=== PATIENT | female | born 1960 | race Two or more races ===

== ENCOUNTER 2021-04-16 13:49 | Outpatient (REF) | payer OTHER, SELFPAY ==
[2021-04-16 15:03] LABS: MANUAL DIFF FLAG NO
[2021-04-16 15:49] LABS: Basophils Absolute Auto 0.1 X10*3/uL (0.0-0.2); Basophils Percent Auto 0.8 % (0-2); Eosinophils Absolute Auto 0.1 X10*3/uL (0.0-0.4); Eosinophils Percent Auto 1.4 % (0-4); Hematocrit 39.8 % (37.0-47.0); Imm Gran Abs Auto 0.02 X10*3/uL (0.00-0.03); Imm Gran Pct Auto 0.2 % (0.0-0.4); Lymphocytes Absolute Auto 3.1 X10*3/uL (1.2-4.9); Lymphocytes Percent Auto 37.2 % (20-40); Mean Corpuscular HGB Conc 32.7 g/dl (31.0-35.0); Mean Corpuscular Hemoglobin 28.3 pg (27.0-33.0); Mean Corpuscular Volume 86.7 fL (80.0-98.0); Mean Platelet Volume 9.9 fL (9.4-12.3); Monocytes Absolute Auto 0.6 X10*3/uL (0.1-1.2); Neutrophils Absolute Auto 4.4 x10*3/uL (2.0-8.3); Neutrophils Percent Auto 53.4 % (45-73); Platelet Count 289 X10*3/uL (160-400); Red Blood Count 4.59 X10*6/uL (4.20-5.50); Red Cell Distribution Width 14.1 % (11.0-16.0); White Blood Count 8.3 X10*3/uL (4.8-10.8)
== END 2021-04-16 13:50 | disposition home or self-care (01) ==
LOC: HO.LAB 13:49
PROVIDERS: PCP Physician Assistant; Visit Provider Internal Medicine Pulmonary Disease
DX: J44.9 Chronic obstructive pulmonary disease, unspecified (principal); R91.8 Other nonspecific abnormal finding of lung field; Z91.09 Other allergy status, other than to drugs and biological substances
CPT/HCPCS: 36415; 82785; 85025; 86003; 99202

== ENCOUNTER → 2021-08-01 12:50 | Outpatient (BNVA) | payer OTHER, SELFPAY | PROVIDERS: PCP Physician Assistant; Visit Provider Internal Medicine Pulmonary Disease | DX: J44.9 Chronic obstructive pulmonary disease, unspecified (principal) | CPT/HCPCS: 99211 ==

== ENCOUNTER → 2021-09-12 10:17 | Outpatient (BNVA) | payer OTHER, SELFPAY | PROVIDERS: PCP Physician Assistant; Visit Provider Internal Medicine Pulmonary Disease | DX: R91.8 Other nonspecific abnormal finding of lung field (principal); J44.9 Chronic obstructive pulmonary disease, unspecified; F17.210 Nicotine dependence, cigarettes, uncomplicated; Z88.8 Allergy status to other drugs, medicaments and biological substances; Z91.09 Other allergy status, other than to drugs and biological substances; Z79.52 Long term (current) use of systemic steroids; Z79.899 Other long term (current) drug therapy | CPT/HCPCS: 99212 ==

== ENCOUNTER 2021-10-29 15:31 | Outpatient (REF) | payer OTHER, SELFPAY ==
[2021-10-29 17:31] LABS: T4 Thyroxine 5.6 ug/dL (4.5-12.0)
== END 2021-10-29 15:32 | disposition home or self-care (01) ==
LOC: HO.LAB 15:31
PROVIDERS: PCP Physician Assistant; Visit Provider Psychiatry & Neurology Neurology
DX: G25.0 Essential tremor (principal)
CPT/HCPCS: 36415; 84436; 84443

== ENCOUNTER → 2022-02-04 13:29 | Outpatient (BNVA) | payer OTHER, SELFPAY | PROVIDERS: PCP Physician Assistant; Visit Provider Internal Medicine Pulmonary Disease | DX: J44.9 Chronic obstructive pulmonary disease, unspecified (principal); R91.8 Other nonspecific abnormal finding of lung field; Z91.09 Other allergy status, other than to drugs and biological substances | CPT/HCPCS: 99212 ==

== ENCOUNTER → 2022-08-13 13:12 | Outpatient (BNVA) | payer OTHER, SELFPAY | PROVIDERS: PCP Physician Assistant; Visit Provider Internal Medicine Pulmonary Disease | DX: J44.9 Chronic obstructive pulmonary disease, unspecified (principal); Z91.09 Other allergy status, other than to drugs and biological substances | CPT/HCPCS: 99212 ==

== ENCOUNTER → 2022-11-05 14:27 | Outpatient (BNVA) | payer MEDICAID, SELFPAY | PROVIDERS: PCP Physician Assistant; Visit Provider Nurse Practitioner Family | DX: J44.1 Chronic obstructive pulmonary disease with (acute) exacerbation (principal) | CPT/HCPCS: 94640; 99212 ==

== ENCOUNTER → 2022-12-03 12:20 | Outpatient (BNVA) | payer MEDICAID, SELFPAY | PROVIDERS: PCP Physician Assistant; Visit Provider Nurse Practitioner Family | DX: Z01.811 Encounter for preprocedural respiratory examination (principal); J44.9 Chronic obstructive pulmonary disease, unspecified | CPT/HCPCS: 99212 ==

== ENCOUNTER 2023-02-18 13:19 | Outpatient (AMB) | payer MEDICAID, SELFPAY ==
[2023-02-18 13:32] VITALS: BP 127/67; PULSE 67; O2SAT 97; BMI 32.9
--- NOTE | 2023-02-18 13:32 | MHC.OFFVIS ---
Intake Vital Signs 02/18/23 13:32 Height 5 ft 3 in Weight 186 lb BMI 32.9 BP 127/67 Blood Pressure Location Rt brachial Position Sitting Pulse 67 Pulse Source Doppler Pulse Oximetry (%) 97 Oxygen Delivery Method Room Air Intake Visit Reasons: dupixent discussion Allergies doxycycline Allergy (Mild, Verified 02/18/23 13:34) Unknown lamotrigine Allergy (Mild, Verified 02/18/23 13:34) Unknown metoclopramide Allergy (Mild, Verified 02/18/23 13:34) Unknown HPI dupixent discussion HPI Details 62-year-old lady, active 30+ pack-year smoker, with underlying history of lupus on Plaquenil, now followed for asthma/COPD overlap syndrome.? Patient continues to use Dupixent, Trelegy, Singulair, albuterol MDI, and p.r.n. prednisone 10 mg daily.? Here follow-up CT chest demonstrated no worrisome pulmonary nodules. She denies any recent exacerbations. [facility] Social History Patient Tobacco Use Status: Current everyday Tobacco user Cigarette Packs Per Day: 0.33 Cigarettes Per Day: 6 Review of Systems Const Denies daytime sleepiness, Denies excessive sweating, Denies fatigue, Denies fever(s), Denies lethargy, Denies malaise, Denies night sweats, Denies snoring and Denies weight loss Eyes Denies blurry vision and Denies itchy eyes ENT Denies nasal congestion, Denies post nasal drip, Denies sinus pain, Denies sinus pressure and Denies other ( Thrush) Card Denies chest pain, Denies pedal edema, Denies dyspnea, Denies orthopnea and Denies paroxysmal nocturnal dyspnea Resp Denies cough, Denies hemoptysis, Denies excessive phlegm production, Denies dyspnea, Denies snoring and Denies wheezing GI Denies abdominal pain and Denies heartburn Musc Denies myalgias, Denies arthralgias and Denies joint swelling Skin/Breast Denies rash Neuro Denies memory loss and Denies seizure-like activity Psych Denies abnormal sleep pattern, Denies anxiety and Denies memory loss Endo Denies excessive sweating, Denies fatigue and Denies heat intolerance Moncho/Lymph Denies easy bruising Aller/Immun Denies itchy eyes, Denies seasonal rhinorrhea and Denies wheezing Physical Exam Vital Signs: Last Vital Signs Pulse 67 02/18/23 13:32 BP 127/67 02/18/23 13:32 Pulse Ox 97 02/18/23 13:32 Oxygen Delivery Method Room Air 02/18/23 13:32 BMI result Body Mass Index 32.9 Const General: no acute distress and alert Nutritional Appearance: not obese Orientation/consciousness: Other orientation findings ( oriented) HEENT Head: Yes atraumatic Eyes General: appearance normal, both eyes and all related structures Sclerae: sclerae normal EOM: EOMs intact bilaterally Neck Neck: Yes supple Lymphatic: no lymphadenopathy noted Resp Effort & Inspection: normal respiratory effort and no use of accessory muscles Auscultation: clear to auscultation bilaterally Cardio Rate: regular rate Rhythm: regular rhythm Heart sounds: no gallops, no murmurs and no rubs Skin General skin exam: other ( warm) Extrem General: No clubbing, No cyanosis and No edema Assessment & Plan Assessment & Plan (1) Asthma-COPD overlap syndrome: Code(s): J44.9 - Chronic obstructive pulmonary disease, unspecified Plan: Well controlled on current regimen of Dupixent, trilogy, and albuterol MDI/nebs. Continue current regimen. (2) Pulmonary nodules: Code(s): R91.8 - Other nonspecific abnormal finding of lung field Plan: Follow-up CT chest review, no worrisome nodules. Continue with yearly screening, next in April of 2023. Coding Level of Care Code Est Pt Level 4 (77232) Diagnoses Asthma-COPD overlap syndrome J44.9 Pulmonary nodules R91.8
== END 2023-02-18 13:51 | disposition home or self-care (01) ==
PROVIDERS: PCP Physician Assistant; Visit Provider Internal Medicine Pulmonary Disease
DX: J44.9 Chronic obstructive pulmonary disease, unspecified (principal); R91.8 Other nonspecific abnormal finding of lung field
CPT/HCPCS: 99214

== ENCOUNTER → 2023-02-18 13:19 | Outpatient (BNVA) | payer MEDICAID, SELFPAY | PROVIDERS: PCP Physician Assistant; Visit Provider Internal Medicine Pulmonary Disease | DX: J44.9 Chronic obstructive pulmonary disease, unspecified (principal); R91.8 Other nonspecific abnormal finding of lung field | CPT/HCPCS: 99212 ==

== ENCOUNTER 2023-10-22 15:28 | Outpatient (REF) | payer MEDICAID, SELFPAY | END 2023-10-22 15:29 | disposition home or self-care (01) | LOC: HO.SH 15:28 | PROVIDERS: Visit Provider Physician Assistant | DX: H91.93 Unspecified hearing loss, bilateral (principal) | CPT/HCPCS: 92557; 92567 ==

== ENCOUNTER 2024-06-21 13:54 | Outpatient (AMB) | payer MEDICAID, SELFPAY ==
--- NOTE | 2024-06-21 13:57 | MHC.OFFVIS ---
Vital Signs 06/21/24 14:10 Height 5 ft 3 in Weight 186 lb BMI 32.9 BP 138/77 Blood Pressure Location Rt brachial Position Sitting Pulse 61 Pulse Source Doppler Pulse Oximetry (%) 96 Oxygen Delivery Method Room Air Intake Visit Reasons: Asthma-COPD overlap syndrome Steel Unloader Required: Yes Steel Unloader Name: Petra Cristino Galan Allergies doxycycline Allergy (Mild, Verified 06/21/24 14:16) Unknown lamotrigine Allergy (Mild, Verified 06/21/24 14:16) Unknown metoclopramide Allergy (Mild, Verified 06/21/24 14:16) Unknown HPI HPI Asthma-COPD overlap syndrome: Details: 63-year-old lady, active 30+ pack-year smoker, with underlying history of lupus on Plaquenil, now followed for asthma/COPD overlap syndrome.? Patient continues to use Dupixent, Trelegy, Singulair, albuterol MDI, and p.r.n. prednisone 10 mg daily.? She recently has been hospitalized at [facility] for an acute exacerbation secondary to influenza. She has recovered, albeit not completely and now complains of persistent dry cough. [facility]END[facility] Social History Patient Tobacco Use Status: Current everyday Tobacco user Cigarette Packs Per Day: 0.33 Cigarettes Per Day: 6 Review of Systems Const Denies daytime sleepiness, Denies excessive sweating, Denies fatigue, Denies fever(s), Denies lethargy, Denies malaise, Denies night sweats, Denies snoring and Denies weight loss Eyes Denies blurry vision and Denies itchy eyes ENT Denies nasal congestion, Denies post nasal drip, Denies sinus pain, Denies sinus pressure and Denies other ( Thrush) Card Denies chest pain, Denies pedal edema, Denies dyspnea, Denies orthopnea and Denies paroxysmal nocturnal dyspnea Resp Reports cough, Denies hemoptysis, Denies excessive phlegm production, Denies dyspnea, Denies snoring and Reports wheezing GI Denies abdominal pain and Denies heartburn Musc Denies myalgias, Denies arthralgias and Denies joint swelling Skin/Breast Denies rash Neuro Denies memory loss and Denies seizure-like activity Psych Denies abnormal sleep pattern, Denies anxiety and Denies memory loss Endo Denies excessive sweating, Denies fatigue and Denies heat intolerance Moncho/Lymph Denies easy bruising Aller/Immun Denies itchy eyes, Denies seasonal rhinorrhea and Reports wheezing Physical Exam Vital Signs: Last Vital Signs Pulse 61 06/21/24 14:10 BP 138/77 06/21/24 14:10 Pulse Ox 96 06/21/24 14:10 Oxygen Delivery Method Room Air 06/21/24 14:10 BMI result Body Mass Index 32.9 Const General: no acute distress and alert Nutritional Appearance: not obese Orientation/consciousness: Other orientation findings ( oriented) HEENT Head: Yes atraumatic Eyes General: appearance normal, both eyes and all related structures Sclerae: sclerae normal EOM: EOMs intact bilaterally Neck Neck: Yes supple Lymphatic: no lymphadenopathy noted Resp Effort & Inspection: normal respiratory effort and no use of accessory muscles Auscultation: clear to auscultation bilaterally Cardio Rate: regular rate Rhythm: regular rhythm Heart sounds: no gallops, no murmurs and no rubs Skin General skin exam: other ( warm) Extrem General: No clubbing, No cyanosis and No edema Assessment & Plan Assessment & Plan (1) Asthma-COPD overlap syndrome: Code(s): J44.9 - Chronic obstructive pulmonary disease, unspecified Category: Medical Plan: Baseline controlled on Dupixent, Trelegy and albuterol MDI/nebs. Continue current regimen. Still with ongoing exacerbation, will treat with a course of azithromycin/prednisone. (2) Environmental allergies: Code(s): Z91.09 - Other allergy status, other than to drugs and biological substances Category: Medical Plan: Well controlled on Dupixent. Continue current regimen. (3) Personal history of nicotine dependence: Code(s): Z87.891 - Personal history of nicotine dependence Category: Medical Plan: Will obtain lung cancer screening CT chest. Medications: New prednisone 40 mg (2 x 20 mg) PO DAILY 10 tabs 0RF azithromycin For 250 mg dose pack: take 500 mg today (day 1), then 250 mg for 4 days (days 2-5) PO 6 tabs 0RF Changed From albuterol sulfate 90 mcg/actuation (ProAir HFA) 2 puffs inhalation Q6H PRN 8.5 grams 6RF shortness of breath or wheezing To albuterol sulfate 90 mcg/actuation 2 puffs inhalation Q6H PRN 8.5 grams 6RF shortness of breath or wheezing Refilled albuterol sulfate 2.5 mg (3 mL) inhalation QID 90 mL 3RF pdoycdixhbs-bxutrhnxh-zwjgrgki 100-62.5-25 mcg (Trelegy Ellipta) 1 inh inhalation DAILY 60 ea 6RF dupilumab (Dupixent) 300 mg (2 mL) subcut Q2W 4 mL 12RF Discontinued prednisone Take 4 pills daily for 7 days, then go down by 1 pill every 7 days Discontinued Reason: Doctor's Order 10 mg PO DIRECTED 28 days 28 tabs 0RF Coding Level of Care Code Est Pt Level 4 (22638) Complex EM visit Add On G2211 Diagnoses Asthma-COPD overlap syndrome J44.9 Environmental allergies Z91.09 Personal history of nicotine dependence Z87.891
[2024-06-21 14:10] VITALS: BP 138/77; PULSE 61; O2SAT 96; BMI 32.9
== END 2024-06-21 14:25 | disposition home or self-care (01) ==
PROVIDERS: PCP Physician Assistant; Visit Provider Internal Medicine Pulmonary Disease
DX: J44.9 Chronic obstructive pulmonary disease, unspecified (principal); Z91.09 Other allergy status, other than to drugs and biological substances; Z87.891 Personal history of nicotine dependence
CPT/HCPCS: 99214

== ENCOUNTER → 2024-06-21 13:54 | Outpatient (BNVA) | payer MEDICAID, SELFPAY | PROVIDERS: PCP Physician Assistant; Visit Provider Internal Medicine Pulmonary Disease | DX: J44.89 Other specified chronic obstructive pulmonary disease (principal); F17.210 Nicotine dependence, cigarettes, uncomplicated; Z91.09 Other allergy status, other than to drugs and biological substances | CPT/HCPCS: 99212 ==

== ENCOUNTER 2024-07-27 13:59 | Outpatient (AMB) | payer MEDICAID, SELFPAY ==
[2024-07-27 14:01] VITALS: BP 132/62; PULSE 71; O2SAT 96; BMI 33.1
--- NOTE | 2024-07-27 14:01 | MHC.OFFVIS ---
Vital Signs 07/27/24 14:01 Height 5 ft 3 in Weight 187 lb BMI 33.1 BP 132/62 Blood Pressure Location Lt brachial Position Sitting Pulse 71 Pulse Source Doppler Pulse Oximetry (%) 96 Oxygen Delivery Method Room Air Intake Visit Reasons: Asthma-COPD overlap syndrome Grinding Machine Operator Required: Yes Grinding Machine Operator Name: Petra Cristino Galan Allergies doxycycline Allergy (Mild, Verified 06/21/24 14:16) Unknown lamotrigine Allergy (Mild, Verified 06/21/24 14:16) Unknown metoclopramide Allergy (Mild, Verified 06/21/24 14:16) Unknown HPI HPI Asthma-COPD overlap syndrome: Details: 63-year-old lady, active 30+ pack-year smoker, with underlying history of lupus on Plaquenil, now followed for asthma/COPD overlap syndrome.? Patient continues to use Dupixent, Trelegy, Singulair, albuterol MDI, and p.r.n. prednisone 10 mg daily.? She denies recent exacerbations. However, she does complain of worsening lower extremity edema, orthopnea, and paroxysmal nocturnal dyspnea. [facility] Social History Patient Tobacco Use Status: Current everyday Tobacco user Cigarette Packs Per Day: 0.33 Cigarettes Per Day: 6 Review of Systems Const Denies daytime sleepiness, Denies excessive sweating, Denies fatigue, Denies fever(s), Denies lethargy, Denies malaise, Denies night sweats, Denies snoring and Denies weight loss Eyes Denies blurry vision and Denies itchy eyes ENT Denies nasal congestion, Denies post nasal drip, Denies sinus pain, Denies sinus pressure and Denies other ( Thrush) Card Denies chest pain, Reports pedal edema, Denies dyspnea, Denies dyspnea on exertion, Reports orthopnea and Reports paroxysmal nocturnal dyspnea Resp Denies cough, Denies hemoptysis, Denies excessive phlegm production, Denies dyspnea, Denies dyspnea on exertion, Denies snoring and Denies wheezing GI Denies abdominal pain and Denies heartburn Musc Denies myalgias, Denies arthralgias and Denies joint swelling Skin/Breast Denies rash Neuro Denies memory loss and Denies seizure-like activity Psych Denies abnormal sleep pattern, Denies anxiety and Denies memory loss Endo Denies excessive sweating, Denies fatigue and Denies heat intolerance Moncho/Lymph Denies easy bruising Aller/Immun Denies itchy eyes, Denies seasonal rhinorrhea and Denies wheezing Physical Exam Vital Signs: Last Vital Signs Pulse 71 07/27/24 14:01 BP 132/62 07/27/24 14:01 Pulse Ox 96 07/27/24 14:01 Oxygen Delivery Method Room Air 07/27/24 14:01 BMI result Body Mass Index 33.1 Const General: no acute distress and alert Nutritional Appearance: not obese Orientation/consciousness: Other orientation findings ( oriented) HEENT Head: Yes atraumatic Eyes General: appearance normal, both eyes and all related structures Sclerae: sclerae normal EOM: EOMs intact bilaterally Neck Neck: Yes supple Lymphatic: no lymphadenopathy noted Resp Effort & Inspection: normal respiratory effort and no use of accessory muscles Auscultation: clear to auscultation bilaterally Cardio Rate: regular rate Rhythm: regular rhythm Heart sounds: no gallops, no murmurs and no rubs Skin General skin exam: other ( warm) Extrem General: No clubbing, No cyanosis and Yes edema (1+ bilateral) Assessment & Plan Assessment & Plan (1) Asthma-COPD overlap syndrome: Code(s): J44.9 - Chronic obstructive pulmonary disease, unspecified Category: Medical Plan: Well controlled current regimen of Dupixent, Trelegy, duo nebs, and albuterol MDI. (2) Environmental allergies: Code(s): Z91.09 - Other allergy status, other than to drugs and biological substances Category: Medical Plan: Well controlled on Dupixent. Continue current regimen. (3) Personal history of nicotine dependence: Code(s): Z87.891 - Personal history of nicotine dependence Category: Medical Plan: Lung cancer screening CT chest ordered. (4) Orthopnea: Code(s): R06.01 - Orthopnea Category: Medical Plan: Worsening orthopnea and paroxysmal nocturnal dyspnea symptoms. Will start on Lasix 40 mg daily and reassess symptoms in 1 week. Medications: New furosemide 40 mg PO QAM 7 tabs 0RF Coding Level of Care Code Est Pt Level 4 (77748) Complex EM visit Add On G2211 Diagnoses Asthma-COPD overlap syndrome J44.9 Environmental allergies Z91.09 Personal history of nicotine dependence Z87.891 Orthopnea R06.01
--- OUTSIDE RECORDS SUMMARY | 2024-07-27 14:16 | XMS_ITS | Encounter Summary ---
Author Organization [facility] Address [address] [place] [address] Care Team Providers Care Service Tech/Welder Name Role Phone Quiana Rg PA-C Primary Care Provider Encounter Details Date Type Department Care Team (Latest Contact Info) Description 06/28/2024 Travel Social History Tobacco Use Types Packs/Day Years Used Date Smoking Tobacco: Former Cigarettes 0.5 40.7 S tarted: 11/02/1983 Passive Smoke Exposure: Never Smokeless Tobacco: Never Alcohol Use Standard Drinks/Week Comments No 0 (1 standard drink = 0.6 oz pur e alcohol) Social Connections Answer Date Recorded Connectedness 1 06/28/2024 Financial Resource Strain Answer Date R ecorded Financial Resource Strain 1 2024 Stress Answer Date Recorded Stress 1 06/28/2024 Physical Activity Answer Date Recorded Physical Activity 0 01/24/2019 Food Insecurity Answer Date Recorded Food 1 06/28/2024 Transportation Needs Answer Date Record ed Transportation 1 06/28/2024 Housing Stability Answer Date Recorded Housing 1 06/28/2024 Safety and Environment Answer Date Antwon rded Safety 1 10/09/2023 Utilities Answer Date Recorded Utilities 1 06/28/2024 Employment Answer Date Recorded Stress 0 08/26/2021 Comments No Sex and Gender Information Value Date Recorded Sex Assigned at Female 04/21/2017 12:18 PM PST Legal Sex Female 11:36 AM PDT Gender Identity Female 04/21/2017 12:18 PM PST Sexual Orientation Don't know 04/21/2017 12 :18 PM PST COVID-19 Exposure Response Date Recorded In the last 10 days, have yo u been in contact with someone who was confirmed or suspected to have Coronavirus/COVID-19? No / Unsure 06/28/2024 2:03 PM EST documented as of this encounter Plan of Treatment Upcoming Encounters Date Type Department Care Team (Late st Contact Info) Description 09/09/2024 1:20 PM EDT Office Visit [address] [phone] Quiana Rg PA-C [address] [place] [phone] documented as of this encounter Visit Diagnoses Not on filedocumented in this encounter Additional Health Concerns Assessment Noted Time PHQ-9 Depression Total Score: 5 06/28/19 25 2:12 PM PST documented as of this encounter Care Teams Service Tech/Welder Relationship Specialty Start Date End Date Quiana Rg PA-C [address] [place] [phone] PCP - General Internal Medicine 11/14/13 documented as of this encounter
--- OUTSIDE RECORDS SUMMARY | 2024-07-27 14:16 | XMS_ITS | Clinical Summary ---
Author Organization [employer] Address [address] [place] [address] [address] [place] [address] Care Team Providers Care Compliance Engineer Name Role Phone Unavailable Primary Care Provider Unavailabl e Social History Tobacco Use Types Packs/Day Years Used Date Smoking Tobacco: Never Assessed Comments Unknown Sex and Gender Information Value Date Recorded Sex Assigned at Female 04/07/2022 10:25 AM EDT Legal Sex Female 10:25 AM EDT Gender Identity Not on file Sexual Orientation Not on file Last Filed Vital Signs Vital Sign Reading Time Taken Comments Blood Pressure 150/80 06/28/2019 12:01 AM EST Pulse 70 06/28/2019 12:01 AM EST Temperature - - Respiratory Rate - - Oxygen Saturation - - Inhaled Oxygen Concentration - - Weight - - Height - - Body Mass Index - - Plan of Treatment Health Maintenance Due Date Last Done Comments CT Colonography 1961 Colonoscopy 1961 Colorectal Cancer Screening 1961 Depression Screening 1961 FIT DNA/Cologuard 1961 FIT 1961 FOBT 1961 Sigmoidoscopy 1961 Alcohol/Substance Use Screening 1973 Tobacco Screening 1973 DTaP/Tdap/Td Vaccines (1 - Tdap) 1980 Pap Smear 1982 Cervical Cancer Screening 11/02/1991 HPV/Cotest 11/02/1991 Mammogram 2001 Pneumococcal Vaccine: 50+ Ye ars (1 of 1 - PCV) 11/02/2011 Zoster Vaccines (1 of 2) 11/02/2011 COVID-19 Vaccine ( - 2023-2 5 season) 2024 Influenza Vaccine (#1) 2024 RSV Patients and Pa tients Aged 60 years or older (1 - 1-dose 75+ series) 2036 HIB Vaccines Aged Out No longer eligi ble based on patient's age to complete this topic HPV Vaccines Aged Out No longer eligi ble based on patient's age to complete this topic Hepatitis A Vaccines Aged Out No long er eligible based on patient's age to complete this topic Hepatitis B Vaccines Aged Out No long er eligible based on patient's age to complete this topic IPV Vaccines Aged Out No longer eligi ble based on patient's age to complete this topic Meningococcal Vaccine Aged Out No peng maria guadalupe eligible based on patient's age to complete this topic Pneumococcal Vaccine: Pediat rics (0 to 5 Years) and At-Risk Patients (6 to 49) Years) Aged Out No longer eligible b ased on patient's age to complete this topic RSV under 20 months Aged Out No longe r eligible based on patient's age to complete this topic Rotavirus Vaccines Aged Out No longer eligible based on patient's age to complete this topic
--- OUTSIDE RECORDS SUMMARY | 2024-07-27 14:16 | XMS_ITS | Data Portability ---
Author Organization [place] [facility], Allergy Address [address] [facility] [address] [place] [address] Care Team Providers Care Sales Program Manager Name Role Phone KOSTA BIRMINGHAM Referring Provider [phone] Assessment No assessment recorded. Plan of Treatment Reminders Order Date Submit Date Provider Last Modified By Organization Details Last Modified Time Details Appointments Hearing Test 2024 09:30A M Hearing Test Not available Not available Not available Establish ed 30 2024 10:30A M ADRIANA Quach MD Not available Not available Not available Lab None recorded. Referral None recorded. Procedures None recorded. Surgeries None recorded. Imaging None recorded. Medication Orders clotrimaz ole 1 % topical solution 2023 024 [id number], [address] [facility], [place], [place], [id number], 02/03/2024 09:37:45 Patient TargetsNo targets recorded. Patient InstructionsNo instructions recorded. Reason for Referral None Reported. Results Created Date Observation Date Name Description Value Unit Range Abnormal Flag Note LastModifiedBy Organization Detail LastModifiedTime 01/27/20 24 05/22/2021 imagi ng/di agnos tic resul t No observ ation record ed. [email or web address] Not Available 21:58:02 Result Notes None recorded. Problems Name Problem SNOMED Code Status Onset Date Resolution Date Notes Provider Name and Address Organization Details Recorded Time Dizziness and giddiness 227552866 Active 2020 Dizziness and giddiness; Note: Date Diagnosed: 03/27/2021 2:37 PM (R42) Not Available [facility] 08/02/202 4 03:30:07 Disorder of smell 446855531 Active 2020 Unspecifie d disturbanc es of smell and taste; Note: Date Diagnosed: 03/27/2021 2:37 PM (R43.9) Not Available [facility] 4 03:30:07 Disorder of taste 504097767 Active 2020 Unspecifie d disturbanc es of smell and taste; Note: Date Diagnosed: 03/27/2021 2:37 PM (R43.9) Not Available [facility] hospital 4 03:30:07 Eczema of external auditory canal 42963438 Active 2023 ADRIANA BRIDGES MD [address] [place] [address],[place] [address], [place], [address] , [facility] - [facility] 4 08:57:45 Sensorine ural hearing loss of bilateral ears 861679599 Active 2023 ADRIANA BRIDGES MD [address] [place] [address], [place], [address] , [facility] - [facility] [place] 4 08:57:50 Chronic mycotic otitis externa 817257150 Active 2023 ADRIANA BRIDGES MD [address] [place] [address], [place], [address] , [facility] - [facility] [place] 4 09:00:19 Dermal mycosis 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 Active 2023 ADRIANA BRIDGES MD [address] [place] [address], [place], [address] , [facility] - [facility] [place] 4 09:00:19 Candidal otitis externa 98045948 Active 2023 ADRIANA BRIDGES MD [address] [place], [place] [address], [address] , [facility] - [facility] [place] 4 09:00:19 Mixed conductiv e AND sensorine ural hearing loss 30240677 Active 2023 ADRIANA BRIDGES MD [address] [place] [address], [place], [address] , [facility] 09:35:49 Problem Notes None recorded. Procedures Surgical History Date Name Laterality Status Provider Name and Address Organization Details Recorded Time 02/03/2024 NasalEndos copy_DP completed ADRIANA BRIDGES MD [address] [place] [address], [phone], [place] [facility] 02/03/2024 09:05:14 Imaging Results Imaging Date Name Status LastModified by Organiz ation Details LastModified Time 05/22/2021 imaging/diag nostic result completed [email or web address] Information not available 01/27/2024 21:58:02 Procedure Notes None recorded. Medical Equipment None Reported. Medications Name Sig Start Date Stop Date Status Note LastModified by Organization Details LastModified Time celecoxib 200 mg capsule active Medicati on ID: [id number] B rand Name: celecoxi b Send Method: E-Prescr ibed Sub s Allowed: subs OK Speci al Instruct ion: TAKE 1 CAPSULE BY MOUTH TWICE DAILY Me dication GenericN eduar: celecoxi b Not Available Not Available Not Available primidone 50 mg tablet TAKE 1 TABLET BY MOUTH EVERY DAY AT BEDTIME active Not Available Not Available No t Available nystatin 100,000 unit/mL oral suspensio n active Medicati on ID: [id number] B rand Name: nystatin Send Method: E-Prescr ibed Sub s Allowed: subs OK Speci al Instruct ion: SWISH AND SWALLOW 10ML THREE TIMES DAILY Me dication GenericN eduar: nystatin Not Available Not Available Not Available gabapenti n 600 mg tablet TAKE 1 TABLET BY MOUTH THREE TIMES DAILY active Not Available Not Available No t Available tizanidin e 2 mg tablet TAKE 1 TABLET BY MOUTH THREE TIMES DAILY NEEDED FOR SPASMS active Not Available Not Available No t Available albuterol sulfate 2.5 mg/3 mL (0.083 %) solution for nebulizat ion active Not Available Not Available Not Available loperamid e 2 mg capsule TAKE 1 CAPSULE BY MOUTH FOUR TIMES DAILY NEEDED FOR DIARRHEA active Not Available Not Available No t Available azithromy garry 250 mg tablet TAKE 1 TABLET BY MOUTH DAILY FOR 10 DAYS active Not Available Not Available No t Available ibuprofen 800 mg tablet TAKE 1 TABLET BY MOUTH THREE TIMES DAILY NEEDED FOR PAIN active Not Available Not Available No t Available meloxicam 15 mg tablet TAKE 1 TABLET BY MOUTH active Not Available Not Available No t Available oxcarbaze pine 300 mg tablet TAKE 1 TABLET BY MOUTH THREE TIMES DAILY active Not Available Not Available No t Available amlodipin e 5 mg tablet TAKE 1 TABLET BY MOUTH DAILY active Not Available Not Available No t Available sulfameth oxazole 800 mg-trimet hoprim 160 mg tablet TAKE 1 TABLET BY MOUTH TWICE DAILY FOR 5 DAYS active Not Available Not Available No t Available omeprazol e 40 mg capsule,d elayed release TAKE 1 CAPSULE BY MOUTH DAILY active Not Available Not Available No t Available tramadol 50 mg tablet TAKE 1 TABLET BY MOUTH TWICE DAILY active Not Available Not Available No t Available ketorolac 0.5 % eye drops active Not Available Not Available Not Available oxycodone -acetamin ophen 5 mg-325 mg tablet TAKE 1 TABLET BY MOUTH EVERY 6 HOURS NEEDED FOR PAIN DO NOT DRIVE WHILE TAKING THIS MEDICATI ON active Not Available Not Available No t Available amoxicill in 875 mg tablet TAKE 1 TABLET BY MOUTH TWICE DAILY FOR 10 DAYS 02/02 completed Not Available Not Available Not Available erythromy garry 5 mg/gram (0.5 %) eye ointment APPLY A SMALL AMOUNT INTO BOTH EYES FOUR TIMES DAILY TO INCISION SITE FOR 1 WEEK THEN STOP active Not Available Not Available No t Available Banophen 25 mg tablet TAKE 1 TABLET BY MOUTH TWICE DAILY NEEDED active Not Available Not Available No t Available neomycin- polymyxin -dexameth 3.5 mg/mL-10, 000 unit/mL-0 .1% eye drops SHAKE LIQUID AND INSTILL 1 DROP IN BOTH EYES FOUR TIMES DAILY active Not Available Not Available No t Available buspirone 10 mg tablet TAKE 1 TABLET BY MOUTH TWICE DAILY FOR ANXIETY active Not Available Not Available No t Available lidocaine 5 % topical patch APPLY 2 PATCHES TO THE TO THE AFFECTED AREA FOR 12 HOURS THEN REMOVE FOR 12 HOURS active Not Available Not Available No t Available promethaz ine 25 mg tablet TAKE 1 TABLET BY MOUTH EVERY 8 HOURS NEEDED FOR NAUSEA active Not Available Not Available No t Available clotrimaz ole 1 % topical solution APPLY 4 DROPS TO THE AFFECTED AREA ON EAR THREE TIMES DAILY FOR 2 WEEKS active Not Available Not Available No t Available docusate sodium 100 mg capsule TAKE 1 CAPSULE BY MOUTH TWICE DAILY NEEDED FOR CONSTIPA TION active Not Available Not Available No t Available pseudoeph edrine 30 mg tablet TAKE 1 TABLET BY MOUTH EVERY MORNING active Not Available Not Available No t Available monteluka st 10 mg tablet active Medicati on ID: [id number] B alexandru Name: paul layton Send Method: E-Prescr ibed Sub s Allowed: subs OK Speci al Instruct ion: TAKE 1 TABLET BY MOUTH AT BEDTIME Medicati onGeneri cName: monteluk ast Not Available Not Available Not Available hydroxych loroquine 200 mg tablet TAKE 1 TABLET BY MOUTH TWICE DAILY active Not Available Not Available No t Available zolpidem 10 mg tablet TAKE 1 TABLET BY MOUTH AT BEDTIME NEEDED active Not Available Not Available No t Available methylpre dnisolone 4 mg tablets in a dose pack FOLLOW PACKAGE DIRECTIO NS active Not Available Not Available No t Available piroxicam 20 mg capsule TAKE 1 CAPSULE BY MOUTH DAILY active Not Available Not Available No t Available loratadin e 10 mg tablet TAKE 1 TABLET BY MOUTH EVERY DAY AT BEDTIME active Not Available Not Available No t Available oxycodone 5 mg tablet TAKE 1 TABLET BY MOUTH EVERY 6 HOURS NEEDED FOR MODERATE PAIN active Not Available Not Available No t Available moxifloxa garry 0.5 % eye drops INSTILL 1 DROP IN BOTH EYES THREE TIMES DAILY active Not Available Not Available No t Available rosuvasta tin 20 mg tablet TAKE 1 TABLET BY MOUTH EVERY NIGHT AT BEDTIME active Not Available Not Available No t Available duloxetin e 60 mg capsule,d elayed release TAKE 1 CAPSULE BY MOUTH TWICE DAILY active Not Available Not Available No t Available oxycodone 10 mg tablet TAKE 1 TABLET BY MOUTH EVERY 4 TO 6 HOURS NEEDED FOR PAIN. DO NOT DRIVE WHILE TAKING THIS MEDICATI ON active Not Available Not Available No t Available melatonin 10 mg-lemon balm leaf extract 1 mg tablet TAKE 1 TABLET BY MOUTH AT BEDTIME FOR SLEEP active Not Available Not Available No t Available naloxone 4 mg/actuat ion nasal spray INSERT 1 SPRAY INTO THE NOSTRILS NEEDED FOR OPIOID REVERSAL active Not Available Not Available No t Available Trelegy Ellipta 100 mcg-62.5 mcg-25 mcg powder for inhalatio n INHALE 1 PUFF BY MOUTH DAILY active Not Available Not Available No t Available Dupixent 300 mg/2 mL subcutane ous pen injector active Not Available Not Available Not Available Flowflex COVID-19 Antigen Home Test kit TEST DIRECTED TODAY active Not Available Not Available No t Available Vitals Date Recorded Body height Body mass index (BMI) Body weight Provider Name and Address Organization Details Last Updated DateTime 02/03/2024 160.02 cm 32.8 kg/m2 75435.59 g Pardeep [place] [facility] 02/03/2024 08:43:41 Social History None recorded. Functional Status None recorded. Mental Status None recorded. Family History Nothing Reported. Medical History No medical history recorded. Gynecological HistoryNo gynecological history recorded. Obstetrics History GPAL:G 0 P 0 0 0 0 Past Encounters Encounter ID Performer Location Encounter Start Date Encounter Closed Date Diagnosis/Indication Diagnosis SNOMED-CT Code Diagnosis ICD10 Code Diagnosis Note [id number] ADRIANA BRIDGES MD [facility] [address] [address] 02/03/2024 08:22:53 02/03/2024 09:43:47 Eczema of external auditory canal 21734284 H60.549 She has eczema in her EAC. I will send clotrimazo le to use when her ears are itchy. Disorder of smell 230828 005 R43.9 Nasal endo negative for polyps. Will obtain labs of factors which can affect sense of smell. F/u thereafter . Mixed cond uctive AND sensorineural hearing loss 96560351 H90.8 Has mixed los AD. TM is retracted. Long history of ETD (used to see Dr. Jain and had MxT). Recommend observatio n. She has asymmetric SNHL as well. She can't have an MRI due to a nerve stimulator she says. I recommend serial audiograms to make sure the hearing asymemtry is stable. F/u in October for repeat audio. I gave medical clearance for hearing aids. F/u 10/2024 with audio. Health Concerns Section Related Observation LastModified by Organization Detai ls LastModified Time None Recorded Concern Status LastModified by Organization Details LastModified Time None Recorded Advance Directives Directive None Recorded Payers Encounter Date Sequence Insurance Name Policy Number Policy Ma Covered Member ID Ma Member ID Guarantor Name 02/03/2024 1 [place] [employer] Kourtney Semprit Nieves [id number] Kourtney Semprit Nieves Notes Date Note Type Note Provider Name and Address Organization Details Recorded Time 02/03/2024 text/html She has occasional tinnitus. Had an audio at [facility] that we requested. She reports both ears are itchy. She uses q-tips occasionally. She reports she lost her sense of smell prior to the pandemic. She did not have a URI. She can smell only very strong scents like gasoline. ADRIANA BRIDGES MD [address] [place] [address], [place], [address], [place] [facility] 02/03/2024 09:37:43 OBGyn Episode No OBEpisode recorded.
--- OUTSIDE RECORDS SUMMARY | 2024-07-27 14:16 | XMS_ITS | Encounter Summary ---
Author Organization [facility] Address [address] [place] [address] Care Team Providers Care Heavy Mobile Equipment Operator Name Role Phone Laxmi Luevano CRYS Primary Care Provider [phone] Encounter Details Date Type Department Care Team (Late st Contact Info) Description 07/06/2024 Telephone [facility] [place] [address] [place] [address] Gwen Queen PA [address] [place] [address] Social History Tobacco Use Types Packs/Day Years Used Date Smoking Tobacco: Every Day Cigarettes Smokeless Tobacco: Never Alcohol Use Standard Drinks/Week Comments No 0 (1 standard drink = 0.6 oz pur e alcohol) Housing Instability Answer Date Recorde d Are you worried that in the next 2 months you may not have stable housing? No 06/07/2024 Food Access & Nutrition Answer Date Rec orded Do you have access to a vari ety of food including fruits and vegetables? Yes 06/07/2024 Health Literacy Answer Date Recorded How often do you need to hav e someone help you when you read instructions, pamphlets, or other written material from your doctor or pharmacy? Rarely 06/07/2024 Caregiver: How often do you need to have someone help you when you read instructions, pamphlets, or other written material from your doctor or pharmacy? Not on file 06/07/2024 Financial Risk Answer Date Recorded How hard is it for you to pa y for the very basics like food, housing, medical care, and air conditioning / heating? Not very hard 06/07/2024 Transportation Answer Date Recorded Has the lack of transportati on kept you from meetings, work, or from getting things needed for daily living? No Has the lack of transportati on kept you from medical appointments or from getting medications? No 06/07/2024 Social Isolation Answer Date Recorded How often do you feel lonely or isolated from th ose around you? Never 06/07/2024 Food Risk Answer Date Recorded Within the past 12 months we worried whether our food would run out before we got money to buy more. Never true 06/07/2024 Within the past 12 months th e food we bought just didn't last and we didn't have money to get more. Never true 06/07/2024 Dependent Care Answer Date Recorded Do you need help finding or paying for care for your loved ones. For example, child care attendant school or elderly care for an older adult? Patient declined 06/07/2024 Education Answer Date Recorded Do you think completing more education or training, like finishing a GED, going to college, or learning a trade, would be helpful for you? No 06/07/2024 Employment and Income Answer Date Recor ded During the last four weeks, have you been actively looking for work? Patient declined 06/07/2024 Living Situation Answer Date Recorded What is your living situation? 1 Interpersonal Safety Answer Date Record ed Physical Abuse 06/07/2024 Verbal Abuse 06/07/2024 Comments No Sex and Gender Information Value Date Recorded Sex Assigned at Female 04/29/2024 10:52 AM EST Legal Sex Female 6:13 AM EST Gender Identity Female 04/29/2024 10:52 AM EST Sexual Orientation Straight 04/29/2024 10 :52 AM EST documented as of this encounter Progress Notes * Mamta Herrera MA - 07/13/2024 8:35 AM EST Prior Authorization request has been faxed over to Medicaid for approval. * Isa Walton MA - 07/07/2024 8:37 AM EST I tried to reach patient to let her know we are going to wait for her insurance to approve the botox. Was unable to reach patient her phone just kept ringing. * Isa Walton MA - 07/07/2024 8:33 AM EST [facility] wants this patient to get botox with the EGD. Can you please get an approval and let me know when its all set so I can schedule the patient. Thank you! * SHIKHA Hanson - 07/06/2024 4:37 PM EST Please schedule endoscopy with Botox injection for gastroparesis. She had that done last year with Dr. Fernandez and helped a lot thank you documented in this encounter Plan of Treatment Upcoming Encounters Date Type Department Care Team (Late st Contact Info) Description 10/04/2024 2:40 PM EDT Office Visit [facility]ology - [place] [address] [place] [address] Gwen Queen PA [address] [place] [address] documented as of this encounter Visit Diagnoses Not on filedocumented in this encounter Care Teams Heavy Mobile Equipment Operator Relationship Specialty Start Date End Date Laxmi Luevano FNP [address] [place] [address] PCP - General Internal Medicine 12/05/20 documented as of this encounter
--- OUTSIDE RECORDS SUMMARY | 2024-07-27 14:16 | XMS_ITS | Encounter Summary ---
Author Organization [facility] Address [address] [place] [address] Care Team Providers Care Family Services Manager Name Role Phone Laxmi Luevano CRYS Primary Care Provider [phone] Reason for Visit * Reason Comments Bloated Gastroparesis Encounter Details Date Type Department Care Team (Latest Contact Info) Description 07/06/2024 2:00 PM EST Office Visit [facility] - [place] [address] [place] [phone] Gwen Queen PA [address] [place] [address] Gastroparesis (Primary Dx); Gas bloat syndrome; Irritable bowel syndrome with both constipation and diarrhea Social History Tobacco Use Types Packs/Day Years [...] for your loved ones. For example, child development consultant or elderly care for an older adult? [...] AM EST documented as of this encounter Last Filed Vital Signs Vital Sign Reading Time Taken Comments Blood Pressure 124/66 07/06/2024 1:54 PM EST Pulse - - Temperature - - Respiratory Rate - - Oxygen Saturation - - Inhaled Oxygen Concentration - - Weight 83.5 kg (184 lb) 07/06/2024 1:54 PM EST Height 158.8 cm (5' 2.5 ) 07/06/2024 1:54 PM EST Body Mass Index 33.12 07/06/2024 1:54 PM EST documented in this encounter Ordered Prescriptions Prescription Sig Dispense Quantity Refills Last Filled Start Date End Date lactulose (CHRONULAC) solution Take 30 mL (20 g total) by mouth 2 (two) times a day. 1800 mL 3 07/06/2024 erythromycin ethylsuccinate (E.E.S. Granules) 200 mg/5 mL suspension Take 5 mL (200 mg total) by mouth 4 (four) times a day (with meals and nightly) for 10 days. 200 mL 07/06/2024 documented in this encounter Progress Notes * SHIKHA Hanson - 07/06/2024 2:00 PM EST CHIEF COMPLAINT: Chief Complaint Patient presents with Bloated Gastroparesis IDENTIFIER: Kourtney Reyes is a 63 y.o. old female HPI: Patient comes in for a follow-up. Last month she was very sick. She was diagnosed with hypoxia as well as bronchitis and influenza A. She was put on multiple medications. Since April, her abdomen bloating got worse. There is of gas. Abd discomfort. Constipation. But so far no nausea, no vomiting. No fever or chills. Patient believes that she needs another endoscopy with Botox injections to help with her gastroparesis. In addition, patient recently quit smoking. She is very happy about that. ROS: GENERAL: No malaise, significant weight loss or fever HEENT: No changes in hearing or vision, nose bleeds or other nasal problems NECK: No lumps, goiter, pain or significant neck swelling RESPIRATORY: No cough, wheezing or shortness of breath CARDIOVASCULAR: No chest pain, leg swelling or palpitations GI: See HPI. MUSCULOSKELETAL: No joint pain or swelling, back pain, or muscle pain. SKIN: No lesions, rash or itching NEURO: No persistent headache, syncope, seizures, weakness or numbness PAST MEDICAL HISTORY: Past Medical History: Diagnosis Date Asthma Chronic back pain Depression with anxiety Fibromyalgia GERD (gastroesophageal reflux disease) Hypercholesteremia Hypertension SLE (systemic lupus erythematosus) (CMS/HCC) Past Surgical History: Procedure Laterality Date APPENDECTOMY SECTION, LOW TRANSVERSE x3 CHOLECYSTECTOMY SPINAL CORD STIMULATOR IMPLANT TOTAL KNEE ARTHROPLASTY Left SOCIAL HISTORY: Social History Tobacco Use Smoking status: Every Day Types: Cigarettes Smokeless tobacco: Never Substance Use Topics Alcohol use: No FAMILY HISTORY: Family History Problem Relation Name Age of Onset Colon cancer Mother MEDICATIONS DISCONTINUED/REORDERED: There are no discontinued medications. ACTIVE MEDICATIONS: Current Outpatient Medications Medication Sig Dispense Refill albuterol 2.5 mg /3 mL (0.083 %) nebulizer solution Take 3 mL (2.5 mg total) by nebulization every 6 (six) hours if needed for wheezing or shortness of breath. albuterol HFA (ProAir HFA) 90 mcg/actuation inhaler INHALE 2 PUFFS INTO THE LUNGS EVERY 6 HOURS NEEDED FOR COUGH OR WHEEZING OR CHEST TIGHTNESS amLODIPine (Norvasc) 5 mg tablet Take 1 tablet (5 mg total) by mouth 1 (one) time each day. aspirin 81 mg EC tablet 81 mg. busPIRone (BUSPAR) 10 mg tablet Take 1 tablet (10 mg total) by mouth 2 (two) times a day. calcium carbonate/vitamin D3 (CALCIUM 600 + D,3, ORAL) Take by mouth. diphenhydramine HCl (BANOPHEN ORAL) Take 25 mg by mouth 2 (two) times a day if needed (pruritus). DULoxetine (CYMBALTA) [address] capsule Take 1 capsule (60 mg total) by mouth 2 (two) times a day. dupilumab (DUPIXENT) 300 mg/2 mL pen Inject 2 mL (300 mg total) under the skin every 14 (fourteen) days. cvoylptbeuc-rscgnlktosls-rcykqdsqxq (Trelegy Ellipta) 100-62.5-25 mcg inhaler Inhale 1 Puff into the lungs daily. folic acid (FOLVITE) 400 mcg tablet Take 1,000 tablets (400 mg total) by mouth 1 (one) time each day. gabapentin (NEURONTIN) 300 mg capsule Take 2 capsules (600 mg total) by mouth 3 (three) times a day. guaiFENesin (MUCINEX) 600 mg 12 hr tablet Take 1 tablet (600 mg total) by mouth every 12 (twelve) hours. Do not crush, chew, or split. 60 each 0 hydroxychloroquine (PLAQUENIL) 200 mg tablet Take 200 mg by mouth 2 times daily. ipratropium-albuteroL (DUONEB) 0.5-2.5 mg/3 mL nebulizer solution Take 3 mL by nebulization 4 (four) times a day. 360 mL 0 montelukast (SINGULAIR) 10 mg tablet Take 1 tablet (10 mg total) by mouth at bedtime. omeprazole (PriLOSEC) [address] capsule Take 1 Capsule by mouth daily. OXcarbazepine (TRILEPTAL) 300 mg tablet Take 1 tablet (300 mg total) by mouth at bedtime. piroxicam (FELDENE) 20 mg capsule Take 1 capsule (20 mg total) by mouth daily. primidone (MYSOLINE) 50 mg tablet Take 1 tablet (50 mg total) by mouth at bedtime. rosuvastatin (CRESTOR) 20 mg tablet Take 1 tablet (20 mg total) by mouth at bedtime. traMADoL (ULTRAM) 50 mg tablet Take 1 tablet (50 mg total) by mouth 2 (two) times a day. zolpidem (AMBIEN) 5 mg tablet Take 2 tablets (10 mg total) by mouth at bedtime as needed for sleep. erythromycin ethylsuccinate (E.E.S. Granules) 200 mg/5 mL suspension Take 5 mL (200 mg total) by mouth 4 (four) times a day (with meals and nightly) for 10 days. 200 mL 0 lactulose (CHRONULAC) solution Take 30 mL (20 g total) by mouth 2 (two) times a day. 1800 mL 3 nicotine (NICODERM CQ) 14 mg/[address] 1 patch on the skin 1 (one) time each day. 14 each 0 No current facility-administered medications for this visit. ALLERGIES: Allergies Allergen Reactions Doxycycline Rash Lamotrigine Lidocaine Rash/itching Metoclopramide PHYSICAL EXAM: Visit Vitals BP 124/66 (BP Location: Left arm, Patient Position: Sitting, BP Cuff Size: Adult) Ht 1.588 m (62.5 ) Wt 83.5 kg (184 lb) BMI 33.12 kg/m?? OB Status Postmenopausal Smoking Status Every Day BSA 1.86 m?? APPEARANCE: Alert and in no acute distress HEART: RRR with normal S1 and S2, no murmurs LUNG: clear to auscultation ABDOMEN: Bowel sounds normoactive, no bruits, soft, non-tender EXTREMITIES: Extremities warm and well perfused without clubbing, cyanosis, or edema NEURO: Awake, alert and oriented x 3 with symmetrical reflexes IMPRESSION: 1. Gastroparesis 2. Gas bloat syndrome 3. Irritable bowel syndrome with both constipation and diarrhea PLAN: Pleasant 63 years old Greek-speaking female whose past medical history includes nausea and gas and bloating related to gastroparesis, IBS with constipation diarrhea, COPD, who presents with exacerbation of gastroparesis and constipation. Last month hospitalized for hypoxia, bronchitis, influenza A. EGD and colo done on 2020 showed gastritis. Biopsy of the duodenum and stomach was unrevealing. Colonoscopy showed internal hemorrhoids. Because of family history of colon cancer, will repeat colonoscopy in 2025 years. Last year had endoscopy with Botox injections, which actually helped. Gastroparesis/bloating. I will put her on azithromycin. Patient should eat more often small portions throughout day. Will order again EGD with Botox injection as it helped before. IBS/constipation, will put her on lactulose. ROV- 3 mo. Total time of today's encounter is 40 minutes in preparing to see the patient, reviewing labs, diagnostic studies as well as other provider notes, documenting and charting, creating an HPI, performing a medically appropriate exam as well as counseling patient. There was documentation in EMR after visit. None of which time was spent performing separately billable procedures or ancillary services. Nicholas Hanson [facility] [address] [address] documented in this encounter Plan of Treatment Upcoming Encounters Date Type Department Care Team (Late st Contact Info) Description 10/04/2024 2:40 PM EDT Office Visit Gastroenterology - [place] [address] [phone] Gwen Queen PA [address] [place] [phone] documented as of this encounter Visit Diagnoses Diagnosis Gastroparesis- Primary Gas bloat syndrome Irritable bowel syndrome with both constipation and diarrhea documented in this encounter Care Teams Family Services Manager Relationship Specialty Start Date End Date Laxmi Luevano FNP [address] [place] [phone] PCP - General Internal Medicine 12/05/20 documented as of this encounter
--- OUTSIDE RECORDS SUMMARY | 2024-07-27 14:16 | XMS_ITS | Encounter Summary ---
Author Organization [facility] Address [address] [place] [address] Care Team Providers Care Licensed Guide Name Role Phone Quiana Rg PA-C Primary Care Provider [phone] Encounter Details Date Type Department Care Team (Late st Contact Info) Description 09/03/2015 Interim Notes [address] [phone] Fredrick Miller [address] [place] [id number] Pulmonary nodules Social History Tobacco Use Types Packs/Day Years Used Date Smoking Tobacco: Every Day Cigarettes 0.5 30 Smokeless Tobacco: Current Alcohol Use Standard Drinks/Week Comments No 0 (1 standard drink = 0.6 oz pur e alcohol) Comments No Sex and Gender Information Value Date Recorded Sex Assigned at Female 04/21/2017 12:18 PM PST Legal Sex Female 11:36 AM PDT Gender Identity Female 04/21/2017 12:18 PM PST Sexual Orientation Don't know 04/21/2017 12 :18 PM PST documented as of this encounter Plan of Treatment Upcoming Encounters Date Type Department Care Team (Late st Contact Info) Description 09/09/2024 1:20 PM EDT Office Visit [address] [phone] Quiana Rg PA-C [address] [place] [phone] documented as of this encounter Visit Diagnoses Diagnosis Pulmonary nodules Other nonspecific abnormal finding of lung field documented in this encounter Additional Health Concerns Infection Onset Date Last Indicated Resolved Time COVID-19 Comment:Added automatically based on visit diagnosis/problem list. 09/20/2020 09/20/2020 12/19/2020 7:09 PM PDT documented as of this encounter Care Teams Licensed Guide Relationship Specialty Start Date End Date Quiana Rg PA-C [address] [place] [phone] PCP - General Internal Medicine 11/14/13 documented as of this encounter
--- OUTSIDE RECORDS SUMMARY | 2024-07-27 14:16 | XMS_ITS | Encounter Summary ---
Author Organization [facility] Address [address] [place] [address] Care Team Providers Care Structural Engineering Project Manager Name Role Phone Quiana Rg PA-C Primary Care Provider [phone] Reason for Visit * Reason Comments Hospital Follow Up Encounter Details Date Type Department Care Team (Late st Contact Info) Description 06/28/2024 2:00 PM EST Office Visit [facility] Main [address] [place] [phone] Quiana Rg PA-C [address] [place] [phone] Community acquired pneumonia, unspecified laterality (Primary Dx); Tobacco use Social History Tobacco Use Types Packs/Day Years [...] PM EST documented as of this encounter Last Filed Vital Signs Vital Sign Reading Time Taken Comments Blood Pressure 122/64 06/28/2024 2:12 PM EST Pulse 71 06/28/2024 2:12 PM EST Temperature 36.8 ??C (98.2 ??F) 06/28/2024 2:12 PM ES T Respiratory Rate 16 06/28/2024 2:12 PM EST Oxygen Saturation 98% 06/28/2024 2:12 PM EST Inhaled Oxygen Concentration - - Weight 78.9 kg (174 lb) 06/28/2024 2:12 PM EST Height 160 cm (5' 3 ) 06/28/2024 2:12 PM EST Body Mass Index 30.82 06/28/2024 2:12 PM EST documented in this encounter Progress Notes * Quiana Rg PA-C - 06/29/2024 9:35 PM EST Subjective HPI Kourtney Nieves is a 63 year old female who presents for routine follow up, recent hospitalization due to flu and pneumonia Feeling better now Stopped smoking Needs nicotine patches Objective Vitals: 06/28/24 1412 BP: 122/64 BP Site: Left Arm BP Position: Sitting BP Cuff Size: Large Adult Pulse: 71 Resp: 16 Temp: 98.2 ??F (36.8 ??C) TempSrc: Oral SpO2: 98% Weight: 174 lb (78.9 kg) Height: 5' 3 (1.6 m) Estimated body mass index is 30.82 kg/m?? as calculated from the following: Height as of this encounter: 5' 3 (1.6 m). Weight as of this encounter: 174 lb (78.9 kg). Facility age limit for growth %roman is 20 years. Physical Exam Vitals reviewed. Constitutional: General: She is not in acute distress. Appearance: She is well-developed. She is not ill-appearing. HENT: Right Ear: Tympanic membrane, ear canal and external ear normal. No decreased hearing noted. Left Ear: Tympanic membrane, ear canal and external ear normal. No decreased hearing noted. Nose: Nose normal. Mouth/Throat: Pharynx: Uvula midline. Eyes: General: Lids are normal. Right eye: No discharge. Left eye: No discharge. Conjunctiva/sclera: Conjunctivae normal. Pupils: Pupils are equal, round, and reactive to light. Cardiovascular: Rate and Rhythm: Regular rhythm. Heart sounds: Normal heart sounds. No murmur heard. No friction rub. No gallop. Pulmonary: Effort: Pulmonary effort is normal. No respiratory distress. Breath sounds: Normal breath sounds. No decreased breath sounds, wheezing, rhonchi or rales. Musculoskeletal: Cervical back: Normal range of motion and neck supple. Lymphadenopathy: Cervical: No cervical adenopathy. Skin: General: Skin is warm and dry. Neurological: Mental Status: She is alert. Psychiatric: Behavior: Behavior is cooperative. Assessment and Plan J18.9 Community acquired pneumonia, unspecified laterality (primary encounter diagnosis) Plan : CODEINE 10 MG-GUAIFENESIN 100 MG/5 ML ORAL LIQUID - Take 5 mL by mouth 3 (three) times daily as needed for cough DO NOT TAKE with promethazine or ZOLPIDEM or GABAPENTIn Z72.0 Tobacco use Plan : NICOTINE 21 MG/24 HR DAILY TRANSDERMAL PATCH - Place 1 Patch onto the skin once daily (every 24 hours) NICOTINE (POLACRILEX) 4 MG GUM - Take 1 Each by mouth as needed for smoking cessation Counseling given: Not Answered documented in this encounter Plan of Treatment Upcoming Encounters Date Type Department Care Team (Late st Contact Info) Description 09/09/2024 1:20 PM EDT Office Visit [facility] [address] [place] [phone] Quiana Rg PA-C [address] [place] [phone] documented as of this encounter Visit Diagnoses Diagnosis Community acquired pneumonia, unspecified laterality- Primary Tobacco use Tobacco use disorder documented in this encounter Additional Health Concerns Assessment Noted Time PHQ-9 Depression Total Score: 5 06/28/19 25 2:12 PM PST documented as of this encounter Care Teams Structural Engineering Project Manager Relationship Specialty Start Date End Date Quiana Rg PA-C [address] [place] [phone] PCP - General Internal Medicine 11/14/13 documented as of this encounter
--- OUTSIDE RECORDS SUMMARY | 2024-07-27 14:16 | XMS_ITS | Clinical Summary ---
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 08/12/19 24 Active albuterol HFA (ProAir HFA) 90 mcg/actuation inhaler INHALE 2 PUFFS INTO THE LUNGS EVERY 6 HOURS NEEDED FOR COUGH OR WHEEZING OR CHEST TIGHTNESS 10/17/19 22 Active fluticasone-umecli dinium-vilanterol (Trelegy Ellipta) 100-62.5-25 mcg inhaler Inhale 1 Puff into the lungs daily. 06/14/19 22 Active diphenhydramine HCl (BANOPHEN ORAL) Take 25 mg by mouth 2 (two) times a day if needed (pruritus). Active calcium carbonate/vitamin D3 (CALCIUM 600 + D,3, ORAL) Take by mouth. Acti ve aspirin 81 mg EC tablet 81 mg. 07/19/19 16 Active gabapentin (NEURONTIN) 300 mg capsule Take 2 capsules (600 mg total) by mouth 3 (three) times a day. Active hydroxychloroquine (PLAQUENIL) 200 mg tablet Take 200 mg by mouth 2 times daily. Active zolpidem (AMBIEN) 5 mg tablet Take 2 tablets (10 mg total) by mouth at bedtime as needed for sleep. Active folic acid (FOLVITE) 400 mcg tablet Take 1,000 tablets (400 mg total) by mouth 1 (one) time each day. 01/23/20 23 Active montelukast (SINGULAIR) 10 mg tablet Take 1 tablet (10 mg total) by mouth at bedtime. 04/06/20 20 Active piroxicam (FELDENE) 20 mg capsule Take 1 capsule (20 mg total) by mouth daily. 02/23/20 24 Active primidone (MYSOLINE) 50 mg tablet Take 1 tablet (50 mg total) by mouth at bedtime. 01/22/20 22 Active rosuvastatin (CRESTOR) 20 mg tablet Take 1 tablet (20 mg total) by mouth at bedtime. 07/01/19 24 Active traMADoL (ULTRAM) 50 mg tablet Take 1 tablet (50 mg total) by mouth 2 (two) times a day. Active albuterol 2.5 mg /3 mL (0.083 %) nebulizer solution Take 3 mL (2.5 mg total) by nebulization every 6 (six) hours if needed for wheezing or shortness of breath. 06/17/19 19 Active busPIRone (BUSPAR) 10 mg tablet Take 1 tablet (10 mg total) by mouth 2 (two) times a day. 01/23/20 23 Active DULoxetine (CYMBALTA) [address] capsule Take 1 capsule (60 mg total) by mouth 2 (two) times a day. Active amLODIPine (Norvasc) 5 mg tablet Take 1 tablet (5 mg total) by mouth 1 (one) time each day. 01/23/20 23 Active OXcarbazepine (TRILEPTAL) 300 mg tablet Take 1 tablet (300 mg total) by mouth at bedtime. Active dupilumab (DUPIXENT) 300 mg/2 mL pen Inject 2 mL (300 mg total) under the skin every 14 (fourteen) days. Active guaiFENesin (MUCINEX) 600 mg 12 hr tablet Take 1 tablet (600 mg total) by mouth every 12 (twelve) hours. Do not crush, chew, or split. 60 each 06/10/19 25 026 Active ipratropium-albute roL (DUONEB) 0.5-2.5 mg/3 mL nebulizer solution Take 3 mL by nebulization 4 (four) times a day. 360 mL 06/10/19 25 026 Active nicotine (NICODERM CQ) 14 mg/[address] 1 patch on the skin 1 (one) time each day. 14 each 06/11/19 25 Active lactulose (CHRONULAC) solution Take 30 mL (20 g total) by mouth 2 (two) times a day. 1800 mL 3 07/06/19 25 Active erythromycin ethylsuccinate (E.E.S. Granules) 200 mg/5 mL suspension Take 5 mL (200 mg total) by mouth 4 (four) times a day (with meals and nightly) for 10 days. 200 mL 07/06/19 25 025 Active Problems Problem Noted Date Diagnosed Date Acute bronchitis 06/10/2024 Hypoxia 06/10/2024 Influenza A 06/07/2024 Influenza and pneumonia 06/06/2024 Oral candidiasis 02/16/2019 Nausea 01/13/2019 Gas bloat syndrome 01/13/2019 Irritable bowel syndrome wit h both constipation and diarrhea 01/13/2019 Gastroparesis 01/13/2019 Encounters Date Type Department Care Team Description 07/06/2024 2:00 PM EST Office Visit Gastroenterology [facility] [address] [phone] Gwen Queen PA Gastroparesis (Primary Dx); Gas bloat syndrome; Irritable bowel syndrome with both constipation and diarrhea 07/06/2024 Telephone Gastroenterology [facility] 175 [facility] [address] [phone] Gwen Queen PA 06/06/2024 1:53 PM EST - 06/10/2024 6:42 PM EST Hospital Encounter [facility] [address] [place] [phone] Felix Singh MD Nasser, Nada S, MD Hypoxia (Primary Dx); Acute bronchitis, unspecified organism; Influenza A Discharge Disposition: Home or Self Care 05/01/2024 9:14 AM EST - 05/01/2024 11:59 PM EST Hospital Encounter [facility] CT Scan [address] [place] [address] Encounter for screening for malignant neoplasm of respiratory organs; Nicotine dependence, cigarettes, uncomplicated Discharge Disposition: Home or Self Care 04/29/2024 Telephone Lung Screening Program - [facility] [address] [facility] [address] [place] [address] Krystal Magana [place] Appointment (1st notification) from Last 3 Months Immunizations Name Administration Dates Next Due Moderna SARS-CoV-2 COVID-19, mRNA, LNP-S, preservative free 12/04/2021,10/10/2020,09/12/2020 Surgical History Surgery Date Site/Laterality Comments SPINAL CORD STIMULATOR IMPLANT APPENDECTOMY CHOLECYSTECTOMY SECTION, LOW TRANSVERSE x3 TOTAL KNEE ARTHROPLASTY Left Medical History Medical History Date Comments Depression with anxiety Asthma Hypercholesteremia Hypertension GERD (gastroesophageal reflux disease) SLE (systemic lupus erythematosus) (CMS/HCC) Fibromyalgia Chronic back pain Family History Medical History Relation Name Comments Colon cancer Mother Relation Name Status Comments Mother Social History Tobacco Use Types Packs/Day Years Used Date Smoking Tobacco: Every Day Cigarettes Smokeless Tobacco: Never Tobacco Cessation:Ready to Q uit: No; Counseling Given: No Alcohol Use Standard Drinks/Week Comments No 0 [...] your loved ones. For example, child care giver or elderly care for an older adult? [...] Orientation Straight 04/29/2024 10 :52 AM EST Obstetrics History Para Term AB IAB SAB Ectopic Multiple Livin g Live Births 3 Last Filed Vital Signs Vital Sign Reading Time Taken Comments Blood Pressure 124/66 07/06/2024 1:54 PM EST Pulse 70 06/10/2024 2:55 PM EST Temperature 36.3 ??C (97.4 ??F) 06/10/2024 2:55 PM ES T Respiratory Rate 18 06/10/2024 2:55 PM EST Oxygen Saturation 98% 06/10/2024 2:55 PM EST Inhaled Oxygen Concentration - - Weight 83.5 kg (184 lb) 07/06/2024 1:54 PM EST Height 158.8 cm (5' 2.5 ) 07/06/2024 1:54 PM EST Body Mass Index 33.12 07/06/2024 1:54 PM EST Plan of Treatment Upcoming Encounters Date Type Department Care Team (Late st Contact Info) Description 10/04/2024 2:40 PM EDT Office Visit Gastroenterology - [facility] [address] [place] [phone] Gwen Queen PA [address] [place] [address] Health Maintenance Due Date Last Done Comments Hepatitis A Vaccines (1 of 2 - Risk 2-dose series) 1980 Cervical Cancer Screening: Pap Smear 1982 Zoster Vaccines (2 of 2) 01/25/2018 11/30/2017 RSV Immunization Patients 60+ Years Old (1 - Risk 60-74 years 1-dose series) 2021 Hepatitis C Screening 05/17/2022 COVID-19 Vaccine ( season) 2024 04/09/2022, 12/04/2021, 04/18/2021, Additional history exists Lung Cancer Screening (Low Dose CT) 05/01/2025 05/01/2024, 05/06/2023, 04/28/2022, Additional history exists Social Influencers of Health Screening 06/07/2025 06/07/2024 Hypertension/CHF/CAD Annual BMP Blood Test 06/08/2025 06/08/2024, 06/07/2024, 06/06/2024, Additional history exists Depression Screening 06/28/2025 06/28/2024 Breast Cancer Screening 10/06/2025 10/07/19, 10/07/2023, 05/07/2022, Additional history exists Cholesterol Screening (Lipid Panel) 10/28/2028 10/29/2023, 10/09/2023, 10/09/2023, Additional history exists DTaP,Tdap,and Td Vaccines (4 - Td or Tdap) 06/27/2030 06/27/2020, 11/30/2017, 11/17/2008 Colorectal Cancer Screening: Colonoscopy 07/02/2030 07/02/2020 HIV Screening Completed 08/03/2018 Pneumococcal Vaccine: 50+ Years Completed 04/09/2022, 02/12/2016, 08/25/2008 Pneumococcal Vaccine: Pediatrics (0 to 5 Years) and At-Risk Patients (6 to 64 Years) Completed 04/09/2022, 02/12/2016, 08/25/2008 Influenza Vaccine Completed 02/25/2024, , 03/09/2022, Additional history exists HIB Vaccines Aged Out No longer eligi [...] on patient's age to complete this topic MMR Vaccines Aged Out No longer eligi ble based on patient's age to complete this topic Meningococcal ACWY Vaccine Aged Out N o longer eligible based on patient's age to complete this topic Meningococcal B Vacine Aged Out No lo nger eligible based on patient's age to complete this topic RSV Immunization Patients Under 20 months Aged Out No longer eligible based on patient's age to complete this topic Varicella Vaccines Aged Out No longer eligible based on patient's age to complete this topic Procedures Procedure Name Priority Date/Time Associated Diagnosis Comments PEARSON URINE CULTURE TUBE Routine 06/08/2024 5:16 PM EST URINALYSIS WITH REFLEX MICROSCOPIC AND CULTURE Routine 06/08/2024 5:16 PM EST URINALYSIS WITH REFLEX MICROSCOPIC AND CULTURE Routine 06/08/2024 5:16 PM EST CULTURE URINE Routine 06/08/2024 5:16 PM EST CBC WITH AUTO DIFFERENTIAL Routine 06/08/2024 5:40 AM EST BASIC METABOLIC PANEL Routine 06/08/2024 5:40 AM EST CBC AND DIFFERENTIAL Routine 06/08/2024 5:40 AM EST CBC WITH AUTO DIFFERENTIAL Routine 06/07/2024 4:47 AM EST CBC AND DIFFERENTIAL Routine 06/07/2024 4:47 AM EST BASIC METABOLIC PANEL Routine 06/07/2024 4:47 AM EST ECG ANNOTATED 06/07/2024 CT ANGIO CHEST WO AND/OR W CONTRAST STAT 06/06/2024 7:36 PM EST Hypoxia TROPONIN I HIGH SENSITIVITY STAT 06/06/2024 4:26 PM EST US BEDSIDE ECHO STAT 06/06/2024 4:16 PM EST RESPIRATORY VIRUS PANEL MOLECULAR STUDY STAT 06/06/2024 2:55 PM EST XR CHEST 1 VIEW STAT 06/06/2024 2:43 PM EST ECG 12-LEAD STAT 06/06/2024 2:33 PM EST PROCALCITONIN Add-On 06/06/2024 2:25 PM EST CBC WITH AUTO DIFFERENTIAL STAT 06/06/2024 2:25 PM EST TROPONIN I HIGH SENSITIVITY STAT 06/06/2024 2:25 PM EST B-TYPE NATRIURETIC PEPTIDE STAT 06/06/2024 2:25 PM EST BASIC METABOLIC PANEL STAT 06/06/2024 2:25 PM EST CBC AND DIFFERENTIAL STAT 06/06/2024 2:[address] LUNG SCREENING Routine 05/01/2024 9:2 7 AM EST Encounter for screening for malignant neoplasm of respiratory organs Nicotine dependence, cigarettes, uncomplicated LIPID PANEL Routine 10/29/2023 DEMETRIUS SCREENING DIGITAL Routine 10/07/2023 1:06 PM EDT Encounter for screening mammogram for malignant neoplasm of breast COLONOSCOPY Routine 07/02/2020 from Last 3 Months or Most Recently Relevant to Health Maintenance Results * (ABNORMAL) Urinalysis with reflex microscopic and culture (06/08/2024 5:16 PM EST) Specific [place] Urine 1.010 1.003 - 1.030 LAB URINALYSIS - AUTOMATED METHOD 06/08/2024 7:26 PM [facility] pH, Urine 7.5 5.0 - 8.0 pH LAB URINALYSIS - AUTOMATED METHOD 06/08/2024 7:26 PM [facility] Leukocytes, Urine Large(A) Negative LAB URINALYSIS - AUTOMATED METHOD 06/08/2024 7:26 PM [facility] Nitrite, Urine Negative Negative LAB URINALYSIS - AUTOMATED METHOD 06/08/2024 7:26 PM [facility] Protein, Urine Negative <=Trace mg/dL LAB URINALYSIS - AUTOMATED METHOD 06/08/2024 7:26 PM [facility] Glucose, Urine Negative Negative mg/dL LAB URINALYSIS - AUTOMATED METHOD 06/08/2024 7:26 PM [facility] Ketones, Urine Negative Negative mg/dL LAB URINALYSIS - AUTOMATED METHOD 06/08/2024 7:26 PM [facility] Urobilinogen , Urine 0.2 0.2 - 1.0 mg/dL LAB URINALYSIS - AUTOMATED METHOD 06/08/2024 7:26 PM [facility] Bilirubin, Urine Negative Negative LAB URINALYSIS - AUTOMATED METHOD 06/08/2024 7:26 PM [facility] Blood, Urine Negative Negative LAB URINALYSIS - AUTOMATED METHOD 06/08/2024 7:26 PM [facility] RBC, Urine 2 0 - 4 /HPF 06/08/2024 7:26 PM [facility] WBC, Urine 20(H) 0 - 4 /HPF 06/08/2024 7:26 PM EST [facility] Squamous Epithelial, Urine 53 0 - 60 /LPF 06/08/2024 7:26 PM [facility] Non-Squamous Epithelial, Urine 2-5 Transitional epithelial cells. /LPF 06/08/2024 7:26 PM [facility] Bacteria, Urine Negative Negative /HPF 06/08/2024 7:26 PM [facility] Hyaline Casts, Urine 0.00 0 - 3 /LPF 06/08/2024 7:26 PM [facility] Urine Urine specimen obtained by clean catch procedure / Unknown Non-blood Collection / Unknown 06/08/2024 5:16 PM EST 06/08/2024 5:28 PM EST [facility] URINE ORDERABLES Final Resul t Performing Organization Address City/[facility]/ZIP Co de Phone Number [facility] [address] [place] [address], [place] [phone] * Pearson urine culture tube (06/08/2024 5:16 PM EST) Extra Tube Hold for add-ons. 06/08/2024 7:01 PM EST [facility] Comment:Auto resulted. Urine Urine specimen obtained by clean catch procedure / Unknown Non-blood Collection / Unknown 06/08/2024 5:16 PM EST 06/08/2024 5:28 PM EST us [facility] URINE ORDERABLES Final Resul t Performing Organization Address City/[facility]/ZIP Co de Phone Number [facility] [address] [place] [address], [place] [phone] * Culture urine (06/08/2024 5:16 PM EST) Culture, Urine No growth 06/09/2024 12:59 PM [facility] Urine Urine specimen obtained by clean catch procedure / Unknown Non-blood Collection / Unknown 06/08/2024 5:16 PM EST 06/08/2024 7:26 PM EST us [facility] MICROBIOLOGY - GENERAL ORDER TIA Final Result [facility] [address] [place] [address], [place] [phone] * (ABNORMAL) CBC auto differential (06/08/2024 5:40 AM EST) Only the most recent of3 resultswithin the time period is included. WBC 11.1(H) 4.8 - 10.8 K/mcL LAB HEMETOLOGY METHOD 06/08/2024 7:14 AM [facility] RBC 3.90 3.80 - 4.80 M/mcL LAB HEMETOLOGY METHOD 06/08/2024 7:14 AM [facility] Hemoglobin 11.0(L) 11.5 - 16.0 g/dL LAB HEMETOLOGY METHOD 06/08/2024 7:14 AM [facility] Hematocrit 33.8(L) 35.0 - 47.0 % LAB HEMETOLOGY METHOD 06/08/2024 7:14 AM [facility] MCV 87.8 79.0 - 98.0 FL LAB HEMETOLOGY METHOD 06/08/2024 7:14 AM [facility] MCH 28.6 27.0 - 32.0 pcg LAB HEMETOLOGY METHOD 06/08/2024 7:14 AM [facility] MCHC 32.5 32.0 - 37.0 g/dL LAB HEMETOLOGY METHOD 06/08/2024 7:14 AM [facility] RDW 14.6 11.0 - 15.0 % LAB HEMETOLOGY METHOD 06/08/2024 7:14 AM [facility] Platelets 208 130 - 400 K/mcL LAB HEMETOLOGY METHOD 06/08/2024 7:14 AM [facility] MPV 11.3(H) 7.0 - 11.0 FL LAB HEMETOLOGY METHOD 06/08/2024 7:14 AM [facility] NRBC 0.0 <1.0 % LAB HEMETOLOGY METHOD 06/08/2024 7:14 AM [facility] NRBC Absolute 0.00 <0.10 K/mcL LAB HEMETOLOGY METHOD 06/08/2024 7:14 AM [facility] Neutrophils Relative 74.3 % LAB HEMETOLOGY METHOD 06/08/2024 7:14 AM [facility] Lymphocytes Relative 16.8 % LAB HEMETOLOGY METHOD 06/08/2024 7:14 AM [facility] Monocytes Relative 7.6 % LAB HEMETOLOGY METHOD 06/08/2024 7:14 AM [facility] Eosinophils Relative 0.5 % LAB HEMETOLOGY METHOD 06/08/2024 7:14 AM [facility] Basophils Relative 0.3 % LAB HEMETOLOGY METHOD 06/08/2024 7:14 AM [facility] Immature Granulocytes Relative 0.5 % LAB HEMETOLOGY METHOD 06/08/2024 7:14 AM [facility] Neutrophils Absolute 8.25(H) 1.50 - 7.00 K/mcL LAB HEMETOLOGY METHOD 06/08/2024 7:14 AM [facility] Lymphocytes Absolute 1.86 1.00 - 5.00 K/mcL LAB HEMETOLOGY METHOD 06/08/2024 7:14 AM [facility] Monocytes Absolute 0.84 0.20 - 1.00 K/mcL LAB HEMETOLOGY METHOD 06/08/2024 7:14 AM EST [facility] Eosinophils Absolute 0.05 0.00 - 0.50 K/[facility] LAB HEMETOLOGY METHOD 06/08/2024 7:14 AM EST [facility] Basophils Absolute 0.03 0.00 - 0.20 K/mcL LAB HEMETOLOGY METHOD 06/08/2024 7:14 AM EST [facility] Immature Granulocytes Absolute 0.06(H) 0.00 - 0.03 K/[facility] LAB HEMETOLOGY METHOD 06/08/2024 7:14 AM EST [facility] Blood Venous blood specimen / Unknown Venipuncture / Unknown 06/08/2024 5:40 AM EST 06/08/2024 6:53 AM EST [facility] BLOOD ORDERABLES Final Resul t [facility] [address] [place] [address], [place] [phone] * (ABNORMAL) Basic metabolic panel (06/08/2024 5:40 AM EST) Only the most recent of3 resultswithin the time period is included. Sodium 137 133 - 145 mmol/L LAB CHEMISTRY METHOD 06/08/2024 7:39 AM [facility] Potassium 3.5 3.5 - 5.5 mmol/L LAB CHEMISTRY METHOD 06/08/2024 7:39 AM [facility] Chloride 105 96 - 110 mmol/L LAB CHEMISTRY METHOD 06/08/2024 7:39 AM [facility] CO2 28 21 - 32 mmol/L LAB CHEMISTRY METHOD 06/08/2024 7:39 AM [facility] Anion Gap 4 3 - 11 LAB CHEMISTRY METHOD 06/08/2024 7:39 AM [facility] Glucose 89 70 - 100 mg/dL LAB CHEMISTRY METHOD 06/08/2024 7:39 AM EST [facility] BUN 23 5 - 25 mg/dL LAB CHEMISTRY METHOD 06/08/2024 7:39 AM [facility] Creatinine 0.65 0.50 - 1.10 mg/dL LAB CHEMISTRY METHOD 06/08/2024 7:39 AM [facility] eGFR 100 >=60 mL/min/1. 73m2 LAB CHEMISTRY METHOD 06/08/2024 7:39 AM [facility] Comment:Calculation based on the??Chronic Kidney Disease Epidemiology Collaboration (CKD-EPI) equation refit??without adjustment for race. BUN/Creatinine Ratio 35.4 LAB CHEMISTRY METHOD 06/08/2024 7:39 AM [facility] Calcium 8.2(L) 8.5 - 10.5 mg/dL LAB CHEMISTRY METHOD 06/08/2024 7:39 AM [facility] Blood Venous blood specimen / Unknown Venipuncture / Unknown 06/08/2024 5:40 AM EST 06/08/2024 6:51 AM EST [facility] BLOOD ORDERABLES Final Resul t [facility] [address] [place] [address], [place] [phone] * ECG-Annotated (06/07/2024) Provider Onbase MD ECG ORDERABLES Final Result * CT Angio Chest wo and/or w Contrast (06/06/2024 7:36 PM EST) Anatomical Region Laterality Modality Body Computed Tomogra phy 06/06/2024 8:03 PM EST Impressions 06/06/2024 8:03 PM EST Impression: No pulmonary embolism. Mild bronchial wall thickening may indicate bronchitis. Mild mediastinal/hilar lymphadenopathy, likely infectious /inflammatory. This document has been electronically signed by: Sanjana Sosa MD on 06/06/2024 20:03:56 Narrative 06/06/2024 8:03 PM EST CTA chest with 3-D postprocessing Comparison: None Findings: Study quality is adequate for the diagnosis of pulmonary embolism. No pulmonary embolism. Heart size within normal limits. RV/LV ratio is normal. No calcified coronary artery disease. No aortic dissection or aneurysm. Trace calcified atherosclerotic disease. Mediastinal and hilar lymph nodes measure up to 1.0 cm in short axis. Mild paraseptal and centrilobular emphysema. Mild bronchial wall thickening with a trace amount of secretions in the airways. Subsegmental atelectasis versus linear scarring. Mild amount of dependent atelectasis of the left lung base. No pneumothorax or pleural effusion. No acute osseous or soft tissue abnormality. Thoracic nerve stimulator. Mild wall thickening of the distal esophagus versus underdistention; esophagitis could be considered. No acute pathology in the imaged portion of the upper abdomen. Status post cholecystectomy. Left perinephric stranding, nonspecific. Left nephrolithiasis measures 3 mm Procedure Note Sanjana Black MD - 06/06/2024 CTA chest with 3-D postprocessing Comparison: None Findings: Study quality is adequate for the diagnosis of pulmonary embolism. No pulmonary embolism. Heart size within normal limits. RV/LV ratio is normal. No calcified coronary artery disease. No aortic dissection or aneurysm. Trace calcified atheroscleroticdisease. Mediastinal and hilar lymph nodes measure up to 1.0 cm in short axis. Mild paraseptal and centrilobular emphysema. Mild bronchial wall thickening with a trace amount of secretions in the airways.Subsegmental atelectasis versus linear scarring. Mild amount of dependent atelectasis of the left lung base. No pneumothorax or pleural effusion. No acute osseous or soft tissue abnormality. Thoracic nerve stimulator. Mild wall thickening of the distal esophagus versus underdistention; esophagitis could be considered. No acute pathology in the imagedportion of the upper abdomen. Status post cholecystectomy. Left perinephric stranding, nonspecific. Left nephrolithiasis measures 3 mm IMPRESSION: Impression: No pulmonary embolism. Mild bronchial wall thickening may indicate bronchitis. Mild mediastinal/hilar lymphadenopathy, likely infectious /inflammatory. This document has been electronically signed by: Sanjana Sosa MD on 06/06/2024 20:03:56 us [facility] IMG CT PROCEDURES Final R esult * Troponin I high sensitivity (06/06/2024 4:26 PM EST) Only the most recent of2 resultswithin the time period is included. [facility] High Sensitivity Troponin I 9 <=54 ng/L LAB CHEMISTRY METHOD 06/06/2024 5:11 PM EST [facility] Blood Venous blood specimen / Unknown Venipuncture / Unknown 06/06/2024 4:26 PM EST 06/06/2024 4:37 PM EST [facility] - 06/06/2024 5:11 PM EST High levels of biotin in samples may falsely decrease hsTroponin values. ??Use caution when interpreting hsTroponin results in patients taking biotin who exhibit renal impairment (eGFR <60) or in patients taking more than 20 mg/day of biotin. Felix Singh MD LAB BLOOD ORDERABLES Final Result [facility] [address] [place] [address], * (ABNORMAL) Respiratory virus panel molecular study (06/06/2024 2:55 PM EST) [facility] Adenovirus Detection by PCR Not Detected Not Detected LAB MICROBIOLOGY METHOD 06/06/2024 4:21 PM EST [facility] Influenza B PCR Not Detected Not Detected LAB MICROBIOLOGY METHOD 06/06/2024 4:21 PM [facility] Coronavirus 229E Not Detected Not Detected LAB MICROBIOLOGY METHOD 06/06/2024 4:21 PM EST [facility] Coronavirus HKU1 Not Detected Not Detected LAB MICROBIOLOGY METHOD 06/06/2024 4:21 PM [facility] Coronavirus OC43 Not Detected Not Detected LAB MICROBIOLOGY METHOD 06/06/2024 4:21 PM EST [facility] Coronavirus NL63 Not Detected Not Detected LAB MICROBIOLOGY METHOD 06/06/2024 4:21 PM [facility] Parainfluenza Virus 1 Not Detected Not Detected LAB MICROBIOLOGY METHOD 06/06/2024 4:21 PM [facility] Parainfluenza Virus 2 Not Detected Not Detected LAB MICROBIOLOGY METHOD 06/06/2024 4:21 PM [facility] Parainfluenza Virus 3 Not Detected Not Detected LAB MICROBIOLOGY METHOD 06/06/2024 4:21 PM [facility] Parainfluenza Virus 4 Not Detected Not Detected LAB MICROBIOLOGY METHOD 06/06/2024 4:21 PM [facility] RSV PCR Not Detected Not Detected LAB MICROBIOLOGY METHOD 06/06/2024 4:21 PM [facility] Human Metapneumovirus A and B Not Detected Not Detected LAB MICROBIOLOGY METHOD 06/06/2024 4:21 PM [facility] Rhinovirus/Entero virus Not Detected Not Detected LAB MICROBIOLOGY METHOD 06/06/2024 4:21 PM [facility] Bordetella pertussis Not Detected Not Detected LAB MICROBIOLOGY METHOD 06/06/2024 4:21 PM [facility] Bordetella parapertussis Not Detected Not Detected LAB MICROBIOLOGY METHOD 06/06/2024 4:21 PM [facility] Influenza A H3 Detected(A ) Not Detected LAB MICROBIOLOGY METHOD 06/06/2024 4:21 PM [facility] Mycoplasma pneumo by PCR Not Detected Not Detected LAB MICROBIOLOGY METHOD 06/06/2024 4:21 PM [facility] Chlamydia pneumoniae Not Detected Not Detected LAB MICROBIOLOGY METHOD 06/06/2024 4:21 PM [facility] SARS COV-2 Not Detected Not Detected LAB MICROBIOLOGY METHOD 06/06/2024 4:21 PM [facility] Swab Both anterior nares / Unknown Non-blood Collection / Unknown 06/06/2024 2:55 PM EST 06/06/2024 3:15 PM EST Narrative [facility] [place] [facility] - 06/06/2024 4:21 PM EST Testing was performed using the [employer] Respiratory Pathogen PCR Assay. All results must be correlated with the clinical findings. Results should not be used as the sole basis for diagnosis. False Negative results may occur from the presence of sequence variants in the region targeted by the assay or the presence of inhibitors. Results may be affected by concurrent antiviral/antimicrobial therapy or levels of organisms that are below the limit of detection. us Felix Singh MD LAB MICROBIOLOGY - GENERAL ORDERABLES Final Result [facility] ([facility]) [facility] [address] [place] [address], [place] [phone] * XR Chest 1 View (06/06/2024 2:43 PM EST) Anatomical Region Laterality Modality Body Radiographic Stacey ging 06/06/2024 2:57 PM EST Impressions 06/06/2024 3:06 PM EST FINDINGS/IMPRESSION: Pulmonary vascular congestion with cardiac silhouette enlargement. ??No pleural effusion or pneumothorax. ??Thoracic spinal cord stimulator leads noted. ??Degenerative changes seen throughout the bones. -------- FINAL REPORT -------- Dictated By: ROYAL HOPKINS Dictated Date: 06/06/2024 14:57 ET Assigned Physician: ROYAL HOPKINS Reviewed and Electronically Signed By: ROYAL HOPKINS Signed Date: 06/06/2024 15:06 ET Workstation ID: [id number] Transcribed By: Self Edit Transcribed Date: 06/06/2024 14:57 ET Narrative 06/06/2024 3:06 PM EST XR CHEST 1 VIEW INDICATION: ??Dyspnea TECHNIQUE: XR CHEST 1 VIEW COMPARISON: 10/30/2022 Procedure Note Royal Hopkins MD - 06/06/2024 XR CHEST 1 VIEW INDICATION: Dyspnea TECHNIQUE: XR CHEST 1 VIEW COMPARISON: 10/30/2022 IMPRESSION: FINDINGS/IMPRESSION: Pulmonary vascular congestion with cardiac silhouetteenlargement. No pleural effusion or pneumothorax. Thoracic spinal cordstimulator leads noted. Degenerative changes seen throughout the bones. -------- FINAL REPORT -------- Dictated By: ROYAL HOPKINS Dictated Date: 06/06/2024 14:57 ET Assigned Physician: ROYAL HOPKINS Reviewed and Electronically Signed By: ROYAL HOPKINS Signed Date: 06/06/2024 15:06 ET Workstation ID: [id number] Transcribed By: Self Edit Transcribed Date: 06/06/2024 14:57 ET Felix Singh MD IMG XR PROCEDURES Final Res ult * ECG 12 lead (06/06/2024 2:33 PM EST) Ventricular Rate ECG 69 BPM GEMUSE Atrial Rate 69 BPM GEMUSE P-R Interval 180 ms GEMUSE QRS Duration 98 ms GEMUSE Q-T Interval 426 ms GEMUSE QTc 456 ms GEMUSE P Wave Calypso 30 degrees GEMUSE R Calypso 0 degrees GEMUSE T Calypso 38 degrees GEMUSE ECG Interpretation Normal sinus rhythm Nonspecific T wave abnormality Abnormal ECG When compared with ECG of 30-OCT-2022 16:32, Nonspecific T wave abnormality now evident in Anterior leads Confirmed by CORIE DUTTON ([id number]) on 06/06/2024 7:59:58 PM GEMUSE 06/06/2024 2:33 PM EST 06/06/2024 7:59 PM EST us Felix Singh MD ECG ORDERABLES Final Resul t GEMUSE * Procalcitonin (06/06/2024 2:25 PM EST) Procalcitonin 0.15 <=0.16 ng/mL LAB CHEMISTRY METHOD 06/07/2024 7:40 AM EST [facility] Blood Venous blood specimen / Unknown Venipuncture / Unknown 06/06/2024 2:25 PM EST 06/06/2024 3:14 PM EST Narrative [facility] - 06/07/2024 7:40 AM EST Procalcitonin > 2.00 ng/ml: Procalcitonin Levels above 2.00 ng/ml, on the first day of ICU admission represent a high risk for progression to severe sepsis and/or septic shock. Procalcitonin < 0.50 ng/ml: Procalcitonin levels below 0.50 ng/ml on the first day of ICU admission represent a low risk for progression to severe sepsis and/or septic shock. Concentrations <0.5 ng/mL do not exclude an infection, on account of local ized infections (without systemic signs) which can be associated with such low concentrations, or a systemic infection in its initial stages (<6 hours). Furthermore, increased procalcitonin can occur without infection. PCT concentrations between 0.5 and 2.0 ng/mL should be interpreted taking into account the patient's history. It is recommended to retest PCT within 6-24 hours if any concentrations <2.0 ng/mL are obtained. us Felix Singh MD LAB BLOOD ORDERABLES Final Result Performing Organization Address City/[facility]/ZIP Co de Phone Number [facility] [address] [place] [address], [place] [phone] * (ABNORMAL) B-type natriuretic peptide (06/06/2024 2:25 PM EST) BNP 130(H) <=100 pcg/mL LAB CHEMISTRY METHOD 06/06/2024 4:17 PM EST [facility] Blood Venous blood specimen / Unknown Venipuncture / Unknown 06/06/2024 2:25 PM EST 06/06/2024 3:14 PM EST us Felix Singh MD LAB BLOOD ORDERABLES Final Result Performing Organization Address [facility]/ZIP Co de Phone Number [facility] [address] [place] [address], [place] [phone] * CT Lung Screening (05/01/2024 9:27 AM EST) Anatomical Region Laterality Modality Chest Computed Tomogra phy 05/02/2024 1:14 PM EST Impressions 05/02/2024 1:27 PM EST No suspicious mass or nodule. No suspicious interval change. ?? LUNG RADS: Lung-RADS 2: BENIGN S Modifier (Significant or Potentially Significant Findings): None present No suspicious nonpulmonary findings. RECOMMENDATIONS: 12 month screening low dose CT -------- FINAL REPORT -------- Dictated By: Easton Short Dictated Date: 05/02/2024 13:14 ET Assigned Physician: Easton Short Reviewed and Electronically Signed By: Easton Short Signed Date: 05/02/2024 13:27 ET Workstation ID: [id number] Transcribed By: Self Edit Transcribed Date: 05/02/2024 13:14 ET Narrative 05/02/2024 1:27 PM EST EXAMINATION: CT CHEST WITHOUT CONTRAST LUNG CANCER SCREENING, LOW DOSE CLINICAL INFORMATION: Lung cancer screening. ??Current smoker COMPARISON: Portions of a previous 04/29/2023 ?? TECHNIQUE: Multidetector CT. Examination of the chest. Examination of the chest without IV contrast. Reformatting in the coronal and sagittal planes. Device: Appetite+ VCT DLP: 164 mGy-cm CTDI: 4.83 Dose optimization was performed including the use of low-dose iterative reconstruction technique with automatic exposure control based on patient size. Type of contrast: None Volume of IV contrast: None Volume of contrast discarded: 0 mL FINDINGS: LUNG: There is no abnormality of the trachea or mainstem bronchi. There is no generalized thickening of the intralobular septa. ?? LUNG NODULES: There are no suspicious nodules or masses. There is an unchanged possibly peripherally calcified nodule in the superior segment of the right lower lobe 05/01/2024-0.4 cm (3/115). There is a 0.2 cm nodule in the anterior aspect of the right lower lobe (3/160). Densely calcified typically benign nodule posteromedial right lower lobe. OTHER PULMONARY: ??Thin-walled cyst in the periphery of the left lower lobe laterally is unchanged. MEDIASTINUM: ??There is a calcification at the base of the neck on the right unchanged. There is a probably unchanged small thyroid nodule. No measurably enlarged mediastinal or hilar lymph nodes. No suspicious abnormality esophagus. CARDIAC: The heart is not enlarged. No pericardial fluid or thickening ?? No coronary calcifications demonstrated. VASCULAR: There is no thoracic aortic aneurysm. The main pulmonary artery is normal caliber ?? PLEURA: There is no pleural fluid or pneumothorax ?? AXILLA/CHEST WALL: There are no enlarged axillary lymph nodes. No chest wall mass demonstrated ?? VISUALIZED UPPER ABDOMEN: ??There is a 0.3 cm nonobstructing upper pole left renal calculus 9.4 cm from the skin. There is an electrode in the lower thoracic spinal canal which causes some artifact. MUSCULOSKELETAL: No suspicious focal bony lesion demonstrated. Procedure Note Easton Short MD - 05/02/2024 EXAMINATION: CT CHEST WITHOUT CONTRAST LUNG CANCER SCREENING, LOW DOSE CLINICAL INFORMATION: Lung cancer screening. Current smoker COMPARISON: Portions of a previous 04/29/2023 TECHNIQUE: Multidetector CT. Examination of the chest. Examination of the chest without IV contrast. Reformatting in the coronal and sagittal planes. Device: Appetite+ VCT DLP: 164 mGy-cm CTDI: 4.83 Dose optimization was performed including the use of low-dose iterativereconstruction technique with automatic exposure control based on patientsize. Type of contrast: None Volume of IV contrast: None Volume of contrast discarded: 0 mL FINDINGS: LUNG: There is no abnormality of the trachea or mainstem bronchi. There isno generalized thickening of the intralobular septa. LUNG NODULES: There are no suspicious nodules or masses. There is an unchanged possibly peripherally calcified nodule in thesuperior segment of the right lower lobe 05/01/2024-0.4 cm (3/115). There is a 0.2 cm nodule in the anterior aspect of the right lower lobe(3/160). Densely calcified typically benign nodule posteromedial right lowerlobe. OTHER PULMONARY: Thin-walled cyst in the periphery of the left lower lobelaterally is unchanged. MEDIASTINUM: There is a calcification at the base of the neck on theright unchanged. There is a probably unchanged small thyroid nodule. No measurably enlarged mediastinal or hilar lymph nodes. No suspiciousabnormality esophagus. CARDIAC: The heart is not enlarged. No pericardial fluid or thickening No coronary calcifications demonstrated. VASCULAR: There is no thoracic aortic aneurysm. The main pulmonary arteryis normal caliber PLEURA: There is no pleural fluid or pneumothorax AXILLA/CHEST WALL: There are no enlarged axillary lymph nodes. No chestwall mass demonstrated VISUALIZED UPPER ABDOMEN: There is a 0.3 cm nonobstructing upper poleleft renal calculus 9.4 cm from the skin. There is an electrode in thelower thoracic spinal canal which causes some artifact. MUSCULOSKELETAL: No suspicious focal bony lesion demonstrated. IMPRESSION: No suspicious mass or nodule. No suspicious interval change. LUNG RADS: Lung-RADS 2: BENIGN S Modifier (Significant or Potentially Significant Findings): Nonepresent No suspicious nonpulmonary findings. RECOMMENDATIONS: 12 month screening low dose CT -------- FINAL REPORT -------- Dictated By: Easton Short Dictated Date: 05/02/2024 13:14 ET Assigned Physician: Easton Short Reviewed and Electronically Signed By: Easton Short Signed Date: 05/02/2024 13:27 ET Workstation ID: [id number] Transcribed By: Self Edit Transcribed Date: 05/02/2024 13:14 ET Kendall Edwards MD IMG CT PROCEDURES Final Result * Lipid panel (10/29/2023) Triglycerides 0 mg/dL Comment:No interpretation Cholesterol 0 mg/dL Comment:No interpretation HDL 0 mg/dL Comment:No interpretation LDL Cholesterol 0 mg/dL Comment:No interpretation Blood Venous blood specimen / Unknown Historical Provider LAB BLOOD ORDERABLES Vanita l Result * DEMETRIUS SCREENING DIGITAL (10/07/2023 1:06 PM EDT) Anatomical Region Laterality Modality Mammography 10/07/2023 10:5 8 AM EDT Narrative 10/07/2023 1:06 PM EDT [facility] Diagnostic Imaging Department [address] [place] [address] [id number] Patient: ??KOURTNEY MATTHEWS ?/Age/Sex: 1960 - 62 - F Unit#: ??[id number] ? Location/Status: ??SPDIMAM/REG CLI ? Mnemonic/Ordering Site: ??DIGSC/SPMAM Ordering Physician: ??KOSTA BIRMINGHAM [facility] Screening Digital - 10/07/23 - 1147 Report Status:Signed EXAM: [facility] Screening Digital EXAM DATE AND TIME: 10/07/2023 11:48 AM HISTORY: ??Screening. Reduction mammoplasty in 2007. COMPARISON: ??05/07/22, 04/06/20, 03/29/20, 03/22/18 TECHNIQUE: Bilateral digital breast tomosynthesis was performed in the CC and MLO projections. Computer aided detection with Blueliv 3D 3.1 was employed. TISSUE DENSITY: a. The breasts are almost entirely fatty. FINDINGS: Reduction mammoplasty sequelae are again seen. No suspicious masses, grouped microcalcifications, or developing architectural distortion are seen. Few coarse, macrocalcifications are again seen in the left breast. Numerous skin calcifications are again seen bilaterally. The vascularity is unremarkable. IMPRESSION: Stable mammographic appearance of the breasts. ??No evidence of malignancy is seen. A negative mammogram in the presence of a clinically suspicious palpable abnormality does not preclude the possibility of malignancy or alter the indications for biopsy. BI-RADS: ??Category 2: Benign RECOMMENDATION(S): 1: Routine screening mammogram BILATERAL in 1 year. Dictating Physician: ??ELOINA ROMANO MD Electronically Signed by: ??ELOINA ROMANO MD Dic Date/Time: ??10/07/23 1306 Sign date/Time: ??10/07/23 1306 Procedure Note Eloina Romano MD - 01/25/2024 [facility] Diagnostic Imaging Department [address] [place] [id number] Patient: KEVEN JIMKOURTNEY /Age/Sex: 1960 - 62 -F Unit#: [id number] Location/Status: [facility] CLI Mnemonic/Ordering Site: [facility] Ordering Physician: KOSTA BIRMINGHAM [facility] Screening Digital - 10/07/23 - [id number] Report Status:Signed EXAM: [facility] Screening Digital EXAM DATE AND TIME: 10/07/2023 11:48 AM HISTORY: Screening. Reduction mammoplasty in 2007. COMPARISON: 05/07/22, 04/06/20, 03/29/20, 03/22/18 TECHNIQUE: Bilateral digital breast tomosynthesis was performed in the CCand MLO projections. Computer aided detection with Blueliv 3D 3.1was employed. TISSUE DENSITY: a. The breasts are almost entirely fatty. FINDINGS: Reduction mammoplasty sequelae are again seen. No suspicious masses,grouped microcalcifications, or developing architectural distortion are seen.Few coarse, macrocalcifications are again seen in the left breast. Numerous skin calcifications are again seen bilaterally. The vascularityis unremarkable. IMPRESSION: Stable mammographic appearance of the breasts. No evidence of malignancyis seen. A negative mammogram in the presence of a clinically suspicious palpable abnormality does not preclude the possibility of malignancy or alter the indications for biopsy. BI-RADS: Category 2: Benign RECOMMENDATION(S): 1: Routine screening mammogram BILATERAL in 1 year. Dictating Physician: ELOINA ROMANO MD Electronically Signed by: ELOINA ROMANO MD Dic Date/Time: 10/07/23 1306 Sign date/Time: 10/07/23 1306 [facility] IMG BI PROCEDURES Final Result * Colonoscopy (07/02/2020) Colonoscopy No interpretation , abstracted Anatomical Region Laterality Modality Other Historical Provider MD HEALTH MAINTENANCE Final Result from Last 3 Months or Most Recently Relevant to Health Maintenance Insurance MEDICAID - [place] Advance Directives * Full Code - Default (Latest Code Status on File) Date Activated Date Inactivated Comments 06/06/2024 10:58 PM 06/10/2024 8:47 PM This is ord er is used when code status has not been discussed with the patient, or code status is otherwise unknown/unconfirmed To update the patient's code status, place a code status order. Do not modify or discontinue any currently active code status orders. Care Teams [employer] Relationship Specialty Start Date End Date Laxmi Luevano FNP [address] [place] [phone] PCP - General Internal Medicine 12/05/20
--- OUTSIDE RECORDS SUMMARY | 2024-07-27 14:16 | XMS_ITS | Clinical Summary ---
Author Organization [facility] Address [address] [place] [address] Care Team Providers Care Software Engineer Backend Name Role Phone Quiana Rg PA-C Primary Care Provider + [phone] Source Comments PLEASE NOTE, if this patient is a minor, it may be UNLAWFUL to discuss sensitive information that is contained in these records (such as FAMILY PLANNING, MENTAL HEALTH or SUBSTANCE ABUSE) with the minor patient's parent or other person without the patient's specific authorization.[facility] Allergies Active Allergy Reactions Criticality Noted Date Comments Doxycycline Rash Lamotrigine 04/28/2023 Lidocaine 04/09/2022 Rash/itching Metoclopramide Medications albuterol sulfate (PROVENTIL) 2.5 mg /3 mL (0.083 %) nebulizer solutionIndicatio ns:Mild persistent asthma with acute exacerbation Take 3 mL by nebulization every 6 (six) hours as needed for wheezing J45.30 dx 75 mL 2 021 Active TRELEGY ELLIPTA 100-62.5-25 mcg dsdvIndications:M ild persistent asthma with acute exacerbation INHALE 100 MCG EVERY DAY. RINSE MOUTH WITH WATER AND SPIT AFTER USE 021 Active melatonin-lemon balm leaf extr 10-1 mg tabIndications:Mi ld persistent asthma with acute exacerbation Take 1 Tablet by mouth nightly at bedtime for sleep 021 Active PROAIR HFA 90 mcg/actuation inhalerIndication s:Mild persistent asthma with acute exacerbation INHALE 2 PUFFS BY MOUTH EVERY 6 HOURS NEEDED FOR WHEEZING OR SHORTNESS OF BREATH FOR UP TO 90 DAYS Active dupilumab (DUPIXENT SYRINGE) 300 mg/2 mL syrgIndications:M ild persistent asthma without complication Inject into the skin DR. Ricci Mcnulty Active selenium sulfide 2.25 % shampooIndication s:Tinea versicolor Apply topically twice a week 180 mL 3 Active mometasone-formot alfredo (DULERA) 200-5 mcg/actuation inhalerIndication s:Mild persistent asthma without complication Inhale into the lungs Active fluticasone-umecl idin-vilanter (TRELEGY ELLIPTA) 200-62.5-25 mcg dsdvIndications:M ild persistent asthma without complication Inhale into the lungs Active montelukast (SINGULAIR) 10 mg tabletIndications :Mild persistent asthma without complication Take 1 Tablet by mouth Active primidone (MYSOLINE) 50 mg tabletIndications :Mild persistent asthma without complication Take 50 mg by mouth nightly at bedtime Active moxifloxacin (VIGAMOX) 0.5 % ophthalmic solutionIndicatio ns:Acute bacterial conjunctivitis of both eyes Place 1 Drop into both eyes 3 (three) times daily 3 mL Active busPIRone (BUSPAR) 10 mg tablet TAKE 1 TABLET BY MOUTH TWICE DAILY FOR ANXIETY Active docusate sodium (COLACE) 100 mg capsule TAKE 1 CAPSULE BY MOUTH TWICE DAILY NEEDED FOR CONSTIPATION Active hydroxychloroquin e (PLAQUENIL) 200 mg tablet Take 200 mg by mouth 2 (two) times daily Active DULoxetine (CYMBALTA) [address] capsule Take 60 mg by mouth 2 (two) times daily Active omeprazole (PRILOSEC) [address] capsule Take 40 mg by mouth once daily Active OXcarbazepine (TRILEPTAL) 300 mg tablet TAKE 1 TABLET BY MOUTH TWICE DAILY ONCE IN THE MORNING AND 1 AT BEDTIME Active zolpidem (AMBIEN) 10 mg tablet Take 10 mg by mouth nightly at bedtime as needed Active naloxone (NARCAN) 4 mg/actuation nasal sprayIndications: Lumbar disc disease Place 1 Salkum into the nostril(s) as needed for opioid reversal 2 Each 5 024 Active lidocaine (LIDODERM) 5 % patchIndications: Fibromyalgia APPLY 2 PATCHES TO SKIN TO THE AFFECTED AREA FOR 12 HOURS THEN REMOVE FOR 12 HOURS 60 Patch 6 024 Active ibuprofen 800 mg tabletIndications :Fibromyalgia TAKE 1 TABLET BY MOUTH THREE TIMES DAILY NEEDED FOR PAIN 90 Tablet 4 024 Active piroxicam (FELDENE) 20 mg capsuleIndication s:Systemic lupus erythematosus, unspecified SLE type, unspecified organ involvement status ([facility]) Take 20 mg by mouth once daily 024 Active amLODIPine (NORVASC) 5 mg tabletIndications :Essential hypertension, benign TAKE 1 TABLET BY MOUTH DAILY 90 Tablet 11 024 Active estradioL [address] 10 mcg vaginally daily. for 90 days Ignore the baseline directions. Label, Place one vaginally daily for fourteen days, then one twice weekly for 12 weeks 30 Tablet 024 Active loratadine (CLARITIN) 10 mg tabletIndications :Non-seasonal allergic rhinitis, unspecified trigger TAKE 1 TABLET BY MOUTH EVERY DAY AT BEDTIME 90 Tablet 1 024 Active gabapentin (NEURONTIN) 600 mg tabletIndications :Other polyneuropathy TAKE 1 TABLET BY MOUTH THREE TIMES DAILY 90 Tablet 3 025 Active rosuvastatin (CRESTOR) 20 mg tabletIndications :Tobacco use TAKE 1 TABLET BY MOUTH EVERY NIGHT AT BEDTIME 90 Tablet 4 025 Active nicotine (NICODERM, STEP 1) 21 mg/24 hr patchIndications: Tobacco use Place 1 Patch onto the skin once daily (every 24 hours) 28 Patch 1 025 Active nicotine, polacrilex, (NICORETTE) 4 mg gumIndications:To bacco use Take 1 Each by mouth as needed for smoking cessation 110 Each 2 025 Active codeine-guaifenes in (ROBITUSSIN-AC) 10-100 mg/5 mL syrupIndications: Community acquired pneumonia, unspecified laterality Take 5 mL by mouth 3 (three) times daily as needed for cough DO NOT TAKE with promethazine or ZOLPIDEM or GABAPENTIn 120 mL 025 Active traMADoL (ULTRAM) 50 mg tabletIndications :Lumbar disc disease,Arthritis of left knee TAKE 1 TABLET BY MOUTH TWICE DAILY 60 Tablet 3 025 Active rosuvastatin (CRESTOR) 20 mg tabletIndications :Tobacco use TAKE 1 TABLET BY MOUTH EVERY NIGHT AT BEDTIME 90 Tablet 4 024 2024 Discontinued promethazine (PHENERGAN) 25 mg tablet Take 25 mg by mouth every 8 (eight) hours as needed for nausea 024 2024 Discontinued(T herapy completed/Not needed) traMADoL (ULTRAM) 50 mg tabletIndications :Lumbar disc disease,Arthritis of left knee TAKE 1 TABLET BY MOUTH TWICE DAILY 60 Tablet 4 024 2024 Discontinued Active Problems Problem Noted Date Diagnosed Date MRI contraindicated due to metal implant 023 LUNG CANCER screen: 04/202201/21/2023 History of COVID-19 09/202009/20/2020 S/P perez 10/201701/04/2018 History of echocardiogram, mild LVH 10/2017 Overview (01/04/2018): Result type: Echocardiogram - Complete Result date: October 29, 2017 14:32 EDT Result status: Modified Result title: Echo Complet Performed by: Jason Anne MD on October 29, 2017 14:32 EDT Verified by: Jason Anne MD on October 29, 2017 14:32 EDT Encounter info: [id number], [facility] [place], 10/29/2017 - 10/29/2017 Contributor system: Home-Account * Final Report * Echo Complete-Doppler, Colorflow, M-Mode Transthoracic Echocardiography Report (TTE) Patient Demographics Patient Name KOURTNEY BACA Date of Study 10/29/2017 Corporate Gender Female Facility Race Ethnicity or Date of 1960 Height: 64.17 inches Age 56 year(s) Weight: 176.37 pounds Accession Number [id number] BSA: 1.86 m2 Room Number BMI: 30.11 kg/m2 Referring Physician Kelli TRIVEDI Interpreting Jason Anne MD Physician 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 Clinical History Hypertension. Asthma. Dyspnea. Tobacco use. Study Data Type of Study TTE procedure:Echo Complete-Doppler, Colorflow, M-Mode. Study Date10/29/2017 Start Time: 02:32 PM Study Location: 3300 Adult Echo Study Status: Echo lab Patient Status: Routine Technical Quality: Adequate Blood Pressure:144/77 mmHg EKG: Within normal limits HR: 62 bpm 2D Measurements LV Diastolic Dimension: 4.4 cm LV Systolic Dimension: 3.8 cm LV Septum Diastolic: 1.2 cm LV PW Diastolic: 1 cm AO Root Dimension: 2.6 cm LA Dimension: 3.1 cm LA ESV (BP):35 ml LVOT Stroke Volume: 70.85 ml LA ESV Index: 19 ml/m2 Stroke Volume Index38.09 ml/m2 LVOT: 1.9 cm Cardiac Index:2.36 l/min/m2 Ascending Aorta:2.8 cm Doppler Measurements MV Peak E-Wave: 93.8 cm/s MV Peak A-Wave: 76.5 cm/s LVOT Peak Velocity: 115 cm/s MV E/A Ratio: 1.23 LVOT VTI25 cm MV Deceleration Time: 183 msec E' Septal Velocity: 7.57 cm/s E' Lateral Velocity: 11.8 cm/s E/Med E':12.64148 E/Lat E':7.202578 Cardiac Anatomy Left Ventricle/Interventricular Septum The left ventricular size is normal. There is mild concentric left ventricular hypertrophy. The LV systolic function is normal . The left ventricular ejection fraction is 60-65 %. No obvious wall motion abnormalities seen on limited views. Left Atrium/Interatrial Septum The left atrium is normal in size. Aortic Valve The aortic valve is trileaflet. The aortic valve leaflet opening is normal . There is no aortic stenosis. There is no significant aortic regurgitation. Mitral Valve The mitral valve is normal in structure and function. There is trace mitral regurgitation. Aorta The aortic root is normal in size. Right Ventricle The right ventricular size and function appears grossly normal. Right Atrium The right atrium is normal in size. Tricuspid Valve There is trace tricuspid valve regurgitation. Pericardium/Extracardiac There is no significant pericardial effusion. Summary The left ventricular size is normal. There is mild concentric left ventricular hypertrophy. The LV systolic function is normal . The left ventricular ejection fraction is 60-65 %. No obvious wall motion abnormalities seen on limited views. The right ventricular size and function appears grossly normal. Comparison Comparison is made to the study of July 06, 2013. Mild LVH now noted. Signature Echo Complet This document has an image Pulmonary nodule, CT 05/201603/02/2017 Overview (03/02/2017): Result type: CT Chest W/ Contrast Result date: July 07, 2016 15:36 Result status: Auth (Verified) Result title: CT Chest W/ Contrast Performed by: Jesus Avila MD on July 07, 2016 17:49 Verified by: Jesus Avila MD on July 07, 2016 17:49 Encounter info: [id number], [facility] [place] [facility], 07/07/2016 - 07/07/2016 * Final Report * Reason For Exam chest pain RESULT: CT Chest W/ Contrast CT Chest W/ Contrast INDICATION: chest pain ADDITIONAL HISTORY: Per electronic medical record, smoking history. TECHNIQUE: Helical CT scan of the chest with IV contrast, formatted in 3 planes. Weight-based protocol was performed using automatic exposure control. CTDIvol Body: 8.87 mGy, DLP Body: 295 mGy*cm. COMPARISON: MRI chest 12/08/2005, report of CT chest 11/19/2005 (images not available) FINDINGS: LINES AND TUBES: None. LUNGS AND LARGE AIRWAYS: Major airways patent. No consolidation or pulmonary mass. Minor focal emphysematous changes left lower lobe. 5 x 4 x 3 mm, average 4 mm, mixed ill-defined nodule superior segment right lower lobe (image 38 series 3). 6 mm calcified nodule right lower lobe (image 71 series 3). PLEURA: No pneumothorax or pleural effusion. MEDIASTINUM AND INDY: Thyroid gland is mildly enlarged and heterogeneous with bilateral nodules measuring up to approximately 1.3 cm on the left. Punctate calcification within right thyroid gland. Partially calcified 1.0 cm short axis supraclavicular lymph node posterolateral to and abutting right internal jugular vein is relatively unchanged (image 9 series 2). No mediastinal or hilar lymphadenopathy. HEART AND VESSELS: Heart is normal in size. No pericardial effusion. Thoracic aorta nonaneurysmal. DIAPHRAGM AND UPPER ABDOMEN: Unremarkable. The subcentimeter cystic retrocrural structure described on the prior study appears consistent with a physiologic cisterna chyli. CHEST WALL: Mild bilateral axillary lymphadenopathy measuring up to 1.3 cm short axis, mildly increased from 1.1 cm short axis on 2006. The majority of the lymph nodes demonstrate benign-appearing fatty indy. BONES: Multilevel degenerative changes involve the visualized spine. No acute osseous abnormality. IMPRESSION: 1. No consolidation or pulmonary mass. 2. 4 mm right lower lobe nodule. Given history of smoking, follow-up CT recommended at 12 months. If unchanged, no further follow-up needed per Fleischner Society recommendations (Radiology, 2005 Apr;237(2):395-400). 3. Mild bilateral axillary lymphadenopathy measuring up to 1.3 cm short axis, mildly increased from 1.1 cm short axis in 2006. Stable partially calcified right supraclavicular lymph node abutting internal jugular vein measuring 1.0 cm short axis. These lymph nodes nodes are nonspecific, but demonstrate relatively benign-appearing features. 4. Mildly heterogeneous thyroid gland with nodules measuring up to 1.3 cm. WSN: [id number] Signature Line Dictated By: Jesus Avila MD Dictated Date/Time: 07/07/16 5:49 pm Reviewed By: Jesus Avila MD Signed By: Jesus Avila MD Signed Date/Time: 07/07/16 5:49 pm Transcribed By: KALIN Transcribed Date/Time: 07/07/16 5:[address] Chest W/ Contrast This document has an image Essential hypertension, benign 05/28/2016 Family history of colon cancer, mom at age 66 08/01/2015 S/P section x 3, s/ p appy, s/p breast reduction bilateral, s/p right CTS release 04/10/2015 Tobacco use 09/22/2014 Multiple thyroid nodules 05/201204/25/2014 Overview (04/25/2014): US Thyroid - 06/04/12 - 0913 INDICATION: Bilateral thyroid nodules. FINDINGS: Ultrasound of the thyroid gland was obtained and compared to study from October 16, 2011. Right lobe measures 5.0 cm x 2.0 cm x 2.3 cm. Left lobe measures 4.8 cm x 2.0 cm x 1.6 cm. Isthmus measures up to 7 mm. Mild lobulation in the right thyroid gland similar to prior studies. In the right lobe 5 mm nodule noted posteriorly in the midpole with calcification and no significant vascularity similar to the prior study. In the upper pole 2 mm hypoechoic nodule noted. On the left side heterogeneous 14 mm x 12 mm x 9 mm nodule noted posteriorly in the mid to lower aspect of the gland. Slight larger measurement on the present study secondary to differences in technique compared to the prior study. No significant vascularity or abnormal calcifications. CONCLUSION: Stable bilateral thyroid nodules. [id number] Dictating Physician: TEDDY NARVAEZ MD Electronically Signed by: TEDDY NARVAEZ MD Dic Date/Time: 06/04/12919 Sign date/Time: 06/04/12921 Peripheral neuropathy 09/01/2013 Overview (09/01/2013): EMG Nerve Conduction Study (Verified) [facility] ELECTROMYOGRAPHY REPORT Referring Provider: Kary Alex EMG Physician: Celestine Clarke M.D. EMG Technologist: VL Limb Temperature: Warmed with hot packs to greater than 34?? C Date of Service: 08/18/2013 Order ID: [id number] CLINICAL PRESENTATION: The patient is a 52 year-old female referred for evaluation of bilateral leg neuropathy. She states that she has a burning in the bottom of her feet. This does not really seem to involve the top and goes up to just above her ankle. She also states that there is some vague sense of weakness. Her examination though reveals normal bulk, strength and deep tendon reflexes. SUMMARY: Results of nerve conduction studies were performed in the patient's right leg with some comparative studies done on the left. Findings were within normal limits. Concentric needle electromyography was performed in the patient's right leg evaluating for possible axonal element of a peripheral process to explain the patient's symptoms. Findings were within normal limits. IMPRESSION: This is a normal EMG. The study does not show electrodiagnostic findings to suggest the presence of a large fiber polyneuropathy or neuropathies involving the peroneal, tibial, superficial peroneal, sural, sciatic or femoral neuropathy, lumbosacral plexopathy or lumbosacral radiculopathy involving roots from L2-S1. Note that routine EMGs do not necessarily exclude the possibility of small fiber polyneuropathy. The distribution of the patient's symptoms, however, does not really suggest a small fiber polyneuropathy. Dictated by: Celestine Clarke M.D. Signing Clinician: Celestine Clarke M.D. Dictated: 08/18/2013 15:17:12 Transcribed: 08/18/2013 18:20:03 Transcribed by: NAKIA DocID: [id number] PRELIMINARY REPORT UNLESS MANUALLY/ELECTRONICALLY SIGNED Sprain or strain of cervical spine 06/15/2013 Mild vitamin D deficiency 03/25/2013 Lupus (systemic lupus erythematosus) ([facility]) 0 02/01/2013 Fibromyalgia 02/01/2013 Asthma, mild persistent 02/01/2013 Hemolytic anemia ([facility]) 02/01/2013 Anxiety and depression 02/01/2013 Encounters Date Type Department Care Team Description 06/28/2024 2:00 PM EST Office Visit [address] [phone] Quiana Rg PA-C Community acquired pneumonia, unspecified laterality (Primary Dx); Tobacco use 06/28/2024 Travel 06/22/2024 Interim Notes [address] [phone] Ronnell Azevedo RN 06/14/2024 Interim Notes [address] [phone] [facility] Community Health Worker 06/13/2024 Interim Notes [address] [phone] Kait Cowan from Last 3 Months Immunizations Name Administration Dates Next Due Flu, Cell Culture based, Mul ti Dose, 6m+, Flucelvax 03/10/2021,03/23/2019 Flu, Cell Culture based, Pre servative Free, 6m+, Flucelvax 04/06/2023,03/09/2022,05/02/2017 Flu, Preservative Free 02/20/2021,02/01/2020 INFLUENZA, SEASONAL, INJECTABLE 02/08/2013 INFLUENZA, SEASONAL, INJECTA BLE, PRESERVATIVE FREE 03/27/2018,02/12/2016,05/02/2015 Influenza (FLUCELVAX),injectable,mdck,pf 02/25/2024 MODERNA COVID-19 VACCINE BIV ALENT, BLUE CAP, 6M+ 04/09/2022 Moderna COVID-19 Vaccine, re d cap blue label, 12+ Primary Series 12/04/2021,04/18/2021,10/10/2020,09/12 PNEUMOCOCCAL CONJUGATE PCV 13 08/25/2008 PNEUMOCOCCAL CONJUGATE PCV 2 0 (Prevnar) 04/09/2022 PNEUMOCOCCAL POLYSACCHARIDE PPV23 02/12/2016 PPD 10/04/2013 TDAP 06/27/2020,11/30/2017,11/17/2008 ZOSTER VACCINE, RECOMBINANT (SHINGRIX) 8 Family History Medical History Relation Name Comments Stroke Father Cancer Mother Relation Name Status Comments Father Mother Social History Tobacco Use Types Packs/Day [...] Recorded In the last 10 days, have wilian gallardo been in contact with someone who was confirmed or suspected to have Coronavirus/COVID-19? No / Unsure 06/28/2024 2:03 PM EST Last Filed Vital Signs Vital Sign Reading [...] Mass Index 30.82 06/28/2024 2:12 PM EST Plan of Treatment Upcoming Encounters Date Type Department Care Team (Late st Contact Info) Description 09/09/2024 1:20 PM EDT Office Visit [facility] [address] [place] [phone] Quiana Rg PA-C [address] [place] [phone] Health Maintenance Due Date Last Done Comments HPV Screening 1960 CT Colonography 2006 Fecal DNA 2006 Flexible Sigmoidoscopy 2006 FIT/gFOBT 04/25/2015 04/25/2014 (Declined) Imm-Zoster, Recombinant (2 of 2) 01/25/2018 12/01/19 Dental BW 11/02/2022 10/31/2021 Dental Examination 11/02/2022 10/31/2021 Dental Perio Charting 11/02/2022 10/31/2021 Dental Prophy 03/09/2023 03/07/2022 Depression Monitoring 09/26/2024 06/28/2024 , 10/09/2023, 07/21/2023, Additional history exists Breast Cancer Screening (Mammogram) 10/06/2024 10/07/2023, 05/07/2022, 05/07/2022, Additional history exists Annual Preventive Care Visit 10/08/202408/2023, 04/09/2022, 03/22/2021, Additional history exists Diabetes Screening 10/08/2024 10/09/2023, 0 08/27/2023, 08/27/2023, Additional history exists Lipid Screening 10/28/2024 10/29/2023, 05/0 08/2023, 10/17/2022, Additional history exists Tobacco Cessation Counseling (#1) 06/28/2025 Tobacco Screening 06/28/2025 06/28/2024 Colonoscopy 07/02/2025 07/02/2020, 10/22/2015 Colorectal Cancer Screening 07/02/2025 Dental FMX/Pano 11/02/2026 10/31/2021 Pap Smear 04/15/2027 04/15/2024, 05/0 07/2018, 04/25/2014 Cervical Cancer Screening 04/15/2029 Pap + HPV 04/15/2029 04/15/2024, 05/0 07/2018, 04/25/2014 Imm-DTaP/Tdap/Td (4 - Td or Tdap) 06/27/2030 06/27/2020, 11/30/2017, 11/17/2008 HIV Screening Completed 08/03/2018 Hepatitis C Screening Completed 08/03/2018 [id number] Discontinued 04/09/2022, 11/07, 04/18/2021, Additional history exists Imm-Pneumococcal Discontinued 04/09/2022, 11/2015, 08/25/2008 Bone Density Screening Completed , 08/21/2022, 08/21/2022 Lung Cancer Screening Discontinued 04/29/2023, 023 Alcohol and Drug Screen Discontinued 10/09/19, 07/21/2023, 04/28/2023, Additional history exists Imm-Influenza Discontinued 02/25/2024, 03/10, 03/09/2022, Additional history exists Cervical Ablation/Cold-Knife Conization Discontinued Cervical Cryotherapy Discontinued Colposcopy Discontinued Endometrial Biopsy Discontinued Excision/Leep Discontinued HPV Genotyping Discontinued Urine Drug Screen Discontinued Vaginal Pap Discontinued Vulvoscopy Discontinued Procedures Procedure Name Priority Date/Time Associated Diagnosis Comments REFERRAL SCANNED DOCUMENT 06/21/2024 3:00 AM EST IMAGING SCANNED DOCUMENT 06/06/2024 3:00 AM EST IMAGING SCANNED DOCUMENT 06/06/2024 3:00 AM EST ECG ROUTINE ECG W/LEAST 12 LDS TRCG ONLY W/O I&R Routine 06/06/2024 3:00 AM EST Pre-op evaluation OTHER ORDERS SCANNED DOCUMENT 05/30/2024 3:00 AM EST IMAGING SCANNED DOCUMENT 05/01/2024 3:00 AM EST THIN PREP IMAGE PAP + HPV RNA E6/E7 W/RFLX HPV 16, 18/45 Routine 04/15/2024 2:06 PM EST Screening for HPV (human papillomavirus) COMPREHENSIVE METABOLIC PANEL Routine 10/09/2023 10:35 AM EDT Routine general medical examination at a health care facility Somnolence Daytime somnolence Essential hypertension, benign Multiple thyroid nodules 05/2012 Tobacco use LIPID PANEL Routine 10/09/2023 10:35 AM EDT Routine general medical examination at a health care facility Somnolence Daytime somnolence Essential hypertension, benign Multiple thyroid nodules 05/2012 Tobacco use MAMMO DIGITAL SCREEN EMELY W CAD 3D Routine 10/07/2023 3:00 AM EDT Breast cancer screening by mammogram LUNG CANCER SCREENING (LOW DOSE CT OF CHEST) SCANNED DOCUMENT 04/29/2023 3:00 AM EST HISTORIC DEXA SCAN 08/21/2022 3: 00 AM EDT Full PROPHYLAXIS - ADULT Routine 03/07/2022 1:00 PM EDT Gingivitis, chronic, plaque induced Full INTRAORAL - COMP SERIES OF RADIOGRAPHIC IMAGES Routine 10/31/2021 2:20 PM EDT Encounter for dental examination Full COMP ORAL EVALUATION - NEW/ESTABLISHED PATIENT Routine 10/31/2021 2:20 PM EDT Encounter for dental examination ANTIBODY HIV-1&HIV-2 SINGLE RESULT Routine 08/03/2018 1:54 PM EST Routine general medical examination at a health care facility HEPATITIS A,B,C PANEL Routine 08/03/2018 1:54 PM EST Routine general medical examination at a health care facility COLONOSCOPY Routine 10/22/2015 1:28 PM EDT Colon cancer screening from Last 3 Months or Most Recently Relevant to Health Maintenance Results * REFERRAL SCANNED DOCUMENT (06/21/2024 3:00 AM EST) 06/21/2024 3:00 AM EST Quiana Rg PA-C SCAN REFERRAL Final Result * IMAGING SCANNED DOCUMENT (06/06/2024 3:00 AM EST) Only the most recent of3 resultswithin the time period is included. 06/06/2024 3:00 AM EST Belen Luevano DEICER TESTER SCAN IMAGING Final Res ult * ECG ROUTINE ECG W/LEAST 12 LDS TRCG ONLY W/O I&R (06/06/2024 3:00 AM EST) 06/06/2024 3:00 AM EST Curtis Jaimes DEICER TESTER-C ECG Final Res ult * OTHER ORDERS SCANNED DOCUMENT (05/30/2024 3:00 AM EST) 05/30/2024 3:00 AM EST Quiana Rg PA-C SCAN OTHER ORDERS Final Resu lt * THIN PREP IMAGE PAP + HPV RNA E6/E7 W/RFLX HPV 16, 18/45 (04/15/2024 2:06 PM EST) CLINICAL INFORMATION See Note [employer] Comment:NORMAL EXAM~POSTMENO PAUSAL~NO LMP See Note [employer] Comment:PM PREV. PAP See Note [employer] Comment:NONE GIVEN PREV. BX See Note [employer] Comment:NONE GIVEN SOURCE See Note [employer] Comment:Cervix STATEMENT OF ADEQUACY See Note [employer] Comment: Satisfactory for evaluation. Endocervical/transformation zone component present. INTERPRETATION/RESU LT See Note [employer] Comment: Cytology Results: Negative for intraepithelial lesion or malignancy. INFECTION See Note [employer] Comment:Trichomonas vaginali s identified. COMMENT See Note [employer] Comment: This case could not be evaluated with computer assisted technology. The slide was manually screened according to routine procedures. DRUG AND ALCOHOL COUNSELLOR See Note [place] Comment: YP, CT(ASCP) CT screening location: [address] ??[address] REVIEW DRUG AND ALCOHOL COUNSELLOR See Note [employer] Comment: SL, CT(ASCP) CT screening location: [address] ??[id number] COMMENT [place] [facility] HPV MRNA E6/E7 Not Detected Not Detected [employer] Comment: Methodology: Access Services Assistant-Mediated Amplification This assay detects E6/E7 viral messenger RNA (mRNA) from 14 high-risk HPV types (16,18,31,33,35,39,45,51,52,56,58,59,66,68). Cervical sources are required for HPV testing. If a vaginal source from a patient who has had a total hysterectomy with removal of cervix was submitted, please contact the testing laboratory for alternative testing options. For additional information, please refer to http://education.[employer]/faq/AFZ597j1 (This link if provided for information/ educational purposes only.) Swab Cervix uteri structure / Unknown 04/15/2024 2:06 PM EST 04/18/2024 7:58 AM EST Narrative [employer] [facility] - 04/21/2024 1:53 PM EST EXPLANATORY NOTE: The Pap is a screening test for cervical cancer. It is not a diagnostic test and is subject to false negative and false positive results. It is most reliable when a satisfactory sample, regularly obtained, is submitted with relevant clinical findings and history, and when the Pap result is evaluated along with historic and current clinical information. Keshawn Becerra MD LAB - NO BLOOD DRAW Final Resul t Performing Organization Address [facility]/ZIP Co de Phone Number [facility] [address] [address], [facility] [address] [address] * (ABNORMAL) LIPID PANEL (10/09/2023 10:35 AM EDT) CHOLESTEROL, TOTAL 102 <200 mg/dL [facility] HDL CHOLESTEROL 44(L) > OR = 50 mg/dL [facility] TRIGLYCERIDES 93 <150 mg/dL [facility] LDL-CHOLESTEROL 40 99 mg/dL (calc) [facility] Comment: Reference range: <100 Desirable range <100 mg/dL for primary prevention; ?? <70 mg/dL for patients with CHD or diabetic patients with > or = 2 CHD risk factors. LDL-C is now calculated using the Jordon-Yost calculation, which is a validated novel method providing better accuracy than the Friedewald equation in the estimation of LDL-C. Jordon SS et al. AUGUST. 2013;310(19): 8141-1999 (http://education.[employer]/faq/UEF051) CHOL/HDLC RATIO 2.3 <5.0 (calc) [facility] NON-HDL CHOLESTEROL 58 <130 mg/dL (calc) [facility] Comment: For patients with diabetes plus 1 major ASCVD risk factor, treating to a non-HDL-C goal of <100 mg/dL (LDL-C of <70 mg/dL) is considered a therapeutic option. Blood Blood / Unknown 10/09/2023 1 0:35 AM EDT 10/09/2023 10:36 AM EDT Quiana Rg PA-C LAB - BLOOD DRAW Final Resul t Performing Organization Address [facility]/ZIP Co de Phone Number [facility] [address] [address], [facility] [address] [place] [address] * COMPREHENSIVE METABOLIC PANEL (10/09/2023 10:35 AM EDT) GLUCOSE 88 65 - 99 mg/dL [facility] Comment: ?Fasting reference interval UREA NITROGEN (BUN) 11 7 - 25 mg/dL [facility] CREATININE (blood) 0.60 0.50 - 1.05 mg/dL [facility] EGFR 102 > OR = 60 mL/min/1. 73m2 [facility] BUN/CREATININE RATIO SEE NOTE: [facility] Comment: ?? Not Reported: BUN and Creatinine are within ?? reference range. ? SODIUM 142 135 - 146 mmol/L [facility] POTASSIUM 3.9 3.5 - 5.3 mmol/L [facility] CHLORIDE 104 98 - 110 mmol/L [facility] CARBON DIOXIDE 30 20 - 32 mmol/L [facility] CALCIUM 9.2 8.6 - 10.4 mg/dL [facility] PROTEIN, TOTAL 6.7 6.1 - 8.1 g/dL [facility] ALBUMIN 4.4 3.6 - 5.1 g/dL [facility] GLOBULIN 2.3 1.9 - 3.7 g/dL (calc) [facility] ALBUMIN/GLOBULI N RATIO 1.9 1.0 - 2.5 (calc) [facility] BILIRUBIN, TOTAL 0.3 0.2 - 1.2 mg/dL [facility] ALKALINE PHOSPHATASE 60 37 - 153 U/L [facility] AST 18 10 - 35 U/L [facility] ALT 16 6 - 29 U/L [facility] Blood Blood / Unknown 10/09/2023 1 0:35 AM EDT 10/09/2023 10:36 AM EDT us Quiana Rg PA-C LAB - BLOOD DRAW Edited Resu lt - Final [employer] [address] [address], [facility] [address] [address] * MAMMO DIGITAL SCREEN EMELY W CAD 3D (10/07/2023 3:00 AM EDT) 10/07/2023 3:00 AM EDT [facility]ianabaylee [facility] IMG MAMMO Final Result [facility] Corporate Office [address], [address] [place] [address], [place] [phone] * LUNG CANCER SCREENING (LOW DOSE CT OF CHEST) SCANNED DOCUMENT (04/29/2023 3:00 AM EST) 04/29/2023 3:00 AM EST Quiana [facility] SCAN IMAGING Final Result * HISTORIC DEXA SCAN (08/21/2022 3:00 AM EDT) 08/21/2022 3:00 AM EDT Quiana Arcenio [facility]-C IMG DXA Final Result * (ABNORMAL) HEPATITIS A,B,C PANEL (08/03/2018 1:54 PM EST) HEPATITIS B SURFACE ANTIBODY POSITIVE(A) NEGATIVE [facility] HEPATITIS B SURFACE ANTIGEN NEGATIVE NEGATIVE [facility] Comment: Over the counter supplements containing high doses of biotin may interfere with this assay. ??If interference is suspected, patients shoud be retested after refraining from biotin supplements for 72 hours. HEPATITIS C VIRUS DIAGNOSTIC NEGATIVE NEGATIVE [facility] HEPATITIS A ANTIBODY TOTAL POSITIVE(A) NEGATIVE [facility] Comment: Over the counter supplements containing high doses of biotin may interfere with this assay. ??If interference is suspected, patients shoud be retested after refraining from biotin supplements for 72 hours. Blood specimen (specimen) Blood / Unknown 08/03/2018 1:54 PM EST 08/03/2018 1:55 PM EST Narrative [email or web address] - 08/03/2018 6:46 PM EST [employer], [place] [address] [employer] - [place] [id number] ORD# [id number] Quiana Rg PA-C LAB - BLOOD DRAW Edited Resu lt - Final [address] [address], [place] [phone] * HIV-1 & HIV-2 ANTIBODIES (08/03/2018 1:54 PM EST) [facility] HIV 1 AND 2 ANTIBODY SCREEN NEGATIVE NEGATIVE [facility] Comment: This assay is a 4th generation assay allowing for earlier detection of HIV infection by detecting the presence of the HIV-1 p24 antigen as well as the traditional antibodies to HIV type 1 (including group O) and type 2. ??Use of a 4th generation assay is the current CDC recommendation for HIV screening. Blood specimen (specimen) Blood / Unknown 08/03/2018 1:54 PM EST 08/03/2018 1:55 PM EST Narrative [email or web address] - 08/03/2018 7:15 PM EST [employer], [place] [address] [employer] - [place] Mims MD [place] [id number] ORD# [id number] Quiana Rg PA-C LAB - BLOOD DRAW Final Resul t [address] [address], [place] [phone] * COLONOSCOPY (10/22/2015 1:28 PM EDT) Impressions Quiana Rg PA-C - 10/22/2015 1:28 PM EDT Grade 2 internal and external hemorrhoids, stool in cecum, repeat in 5 years [facility] G.I. 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
--- OUTSIDE RECORDS SUMMARY | 2024-07-27 14:16 | XMS_ITS | Encounter Summary ---
Author Organization [employer] Address [address] [place] [address] Care Team Providers Care Nickel Operator Name Role Phone Unavailable Primary Care Provider Unavailabl e Encounter Details Date Type Department Care Team (Latest Contact Info) Description 08/31/[address] [facility] CONVERSIONS Dental, Provider, DDS Social History Tobacco Use Types Packs/Day Years Used Date Smoking Tobacco: Never Assessed Comments Unknown Sex and Gender Information Value Date Recorded Sex Assigned at Female 04/07/2022 10:25 AM EDT Legal Sex Female 10:25 AM EDT Gender Identity Not on file Sexual Orientation Not on file documented as of this encounter Plan of Treatment Not on file documented as of this encounter Visit Diagnoses Not on filedocumented in this encounter
== END 2024-07-27 14:21 | disposition home or self-care (01) ==
PROVIDERS: PCP Physician Assistant; Visit Provider Internal Medicine Pulmonary Disease
DX: J44.9 Chronic obstructive pulmonary disease, unspecified (principal); Z91.09 Other allergy status, other than to drugs and biological substances; Z87.891 Personal history of nicotine dependence; R06.01 Orthopnea
CPT/HCPCS: 99214

== ENCOUNTER → 2024-07-27 13:59 | Outpatient (BNVA) | payer MEDICAID, SELFPAY | PROVIDERS: PCP Physician Assistant; Visit Provider Internal Medicine Pulmonary Disease | DX: J44.89 Other specified chronic obstructive pulmonary disease (principal); R06.01 Orthopnea; F17.210 Nicotine dependence, cigarettes, uncomplicated; Z91.09 Other allergy status, other than to drugs and biological substances | CPT/HCPCS: 99212 ==

== ENCOUNTER 2024-09-08 14:17 | Outpatient (REF) | payer MEDICAID, SELFPAY ==
--- NOTE | ~2024-09-08 | CT_ITS ---
CLINICAL HISTORY: Z87.891 - Personal history of nicotine dependence CT lung cancer screening (LDCT) Comparison: None Technique: Axial CT images of the chest using low-dose technique. Referring provider counseled the patient on shared decision-making for LDCT screening. Additional counseling was provided on smoking cessation. Effective radiation dose total: DLP 47.2 mGycm, CTDIvol 1.5 mGy. Findings: Lung: There is a calcified granuloma in the right lower lobe. There is ground-glass type opacification versus semi-solid lesion in the left upper lobe measuring 1.4 x 1.1 cm. Coronary artery calcifications: None Limited upper abdomen: Unremarkable Other: None Impression: Category 3: Probably benign, six-month CT recommended Category 1: Normal; continue annual screening Category 2: Benign appearance or behavior, continue annual screening Category 3: Probably benign, [address] recommended Category 4A: Suspicious, [address] recommended; may consider PET/CT Category 4B: Suspicious, Additional diagnostics and/or tissue sampling recommended Category 4X: Suspicious, Additional diagnostics and/or tissue sampling recommended Category 0: Recalls (incomplete screen due to Incomplete coverage, Noise, Respiratory motion, Expiration, Obscured by acute abnormality) This document has been electronically signed by: Jorge Lopez MD on 09/09/2024 09:21:14
--- OUTSIDE RECORDS SUMMARY | 2024-09-08 15:45 | XMS_ITS | Clinical Summary ---
Author Organization [employer] Address [address] [place] [address] [address] [place] [address] Care Team Providers Care [employer] Ebs Developer Name Role Phone Unavailable Primary Care Provider [...]
--- OUTSIDE RECORDS SUMMARY | 2024-09-08 15:45 | XMS_ITS | Clinical Summary ---
Author Organization [facility] Address [address] [place] [address] Care Team Providers Care Finish Patcher Name Role Phone Quiana Rg PA-C Primary Care Provider + [phone] Source Comments PLEASE NOTE, if this patient [...] 2.5 mg /3 mL (0.083 %) nebulizer solutionIndication s:Mild persistent asthma with acute exacerbation ([facility]HS-HCC) Take 3 mL by nebulization every 6 (six) hours as needed for wheezing J45.30 dx 75 mL 2 06/21/19 21 Active TRELEGY ELLIPTA 100-62.5-25 mcg dsdvIndications:Mi ld persistent asthma with acute exacerbation (HHS-HCC) INHALE 100 MCG EVERY DAY. RINSE MOUTH WITH WATER AND SPIT AFTER USE 11/09/19 21 Active melatonin-lemon balm leaf extr 10-1 mg tabIndications:Mil d persistent asthma with acute exacerbation (HHS-HCC) Take 1 Tablet by mouth nightly at bedtime for sleep 10/30/19 21 Active PROAIR HFA 90 mcg/actuation inhalerIndications :Mild persistent asthma with acute exacerbation (HHS-HCC) INHALE 2 PUFFS BY MOUTH EVERY 6 HOURS NEEDED FOR WHEEZING OR SHORTNESS OF BREATH FOR UP TO 90 DAYS 12/18/19 21 Active dupilumab (DUPIXENT SYRINGE) 300 mg/2 mL syrgIndications:Mi ld persistent asthma without complication ([facility]-HCC) Inject into the skin DR. Ricci Mcnulty 09/18/19 22 Active selenium sulfide 2.25 % shampooIndications :Tinea versicolor Apply topically twice a week 180 mL 3 09/20/19 22 Active mometasone-formote rol (DULERA) 200-5 mcg/actuation inhalerIndications :Mild persistent asthma without complication ([facility]-HCC) Inhale into the lungs 07/25/19 20 Active fluticasone-umecli din-vilanter (TRELEGY ELLIPTA) 200-62.5-25 mcg dsdvIndications:Mi ld persistent asthma without complication ([facility]-HCC) Inhale into the lungs 05/08/20 20 Active montelukast (SINGULAIR) 10 mg tabletIndications: Mild persistent asthma without complication ([facility]-HCC) Take 1 Tablet by mouth 04/06/20 20 Active primidone (MYSOLINE) 50 mg tabletIndications: Mild persistent asthma without complication ([facility]-HCC) Take 50 mg by mouth nightly at bedtime 01/22/20 22 Active moxifloxacin (VIGAMOX) 0.5 % ophthalmic solutionIndication s:Acute bacterial conjunctivitis of both eyes Place 1 Drop into both eyes 3 (three) times daily 3 mL 07/21/19 24 Active busPIRone (BUSPAR) 10 mg tablet TAKE 1 TABLET BY MOUTH TWICE DAILY FOR ANXIETY Active docusate sodium (COLACE) 100 mg capsule TAKE 1 CAPSULE BY MOUTH TWICE DAILY NEEDED FOR CONSTIPATION 06/10/19 24 Active hydroxychloroquine (PLAQUENIL) 200 mg tablet Take 200 mg by mouth 2 (two) times daily 08/11/19 24 Active DULoxetine (CYMBALTA) [address] capsule Take 60 mg by mouth 2 (two) times daily 08/05/19 24 Active omeprazole (PRILOSEC) [address] capsule Take 40 mg by mouth once daily 08/12/19 24 Active OXcarbazepine (TRILEPTAL) 300 mg tablet TAKE 1 TABLET BY MOUTH TWICE DAILY ONCE IN THE MORNING AND 1 AT BEDTIME Active zolpidem (AMBIEN) 10 mg tablet Take 10 mg by mouth nightly at bedtime as needed 08/19/19 24 Active naloxone (NARCAN) 4 mg/actuation nasal sprayIndications:L umbar disc disease Place 1 [place] into the nostril(s) as needed for opioid reversal 2 Each 5 12/22/19 24 Active lidocaine (LIDODERM) 5 % patchIndications:F ibromyalgia APPLY 2 PATCHES TO SKIN TO THE AFFECTED AREA FOR 12 HOURS THEN REMOVE FOR 12 HOURS 60 Patch 6 01/25/20 24 Active ibuprofen 800 mg tabletIndications: Fibromyalgia TAKE 1 TABLET BY MOUTH THREE TIMES DAILY NEEDED FOR PAIN 90 Tablet 4 02/13/20 24 Active piroxicam (FELDENE) 20 mg capsuleIndications :Systemic lupus erythematosus, unspecified SLE type, unspecified organ involvement status (HCC-CMS) Take 20 mg by mouth once daily 02/23/20 24 Active amLODIPine (NORVASC) 5 mg tabletIndications: Essential hypertension, benign TAKE 1 TABLET BY MOUTH DAILY 90 Tablet 11 03/30/20 24 Active estradioL [address] 10 mcg vaginally daily. for 90 days Ignore the baseline directions. Label, Place one vaginally daily for fourteen days, then one twice weekly for 12 weeks 30 Tablet 04/15/20 24 Active loratadine (CLARITIN) 10 mg tabletIndications: Non-seasonal allergic rhinitis, unspecified trigger TAKE 1 TABLET BY MOUTH EVERY DAY AT BEDTIME 90 Tablet 1 05/09/20 24 Active gabapentin (NEURONTIN) 600 mg tabletIndications: Other polyneuropathy TAKE 1 TABLET BY MOUTH THREE TIMES DAILY 90 Tablet 3 06/12/19 25 Active rosuvastatin (CRESTOR) 20 mg tabletIndications: Tobacco use TAKE 1 TABLET BY MOUTH EVERY NIGHT AT BEDTIME 90 Tablet 4 06/28/19 25 Active nicotine (NICODERM, STEP 1) 21 mg/24 hr patchIndications:T obacco use Place 1 Patch onto the skin once daily (every 24 hours) 28 Patch 1 06/28/19 25 Active nicotine, polacrilex, (NICORETTE) 4 mg gumIndications:Tob acco use Take 1 Each by mouth as needed for smoking cessation 110 Each 2 06/28/19 25 Active codeine-guaifenesi n (ROBITUSSIN-AC) 10-100 mg/5 mL syrupIndications:C ommunity acquired pneumonia, unspecified laterality Take 5 mL by mouth 3 (three) times daily as needed for cough DO NOT TAKE with promethazine or ZOLPIDEM or GABAPENTIn 120 mL 06/28/19 25 Active traMADoL (ULTRAM) 50 mg tabletIndications: Lumbar disc disease,Arthritis of left knee TAKE 1 TABLET BY MOUTH TWICE DAILY 60 Tablet 3 07/11/19 25 Active Active Problems Problem Noted Date Diagnosed Date [...] October 29, 2017 14:32 EDT Encounter info: [id number], [facility], One Time OP, 10/29/2017 - 10/29/2017 Contributor system: [employer] * Final Report * Echo Complete-Doppler, Colorflow, M-Mode Transthoracic Echocardiography Report (TTE) Patient Demographics Patient Name KOURTNEY BACA Date of Study 10/29/2017 Corporate Gender Female Facility Race Ethnicity or Date of 1960 Height: 64.17 inches Age 56 year(s) Weight: 176.37 pounds Accession Number [id number] BSA: 1.86 m2 Room Number BMI: 30.11 kg/m2 Referring Physician Kelli TRIVEDI Interpreting Jason Anne MD Physician Cylinder Devalver Giulia Teresa, [facility] Indications Chest pain. Clinical History Hypertension. Asthma. [...] cm/s E' Lateral Velocity: 11.8 cm/s E/Med E':12.23617 E/Lat E':7.284005 Cardiac Anatomy Left Ventricle/Interventricular Septum The left [...] on July 07, 2016 17:49 Encounter info: [id number], [facility] [place], 07/07/2016 - 07/07/2016 * [...] nodules measuring up to 1.3 cm. WSN: [id number] Signature Line Dictated By: Jesus Avila MD Dictated Date/Time: 07/07/16 5:49 pm Reviewed By: Jesus Avila MD Signed By: Jesus Avila MD Signed Date/Time: 07/07/16 5:49 pm Transcribed By: CSLuca Transcribed Date/Time: 07/07/16 5:[address] Chest W/ Contrast This document has an image Essential hypertension, benign 05/28/2016 Family history of colon cancer, mom at age 66 08/01/2015 S/P section x 3, s/ p appy, s/p breast reduction bilateral, s/p right CTS release 04/10/2015 Tobacco use 09/22/2014 Multiple thyroid nodules 05/201204/25/2014 Overview (04/25/2014): US Thyroid - 06/04/12912 INDICATION: Bilateral thyroid nodules. FINDINGS: Ultrasound of [...] abnormal calcifications. CONCLUSION: Stable bilateral thyroid nodules. [id number] Dictating Physician: TEDDY NARVAEZ MD Electronically Signed by: TEDDY NARVAEZ MD Dic Date/Time: 06/04/12919 Sign date/Time: 06/04/12921 Peripheral neuropathy 09/01/2013 Overview (09/01/2013): EMG Nerve Conduction Study (Verified) [facility] ELECTROMYOGRAPHY REPORT Referring Provider: Kary Alex EMG Physician: Celestine Clarke M.D. EMG Technologist: VL Limb Temperature: Warmed with hot packs to greater than 34?? C Date of Service: 08/18/2013 Order ID: [id number] CLINICAL PRESENTATION: The patient is a 52 [...] Transcribed: 08/18/2013 18:20:03 Transcribed by: NAKIA DocID: [id number] PRELIMINARY REPORT UNLESS MANUALLY/ELECTRONICALLY SIGNED Sprain or strain of cervical spine 06/15/2013 Mild vitamin D deficiency 03/25/2013 Lupus (systemic lupus erythematosus) ([facility]) 0 02/01/2013 Fibromyalgia 02/01/2013 Asthma, mild persistent ([facility]) 02/01/2013 Hemolytic anemia ([facility] V24) 02/01/2013 Anxiety and depression 02/01/2013 Encounters Date Type Department Care Team Description 08/17/2024 3:20 PM EDT Office Visit [address] [address] Alena Koch PA-C Preoperative clearance (Primary Dx); Essential hypertension, benign 06/28/2024 2:00 PM EST Office Visit [address] [phone] Quiana Rg PA-C Community acquired pneumonia, unspecified laterality (Primary Dx); Tobacco use 06/28/2024 Travel 06/22/2024 Interim Notes [address] [phone] Ronnell Azevedo RN 06/14/2024 Interim Notes [address] [address] Nelson Sharpe Community Health Worker 06/13/2024 Interim Notes [address] [phone] Chapo, Kait from Last 3 Months Immunizations Immunization Administration Dates Next Due Flu, Cell Culture [...] Used Date Smoking Tobacco: Former Cigarettes 0.5 40.9 S tarted: 11/02/1983 Passive Smoke Exposure: Never [...] Don't know 04/21/2017 12 :18 PM PST Last Filed Vital Signs Vital Sign Reading Time Taken Comments Blood Pressure 130/58 08/17/2024 3:18 PM EDT Pulse 60 08/17/2024 3:18 PM EDT Temperature 37.2 ??C (99 ??F) 08/17/2024 3:18 PM EDT Respiratory Rate 20 08/17/2024 3:18 PM EDT Oxygen Saturation 98% 06/28/2024 2:12 PM EST Inhaled Oxygen Concentration - - Weight 86.6 kg (191 lb) 08/17/2024 3:18 PM EDT Height 160 cm (5' 2.99 ) 08/17/2024 3:18 PM EDT Body Mass Index 33.84 08/17/2024 3:18 PM EDT Plan of Treatment Upcoming Encounters Date Type Department Care Team (Late st Contact Info) Description 09/09/2024 1:20 PM EDT Office Visit [address] [address] Quiana Rg PA-C [address] [place] [phone] 09/16/2024 9:00 AM EDT Telemedicine Visit [address] [address] Rhoda Núñez RN [address] [place] [address] Health Maintenance Due Date Last Done Comments Anxiety Screening [address] Colonography 2006 Fecal DNA 2006 Flexible Sigmoidoscopy 2006 FIT/gFOBT 04/25/2015 04/25/2014 (Declined) Imm-Zoster, Recombinant (2 of 2) 01/25/2018 12/01/19 18 Dental BW 11/02/2022 10/31/2021 Dental Examination 11/02/2022 10/31/2021 Dental Perio Charting 11/02/2022 10/31/2021 Dental Prophy 03/09/2023 03/07/2022 Depression Monitoring 09/26/2024 06/28/2024 , 10/09/2023, 07/21/2023, Additional history exists Breast Cancer Screening (Mammogram) 10/06/2024 10/07/2023, 05/07/2022, 05/07/2022, Additional history exists Annual Preventive Care Visit 10/08/202408/2023, 04/09/2022, 03/22/2021, Additional history exists Lipid Screening 10/28/2024 10/29/2023, 050 08/2023, 10/17/2022, Additional history exists Diabetes Screening 06/08/2025 06/08/2024, 1 , 06/06/2024, Additional history exists Tobacco Cessation Counseling (#1) 06/28/2025 Tobacco Screening 06/28/2025 06/28/2024 Colonoscopy 07/02/2025 07/02/2020, 10/22/2015 Colorectal Cancer Screening 07/02/2025 Dental FMX/Pano 11/02/2026 10/31/2021 Pap Smear 04/15/2027 04/15/2024, 050 07/2018, 04/25/2014 Cervical Cancer Screening 04/15/2029 Pap + HPV 04/15/2029 04/15/2024, 05/0 07/2018, 04/25/2014 Imm-DTaP/Tdap/Td (4 - Td or Tdap) 06/27/2030 06/27/2020, 11/30/2017, 11/17/2008 HIV Screening Completed 08/03/2018 Hepatitis C Screening Completed 08/03/2018 [id number] Discontinued 04/09/2022, 11/07, 04/18/2021, Additional history exists Imm-Pneumococcal Discontinued 04/09/2022, 11/2015, 08/25/2008 Bone Density Screening Completed , 08/21/2022, 08/21/2022 Alcohol and Drug Screen Discontinued 10/09/19, 07/21/2023, 04/28/2023, Additional history exists Imm-Influenza Discontinued 02/25/2024, 03/10, 03/09/2022, Additional history exists Lung Cancer Screening Discontinued 05/01/2024 , 04/29/2023, 04/29/2023 Cervical Ablation/Cold-Knife Conization Discontinued Cervical Cryotherapy Discontinued Colposcopy Discontinued Endometrial Biopsy Discontinued Excision/Leep Discontinued HPV Genotyping Discontinued Urine Drug Screen Discontinued Vaginal Pap Discontinued Vulvoscopy Discontinued Procedures Procedure Name Priority Date/Time Associated Diagnosis Comments HEALTH HISTORY SCANNED DOCUMENT 07/29/2024 3:00 AM EST EYE EXAM 07/29/2024 3:00 AM EST REFERRAL SCANNED DOCUMENT 07/27/2024 3:00 AM EST REFERRAL SCANNED DOCUMENT 06/21/2024 3:00 AM EST THIN PREP IMAGE PAP [...] Recently Relevant to Health Maintenance Results * EYE EXAM (07/29/2024 3:00 AM EST) 07/29/2024 3:00 AM EST Quiana Rg PA-C OTHER Edited Resul t - Final * HEALTH HISTORY SCANNED DOCUMENT (07/29/2024 3:00 AM EST) 07/29/2024 3:00 AM EST [facility] Provider Default SCAN OTHER ORDERS Final Re sult * REFERRAL SCANNED DOCUMENT (07/27/2024 3:00 AM EST) Only the most recent of2 resultswithin the time period is included. 07/27/2024 3:00 AM EST Quiana Rg PA-C SCAN REFERRAL Final Result * THIN PREP IMAGE PAP + HPV RNA E6/E7 W/RFLX HPV 16, 18/45 (04/15/2024 2:06 PM EST) CLINICAL INFORMATION See Note [employer] Comment:NORMAL EXAM~POSTMENO PAUSAL~NO LMP See Note [employer] Comment:PM PREV. PAP See Note [employer] Comment:NONE GIVEN PREV. BX See Note [employer] Comment:NONE GIVEN SOURCE See Note [employer] Comment:Cervix STATEMENT OF ADEQUACY See Note [employer] Comment: Satisfactory for evaluation. Endocervical/transformation zone component present. INTERPRETATION/RESU LT See Note [facility] Comment: Cytology Results: Negative for intraepithelial lesion or malignancy. INFECTION See Note [facility] Comment:Trichomonas vaginali s identified. COMMENT See Note [facility] Comment: This case could not be evaluated with computer assisted technology. The slide was manually screened according to routine procedures. [employer] See Note [facility] Comment: YP, CT(ASCP) CT screening location: [address] ??[address] REVIEW [employer] See Note [facility] Comment: SL, CT(ASCP) CT screening location: [address] ??[address] COMMENT [facility] HPV MRNA E6/E7 Not Detected Not Detected [facility] Comment: Methodology: [employer]osystems Engineer-Mediated Amplification This assay detects E6/E7 viral messenger RNA (mRNA) from 14 high-risk HPV types (16,18,31,33,35,39,45,51,52,56,58,59,66,68). Cervical sources are required for HPV testing. If a vaginal source from a patient who has had a total hysterectomy with removal of cervix was submitted, please contact the testing laboratory for alternative testing options. For additional information, please refer to http://education.Saplo/faq/JXJ825j6 (This link if provided for information/ educational purposes only.) Swab Cervix uteri structure / Unknown 04/15/2024 2:06 PM EST 04/18/2024 7:58 AM EST Narrative [facility] - 04/21/2024 1:53 PM EST EXPLANATORY [...] along with historic and current clinical information. us Keshawn Becerra MD LAB - NO BLOOD DRAW Final Resul t [facility] [address] [place] [address], [facility] [address] [address] * (ABNORMAL) LIPID PANEL (10/09/2023 10:35 AM EDT) CHOLESTEROL, TOTAL 102 <200 mg/dL [facility] HDL CHOLESTEROL 44(L) > OR = 50 mg/dL [facility] TRIGLYCERIDES 93 <150 mg/dL [facility] LDL-CHOLESTEROL 40 99 mg/dL (calc) [facility] Comment: Reference range: <100 Desirable range <100 mg/dL for primary prevention; ?? <70 mg/dL for patients with CHD or diabetic patients with > or = 2 CHD risk factors. LDL-C is now calculated using the Kiara calculation, which is a validated novel method providing better accuracy than the Friedewald equation in the estimation of LDL-C. Jordon SS et al. AUGUST. 2013;310(19): 2941-7938 (http://education.Flight Steward/faq/VLS453) CHOL/HDLC RATIO 2.3 <5.0 (calc) [facility] NON-HDL CHOLESTEROL 58 <130 mg/dL (calc) [facility] Comment: For patients with diabetes plus 1 major ASCVD risk factor, treating to a non-HDL-C goal of <100 mg/dL (LDL-C of <70 mg/dL) is considered a therapeutic option. Blood Blood / Unknown 10/09/2023 1 0:35 AM EDT 10/09/2023 10:36 AM EDT Quiana Rg PA-C LAB - BLOOD DRAW Final Resul t [facility] [address] [address], [facility] [address] [place] [address] * COMPREHENSIVE METABOLIC PANEL (10/09/2023 10:35 AM EDT) Pathologist [facility] GLUCOSE 88 65 - 99 mg/dL [facility] Comment: ?Fasting reference interval UREA NITROGEN (BUN) 11 7 - 25 mg/dL [facility] CREATININE (blood) 0.60 0.50 - 1.05 mg/dL [facility] EGFR 102 > OR = 60 mL/min/1. 73m2 [facility] [place] [employer] BUN/CREATININE RATIO SEE NOTE: [facility] Comment: ?? Not Reported: BUN and Creatinine are within ?? reference range. ? SODIUM 142 135 - 146 mmol/L [facility] POTASSIUM 3.9 3.5 - 5.3 mmol/L [facility] [place] [employer] CHLORIDE 104 98 - 110 mmol/L [facility] CARBON DIOXIDE 30 20 - 32 mmol/L [facility] CALCIUM 9.2 8.6 - 10.4 mg/dL [facility] [place] [employer] PROTEIN, TOTAL 6.7 6.1 - 8.1 g/dL [facility] ALBUMIN 4.4 3.6 - 5.1 g/dL [facility] [place] [employer] GLOBULIN 2.3 1.9 - 3.7 g/dL (calc) [facility] ALBUMIN/GLOBULI N RATIO 1.9 1.0 - 2.5 (calc) [facility] BILIRUBIN, TOTAL 0.3 0.2 - 1.2 mg/dL [facility] ALKALINE PHOSPHATASE 60 37 - 153 U/L [facility] AST 18 10 - 35 U/L [facility] ALT 16 6 - 29 U/L [facility] Blood Blood / Unknown 10/09/2023 1 0:35 AM EDT 10/09/2023 10:36 AM EDT Quiana Rg PA-C LAB - BLOOD DRAW Edited Resu lt - Final [facility] [address] [address], [facility] [address] [place] [address] * MAMMO DIGITAL SCREEN EMELY W CAD 3D (10/07/2023 3:00 AM EDT) 10/07/2023 3:00 AM EDT Quiana Rg PA-C IMG MAMMO Final Result [facility] Corporate Office [address], [address] [place] [address], [place] [phone] * LUNG CANCER SCREENING (LOW DOSE CT OF CHEST) SCANNED DOCUMENT (04/29/2023 3:00 AM EST) 04/29/2023 3:00 AM EST Quiana Rg PA-C SCAN IMAGING Final Result * HISTORIC DEXA SCAN (08/21/2022 3:00 AM EDT) 08/21/2022 3:00 AM EDT Quiana Rg PA-C IMG DXA Final Result * (ABNORMAL) HEPATITIS A,B,C PANEL (08/03/2018 1:54 PM EST) HEPATITIS B SURFACE ANTIBODY POSITIVE(A) NEGATIVE [facility] HEPATITIS B SURFACE ANTIGEN NEGATIVE NEGATIVE [facility] Comment: Over the counter supplements containing high doses of biotin may interfere with this assay. ??If interference is suspected, patients shoud be retested after refraining from biotin supplements for 72 hours. HEPATITIS C VIRUS DIAGNOSTIC NEGATIVE NEGATIVE [facility] HEPATITIS A ANTIBODY TOTAL POSITIVE(A) NEGATIVE [facility] Comment: Over the counter supplements containing high doses of biotin may interfere with this assay. ??If interference is suspected, patients shoud be retested after refraining from biotin supplements for 72 hours. Blood specimen (specimen) Blood / Unknown 08/03/2018 1:54 PM EST 08/03/2018 1:55 PM EST Narrative [facility] - 08/03/2018 6:46 PM EST [employer], [place] [address] Liner Man - [place] M[place] [id number] ORD# [id number] us Quiana Rg PA-C LAB - BLOOD DRAW Edited Resu lt - Final [address] [address], * HIV-1 & HIV-2 ANTIBODIES (08/03/2018 1:54 PM EST) HIV 1 AND 2 ANTIBODY SCREEN NEGATIVE NEGATIVE [facility] Comment: This assay is a [...] PM EST 08/03/2018 1:55 PM EST Narrative [facility] - 08/03/2018 7:15 PM EST [employer], a member of [address] [address] [employer] - [place] [id number] ORD# [id number] Quiana Rg PA-C LAB - BLOOD DRAW Final Resul t [address] [address], * COLONOSCOPY (10/22/2015 1:28 PM EDT) Quiana Bruner PA-C - 10/22/2015 1:28 PM EDT Grade 2 internal and external hemorrhoids, stool in cecum, repeat in 5 years [facility] G.I. PROCEDURES Final Result from Last 3 Months or Most Recently Relevant to Health Maintenance Insurance [place] MEDICAID DENTAL [address] [employer] Care Teams Finish Patcher Relationship Specialty Start Date End Date Quiana Rg PA-C [address] [place] [phone] PCP - General Internal Medicine 11/14/13
--- OUTSIDE RECORDS SUMMARY | 2024-09-08 15:45 | XMS_ITS | Encounter Summary ---
Author Organization [facility] Address [address] [place] [address] Care Team Providers Care Youth Nutritional Monitor Name Role Phone Quiana Rg PA-C Primary Care Provider [phone] Encounter Details Date Type Department Care Team (Late st Contact Info) Description 09/03/2015 Interim Notes [address] [address] Fredrick Miller [phone] [place] [phone] Pulmonary nodules Social History Tobacco Use Types [...] Description 09/09/2024 1:20 PM EDT Office Visit [address] [address] Quiana Rg PA-C [address] [place] [phone] 09/16/2024 9:00 AM EDT Telemedicine Visit [facility] [address] [place] [phone] Rhoda Núñez, RN [address] [place] [address] documented as of this encounter Visit Diagnoses Diagnosis Pulmonary nodules Other nonspecific abnormal finding of lung field documented in this encounter Additional Health Concerns Infection Onset Date Last Indicated Resolved Time COVID-19 Comment:Added automatically based on visit diagnosis/problem list. 09/20/2020 09/20/2020 12/19/2020 7:09 PM PDT documented as of this encounter Care Teams Youth Nutritional Monitor Relationship Specialty Start Date End Date Quiana Rg PA-C [address] [place] [phone] PCP - General Internal Medicine 11/14/13 documented as of this encounter
--- OUTSIDE RECORDS SUMMARY | 2024-09-08 15:45 | XMS_ITS | Clinical Summary ---
Author Organization [facility] Address [address] [place] [address] Phone Care Team Providers Care Machine Loader Name Role Phone Laxmi Luevano CRYS Primary Care Provider +1- [phone] Allergies Active Allergy Reactions Criticality Noted Date Comments Doxycycline 08/30/2012 Rash Lamotrigine 04/28/2023 Lidocaine 04/09/2022 Rash/itching Metoclopramide 09/07/2012 Medications omeprazole (PriLOSEC) [address] capsule Take 1 Capsule by mouth daily. 4 Active albuterol HFA (ProAir HFA) 90 mcg/actuation inhaler INHALE 2 PUFFS INTO THE LUNGS EVERY 6 HOURS NEEDED FOR COUGH OR WHEEZING OR CHEST TIGHTNESS 2 Active fluticasone-ume clidinium-vilan terol (Trelegy Ellipta) 100-62.5-25 mcg inhaler Inhale 1 Puff into the lungs daily. 2 Active diphenhydramine HCl (BANOPHEN ORAL) Take 25 mg by mouth 2 (two) times a day if needed (pruritus). Active calcium carbonate/vitam in D3 (CALCIUM 600 + D,3, ORAL) Take by mouth. Activ e aspirin 81 mg EC tablet 81 mg. 6 Active gabapentin (NEURONTIN) 300 mg capsule Take 2 capsules (600 mg total) by mouth 3 (three) times a day. Active hydroxychloroqu ine (PLAQUENIL) 200 mg tablet Take 200 mg by mouth 2 times daily. Active zolpidem (AMBIEN) 5 mg tablet Take 2 tablets (10 mg total) by mouth at bedtime as needed for sleep. Active folic acid (FOLVITE) 400 mcg tablet Take 1,000 tablets (400 mg total) by mouth 1 (one) time each day. 3 Active montelukast (SINGULAIR) 10 mg tablet Take 1 tablet (10 mg total) by mouth at bedtime. 0 Active piroxicam (FELDENE) 20 mg capsule Take 1 capsule (20 mg total) by mouth daily. 4 Active primidone (MYSOLINE) 50 mg tablet Take 1 tablet (50 mg total) by mouth at bedtime. 2 Active rosuvastatin (CRESTOR) 20 mg tablet Take 1 tablet (20 mg total) by mouth at bedtime. 4 Active traMADoL (ULTRAM) 50 mg tablet Take 1 tablet (50 mg total) by mouth 2 (two) times a day. Active albuterol 2.5 mg /3 mL (0.083 %) nebulizer solution Take 3 mL (2.5 mg total) by nebulization every 6 (six) hours if needed for wheezing or shortness of breath. 9 Active busPIRone (BUSPAR) 10 mg tablet Take 1 tablet (10 mg total) by mouth 2 (two) times a day. 3 Active DULoxetine (CYMBALTA) [address] capsule Take 1 capsule (60 mg total) by mouth 2 (two) times a day. Active amLODIPine (Norvasc) 5 mg tablet Take 1 tablet (5 mg total) by mouth 1 (one) time each day. 3 Active OXcarbazepine (TRILEPTAL) 300 mg tablet Take [...] not crush, chew, or split. 60 each 5 06/10/19 26 Active ipratropium-alb uteroL (DUONEB) 0.5-2.5 mg/3 mL nebulizer solution Take 3 mL by nebulization 4 (four) times a day. 360 mL 5 06/10/19 26 Active nicotine (NICODERM CQ) 14 mg/[address] 1 patch on the skin 1 (one) time each day. 14 each 5 Active lactulose (CHRONULAC) solution Take 30 mL (20 g total) by mouth 2 (two) times a day. 1800 mL 3 5 Active Active Problems Problem Noted Date Diagnosed Date Acute bronchitis 06/10/2024 Hypoxia 06/10/2024 Influenza A 06/07/2024 Influenza and pneumonia 06/06/2024 Oral candidiasis 02/16/2019 Nausea 01/13/2019 Gas bloat syndrome 01/13/2019 Irritable bowel syndrome wit h both constipation and diarrhea 01/13/2019 Gastroparesis 01/13/2019 Encounters Date Type Department Care Team Description 07/06/2024 2:00 PM EST Office Visit Gastroenterology [facility] [address] [address] Gwen Queen PA Gastroparesis (Primary Dx); Gas bloat syndrome; Irritable bowel syndrome with both constipation and diarrhea 07/06/2024 Telephone Gastroenterology [facility] [address] [address] Gwen Queen PA 06/06/2024 1:53 PM EST - 06/10/2024 6:42 PM EST Hospital Encounter [facility] [address] [place] [phone] Felix Singh MD Nasser, Nada S, MD Hypoxia (Primary Dx); Acute bronchitis, unspecified organism; Influenza A Discharge Disposition: Home or Self Care from Last 3 Months Immunizations Name Administration Dates Next Due Moderna SARS-CoV-2 COVID-19, mRNA, LNP-S, preservative free 12/04/2021,10/10/2020,09/12/2020 Surgical History Surgery Date Site/Laterality Comments SPINAL CORD STIMULATOR IMPLANT APPENDECTOMY CHOLECYSTECTOMY SECTION, LOW TRANSVERSE x3 TOTAL KNEE ARTHROPLASTY Left Medical History Medical History Date Comments Depression with anxiety Asthma Hypercholesteremia Hypertension GERD (gastroesophageal reflux disease) SLE (systemic lupus erythematosus) ([facility]/HCC) Fibromyalgia Chronic back pain Family History Medical [...] care for your loved ones. For example, rn maternal child or elderly care for an older adult? [...] 2:40 PM EDT Office Visit Gastroenterology - [place] [address] [place] [address] Gwen Queen PA [address] [place], [place] [phone] Health Maintenance Due Date Last Done Comments Cervical Cancer Screening: Pap Smear 1982 Zoster Vaccines (2 of 2) 01/25/2018 11/30/2017 RSV Immunization Adult Patients (1 - Risk 60-74 years 1-dose series) [...] Procedure Name Priority Date/Time Associated Diagnosis Comments BASIC METABOLIC PANEL Routine 06/08/2024 5:[address] LUNG SCREENING Routine 05/01/2024 9:2 7 AM EST Encounter for screening for malignant neoplasm of respiratory organs Nicotine dependence, cigarettes, uncomplicated LIPID PANEL Routine 10/29/2023 BROOKE SCREENING DIGITAL Routine 10/07/2023 1:06 PM EDT Encounter for screening mammogram for malignant neoplasm of breast HM COLONOSCOPY Routine 07/02/2020 from Last 3 Months or Most Recently Relevant to Health Maintenance Results * (ABNORMAL) Basic metabolic panel (06/08/2024 5:40 AM EST) Sodium 137 133 - 145 mmol/L LAB CHEMISTRY METHOD 06/08/2024 7:39 AM [facility] Potassium 3.5 3.5 - 5.5 mmol/L LAB CHEMISTRY METHOD 06/08/2024 7:39 AM [facility] Chloride 105 96 - 110 mmol/L LAB CHEMISTRY METHOD 06/08/2024 7:39 AM [facility] CO2 28 21 - 32 mmol/L LAB CHEMISTRY METHOD 06/08/2024 7:39 AM [facility] Anion Gap 4 3 - 11 LAB CHEMISTRY METHOD 06/08/2024 7:39 AM [facility] Glucose 89 70 - 100 mg/dL LAB CHEMISTRY METHOD 06/08/2024 7:39 AM [facility] BUN 23 5 - 25 mg/dL LAB CHEMISTRY METHOD 06/08/2024 7:39 AM EST [facility] Creatinine 0.65 0.50 - 1.10 mg/dL LAB CHEMISTRY METHOD 06/08/2024 7:39 AM [facility] eGFR 100 >=60 mL/min/1. 73m2 LAB CHEMISTRY METHOD 06/08/2024 7:39 AM EST [facility] Comment:Calculation based on the??Chronic Kidney Disease Epidemiology Collaboration (CKD-EPI) equation refit??without adjustment for race. BUN/Creatinine Ratio 35.4 LAB CHEMISTRY METHOD 06/08/2024 7:39 AM [facility] Calcium 8.2(L) 8.5 - 10.5 mg/dL LAB CHEMISTRY METHOD 06/08/2024 7:39 AM [facility] Blood Venous blood specimen / Unknown Venipuncture / Unknown 06/08/2024 5:40 AM EST 06/08/2024 6:51 AM EST us Comfort TRIVEDI LAB BLOOD ORDERABLES Final Resul t [facility] [address] [place] [address], * CT Lung Screening (05/01/2024 9:27 AM [...] Signed Date: 05/02/2024 13:27 ET Workstation ID: [id number] Transcribed By: Self Edit Transcribed Date: 05/02/2024 13:14 ET Narrative 05/02/2024 1:27 PM EST EXAMINATION: CT CHEST WITHOUT CONTRAST LUNG CANCER SCREENING, LOW DOSE CLINICAL INFORMATION: Lung cancer screening. ??Current smoker COMPARISON: Portions of a previous 04/29/2023 ?? TECHNIQUE: Multidetector CT. Examination of the chest. Examination of the chest without IV contrast. Reformatting in the coronal and sagittal planes. Device: Metaconomy VCT DLP: 164 mGy-cm CTDI: 4.83 Dose [...] in the coronal and sagittal planes. Device: TIME PLUS [email or web address] VCT DLP: 164 mGy-cm CTDI: 4.83 Dose [...] Signed Date: 05/02/2024 13:27 ET Workstation ID: [id number] Transcribed By: Self Edit Transcribed Date: 05/02/2024 13:14 ET us Kendall Edwards MD IMG CT PROCEDURES Final Result * Lipid panel (10/29/2023) Triglycerides 0 mg/dL Comment:No interpretation Cholesterol 0 mg/dL Comment:No interpretation HDL 0 mg/dL Comment:No interpretation LDL Cholesterol 0 mg/dL Comment:No interpretation Blood Venous blood specimen / Unknown us Historical Provider LAB BLOOD ORDERABLES Vanita l Result * BROOKE SCREENING DIGITAL (10/07/2023 1:06 PM EDT) Anatomical Region Laterality Modality Mammography 10/07/2023 10:5 8 AM EDT Narrative 10/07/2023 1:06 PM EDT [facility] Diagnostic Imaging Department [address] [place], [place] [id number] Patient: ??SEMPRIT JIM,KOURTNEY ?/Age/Sex: 1960 - Unit#: ??[id number] ? Location/Status: ??SPDIMAM/REG CLI ? Mnemonic/Ordering Site: ??DIGSC/SPMAM Ordering Physician: ??KOSTA BIRMINGHAM [place] Screening Digital - 10/07/23 - 1147 Report Status:Signed EXAM: [facility] Screening Digital EXAM DATE AND TIME: 10/07/2023 11:48 AM HISTORY: ??Screening. Reduction mammoplasty in 2007. COMPARISON: ??05/07/22, 04/06/20, 03/29/20, 03/22/18 TECHNIQUE: Bilateral digital breast tomosynthesis was performed in the CC and MLO projections. Computer aided detection with Celnyx 3D 3.1 was employed. TISSUE DENSITY: a. [...] Procedure Note Eloina Romano MD - 01/25/2024 [facility] Diagnostic Imaging Department [address] [place] [address] Patient: KOURTNEY MATTHEWS /Age/Sex: 1960 - 62 -F Unit#: [id number] Location/Status: SPDIMAM/REG CLI Mnemonic/Ordering Site: [facility] Ordering Physician: KOSTA BIRMINGHAM [facility] Screening Digital - 10/07/23 - 1147 Report Status:Signed EXAM: [facility] Screening Digital EXAM DATE AND TIME: 10/07/2023 11:48 AM HISTORY: Screening. Reduction mammoplasty in 2007. COMPARISON: 05/07/22, 04/06/20, 03/29/20, 03/22/18 TECHNIQUE: Bilateral digital breast tomosynthesis was performed in the CCand MLO projections. Computer aided detection with Celnyx 3D 3.1was employed. TISSUE DENSITY: a. The [...] Date/Time: 10/07/23 1306 Sign date/Time: 10/07/23 1306 us Kosta TRIVEDI IMG BI PROCEDURES Final Result * Hm Colonoscopy (07/02/2020) Colonoscopy No interpretation , abstracted Anatomical Region Laterality Modality Other us Historical Provider HEALTH MAINTENANCE Final Result from Last 3 Months or Most Recently Relevant to Health Maintenance Insurance MEDICAID - [place] Advance Directives * Full Code - Default [...] currently active code status orders. Care Teams Machine Loader Relationship Specialty Start Date End Date Laxmi Luevano FNP [address] [place] [address] PCP - General Internal Medicine 12/05/20
--- OUTSIDE RECORDS SUMMARY | 2024-09-08 15:45 | XMS_ITS | Encounter Summary ---
Author Organization [employer] Address [address] [facility] [address] [place] [address] Care Team Providers Care Bleach Boiler Packer Name Role Phone Unavailable Primary Care Provider Unavailabl e Encounter Details Date Type Department Care Team (Latest Contact Info) Description 08/31/2018 Abstract [facility] CONVERSIONS Dental, Provider, DDS Social History Tobacco [...]
== END 2024-09-08 14:18 | disposition home or self-care (01) ==
LOC: HO.CT 14:17
PROVIDERS: PCP Physician Assistant; Visit Provider Internal Medicine Pulmonary Disease
DX: Z12.2 Encounter for screening for malignant neoplasm of respiratory organs (principal); Z87.891 Personal history of nicotine dependence
CPT/HCPCS: 71271

== ENCOUNTER → 2024-09-08 14:19 | Outpatient (BNV) | payer MEDICAID, SELFPAY | PROVIDERS: PCP Physician Assistant; Visit Provider Specialist | DX: Z12.2 Encounter for screening for malignant neoplasm of respiratory organs (principal); Z87.891 Personal history of nicotine dependence | CPT/HCPCS: 71271 ==

== ENCOUNTER 2024-09-22 12:31 | Outpatient (REF) | payer MEDICAID, SELFPAY ==
--- NOTE | 2024-09-22 13:21 | MHC.AU.HA1 ---
Hearing Aid Evaluation Date of Visit: 09/22/24 Tool And Die Machinist Used: Thai- In Person Historical Information: Description of Hearing: Right Ear: Mild mixed hearing loss; Left Ear: Mild sloping to severe sensorineural hearing loss Summary: Provided updated hearing test and medical clearance from [facility]. Reportedly no medical intervention for conductive component or imaging for asymmetric hearing loss discussed. ENT recommended HAs. Noted difficulty hearing in all listening environments, especially understanding speech and while watching television. Opted to trial rechargeable RITE with SlimTip compatible with Android. Impressions taken, bilaterally, without incident - sent to [facility]. Hearing Aid Prescription: Based on the individual?s shared listening needs, communication environments, dexterity, desire for connectivity, and personal preferences, the following prescription for amplification has been made: Right ear: Make, Model, Color: Phonak Audeo I50-R Color: Dodson Battery Size: Rechargeable Wool And Pelt Grader/Slim Tube: 1M Type of Earmold/Dome/CShell/SlimTip: Canal lock SlimTip Left ear: Left ear prescription to be same as Right Hearing Aid above: Make, Model, Color: Phonak Audeo I50-R Color: Dodson Battery Size: Rechargeable Wool And Pelt Grader/Slim Tube: 1M Type of Earmold/Dome/CShell/SlimTip: Canal lock SlimTip Accessories/Assistive Technology: Tax Compliance Officer Plan of Care: Patient wishes to purchase hearing aids as prescribed Action Taken/Action Needed: Hearing Instrument Fitting to be scheduled when materials arrive Primary Diagnosis: H90.A31 Mixed HL, Unilateral Right Ear, W/Restricted Contralateral Secondary Diagnosis: H90.A22 SNHL, Unilateral, Left Ear, W/Restricted Contralateral Hearing Signature: Provider: Zurdo Mendiola, [facility]
--- OUTSIDE RECORDS SUMMARY | 2024-09-22 15:18 | XMS_ITS | Clinical Summary ---
Author Organization [employer] Address [address] [place] [address] [address] [place] [address] Care Team Providers Care Medical Technologist Chemistry Name Role Phone Unavailable Primary Care Provider [...]
--- OUTSIDE RECORDS SUMMARY | 2024-09-22 15:18 | XMS_ITS | Encounter Summary ---
Author Organization [employer] Address [address] [facility] 7[address] [place] [address] Care Team Providers Care E Learning Developer Name Role Phone Unavailable Primary Care Provider Unavailabl e Encounter Details Date Type Department Care Team (Latest Contact Info) Description 08/31/2018 Abstract [facility] CONVERSIONS Dental, Provider, DDS Social History [...]
--- OUTSIDE RECORDS SUMMARY | 2024-09-22 15:18 | XMS_ITS | Clinical Summary ---
Author Organization [facility] Address [address] [place] [address] Phone Care Team Providers Care Automotive Hardware Engineer Name Role Phone Laxmi Luevano CRYS Primary Care Provider +1- [phone] Allergies Active Allergy Reactions Criticality Noted Date [...] 07/06/2024 2:00 PM EST Office Visit Gastroenterology [facility] [address] [address] Gwen Queen PA Gastroparesis (Primary Dx); Gas bloat syndrome; Irritable bowel syndrome with both constipation and diarrhea 07/06/2024 Telephone Gastroenterology [facility] [address] [address] Gwen Queen PA from Last 3 Months Immunizations Name Administration Dates Next Due Moderna SARS-CoV-2 COVID-19, mRNA, LNP-S, preservative free 12/04/2021,10/10/2020,09/12/2020 Surgical History Surgery Date Site/Laterality Comments SPINAL CORD STIMULATOR IMPLANT APPENDECTOMY CHOLECYSTECTOMY SECTION, LOW TRANSVERSE x3 TOTAL KNEE ARTHROPLASTY Left Medical History Medical History Date Comments Depression with anxiety Asthma Hypercholesteremia Hypertension GERD (gastroesophageal reflux disease) SLE (systemic lupus erythematosus) ([facility] V24, [facility] V28) Fibromyalgia Chronic back pain Family History Medical [...] care for your loved ones. For example, children's zoo caretaker or elderly care for an older adult? [...] 2:40 PM EDT Office Visit Gastroenterology - [place] 175 [facility] [address] [phone] Gwen Queen PA [address] [address] 11/22/2024 3:00 PM EDT Appointment [facility] Endoscopy [address] [place] [phone] Ottoniel Fernandez MD [address] [address] Health Maintenance Due Date Last Done Comments [...] 06/07/2024, 06/06/2024, Additional history exists Depression Screening 09/09/2025 09/09/2024 Breast Cancer Screening 10/06/2025 10/07/19, 10/07/2023, 05/07/2022, [...] age to complete this topic Meningococcal B Vaccine Aged Out No l onger eligible based on patient's age to complete [...] mmol/L LAB CHEMISTRY METHOD 06/08/2024 7:39 AM [facility] Potassium 3.5 3.5 - 5.5 mmol/L LAB CHEMISTRY METHOD 06/08/2024 7:39 AM [facility] Chloride 105 96 - 110 mmol/L LAB CHEMISTRY METHOD 06/08/2024 7:39 AM [facility] CO2 28 21 - 32 mmol/L LAB CHEMISTRY METHOD 06/08/2024 7:39 AM [facility] Anion Gap 4 3 - 11 LAB CHEMISTRY METHOD 06/08/2024 7:39 AM [facility] Glucose 89 70 - 100 mg/dL LAB CHEMISTRY METHOD 06/08/2024 7:39 AM [facility] BUN 23 5 - 25 mg/dL LAB CHEMISTRY METHOD 06/08/2024 7:39 AM [facility] Creatinine 0.65 0.50 - 1.10 mg/dL LAB CHEMISTRY METHOD 06/08/2024 7:39 AM [facility] eGFR 100 >=60 mL/min/1. 73m2 LAB CHEMISTRY METHOD 06/08/2024 7:39 AM [facility] Comment:Calculation based on the??Chronic Kidney Disease Epidemiology Collaboration (CKD-EPI) equation refit??without adjustment for race. BUN/Creatinine Ratio 35.4 LAB CHEMISTRY METHOD 06/08/2024 7:39 AM [facility] Calcium 8.2(L) 8.5 - 10.5 mg/dL LAB CHEMISTRY METHOD 06/08/2024 7:39 AM [facility] Blood Venous blood specimen / Unknown Venipuncture / Unknown 06/08/2024 5:40 AM EST 06/08/2024 6:51 AM EST us Comfort TRIVEDI LAB BLOOD ORDERABLES Final Resul t [facility] [address] [place] [address], * CT Lung Screening (05/01/2024 9:27 AM [...] Signed Date: 05/02/2024 13:27 ET Workstation ID: [id number] Transcribed By: Self Edit Transcribed Date: 05/02/2024 13:14 ET Narrative 05/02/2024 1:27 PM EST EXAMINATION: CT CHEST WITHOUT CONTRAST LUNG CANCER SCREENING, LOW DOSE CLINICAL INFORMATION: Lung cancer screening. ??Current smoker COMPARISON: Portions of a previous 04/29/2023 ?? TECHNIQUE: Multidetector CT. Examination of the chest. Examination of the chest without IV contrast. Reformatting in the coronal and sagittal planes. Device: Occipital VCT DLP: 164 mGy-cm CTDI: 4.83 Dose [...] in the coronal and sagittal planes. Device: Lightspeed VCT DLP: 164 mGy-cm CTDI: 4.83 Dose [...] Signed Date: 05/02/2024 13:27 ET Workstation ID: [id number] Transcribed By: Self Edit Transcribed Date: 05/02/2024 [...] AM EDT Narrative 10/07/2023 1:06 PM EDT [facility] Diagnostic Imaging Department [address] [place] [address] Patient: ??SEMPRIT JIM,KOURTNEY ?/Age/Sex: 1960 - - Unit#: ??[id number] ? Location/Status: ??SPDIMAM/REG CLI ? Mnemonic/Ordering Site: ??DIGSC/SPMAM Ordering Physician: ??KOSTA BIRMINGHAM [facility] Screening Digital - 10/07/23 - 1147 Report Status:Signed EXAM: [facility] Screening Digital EXAM DATE AND TIME: 10/07/2023 11:48 AM HISTORY: ??Screening. Reduction mammoplasty in 2007. COMPARISON: ??05/07/22, 04/06/20, 03/29/20, 03/22/18 TECHNIQUE: Bilateral digital breast tomosynthesis was performed in the CC and MLO projections. Computer aided detection with OpenTrust 3D 3.1 was employed. TISSUE DENSITY: a. [...] mammogram BILATERAL in 1 year. Dictating Physician: ??LORI ROMANO MD Electronically Signed by: ??LORI ROMANO MD Dic Date/Time: ??10/07/23 1306 Sign date/Time: ??10/07/23 1306 Procedure Note Lori Romano MD - 01/25/2024 [facility] Diagnostic Imaging Department [address] [place] [address] Patient: KOURTNEY MATTHEWS /Age/Sex: 1960 - 62 -F Unit#: [id number] Location/Status: SPDIMAM/REG CLI Mnemonic/Ordering Site: [facility] Ordering Physician: KOSTA BIRMINGHAM [facility] Screening Digital - 10/07/23 - 1147 Report Status:Signed EXAM: [facility] Screening Digital EXAM DATE AND TIME: 10/07/2023 11:48 AM HISTORY: Screening. Reduction mammoplasty in 2007. COMPARISON: 05/07/22, 04/06/20, 03/29/20, 03/22/18 TECHNIQUE: Bilateral digital breast tomosynthesis was performed in the CCand MLO projections. Computer aided detection with OpenTrust 3D 3.1was employed. TISSUE DENSITY: a. The [...] mammogram BILATERAL in 1 year. Dictating Physician: LORI ROMANO MD Electronically Signed by: LORI ROMANO MD Dic Date/Time: 10/07/23 1306 Sign date/Time: 10/07/23 1306 Kosta TRIVEDI IMG BI PROCEDURES Final Result * Colonoscopy (07/02/2020) Colonoscopy No interpretation , abstracted Anatomical Region Laterality Modality Other us Historical Provider HEALTH MAINTENANCE Final Result from Last 3 Months or Most Recently Relevant to Health Maintenance Insurance [place] Member Subscriber Plan / Payer (Ef fective 2024-Present) Name:Kourtney Reyes Relation to Subscriber:Self Name:Kourtney Reyes Payer ID:[id number] Group ID:Not on file Type:Not on file Address: [facility] [place] ATTN:[employer] [address] [place] [address] Advance Directives * Full Code - Default [...] currently active code status orders. Care Teams Automotive Hardware Engineer Relationship Specialty Start Date End Date Laxmi Luevano FNP [address] [place] [phone] PCP - General Internal Medicine 12/05/20
--- OUTSIDE RECORDS SUMMARY | 2024-09-22 15:18 | XMS_ITS | Encounter Summary ---
Author Organization [facility] Address [address] [place] [address] Care Team Providers Care Orthotic Technician Name Role Phone Quiana Rg PA-C Primary Care Provider Encounter Details Date Type Department Care Team (Late st Contact Info) Description 09/03/2015 Interim Notes [address] [phone] Fredrick Miller [phone] [place] [address] Pulmonary nodules Social History Tobacco Use Types [...] Care Team (Late st Contact Info) Description 10/07/2024 9:20 AM EDT Telemedicine Visit [address] [phone] Rhoda Núñez RN [address] [place], [place] [phone] 10/10/2024 11:20 AM EDT Telemedicine Visit [address] [place] [phone] Quiana Rg PA-C [address] [place] [phone] documented as of this encounter Visit Diagnoses Diagnosis Pulmonary nodules Other nonspecific abnormal finding of lung field documented in this encounter Additional Health Concerns Infection Onset Date Last Indicated Resolved Time COVID-19 Comment:Added automatically based on visit diagnosis/problem list. 09/20/2020 09/20/2020 12/19/2020 7:09 PM PDT documented as of this encounter Care Teams Orthotic Technician Relationship Specialty Start Date End Date Quiana Rg PA-C [address] [place] [phone] PCP - General Internal Medicine 11/14/13 documented as of this encounter
--- OUTSIDE RECORDS SUMMARY | 2024-09-22 15:18 | XMS_ITS | Clinical Summary ---
Author Organization [facility] Address [address] [place] [address] Care Team Providers Care Mechanism Assembler Name Role Phone Quiana Rg PA-C Primary Care Provider + [phone] Source Comments PLEASE NOTE, if this patient [...] mL syrgIndications:Mi ld persistent asthma without complication ([facility]) Inject into the skin DR. Ricci Mcnulty 09/18/19 22 Active selenium sulfide 2.25 % shampooIndications :Tinea versicolor Apply topically twice a week 180 mL 3 09/20/19 22 Active mometasone-formote rol (DULERA) 200-5 mcg/actuation inhalerIndications :Mild persistent asthma without complication ([facility]) Inhale into the lungs 07/25/19 20 Active fluticasone-umecli din-vilanter (TRELEGY ELLIPTA) 200-62.5-25 mcg dsdvIndications:Mi ld persistent asthma without complication ([facility]) Inhale into the lungs 05/08/20 20 Active montelukast (SINGULAIR) 10 mg tabletIndications: Mild persistent asthma without complication ([facility]) Take 1 Tablet by mouth 04/06/20 20 Active primidone (MYSOLINE) 50 mg tabletIndications: Mild persistent asthma without complication ([facility]) Take 50 mg by mouth nightly at [...] nasal sprayIndications:L umbar disc disease Place 1 [place] into the nostril(s) as needed for opioid [...] October 29, 2017 14:32 EDT Encounter info: [id number], [facility], One Time OP, 10/29/2017 - 10/29/2017 Contributor system: Examify * Final Report * Echo Complete-Doppler, Colorflow, M-Mode Transthoracic Echocardiography Report (TTE) Patient Demographics Patient Name KOURTNEY BACA Date of Study 10/29/2017 Corporate Gender Female Facility Race Ethnicity or Date of 1960 Height: 64.17 inches Age 56 year(s) Weight: 176.37 pounds Accession Number [id number] BSA: 1.86 m2 Room Number BMI: 30.11 kg/m2 Referring Physician Kelli TRIVEDI Interpreting Jason Anne MD [facility]ia Teresa, [facility] Indications Chest pain. Clinical History Hypertension. Asthma. [...] cm/s E' Lateral Velocity: 11.8 cm/s E/Med E':12.62544 E/Lat E':7.961084 Cardiac Anatomy Left Ventricle/Interventricular Septum The left [...] on July 07, 2016 17:49 Encounter info: [id number], [facility], One Time OP, 07/07/2016 - 07/07/2016 * [...] nodules measuring up to 1.3 cm. WSN: [id number] Signature Line Dictated By: Jesus Avila MD [...] abnormal calcifications. CONCLUSION: Stable bilateral thyroid nodules. [id number] Dictating Physician: TEDDY NARVAEZ MD Electronically Signed by: TEDDY NARVAEZ MD Dic Date/Time: 06/04/12919 Sign date/Time: 06/04/12921 Peripheral neuropathy 09/01/2013 Overview (09/01/2013): EMG Nerve Conduction Study (Verified) [facility] ELECTROMYOGRAPHY REPORT Referring Provider: Kary Alex EMG Physician: Celestine Clarke M.D. EMG Technologist: VL Limb Temperature: Warmed with hot packs to greater than 34?? C Date of Service: 08/18/2013 Order ID: [id number] CLINICAL PRESENTATION: The patient is a 52 [...] Transcribed: 08/18/2013 18:20:03 Transcribed by: NAKIA DocID: [id number] PRELIMINARY REPORT UNLESS MANUALLY/ELECTRONICALLY SIGNED Sprain or strain of cervical spine 06/15/2013 Mild vitamin D deficiency 03/25/2013 Lupus (systemic lupus erythematosus) ([facility]) 0 02/01/2013 Fibromyalgia 02/01/2013 Asthma, mild persistent ([facility]) 02/01/2013 Hemolytic anemia ([facility] V24) 02/01/2013 Anxiety and depression 02/01/2013 Encounters Date Type Department Care Team Description 09/16/2024 9:00 AM EDT Telemedicine Visit [address] [phone] Rhoda Núñez RN Diaz, Wilma Smoking trying to quit (Primary Dx) 09/09/2024 1:20 PM EDT Office Visit [address] [address] Quiana Rg PA-C Weight gain (Primary Dx); Elevated glucose; Mild vitamin D deficiency; Essential hypertension, benign 08/17/2024 3:20 PM EDT Office Visit [address] [phone] Alena Koch PA-C Preoperative clearance (Primary Dx); Essential hypertension, benign 06/28/2024 2:00 PM EST Office Visit [address] [address] Quiana Rg PA-C Community acquired pneumonia, unspecified laterality (Primary Dx); Tobacco use 06/28/2024 Travel from Last 3 Months Immunizations Immunization Administration [...] Passive Smoke Exposure: Never Smokeless Tobacco: Never Tobacco Cessation:Counseling Given: Yes Alcohol Use Standard Drinks/Week Comments No 0 [...] Sign Reading Time Taken Comments Blood Pressure 132/70 09/09/2024 1:16 PM EDT Pulse 71 09/09/2024 1:16 PM EDT Temperature 36.8 ??C (98.2 ??F) 09/09/2024 1:16 PM ED T Respiratory Rate 16 09/09/2024 1:16 PM EDT Oxygen Saturation 99% 09/09/2024 1:16 PM EDT Inhaled Oxygen Concentration - - Weight 88 kg (194 lb) 09/09/2024 1:16 PM EDT Height 160 cm (5' 2.99 ) 09/09/2024 1:16 PM EDT Body Mass Index 34.37 09/09/2024 1:16 PM EDT Plan of Treatment Upcoming Encounters Date Type Department Care Team (Late st Contact Info) Description 10/07/2024 9:20 AM EDT Telemedicine Visit [address] [phone] Rhoda Núñez, BHANU [address] [place] [address] 10/10/2024 11:20 AM EDT Telemedicine Visit [address] [address] Quiana Rg PA-C [address] [place] [phone] Health Maintenance Due Date Last Done Comments Anxiety Screening 1960 HPV Screening 1960 Urine Drug Screen 1960 [address] Colonography 2006 Fecal DNA 2006 Flexible Sigmoidoscopy 2006 FIT/gFOBT 04/25/2015 04/25/2014 (Declined) Dental BW 11/02/2022 10/31/2021 Dental Examination 11/02/2022 10/31/2021 Dental Perio Charting 11/02/2022 10/31/2021 Dental Prophy 03/09/2023 03/07/2022 Breast Cancer Screening (Mammogram) 10/06/2024 10/07/2023, 05/07/2022, 05/07/2022, Additional history exists Annual Preventive Care Visit 10/08/2024 10/09/2023, 04/09/2022, 03/22/2021, Additional history exists Depression Monitoring 12/09/2024 09/09/2024 , 06/28/2024, 10/09/2023, Additional history exists [id number] ( season) 2024 04/09/2022, 12/04/2021, 04/18/2021, Additional history exists Postponed from 02/07/2024 (Patient postponement) Imm-Zoster, Recombinant (2 of 2) 12/09/2024 11/30/2017 Postponed from 01/25/2018 (Patient postponement) Colonoscopy 07/02/2025 07/02/2020, 10/22/2015 Colorectal Cancer Screening 07/02/2025 Lung Cancer Screening 09/08/2025 09/08/2024 , 05/01/2024, 04/29/2023, Additional history exists Diabetes Screening 09/09/2025 09/09/2024, 0 09/09/2024, 06/08/2024, Additional history exists Lipid Screening 09/09/2025 09/09/2024, 052 08/2023, 10/09/2023, Additional history exists Tobacco Cessation Counseling (#1) 09/09/2025 Tobacco Screening 09/09/2025 09/09/2024 Dental FMX/Pano 11/02/2026 10/31/2021 Pap Smear 04/15/2027 04/15/2024, 05/0 07/2018, 04/25/2014 Cervical Cancer Screening 04/15/2029 Pap + HPV 04/15/2029 04/15/2024, 05/0 07/2018, 04/25/2014 Imm-DTaP/Tdap/Td (4 - Td or Tdap) 06/27/2030 06/27/2020, 11/30/2017, 11/17/2008 HIV Screening Completed 08/03/2018 Hepatitis C Screening Completed 08/03/2018 Imm-Pneumococcal Completed 04/09/2022, 11/2015, 08/25/2008 Bone Density Screening Completed , 08/21/2022, 08/21/2022 Imm-Influenza Completed 02/25/2024, 03/10, 03/09/2022, Additional history exists Alcohol and Drug Screen Completed 09/10/19, 10/09/2023, 07/21/2023, Additional history exists Cervical Ablation/Cold-Knife Conization Discontinued Cervical Cryotherapy Discontinued Colposcopy Discontinued Endometrial Biopsy Discontinued Excision/Leep Discontinued HPV Genotyping Discontinued Vaginal Pap Discontinued Vulvoscopy Discontinued Procedures Procedure Name Priority Date/Time Associated Diagnosis Comments ASSAY OF MAGNESIUM Routine 09/09/2024 1: 39 PM EDT Weight gain Elevated glucose Mild vitamin D deficiency Essential hypertension, benign VITAMIN B12 & FOLATE Routine 09/09/2024 1:39 PM EDT Weight gain Elevated glucose Mild vitamin D deficiency Essential hypertension, benign 25 HYDROXY INCLUDES FRACTIONS IF PERFORMED Routine 09/09/2024 1:39 PM EDT Weight gain Elevated glucose Mild vitamin D deficiency Essential hypertension, benign BLOOD COUNT COMPLETE AUTO&AUTO DIFRNTL WBC Routine 09/09/2024 1:39 PM EDT Weight gain Elevated glucose Mild vitamin D deficiency Essential hypertension, benign COMPREHENSIVE METABOLIC PANEL Routine 09/09/2024 1:39 PM EDT Weight gain Elevated glucose Mild vitamin D deficiency Essential hypertension, benign LIPID PANEL Routine 09/09/2024 1:39 PM EDT Weight gain Elevated glucose Mild vitamin D deficiency Essential hypertension, benign TSH W/RFLX FREE T4 Routine 09/09/2024 1: 39 PM EDT Weight gain Elevated glucose Mild vitamin D deficiency Essential hypertension, benign HEMOGLOBIN GLYCOSYLATED A1C Routine 09/09/2024 1:39 PM EDT Weight gain Elevated glucose Mild vitamin D deficiency Essential hypertension, benign LUNG CANCER SCREENING (LOW DOSE CT OF CHEST) SCANNED DOCUMENT 09/08/2024 3:00 AM EDT REFERRAL SCANNED DOCUMENT 09/06/2024 3:00 AM EDT LAB SCANNED DOCUMENT 09/06/2024 3:00 AM EDT HEALTH HISTORY SCANNED DOCUMENT 07/29/2024 3:00 AM EST EYE EXAM 07/29/2024 3:00 AM EST REFERRAL SCANNED DOCUMENT 07/27/2024 3:00 AM EST THIN PREP IMAGE PAP + HPV RNA E6/E7 W/RFLX HPV 16, 18/45 Routine 04/15/2024 2:06 PM EST Screening for HPV (human papillomavirus) MAMMO DIGITAL SCREEN EMELY W CAD 3D Routine 10/07/2023 3:00 AM EDT Breast cancer screening by mammogram HISTORIC DEXA SCAN 08/21/2022 3: 00 AM [...] Recently Relevant to Health Maintenance Results * TSH W/RFLX FREE T4 (09/09/2024 1:39 PM EDT) TSH W/REFLEX TO FT4 1.12 0.40 - 4.50 mIU/L [facility] Blood Blood / Unknown 09/09/2024 1 :39 PM EDT 09/09/2024 1:40 PM EDT Narrative [facility] - 09/10/2024 9:41 AM EDT FASTING:NO Quiana Rg PA-C LAB - BLOOD DRAW Edited Resu lt - Final Performing Organization Address [facility] de Phone Number [facility] [address] [address], [facility] [address] [address] * VITAMIN B12 & FOLATE (09/09/2024 1:39 PM EDT) Pathologist [facility] VITAMIN B12 847 200 - 1,100 pg/mL [facility] FOLATE, SERUM 22.3 5.5 ng/mL [facility] Comment: ? Reference Range ? Low: ? <3.4 ? Borderline: ?3.4-5.4 ? Normal: ?>5.4 Blood Blood / Unknown 09/09/2024 1 :39 PM EDT 09/09/2024 1:40 PM EDT Narrative [facility] - 09/10/2024 9:41 AM EDT FASTING:NO Quiana Rg PA-C LAB - BLOOD DRAW Edited Resu lt - Final Performing Organization Address [facility] de Phone Number [facility] [address] [address], [facility] [address] [address] * (ABNORMAL) BLOOD COUNT COMPLETE AUTO&AUTO DIFRNTL WBC (09/09/2024 1:39 PM EDT) Pathologist [facility] WHITE BLOOD CELL COUNT 7.4 3.8 - 10.8 Thousand/ uL [facility] RED BLOOD CELL COUNT 4.30 3.80 - 5.10 Million/u L [facility] HEMOGLOBIN 12.3 11.7 - 15.5 g/dL [facility] HEMATOCRIT 38.5 35.0 - 45.0 % [facility] MCV 89.5 80.0 - 100.0 fL [facility] MCH 28.6 27.0 - 33.0 pg [facility] [place] [employer] [place] MCHC 31.9(L) 32.0 - 36.0 g/dL [facility] Comment: For adults, a slight decrease in the calculated MCHC value (in the range of 30 to 32 g/dL) is most likely not clinically significant; however, it should be interpreted with caution in correlation with other red cell parameters and the patient's clinical condition. RDW 13.3 11.0 - 15.0 % [facility] PLATELET COUNT 267 140 - 400 Thousand/ uL [facility] MPV 11.0 7.5 - 12.5 fL [facility] ABSOLUTE NEUTROPHILS 4,262 1,500 - 7,800 cells/uL [facility] ABSOLUTE LYMPHOCYTES 2,412 850 - 3,900 cells/uL [facility] ABSOLUTE MONOCYTES 488 200 - 950 cells/uL [facility] ABSOLUTE EOSINOPHILS 133 15 - 500 cells/uL [facility] ABSOLUTE BASOPHILS 104 0 - 200 cells/uL [facility] NEUTROPHILS PCT 57.6 % QUES [employer] [facility] LYMPHOCYTES 32.6 % [facility] [address] [facility] MONOCYTES 6.6 % [facility] [employer] [employer] [facility] EOSINOPHILS 1.8 % [place] [facility] [employer] [facility] BASOPHILS 1.4 % [employer] [facility] Blood Blood / Unknown 09/09/2024 1 :39 PM EDT 09/09/2024 1:40 PM EDT Narrative [facility] - 09/10/2024 9:41 AM EDT FASTING:NO us Quiana Rg PA-C LAB - BLOOD DRAW Edited Resu lt - Final [employer] [facility] [address] [address], [facility] [address] [address] * ASSAY OF MAGNESIUM (09/09/2024 1:39 PM EDT) [facility] MAGNESIUM 1.8 1.5 - 2.5 mg/dL [facility] Blood Blood / Unknown 09/09/2024 1 :39 PM EDT 09/09/2024 1:40 PM EDT Narrative [employer] [facility] - 09/10/2024 9:41 AM EDT FASTING:NO us Quiana Rg PA-C LAB - BLOOD DRAW Final Resul t Performing Organization Address [facility]/ZIP Co [place] [address], [facility] [address] [address] * (ABNORMAL) HEMOGLOBIN GLYCOSYLATED A1C (09/09/2024 1:39 PM EDT) [facility] HEMOGLOBIN A1C 6.0(H) <5.7 % of total Hgb [facility] Comment: For someone without known diabetes, a hemoglobin A1c value between 5.7% and 6.4% is consistent with prediabetes and should be confirmed with a follow-up test. For someone with known diabetes, a value <7% indicates that their diabetes is well controlled. A1c targets should be individualized based on duration of diabetes, age, comorbid conditions, and other considerations. This assay result is consistent with an increased risk of diabetes. Currently, no consensus exists regarding use of hemoglobin A1c for diagnosis of diabetes for children. Blood Blood / Unknown 09/09/2024 1 :39 PM EDT 09/09/2024 1:40 PM EDT Narrative [employer] [facility] - 09/10/2024 9:41 AM EDT FASTING:NO Quiana gR PA-C LAB - BLOOD DRAW Edited [place]u [place] [address], [facility] [address] [address] * 25 HYDROXY INCLUDES FRACTIONS IF PERFORMED (09/09/2024 1:39 PM EDT) Pathologist [facility] VITAMIN D, 25-OH, TOTAL 33 30 - 100 ng/mL [facility] Comment: Vitamin D Status ? 25-OH Vitamin D: Deficiency: ?<20 ng/mL Insufficiency: ? 20 - 29 ng/mL Optimal: ? > or = 30 ng/mL For 25-OH Vitamin D testing on patients on D2-supplementation and patients for whom quantitation of D2 and D3 fractions is required, the QuestAssureD(TM) 25-OH VIT D, (D2,D3), LC/MS/MS is recommended: order code [id number] (patients >2yrs). COMMENT [employer] [facility] Blood Blood / Unknown 09/09/2024 1 :39 PM EDT 09/09/2024 1:40 PM EDT Narrative [employer] [facility] - 09/10/2024 9:41 AM EDT FASTING:NO See Note 1 Note 1 For additional information, please refer to http://education.Stance/faq/ZEU258 (This link is being provided for informational/ educational purposes only.) Quiana Rg PA-C LAB - BLOOD DRAW Edited Resu lt - Final [facility] [address] [address], [facility] [address] [place] [address] * (ABNORMAL) LIPID PANEL (09/09/2024 1:39 PM EDT) [facility] CHOLESTEROL, TOTAL 104 <200 mg/dL [facility] HDL CHOLESTEROL 48(L) > OR = 50 mg/dL [facility] TRIGLYCERIDES 119 <150 mg/dL [facility] LDL-CHOLESTEROL 35 99 mg/dL (calc) [facility] Comment: Reference range: <100 Desirable range <100 mg/dL for primary prevention; ?? <70 mg/dL for patients with CHD or diabetic patients with > or = 2 CHD risk factors. LDL-C is now calculated using the Kiara calculation, which is a validated novel method providing better accuracy than the Friedewald equation in the estimation of LDL-C. Jordon ORDAZ et al. AUGUST. 2013;310(19): 8174-6295 (http://education.Stance/faq/BXF922) CHOL/HDLC RATIO 2.2 <5.0 (calc) [facility] NON-HDL CHOLESTEROL 56 <130 mg/dL (calc) [facility] Comment: For patients with diabetes plus 1 major ASCVD risk factor, treating to a non-HDL-C goal of <100 mg/dL (LDL-C of <70 mg/dL) is considered a therapeutic option. Blood Blood / Unknown 09/09/2024 1 :39 PM EDT 09/09/2024 1:40 PM EDT Narrative [facility] - 09/10/2024 9:41 AM EDT FASTING:NO us Quiana Rg PA-C LAB - BLOOD DRAW Final Resul t [facility] [address] [address], [facility] [address] [place] [phone] * COMPREHENSIVE METABOLIC PANEL (09/09/2024 1:39 PM EDT) [facility] GLUCOSE 113 65 - 139 mg/dL [facility] Comment: ?Non-fasting reference interval UREA NITROGEN (BUN) 19 7 - 25 mg/dL [facility] CREATININE (blood) 0.53 0.50 - 1.05 mg/dL [facility] EGFR 105 > OR = 60 mL/min/1. 73m2 [facility] BUN/CREATININE RATIO SEE NOTE: [facility] Comment: ?? Not Reported: BUN and Creatinine are within ?? reference range. ? SODIUM 141 135 - 146 mmol/L [facility] POTASSIUM 3.8 3.5 - 5.3 mmol/L [facility] CHLORIDE 103 98 - 110 mmol/L [facility] CARBON DIOXIDE 29 20 - 32 mmol/L [facility] CALCIUM 8.9 8.6 - 10.4 mg/dL [facility] PROTEIN, TOTAL 6.7 6.1 - 8.1 g/dL [facility] ALBUMIN 4.2 3.6 - 5.1 g/dL [facility] GLOBULIN 2.5 1.9 - 3.7 g/dL (calc) [facility] ALBUMIN/GLOBULI N RATIO 1.7 1.0 - 2.5 (calc) [facility] BILIRUBIN, TOTAL 0.3 0.2 - 1.2 mg/dL [facility] ALKALINE PHOSPHATASE 59 37 - 153 U/L [facility] AST 20 10 - 35 U/L [facility] ALT 20 6 - 29 U/L [facility] Blood Blood / Unknown 09/09/2024 1 :39 PM EDT 09/09/2024 1:40 PM EDT Narrative [facility] - 09/10/2024 9:41 AM EDT FASTING:NO us Quiana Rg PA-C LAB - BLOOD DRAW Final Resul t [facility] [address] [address], [facility] [address] [address] * LUNG CANCER SCREENING (LOW DOSE CT OF CHEST) SCANNED DOCUMENT (09/08/2024 3:00 AM EDT) 09/08/2024 3:00 AM EDT us Quiana Rg PA-C SCAN IMAGING Final Result * REFERRAL SCANNED DOCUMENT (09/06/2024 3:00 AM EDT) Only the most recent of2 resultswithin the time period is included. 09/06/2024 3:00 AM EDT us Quiana Lukin PA-C SCAN REFERRAL Final Result * LAB SCANNED DOCUMENT (09/06/2024 3:00 AM EDT) 09/06/2024 3:00 AM EDT Quiana Arcenio PA-C SCAN LAB Final Result * EYE EXAM (07/29/2024 3:00 AM EST) 07/29/2024 3:00 AM EST Quiana Sanchezcynthia PA-C OTHER Edited Resul t - Final * HEALTH HISTORY SCANNED DOCUMENT (07/29/2024 3:00 AM EST) 07/29/2024 3:00 AM EST [facility] Provider Default SCAN OTHER ORDERS Final Re sult * THIN PREP IMAGE PAP + HPV RNA E6/E7 W/RFLX HPV 16, 18/45 (04/15/2024 2:06 PM EST) CLINICAL INFORMATION See Note [facility] Comment:NORMAL EXAM~POSTMENO PAUSAL~NO LMP See Note [facility] Comment:PM PREV. PAP See Note [facility] Comment:NONE GIVEN PREV. BX See Note [facility] Comment:NONE GIVEN SOURCE See Note [facility] Comment:Cervix STATEMENT OF ADEQUACY See Note [facility] Comment: Satisfactory for evaluation. Endocervical/transformation zone component present. INTERPRETATION/RESU LT See Note [facility] Comment: Cytology Results: Negative for intraepithelial lesion or malignancy. INFECTION See Note [facility] Comment:Trichomonas vaginali s identified. COMMENT See Note [facility] Comment: This case could not be evaluated with computer assisted technology. The slide was manually screened according to routine procedures. SAP FICO ARCHITECT See Note [employer] Comment: YP, CT(ASCP) CT screening location: [address] ??[id number] REVIEW SAP FICO ARCHITECT See Note [facility] Comment: SL, CT(ASCP) CT screening location: [address] ??[id number] COMMENT [facility] HPV MRNA E6/E7 Not Detected Not Detected [facility] Comment: Methodology: Prescription Clerk Lenses-Mediated Amplification This assay detects E6/E7 viral messenger RNA (mRNA) from 14 high-risk HPV types (16,18,31,33,35,39,45,51,52,56,58,59,66,68). Cervical sources are required for HPV testing. If a vaginal source from a patient who has had a total hysterectomy with removal of cervix was submitted, please contact the testing laboratory for alternative testing options. For additional information, please refer to http://education.RewardsForce/faq/QGY596x0 (This link if provided for information/ educational purposes only.) Swab Cervix uteri structure / Unknown 04/15/2024 2:06 PM EST 04/18/2024 7:58 AM EST Narrative [facility] - 04/21/2024 1:53 PM EST EXPLANATORY [...] - NO BLOOD DRAW Final Resul t [facility] [address] [address], [facility] [address] [address] * MAMMO DIGITAL SCREEN EMELY W CAD 3D (10/07/2023 3:00 AM EDT) 10/07/2023 3:00 AM EDT Quiana Rg PA-C IMG MAMMO Final Result [facility] Corporate Office [address], [address] [place] [address], [place] [phone] * HISTORIC DEXA SCAN (08/21/2022 3:00 AM EDT) 08/21/2022 3:00 AM EDT Quiana Rg PA-C IMG DXA Final Result * (ABNORMAL) HEPATITIS A,B,C PANEL (08/03/2018 1:54 PM EST) HEPATITIS B SURFACE ANTIBODY POSITIVE(A) NEGATIVE [facility] HEPATITIS B SURFACE ANTIGEN NEGATIVE NEGATIVE [facility] Comment: Over the counter supplements containing high doses of biotin may interfere with this assay. ??If interference is suspected, patients shoud be retested after refraining from biotin supplements for 72 hours. HEPATITIS C VIRUS DIAGNOSTIC NEGATIVE NEGATIVE [facility] HEPATITIS A ANTIBODY TOTAL POSITIVE(A) NEGATIVE [facility] Comment: Over the counter supplements containing high doses of biotin may interfere with this assay. ??If interference is suspected, patients shoud be retested after refraining from biotin supplements for 72 hours. Blood specimen (specimen) Blood / Unknown 08/03/2018 1:54 PM EST 08/03/2018 1:55 PM EST Narrative [facility] - 08/03/2018 6:46 PM EST [facility] [employer], [place] [address] Restaurant General Manager - [place] [id number] ORD# [id number] Quiana Rg PA-C LAB - BLOOD DRAW [place] [address], * HIV-1 & HIV-2 ANTIBODIES (08/03/2018 1:54 PM EST) Pathologist [facility] HIV 1 AND 2 ANTIBODY SCREEN NEGATIVE NEGATIVE [facility] Comment: This assay is a 4th generation [...] PM EST 08/03/2018 1:55 PM EST Narrative [facility] - 08/03/2018 7:15 PM EST [employer], [place] [address] Restaurant General Manager - Georgia Mims MD [place] [id number] ORD# [id number] Quiana Rg PA-C LAB - BLOOD DRAW Final Resul t [facility] [address], * COLONOSCOPY (10/22/2015 1:28 PM EDT) Impressions Quiana Rg PA-C - 10/22/2015 1:28 PM EDT Grade 2 internal and external hemorrhoids, stool in cecum, repeat in 5 years [facility] G.I. PROCEDURES Final Result from Last 3 Months or Most Recently Relevant to Health Maintenance Insurance [place] MED[place] D[place] [address] [employer] Care Teams Mechanism Assembler Relationship Specialty Start Date End Date Quiana Rg PA-C [address] [place] [phone] PCP - General Internal Medicine 11/14/13
== END 2024-09-22 12:32 | disposition home or self-care (01) ==
LOC: HO.HAP 12:31
PROVIDERS: PCP Physician Assistant; Visit Provider Otolaryngology
DX: Z46.1 Encounter for fitting and adjustment of hearing aid (principal); H90.A31 Mixed conductive and sensorineural hearing loss, unilateral, right ear with restricted hearing on the contralateral side; H90.A22 Sensorineural hearing loss, unilateral, left ear, with restricted hearing on the contralateral side
CPT/HCPCS: 92591; V5275

== ENCOUNTER 2024-10-26 12:41 | Outpatient (REF) | payer MEDICAID, SELFPAY ==
--- OUTSIDE RECORDS SUMMARY | 2024-10-26 13:23 | XMS_ITS | Data Portability ---
Author Organization [place] [facility], Allergy Address [address] [facility] [address] [place] [address] Care Team Providers Care Door Fitter Name Role Phone KOSTA BIRMINGHAM Referring Provider Assessment No assessment recorded. Plan of Treatment Reminders Order Date Submit Date Provider Last Modified By Organization Details Last Modified Time Details Appointments None recorded. Lab None recorded. Referral None recorded. Procedures None recorded. Surgeries None recorded. Imaging None recorded. Medication Orders clotrimazol e-betametha sone 1 %-0.05 % topical cream 2024 025 [facility] #[id number], [address] [place], [place], [phone], 5 10:38:15 clotrimazol e 1 % topical solution 2023 024 [facility] [employer] #[id number], [address] [place], [place], [phone], 4 09:37:45 Patient TargetsNo targets recorded. Patient InstructionsNo instructions recorded. Reason for Referral None Reported. Results Created Date Observation Date Name Description Value Unit Range Abnormal Flag Note LastModifiedBy Organization Detail LastModifiedTime 01/27/2005/22/2021 imagi ng/di agnos tic resul t No observ ation record ed. [email or web address] Not Available 21:58:02 08/04/19 25 10/22/2023 audio gram No observ ation record ed. [email or web address] Not Available 07/10 10:42:32 02/27/20 25 audio gram No observ ation record ed. BARCODE Not Available 2024 11:02:58 Result Notes None recorded. Problems Name Problem SNOMED Code Status Onset Date Resolution Date Notes Provider Name and Address Organization Details Recorded Time Dizziness and giddiness 114934215 Active 2020 Dizziness and giddiness ; Note: Date Diagnosed : 1 2:37 PM (R42) Not Available [facility] 4 03:30:07 Disorder of smell 441517189 Active 2020 Unspecifi ed disturban victorino of smell and taste; Note: Date Diagnosed : 1 2:37 PM (R43.9) Not Available [facility] 4 03:30:07 Disorder of taste 983407618 Active 2020 Unspecifi ed disturban victorino of smell and taste; Note: Date Diagnosed : 1 2:37 PM (R43.9) Not Available [facility] 4 03:30:07 Eczema of external auditory canal 87045983 Active 2023 ADRIANA BRIDGES MD [address] [facility],[place] [address], [place], [address] , [facility] - [facility] 4 08:57:45 Sensorine ural hearing loss of bilateral ears 316300474 Active 2023 ADRIANA BRIDGES MD [address] [place] [address],[place] [address], [place], [address] , [facility] - [facility] 4 08:57:50 Chronic mycotic otitis externa 620725921 Active 2023 ADRIANA BRIDGES MD [address] [facility] [address], [address] , [place] - [facility] 4 09:00:19 Dermal mycosis 33956472 Active 2023 ADRIANA BRIDGES MD [address] [facility],[place] [address], [place], [address] , [place] [facility] 4 09:00:19 Candidal otitis externa 73056098 Active 2023 ADRIANA BRIDGES MD [address] [facility],[place] [address], [place], [address] , [place] [facility] 4 09:00:19 Mixed conductiv e AND sensorine ural hearing loss 44158480 Active 2023 ADRIANA BRIDGES MD [address] [facility],[place] [address], [place], [address] , [place] [facility] 4 09:35:49 Bilateral disorder of Eustachia n tubes 55543964412 89479 Active 2024 KIRIT LAY AUD [address] [place] [address],[place] [address], [place], [place], [address] , [facility] - [facility] 5 09:15:13 Chronic refractor y cough Active 2024 ADRIANA BRIDGES MD [address] [place] [address],[place] [address], [place], [place], [address] , [facility] - [facility] 5 10:34:34 Problem Notes None recorded. Procedures Surgical History Date Name Laterality Status Provider Name and Address Organization Details Recorded Time 08/04/2024 FFL_RE completed ADRIANA BRIDGES MD [address] [facility],[place] [address], [place], [address], [facility] - [facility] 08/04/2024 10:32:59 08/04/2024 Air & SRT/SAT Audio with Tymps - 67266, 40559 & 47506 completed THEODORA BOWLING [address] [facility],[place] [address], [place], [address], [facility] - [facility] 08/04/2024 09:14:53 02/03/2024 NasalEndosc opy_DP completed ADRIANA BRIDGES MD [address] [facility],[place] [address], [place], [address], [facility] - [facility] 02/03/2024 09:05:14 Imaging Results Imaging Date Name Status LastModified by Organiz ation Details LastModified Time 05/22/2021 imaging/diagno stic result completed [email or web address] Information not available 01/27/2024 21:58:02 10/22/2023 audiogram completed [email or web address] Information n ot available 08/04/2024 10:42:32 08/04/2024 audiogram completed BARCODE Information no t available 08/04/2024 11:02:58 Procedure Notes None recorded. Medical Equipment None Reported. Medications Name Sig Start Date Stop Date Status Note LastModified by Organization Details LastModified Time celecoxib 200 mg capsule active Medicati on ID: [id number] B rand Name: celecoxi b Send Method: E-Prescr ibed Sub s Allowed: subs OK Speci al Instruct ion: TAKE 1 CAPSULE BY MOUTH TWICE DAILY Me dication GenericN eduar: celecoxi b Not Available Not Available Not Available furosemid e 40 mg tablet TAKE 1 TABLET BY MOUTH EVERY MORNING active Not Available Not Available No t Available primidone 50 mg tablet TAKE 1 TABLET BY MOUTH TWICE DAILY active Not Available Not Available No t Available nystatin 100,000 unit/mL oral suspensio n active Medicati on ID: [id number] B rand Name: nystatin Send Method: E-Prescr ibed Sub s Allowed: subs OK Speci al Instruct ion: SWISH AND SWALLOW 10ML THREE TIMES DAILY Me dication GenericN eduar: nystatin Not Available Not Available Not Available prednison e 10 mg tablet TAKE 4 TABLETS BY MOUTH DAILY X 2 DAYS. 3 TABLETS DAILY X 2 DAYS. 2 TABLETS DAILY X 2 DAYS. THEN 1 TABLET DAILY X 2 DAYS active Not Available Not Available No t Available gabapenti n 600 mg tablet TAKE 1 TABLET BY MOUTH THREE TIMES DAILY active Not Available Not Available No t Available nicotine 14 mg/24 hr daily transderm al patch PLACE 1 PATCH ONTO THE SKIN ONCE DAILY active Not Available Not Available No t Available ipratropi um 0.5 mg-albute rol 3 mg (2.5 mg base)/3 mL nebulizat ion soln USE 3 ML VIA NEBULIZE R FOUR TIMES DAILY active Not Available Not Available No t Available tizanidin e 2 mg tablet TAKE 1 TABLET BY MOUTH THREE TIMES DAILY NEEDED FOR SPASMS active Not Available Not Available No t Available albuterol sulfate 2.5 mg/3 mL (0.083 %) solution for nebulizat ion INHALE 3 ML FOUR TIMES DAILY VIA NEBULIZA TION active Not Available Not Available No t Available loperamid e 2 mg capsule TAKE [...] Not Available Not Available No t Available prednison e 20 mg tablet TAKE 2 TABLETS BY MOUTH DAILY active Not Available Not [...] Not Available Not Available No t Available oseltamiv ir 75 mg capsule active Not Available Not Available Not Available Banophen 25 mg tablet TAKE 1 [...] Available Not Available No t Available clotrimaz ole-betam ethasone 1 %-0.05 % topical cream APPLY TOPICALL Y TO THE AFFECTED AND SURROUND ING AREAS TWICE DAILY IN THE MORNING AND IN THE EVENING FOR 2 WEEKS active Not Available Not Available No t Available erythromy garry ethylsucc inate 200 mg/5 mL oral powder for suspensio n active Not Available Not Available Not Available lidocaine 5 % topical patch APPLY [...] Not Available Not Available No t Available nicotine 21 mg/24 hr daily transderm al patch active Not Available Not Available Not Available docusate sodium 100 mg capsule TAKE 1 CAPSULE BY MOUTH TWICE DAILY NEEDED FOR CONSTIPA TION active Not Available Not Available No t Available pseudoeph edrine 30 mg tablet TAKE 1 TABLET BY MOUTH EVERY MORNING active Not Available Not Available No t Available monteluka st 10 mg tablet active Medicati on ID: [id number] B rand Name: paul ast Send Method: E-Prescr ibed Sub s Allowed: [...] Not Available Not Available No t Available Ventolin HFA 90 mcg/actua tion aerosol inhaler INHALE 2 PUFFS BY MOUTH EVERY 6 HOURS NEEDED FOR SHORTNES S OF BREATH OR WHEEZING active Not Available Not Available No t Available buspirone 15 mg tablet TAKE 1 TABLET BY MOUTH TWICE DAILY FOR ANXIETY active Not Available Not Available No t Available oxycodone 5 mg tablet TAKE 1 TABLET BY MOUTH EVERY 6 HOURS NEEDED FOR MODERATE PAIN active Not Available Not Available No t Available azithromy garry 500 mg tablet active Not Available Not Available No t [...] Not Available Not Available No t Available lactulose 10 gram/15 mL oral solution TAKE 30 ML BY MOUTH TWICE DAILY active Not Available Not Available No t Available oxycodone 10 mg tablet TAKE 1 TABLET BY MOUTH EVERY 4 TO 6 HOURS NEEDED FOR PAIN. DO NOT DRIVE WHILE TAKING THIS MEDICATI ON active Not Available Not Available No t Available melatonin 5 mg tablet active Not Available Not Available Not Available estradiol 10 mcg vaginal tablet INSERT ONE TABLET VAGINALL Y DAILY FOR 14 DAYS THEN ONE TWICE A WEEK FOR 12 WEEKS active Not Available Not Available No [...] Updated DateTime 02/03/2024 160.02 cm 32.8 kg/m2 45165.59 g Pardeep [place]as [facility] 02/03/2024 08:43:41 Date Recorded Body height Body mass index (BMI) Body weight Provider Name and Address Organization Details Last Updated DateTime 08/04/2024 160.02 cm 32.8 kg/m2 96084.59 g Pardeep [place] [facility] 08/04/2024 09:59:48 Social History None recorded. Functional Status None recorded. Mental Status None recorded. Family History Nothing Reported. Medical History No medical history recorded. Gynecological HistoryNo gynecological history recorded. Obstetrics History GPAL:G 0 P 0 0 0 0 Past Encounters Encounter ID Performer Location Encounter Start Date Encounter Closed Date Diagnosis/Indication Diagnosis SNOMED-CT Code Diagnosis ICD10 Code Diagnosis Note [id number] ADRIANA BRIDGES MD [facility] [address] [address] 02/03/2024 08:22:53 02/03/2024 09:43:47 Eczema of external auditory canal 42562396 H60.549 She has eczema in her EAC. I will send clotrimazo le to use when her ears are itchy. Disorder of smell 870093 005 R43.9 Nasal endo negative for polyps. Will obtain labs of factors which can affect sense of smell. F/u thereafter . Mixed cond uctive AND sensorineural hearing loss 92469942 H90.8 Has mixed los AD. TM is [...] for hearing aids. F/u 10/2024 with audio. [id number] ADRIANA BRIDGES MD [facility] [address] [address] 08/04/2024 09:03:29 08/04/2024 10:56:09 Sensorineural hearing loss of bilateral ears 746847254 H90.3 stable will recheck in 1 year Bilateral disorder of Eustachian tubes 2516133549 258399 H69.93 Right Ear:Mild MHL.Type B tympanogra m.Left Ear:Mild to severe SNHL.Type C tympanogra m. Stable. Eczema of external auditory canal 60613504 H60.549 She has eczema in her EAC. I will send lotrisone to use when her ears are itchy. Mixed cond uctive AND sensorineural hearing loss 32842124 H90.8 Has mixed los AD. TM is retracted. Long history of ETD (used to see Dr. Jain and had MxT). Recommend observatio n. She has asymmetric SNHL as well. She can't have an MRI due to a nerve stimulator she says. I recommend serial audiograms which was stable today and we will repeat in 1 year. I gave medical clearance for bilatearl hearing aids. Chronic re fractory cough 8116603522 106 R05.3 laryngosco py normal. Gave reassuranc e. Should discuss with PCP. Health Concerns Section Related Observation LastModified by Organization Detai ls LastModified Time None Recorded Concern Status LastModified by Organization Details LastModified Time None Recorded Advance Directives Directive None Recorded Payers Insurance Date Sequence Insurance Name Policy Number Policy Ma Covered Member ID Ma Member ID Guarantor Name 08/04/2024 1 [place] [facility] [id number] [facility] Notes Date Note Type Note Provider Name and Address Organization Details Recorded Time 02/03/2024 text/html She has occasion al tinnitus. Had an audio at [facility] that we requested. She reports both ears are itchy. She uses q-tips occasionally. She reports she lost her sense of smell prior to the pandemic. She did not have a URI. She can smell only very strong scents like gasoline. ADRIANA BRIDGES MD [address] [place] [address],[address], [address], [facility] 02/03/2024 09:37:43 08/04/2024 text/html She has a histor y of asymmetric HL with ETD and CHL AD. She can't have an MRI due to a nerve stimulator. Presents for serial audiogram. Audio today was stable compared to last at [place] with moderate mixed HL AD and moderate SnHL . She was prescribed clotrimazole drops at the last visit due to itching in her EAC which did not help. Also notes chronic cough and wants her throat checked. ADRIANA BRIDGES MD [address] [place] [address],[address], [address], [facility] 08/04/2024 10:38:13 OBGyn Episode No OBEpisode recorded.
--- OUTSIDE RECORDS SUMMARY | 2024-10-26 13:23 | XMS_ITS | Encounter Summary ---
Author Organization [employer] Address [address] [facility] [address] [place] [address] Care Team Providers Care Manufacturing Production Technician Name Role Phone Unavailable Primary Care Provider Unavailabl e Encounter Details Date Type Department Care Team (Latest Contact Info) Description 08/31/2018 Abstract [facility] CONVERSIONS Dental, Provider, DDS Social History [...]
--- OUTSIDE RECORDS SUMMARY | 2024-10-26 13:23 | XMS_ITS | Clinical Summary ---
Author Organization [employer] Address [address] [facility] [address] [place] [address] Care Team Providers Care Car Seat Upholsterer Name Role Phone Unavailable Primary Care Provider [...]
--- OUTSIDE RECORDS SUMMARY | 2024-10-26 13:23 | XMS_ITS | Encounter Summary ---
Author Organization [facility] Address [address] [place] [address] Care Team Providers Care Human Resource Statistician Name Role Phone Quiana Rg PA-C Primary Care Provider Encounter Details Date Type Department Care Team (Late st Contact Info) Description 09/03/2015 Interim Notes [address] [phone] Fredrick Miller [address] [place] [address] Pulmonary nodules Social History Tobacco Use Types [...] Care Team (Late st Contact Info) Description 10/28/2024 9:20 AM EDT Telemedicine Visit [address] [phone] Rhoda Núñez RN [address] [place], [place] [phone] documented as of this encounter Visit Diagnoses Diagnosis Pulmonary nodules Other nonspecific abnormal finding of lung field documented in this encounter Additional Health Concerns Infection Onset Date Last Indicated Resolved Time COVID-19 Comment:Added automatically based on visit diagnosis/problem list. 09/20/2020 09/20/2020 12/19/2020 7:09 PM PDT documented as of this encounter Care Teams Human Resource Statistician Relationship Specialty Start Date End Date Quiana Rg PA-C [facility] [place] [address] PCP - General Internal Medicine 11/14/13 documented as of this encounter
--- OUTSIDE RECORDS SUMMARY | 2024-10-26 13:23 | XMS_ITS | Clinical Summary ---
Author Organization [facility] Address [address] [place] [address] Care Team Providers Care Substance Abuse Prevention Coordinator Name Role Phone Quiana Rg PA-C Primary Care Provider + [phone] Source Comments PLEASE NOTE, if this patient is a minor, it may be UNLAWFUL to discuss sensitive information that is contained in these records (such as FAMILY PLANNING, MENTAL HEALTH or SUBSTANCE ABUSE) with the minor patient's parent or other person without the patient's specific authorization.[facility] Allergies Active Allergy Reactions Criticality Noted Date Comments Doxycycline Rash Lamotrigine 04/28/2023 Lidocaine 04/09/2022 Rash/itching Metoclopramide Medications dupilumab (DUPIXENT SYRINGE) 300 mg/2 mL syrgIndications:M ild persistent asthma without complication ([facility]) Inject into the skin DR. Ricci Mcnulty 022 Active selenium sulfide 2.25 % shampooIndication s:Tinea versicolor Apply topically twice a week 180 mL 3 022 Active primidone (MYSOLINE) 50 mg tabletIndications :Mild persistent asthma without complication ([facility]) Take 50 mg by mouth nightly at bedtime 022 Active moxifloxacin (VIGAMOX) 0.5 % ophthalmic solutionIndicatio ns:Acute bacterial conjunctivitis of both eyes Place 1 Drop into both eyes 3 (three) times daily 3 mL 024 Active docusate sodium (COLACE) 100 mg capsule TAKE 1 CAPSULE BY MOUTH TWICE DAILY NEEDED FOR CONSTIPATION 024 Active hydroxychloroquin e (PLAQUENIL) 200 mg tablet Take 200 mg by mouth 2 (two) times daily Active DULoxetine (CYMBALTA) [address] capsule Take 60 mg by mouth 2 (two) times daily Active omeprazole (PRILOSEC) [address] capsule Take 40 mg by mouth once daily Active zolpidem (AMBIEN) 10 mg tablet Take 10 mg by mouth nightly at bedtime as needed Active naloxone (NARCAN) 4 mg/actuation nasal sprayIndications: Lumbar disc disease Place 1 [place] into the nostril(s) as needed for opioid reversal 2 Each 5 024 Active lidocaine (LIDODERM) 5 % patchIndications: Fibromyalgia APPLY 2 PATCHES TO SKIN TO THE AFFECTED AREA FOR 12 HOURS THEN REMOVE FOR 12 HOURS 60 Patch 6 024 Active piroxicam (FELDENE) 20 mg capsuleIndication s:Systemic lupus erythematosus, unspecified SLE type, unspecified organ involvement status ([facility]) Take 20 mg by mouth once daily [...] AT BEDTIME 90 Tablet 1 024 Active rosuvastatin (CRESTOR) 20 mg tabletIndications :Tobacco use TAKE 1 TABLET BY MOUTH EVERY NIGHT AT BEDTIME 90 Tablet 4 025 Active traMADoL (ULTRAM) 50 mg tabletIndications :Lumbar disc disease,Arthritis of left knee TAKE 1 TABLET BY MOUTH TWICE DAILY 60 Tablet 3 025 Active nicotine (NICODERM, STEP 1) 21 mg/24 hr patchIndications: Tobacco use PLACE 1 PATCH ONTO THE SKIN EVERY DAY(EVERY 24 HOURS) 28 Patch 1 025 Active ibuprofen 800 mg tabletIndications :Fibromyalgia TAKE 1 TABLET BY MOUTH THREE TIMES DAILY NEEDED FOR PAIN 90 Tablet 4 025 Active metFORMIN (GLUCOPHAGE) 500 mg tabletIndications :Pre-diabetes,Non morbid obesity Take 1 Tablet by mouth once daily with breakfast 90 Tablet 1 025 Active dulaglutide (TRULICITY) 0.75 mg/0.5 mL pen injectorIndicatio ns:Pre-diabetes,N on morbid obesity Inject 0.75 mg into the skin once a week 2 mL 2 025 Active nicotine, polacrilex, (NICORETTE) 4 mg gumIndications:To bacco use Take 1 Each by mouth as needed for smoking cessation 160 Each 2 025 Active gabapentin (NEURONTIN) 600 mg tabletIndications :Other polyneuropathy TAKE 1 TABLET BY MOUTH THREE TIMES DAILY 90 Tablet 3 025 Active albuterol sulfate (PROVENTIL) 2.5 mg /3 mL (0.083 %) nebulizer solutionIndicatio ns:Mild persistent asthma with acute exacerbation ([facility]) Take 3 mL by nebulization every 6 (six) hours as needed for wheezing J45.30 dx 75 mL 2 021 2024 Discontinued(O utdated-Remove d from Med List (E-Cancel Not Sent)) TRELEGY ELLIPTA 100-62.5-25 mcg dsdvIndications:M ild persistent asthma with acute exacerbation ([facility]) INHALE 100 MCG EVERY DAY. RINSE MOUTH WITH WATER AND SPIT AFTER USE 021 2024 Discontinued(O utdated-Remove d from Med List (E-Cancel Not Sent)) melatonin-lemon balm leaf extr 10-1 mg tabIndications:Mi ld persistent asthma with acute exacerbation ([facility]) Take 1 Tablet by mouth nightly at bedtime for sleep 021 2024 Discontinued(O utdated-Remove d from Med List (E-Cancel Not Sent)) PROAIR HFA 90 mcg/actuation inhalerIndication s:Mild persistent asthma with acute exacerbation ([facility]) INHALE 2 PUFFS BY MOUTH EVERY 6 HOURS NEEDED FOR WHEEZING OR SHORTNESS OF BREATH FOR UP TO 90 DAYS 021 2024 Discontinued(O utdated-Remove d from Med List (E-Cancel Not Sent)) mometasone-formot alfredo (DULERA) 200-5 mcg/actuation inhalerIndication s:Mild persistent asthma without complication ([facility]) Inhale into the lungs 020 2024 Discontinued(O utdated-Remove d from Med List (E-Cancel Not Sent)) fluticasone-umecl idin-vilanter (TRELEGY ELLIPTA) 200-62.5-25 mcg dsdvIndications:M ild persistent asthma without complication ([facility]) Inhale into the lungs 020 2024 Discontinued(O utdated-Remove d from Med List (E-Cancel Not Sent)) montelukast (SINGULAIR) 10 mg tabletIndications :Mild persistent asthma without complication ([facility]) Take 1 Tablet by mouth 2024 Discontinued(O utdated-Remove d from Med List (E-Cancel Not Sent)) busPIRone (BUSPAR) 10 mg tablet TAKE 1 TABLET BY MOUTH TWICE DAILY FOR ANXIETY 2024 Discontinued(O utdated-Remove d from Med List (E-Cancel Not Sent)) OXcarbazepine (TRILEPTAL) 300 mg tablet TAKE 1 TABLET BY MOUTH TWICE DAILY ONCE IN THE MORNING AND 1 AT BEDTIME 2024 Discontinued(O utdated-Remove d from Med List (E-Cancel Not Sent)) ibuprofen 800 mg tabletIndications :Fibromyalgia TAKE 1 TABLET BY MOUTH THREE TIMES DAILY NEEDED FOR PAIN 90 Tablet 4 024 2024 Discontinued gabapentin (NEURONTIN) 600 mg tabletIndications :Other polyneuropathy TAKE 1 TABLET BY MOUTH THREE TIMES DAILY 90 Tablet 3 025 2024 Discontinued nicotine (NICODERM, STEP 1) 21 mg/24 hr patchIndications: Tobacco use Place 1 Patch onto the skin once daily (every 24 hours) 28 Patch 1 025 2024 Discontinued nicotine, polacrilex, (NICORETTE) 4 mg gumIndications:To bacco use Take 1 Each by mouth as needed for smoking cessation 110 Each 2 025 2024 Discontinued(R eorder (E-Cancel Not Sent)) codeine-guaifenes in (ROBITUSSIN-AC) 10-100 mg/5 mL syrupIndications: Community acquired pneumonia, unspecified laterality Take 5 mL by mouth 3 (three) times daily as needed for cough DO NOT TAKE with promethazine or ZOLPIDEM or GABAPENTIn 120 mL 025 2024 Discontinued(T herapy completed/Not needed) Active Problems Problem Noted Date Diagnosed Date Pre-diabetes 10/10/2024 MRI contraindicated due to metal implant 023 [...] October 29, 2017 14:32 EDT Encounter info: [id number], [facility] [place], One Time OP, 10/29/2017 - 10/29/2017 Contributor system: [employer] * Final Report * Echo Complete-Doppler, Colorflow, M-Mode Transthoracic Echocardiography Report (TTE) Patient Demographics Patient Name KOURTNEY BACA Date of Study 10/29/2017 Corporate Gender Female Facility Race Ethnicity or Date of 1960 Height: 64.17 inches Age 56 year(s) Weight: 176.37 pounds Accession Number [id number] BSA: 1.86 m2 Room Number BMI: 30.11 kg/m2 Referring Physician Kelli TRIVEDI Interpreting Jason Anne MD Physician Contracts Director Giulia Teresa, [facility] Indications Chest pain. Clinical History Hypertension. [...] cm/s E' Lateral Velocity: 11.8 cm/s E/Med E':12.92359 E/Lat E':7.324644 Cardiac Anatomy Left Ventricle/Interventricular Septum The left [...] on July 07, 2016 17:49 Encounter info: [id number], [facility] [place], One Time OP, 07/07/2016 [...] nodules measuring up to 1.3 cm. WSN: [id number] Signature Line Dictated By: Jesus Avila MD [...] abnormal calcifications. CONCLUSION: Stable bilateral thyroid nodules. [id number] Dictating Physician: TEDDY NARVAEZ MD Electronically Signed by: TEDDY NARVAEZ MD Dic Date/Time: 06/04/12919 Sign date/Time: 06/04/12921 Peripheral neuropathy 09/01/2013 Overview (09/01/2013): EMG Nerve Conduction Study (Verified) [facility] ELECTROMYOGRAPHY REPORT Referring Provider: Kary Alex EMG Physician: Celestine Clarke M.D. EMG Technologist: VL Limb Temperature: Warmed with hot packs to greater than 34?? C Date of Service: 08/18/2013 Order ID: [id number] CLINICAL PRESENTATION: The patient is a 52 [...] Transcribed: 08/18/2013 18:20:03 Transcribed by: NAKIA DocID: [id number] PRELIMINARY REPORT UNLESS MANUALLY/ELECTRONICALLY SIGNED Sprain or strain of cervical spine 06/15/2013 Mild vitamin D deficiency 03/25/2013 Lupus (systemic lupus erythematosus) ([facility]) 0 02/01/2013 Fibromyalgia 02/01/2013 Asthma, mild persistent ([facility]) 02/01/2013 Hemolytic anemia ([facility] V24) 02/01/2013 Anxiety and depression 02/01/2013 Encounters Date Type Department Care Team Description 10/11/2024 Interim Notes [address] [phone] Linda Byrnes MA 10/11/2024 Interim Notes [address] [address] Linda Byrnes MA 10/10/2024 11:20 AM EDT Telemedicine Visit [address] [address] Quiana Rg PA-C Pre-diabetes (Primary Dx); Non morbid obesity 10/07/2024 9:20 AM EDT Telemedicine Visit [address] [address] Rhoda Núñez, Tabitha Maurice Smoking trying to quit (Primary Dx) 09/16/2024 9:00 AM EDT Telemedicine Visit [address] [address] Rhoda Núñez RN Diaz, Wilma Smoking trying to quit (Primary Dx) 09/09/2024 1:20 PM EDT Office Visit [address] [phone] Quiana Rg PA-C Weight gain (Primary Dx); Elevated glucose; Mild vitamin D deficiency; Essential hypertension, benign 08/17/2024 3:20 PM EDT Office Visit [address] [phone] Alena Koch PA-C Preoperative clearance (Primary Dx); Essential hypertension, benign from Last 3 Months Immunizations Immunization Administration [...] 2 0 (Prevnar) 04/09/2022 PNEUMOCOCCAL POLYSACCHARIDE PPV23 (Pneumovax 23) 02/12/2016 PPD 10/04/2013 TDAP 06/27/2020,11/30/2017,11/17/2008 ZOSTER VACCINE, RECOMBINANT (SHINGRIX) 8 Family History Medical History Relation Name Comments Stroke Father Cancer Mother Relation Name Status Comments Father Mother Social History Tobacco Use Types Packs/Day Years Used Date Smoking Tobacco: Former Cigarettes 0.5 41 S tarted: 11/02/1983 Passive Smoke Exposure: Never [...] Description 10/28/2024 9:20 AM EDT Telemedicine Visit [facility] [address] [place] [address] Rhoda Núñez, BHANU [address] [place] [address] Health Maintenance Due Date Last Done Comments Anxiety Screening 1960 HPV Screening 1960 Urine Drug Screen 1960 [address] Colonography 2006 Fecal DNA 2006 Flexible Sigmoidoscopy 2006 FIT/gFOBT 04/25/2015 04/25/2014 (Declined) Dental BW 11/02/2022 10/31/2021 Dental Examination 11/02/2022 10/31/2021 Dental Perio Charting 11/02/2022 10/31/2021 Dental Prophy 03/09/2023 03/07/2022 Breast Cancer Screening (Mammogram) 10/06/2024 10/07/2023, 05/07/2022, 05/07/2022, Additional history exists Annual Wellness (Adult): Indicated (All Coverage) 10/08/2024 10/09/2023, 04/09/2022, 03/22/2021, Additional history exists Depression Monitoring 12/09/2024 09/09/2024 , 06/28/2024, 10/09/2023, Additional history exists [id number] ( season) 2024 04/09/2022, 12/04/2021, 04/18/2021, Additional history exists Postponed from 02/07/2024 (Patient postponement) Imm-Zoster, Recombinant (2 of 2) 12/09/2024 11/30/2017 Postponed from 01/25/2018 (Patient postponement) Colonoscopy 07/02/2025 07/02/2020, 10/22/2015 Colorectal Cancer Screening 07/02/2025 Lung Cancer Screening 09/08/2025 09/08/2024 , 05/01/2024, 04/29/2023, Additional history exists Diabetes Screening 09/09/2025 09/09/2024, 0 09/09/2024, 06/08/2024, Additional history exists Lipid Screening 09/09/2025 09/09/2024, 10/07, 10/09/2023, Additional history exists Tobacco Cessation Counseling (#1) 10/12/2025 Tobacco Screening 10/12/2025 10/12/2024 Dental FMX/Pano 11/02/2026 10/31/2021 Pap Smear 04/15/2027 04/15/2024, 0 07/2018, 04/25/2014 Cervical Cancer Screening 04/15/2029 Pap + HPV 04/15/2029 04/15/2024, 0 07/2018, 04/25/2014 Imm-DTaP/Tdap/Td (4 - Td or [...] EST EYE EXAM 07/29/2024 3:00 AM EST THIN PREP IMAGE PAP [...] W/RFLX FREE T4 (09/09/2024 1:39 PM EDT) Pathologist [facility] TSH W/REFLEX TO FT4 1.12 0.40 - 4.50 mIU/L [facility] Blood Blood / Unknown 09/09/2024 1 :39 PM EDT 09/09/2024 1:40 PM EDT Narrative [facility] - 09/10/2024 9:41 AM EDT FASTING:NO Quiana Rg PA-C LAB - BLOOD DRAW Edited Resu lt - Final Performing Organization Address City/State/[facility] Co de Phone Number [employer] [address] [address], [employer] [address] [address] * VITAMIN B12 & FOLATE (09/09/2024 1:39 PM EDT) [facility] VITAMIN B12 847 200 - 1,100 pg/mL [employer] [facility] FOLATE, SERUM 22.3 5.5 ng/mL [facility] Comment: ? Reference Range ? Low: ? <3.4 ? Borderline: ?3.4-5.4 ? Normal: ?>5.4 Blood Blood / Unknown 09/09/2024 1 :39 PM EDT 09/09/2024 1:40 PM EDT Narrative [facility] - 09/10/2024 9:41 AM EDT FASTING:NO Quiana Rg PA-C LAB - BLOOD DRAW Edited Resu lt - Final [facility] [address] [address], [employer] [facility] [address] [place] [address] * (ABNORMAL) BLOOD COUNT COMPLETE AUTO&AUTO DIFRNTL WBC (09/09/2024 1:39 PM EDT) WHITE BLOOD CELL COUNT 7.4 3.8 - 10.8 Thousand/ uL [facility] RED BLOOD CELL COUNT 4.30 3.80 - 5.10 Million/u L [employer] HEMOGLOBIN 12.3 11.7 - 15.5 g/dL [employer] [facility] HEMATOCRIT 38.5 35.0 - 45.0 % [employer] MCV 89.5 80.0 - 100.0 fL [employer] MCH 28.6 27.0 - 33.0 pg [employer] MCHC 31.9(L) 32.0 - 36.0 g/dL [employer] Comment: For adults, a slight decrease in the calculated MCHC value (in the range of 30 to 32 g/dL) is most likely not clinically significant; however, it should be interpreted with caution in correlation with other red cell parameters and the patient's clinical condition. RDW 13.3 11.0 - 15.0 % [facility] PLATELET COUNT 267 140 - 400 Thousand/ uL [employer] MPV 11.0 7.5 - 12.5 fL [employer] ABSOLUTE NEUTROPHILS 4,262 1,500 - 7,800 cells/uL [employer] ABSOLUTE LYMPHOCYTES 2,412 850 - 3,900 cells/uL [employer] ABSOLUTE MONOCYTES 488 200 - 950 cells/uL [employer] ABSOLUTE EOSINOPHILS 133 15 - 500 cells/uL [facility] ABSOLUTE BASOPHILS 104 0 - 200 cells/uL [employer] NEUTROPHILS PCT 57.6 % [facility] [employer] [facility] LYMPHOCYTES 32.6 % [facility] MONOCYTES 6.6 % [facility] EOSINOPHILS 1.8 % [facility] BASOPHILS 1.4 % [facility] Blood Blood / Unknown 09/09/2024 1 :39 PM EDT 09/09/2024 1:40 PM EDT Narrative [employer] - 09/10/2024 9:41 AM EDT FASTING:NO Quiana Rg PA-C LAB - BLOOD DRAW Edited Resu lt - Final Performing Organization Address [facility] Co de Phone Number [employer] [address] [address], [employer] [address] [address] * MAGNESIUM (09/09/2024 1:39 PM EDT) Pathologist [facility] MAGNESIUM 1.8 1.5 - 2.5 mg/dL [facility] Blood Blood / Unknown 09/09/2024 1 :39 PM EDT 09/09/2024 1:40 PM EDT [facility] - 09/10/2024 9:41 AM EDT FASTING:NO us Quiana Rg PA-C LAB - BLOOD DRAW Final Resul t Performing Organization Address [facility] de Phone Number [employer] [address] [address], [employer] [address] [address] * (ABNORMAL) HEMOGLOBIN GLYCOSYLATED A1C (09/09/2024 1:39 PM EDT) [facility] HEMOGLOBIN A1C 6.0(H) <5.7 % of total Hgb [employer] Comment: For someone without known diabetes, a [...] :39 PM EDT 09/09/2024 1:40 PM EDT [facility] - 09/10/2024 9:41 AM EDT FASTING:NO Quiana Rg PA-C LAB - BLOOD DRAW Edited Resu lt - Final Performing Organization Address [facility]/ZIP Co de Phone Number [employer] [facility] [address] [address], [employer] [address] [address] * 25 HYDROXY INCLUDES FRACTIONS IF PERFORMED (09/09/2024 1:39 PM EDT) [facility] VITAMIN D, 25-OH, TOTAL 33 30 - 100 ng/mL [facility] Comment: Vitamin D Status ? 25-OH Vitamin D: Deficiency: ?<20 ng/mL Insufficiency: ? 20 - 29 ng/mL Optimal: ? > or = 30 ng/mL For 25-OH Vitamin D testing on patients on D2-supplementation and patients for whom quantitation of D2 and D3 fractions is required, the QuestAssureD(TM) 25-OH VIT D, (D2,D3), LC/MS/MS is recommended: order code [id number] (patients >2yrs). COMMENT [employer] [facility] Blood Blood / Unknown 09/09/2024 1 :39 PM EDT 09/09/2024 1:40 PM EDT Narrative [facility] - 09/10/2024 9:41 AM EDT FASTING:NO See Note 1 Note 1 For additional information, please refer to http://education.StreetfaireHD.[employer]/faq/RFW798 (This link is being provided for informational/ educational purposes only.) Quiana Rg PA-C LAB - BLOOD DRAW Edited Resu lt - Final Performing Organization Address [facility]/ZIP Co de Phone Number [employer] [facility] [address] [address], [employer] [address] [address] * (ABNORMAL) LIPID PANEL (09/09/2024 1:39 PM EDT) Pathologist [facility] CHOLESTEROL, TOTAL 104 <200 mg/dL [employer] [facility] HDL CHOLESTEROL 48(L) > OR = 50 mg/dL [employer] TRIGLYCERIDES 119 <150 mg/dL [employer] [facility] LDL-CHOLESTEROL 35 99 mg/dL (calc) [facility] Comment: Reference range: <100 Desirable range <100 mg/dL for primary prevention; ?? <70 mg/dL for patients with CHD or diabetic patients with > or = 2 CHD risk factors. LDL-C is now calculated using the Kiara calculation, which is a validated novel method providing better accuracy than the Friedewald equation in the estimation of LDL-C. Jordon SS et al. AUGUST. 2013;310(01): 6782-7002 (http://education.[employer]/faq/UIV865) CHOL/HDLC RATIO 2.2 <5.0 (calc) [employer] NON-HDL CHOLESTEROL 56 <130 mg/dL (calc) [facility] Comment: For patients with diabetes plus 1 major ASCVD risk factor, treating to a non-HDL-C goal of <100 mg/dL (LDL-C of <70 mg/dL) is considered a therapeutic option. Blood Blood / Unknown 09/09/2024 1 :39 PM EDT 09/09/2024 1:40 PM EDT Narrative [employer] - 09/10/2024 9:41 AM EDT FASTING:NO us Quiana Rg PA-C LAB - BLOOD DRAW Final Resul t [employer] [address] [place] [id number], [facility] [address] [address] * COMPREHENSIVE METABOLIC PANEL (09/09/2024 1:39 PM EDT) [facility] GLUCOSE 113 65 - 139 mg/dL [facility] Comment: ?Non-fasting reference interval UREA NITROGEN (BUN) 19 7 - 25 mg/dL [facility] CREATININE (blood) 0.53 0.50 - 1.05 mg/dL [facility] EGFR 105 > OR = 60 mL/min/1. 73m2 [employer] [facility] BUN/CREATININE RATIO SEE NOTE: [employer] [facility] Comment: ?? Not Reported: BUN and Creatinine are within ?? reference range. ? SODIUM 141 135 - 146 mmol/L [employer] [facility] POTASSIUM 3.8 3.5 - 5.3 mmol/L [employer] [facility] CHLORIDE 103 98 - 110 mmol/L [employer] [facility] CARBON DIOXIDE 29 20 - 32 mmol/L [employer] [facility] CALCIUM 8.9 8.6 - 10.4 mg/dL [employer] [facility] PROTEIN, TOTAL 6.7 6.1 - 8.1 g/dL [employer] [facility] ALBUMIN 4.2 3.6 - 5.1 g/dL [employer] [facility] GLOBULIN 2.5 1.9 - 3.7 g/dL (calc) [employer] [facility] ALBUMIN/GLOBULI N RATIO 1.7 1.0 - 2.5 (calc) [employer] [facility] BILIRUBIN, TOTAL 0.3 0.2 - 1.2 mg/dL [employer] [facility] ALKALINE PHOSPHATASE 59 37 - 153 U/L [employer] [facility] AST 20 10 - 35 U/L [employer] [facility] ALT 20 6 - 29 U/L [employer] [facility] Blood Blood / Unknown 09/09/2024 1 :39 PM EDT 09/09/2024 1:40 PM EDT Narrative [facility] - 09/10/2024 9:41 AM EDT FASTING:NO Quiana Rg PA-C LAB - BLOOD DRAW Final Resul t [facility] [address] [address], [employer] [address] [address] * LUNG CANCER SCREENING (LOW DOSE CT OF CHEST) SCANNED DOCUMENT (09/08/2024 3:00 AM EDT) 09/08/2024 3:00 AM EDT us Quiana Rg PA-C SCAN IMAGING Final Result * REFERRAL SCANNED DOCUMENT (09/06/2024 3:00 AM EDT) 09/06/2024 3:00 AM EDT us Quiana Lukin PA-C SCAN REFERRAL Final Result * LAB SCANNED DOCUMENT (09/06/2024 3:00 AM EDT) 09/06/2024 3:00 AM EDT us Quiana Lukin PA-C SCAN LAB Final Result * EYE EXAM (07/29/2024 3:00 AM EST) 07/29/2024 3:00 AM EST Quiana Lukin PA-C OTHER Edited Resul t - Final * HEALTH HISTORY SCANNED DOCUMENT (07/29/2024 3:00 AM EST) 07/29/2024 3:00 AM EST [facility] Provider Default SCAN OTHER ORDERS Final Re sult * THIN PREP IMAGE PAP + HPV RNA E6/E7 W/RFLX HPV 16, 18/45 (04/15/2024 2:06 PM EST) CLINICAL INFORMATION See Note [employer] Comment:NORMAL EXAM~POSTMENO PAUSAL~NO LMP See Note [employer] Comment:PM PREV. PAP See Note [employer] Comment:NONE GIVEN PREV. BX See Note [employer] Comment:NONE GIVEN SOURCE See Note [employer] Comment:Cervix STATEMENT OF ADEQUACY See Note [employer] Comment: Satisfactory for evaluation. Endocervical/transformation zone component present. INTERPRETATION/RESU LT See Note [employer] Comment: Cytology Results: Negative for intraepithelial lesion or malignancy. INFECTION See Note [employer] Comment:Trichomonas vaginali s identified. COMMENT See Note [employer] Comment: This case could not be evaluated with computer assisted technology. The slide was manually screened according to routine procedures. BOX PRINTER See Note [facility] [employer] [facility] Comment: YP, CT(ASCP) CT screening location: [address] ??[address] REVIEW BOX PRINTER See Note [employer] [facility] Comment: SL, CT(ASCP) CT screening location: [address] ??[phone] COMMENT [employer] [facility] HPV MRNA E6/E7 Not Detected Not Detected [employer] [facility] Comment: Methodology: Bond Trader-Mediated Amplification This assay detects E6/E7 viral messenger RNA (mRNA) from 14 high-risk HPV types (16,18,31,33,35,39,45,51,52,56,58,59,66,68). Cervical sources are required for HPV testing. If a vaginal source from a patient who has had a total hysterectomy with removal of cervix was submitted, please contact the testing laboratory for alternative testing options. For additional information, please refer to http://education.TheGrid/faq/MWM301u7 (This link if provided for information/ educational purposes only.) Swab Cervix uteri structure / Unknown 04/15/2024 2:06 PM EST 04/18/2024 7:58 AM EST Narrative [facility] - 04/21/2024 1:53 PM EST EXPLANATORY [...] information. us Keshawn Becerra MD LAB - PATHOLOGY AND CYTOLOGY AM BULATORY Final Result [employer] [address] [place] [address], [employer] [address] [address] * MAMMO DIGITAL SCREEN EMELY W CAD 3D (10/07/2023 3:00 AM EDT) 10/07/2023 3:00 AM EDT Quiana Rg PA-C IMG MAMMO Final Result [facility] Corporate Office [address], [address] [place] [address], [place] [phone] * HISTORIC DEXA SCAN (08/21/2022 3:00 AM EDT) 08/21/2022 3:00 AM EDT Quiana Rg PA-C IMG DXA Final Result * (ABNORMAL) HEPATITIS A,B,C PANEL (08/03/2018 1:54 PM EST) HEPATITIS B SURFACE ANTIBODY POSITIVE(A) NEGATIVE [facility] HEPATITIS B SURFACE ANTIGEN NEGATIVE NEGATIVE [facility] Comment: Over the counter supplements containing high doses of biotin may interfere with this assay. ??If interference is suspected, patients shoud be retested after refraining from biotin supplements for 72 hours. HEPATITIS C VIRUS DIAGNOSTIC NEGATIVE NEGATIVE [facility] HEPATITIS A ANTIBODY TOTAL POSITIVE(A) NEGATIVE [facility] Comment: Over the counter supplements containing high doses of biotin may interfere with this assay. ??If interference is suspected, patients shoud be retested after refraining from biotin supplements for 72 hours. Blood specimen (specimen) Blood / Unknown 08/03/2018 1:54 PM EST 08/03/2018 1:55 PM EST Narrative [facility] - 08/03/2018 6:46 PM EST [employer], a member of [address] [address] Senior Mechanical Designer - [place] [id number] ORD# [id number] us Quiana Rg PA-C LAB - BLOOD DRAW Edited Resu lt - Final [employer] [address], [place] [phone] * HIV-1 & HIV-2 ANTIBODIES (08/03/2018 1:54 PM EST) HIV 1 AND 2 ANTIBODY SCREEN NEGATIVE NEGATIVE [facility] Comment: This assay is a [...] PM EST 08/03/2018 1:[address] [facility] - 08/03/2018 7:15 PM EST [employer] [address] Senior Mechanical Designer - Georgia Mims MD [place] ID [id number] ORD# [id number] Quiana Rg PA-C LAB - BLOOD DRAW Final Resul t Performing Organization Address City/State/[facility] Co de Phone Number [address] [address], * COLONOSCOPY (10/22/2015 1:28 PM EDT) Impressions Quiana Rg PA-C - 10/22/2015 1:28 PM EDT Grade 2 internal and external hemorrhoids, stool in cecum, repeat in 5 years [facility] G.I. PROCEDURES Final Result from Last 3 Months or Most Recently Relevant to Health Maintenance [place] MED[place] [address] [employer] Care Teams Substance Abuse Prevention Coordinator Relationship Specialty Start Date End Date Quiana Rg PA-C [address] [place] [address] [phone] PCP - General Internal Medicine 11/14/13
--- OUTSIDE RECORDS SUMMARY | 2024-10-26 13:23 | XMS_ITS | Clinical Summary ---
Author Organization [facility] Address [address] [place] [address] Phone Care Team Providers Care Veneer Measurer Name Role Phone Laxmi Luevano TECHNICAL SUPPORT ANALYST Primary Care Provider [phone] Allergies Active Allergy Reactions Criticality Noted Date Comments Doxycycline 08/30/2012 Rash Lamotrigine 04/28/2023 Lidocaine 04/09/2022 Rash/itching Metoclopramide 09/07/2012 Medications omeprazole (PriLOSEC) [address] capsule Take 1 Capsule by mouth daily. 4 Active albuterol HFA (ProAir HFA) 90 mcg/actuation inhaler INHALE 2 PUFFS INTO THE LUNGS EVERY 6 HOURS NEEDED FOR COUGH OR WHEEZING OR CHEST TIGHTNESS 2 Active fluticasone-um eclidinium-jenn anterol (Trelegy Ellipta) 100-62.5-25 mcg inhaler Inhale 1 Puff into the lungs daily. 2 Active diphenhydramin e HCl (BANOPHEN ORAL) Take 25 mg by mouth 2 (two) times a day if needed (pruritus). Active calcium carbonate/alexa min D3 (CALCIUM 600 + D,3, ORAL) Take by mouth. Acti ve aspirin 81 mg EC tablet 81 mg. 6 Active gabapentin (NEURONTIN) 300 mg capsule Take 2 capsules (600 mg total) by mouth 3 (three) times a day. Active hydroxychloroq uine (PLAQUENIL) 200 mg tablet Take 1 tablet (200 mg total) by mouth 1 (one) time each day. Active zolpidem (AMBIEN) 5 mg tablet Take [...] split. 60 each 5 06/10/19 26 Active ipratropium-al buteroL (DUONEB) 0.5-2.5 mg/3 mL nebulizer solution Take [...] a day. 1800 mL 3 5 Active promethazine (PHENERGAN) 25 mg tablet Take 1 tablet (25 mg total) by mouth every 8 (eight) hours if needed. Active linaCLOtide (LINZESS) 290 mcg capsule Take 1 capsule (290 mcg total) by mouth 1 (one) time each day. 30 each 3 5 04/02/20 25 Active azithromycin (ZITHROMAX) 250 mg tablet Take 1 tablet (250 mg total) by mouth 1 (one) time each day for 10 days. 10 each 5 10/15/19 25 Active Problems Problem Noted Date Diagnosed Date Acute bronchitis 06/10/2024 Hypoxia 06/10/2024 Influenza A 06/07/2024 Influenza and pneumonia 06/06/2024 Oral candidiasis 02/16/2019 Nausea 01/13/2019 Gas bloat syndrome 01/13/2019 Irritable bowel syndrome wit h both constipation and diarrhea 01/13/2019 Gastroparesis 01/13/2019 Encounters Date Type Department Care Team Description 10/04/2024 2:40 PM EDT Office Visit Gastroenterology - [place] [facility] 175 [facility] [address] [place] [address] Gwen Queen PA Gastroparesis (Primary Dx); Gas bloat syndrome; Constipation, unspecified constipation type from Last 3 Months Immunizations Name Administration Dates Next Due Moderna SARS-CoV-2 COVID-19, mRNA, LNP-S, preservative free 12/04/2021,10/10/2020,09/12/2020 Surgical History Surgery Date Site/Laterality Comments SPINAL CORD STIMULATOR IMPLANT APPENDECTOMY CHOLECYSTECTOMY SECTION, LOW TRANSVERSE x3 TOTAL KNEE ARTHROPLASTY Left Medical History Medical History Date Comments Depression with anxiety Asthma Hypercholesteremia Hypertension GERD (gastroesophageal reflux disease) SLE (systemic lupus erythematosus) ([facility] V24, [facility] V28) Fibromyalgia Chronic back pain Family [...] Sign Reading Time Taken Comments Blood Pressure 118/78 10/04/2024 2:34 PM EDT Pulse 69 10/04/2024 2:34 PM EDT Temperature 36.3 ??C (97.4 ??F) 06/10/2024 2:55 PM ES T Respiratory Rate 18 06/10/2024 2:55 PM EST Oxygen Saturation 97% 10/04/2024 2:34 PM EDT Inhaled Oxygen Concentration - - Weight 87.5 kg (193 lb) 10/04/2024 2:34 PM EDT Height 158.8 cm (5' 2.5 ) 10/04/2024 2:34 PM EDT Body Mass Index 34.74 10/04/2024 2:34 PM EDT Plan of Treatment Upcoming Encounters Date Type Department Care Team (Late st Contact Info) Description 11/22/2024 3:00 PM EDT Appointment [facility] Endoscopy [address] [place] [phone] Ottoniel Fernandez MD 175 [facility] [address] [place] [address] 01/03/2025 1:40 PM EDT Office Visit Gastroenterology - [place] [facility] 175 [facility] [address] [place] [address] Gwen Queen PA [address] [place] [address] [address] [place] [address] Health Maintenance Due Date Last Done Comments [...] Social Influencers of Health Screening 06/07/2025 06/07/2024 Depression Screening 09/09/2025 09/09/2024 Hypertension/CHF/CAD Annual BMP Blood Test 09/09/2025 09/09/2024, 06/08/2024, 06/07/2024, Additional history exists Breast Cancer Screening 10/06/2025 10/07/19, 10/07/2023, 05/07/2022, Additional history exists Cholesterol Screening (Lipid Panel) 09/09/2029 09/09/2024, 09/09/2024, 10/29/2023, Additional history exists DTaP,Tdap,and Td Vaccines (4 [...] mmol/L LAB CHEMISTRY METHOD 06/08/2024 7:39 AM EST [facility] Potassium 3.5 3.5 - 5.5 mmol/L LAB CHEMISTRY METHOD 06/08/2024 7:39 AM EST [facility] Chloride 105 96 - 110 mmol/L LAB CHEMISTRY METHOD 06/08/2024 7:39 AM EST [facility] CO2 28 21 - 32 mmol/L LAB CHEMISTRY METHOD 06/08/2024 7:39 AM [facility] Anion Gap 4 3 - 11 LAB CHEMISTRY METHOD 06/08/2024 7:39 AM [facility] Glucose 89 70 - 100 mg/dL LAB CHEMISTRY METHOD 06/08/2024 7:39 AM [facility] BUN 23 5 - 25 mg/dL LAB CHEMISTRY METHOD 06/08/2024 7:39 AM [facility] Creatinine 0.65 0.50 - 1.10 mg/dL LAB CHEMISTRY METHOD 06/08/2024 7:39 AM [facility] eGFR 100 >=60 mL/min/1. 73m2 LAB CHEMISTRY METHOD 06/08/2024 7:39 AM [facility] Comment:Calculation based on the??Chronic Kidney Disease Epidemiology Collaboration (CKD-EPI) equation refit??without adjustment for race. BUN/Creatinine Ratio 35.4 LAB CHEMISTRY METHOD 06/08/2024 7:39 AM [facility] Calcium 8.2(L) 8.5 - 10.5 mg/dL LAB CHEMISTRY METHOD 06/08/2024 7:39 AM [facility] Blood Venous blood specimen / Unknown Venipuncture / Unknown 06/08/2024 5:40 AM EST 06/08/2024 6:51 AM EST us [employer] LAB BLOOD ORDERABLES Final Resul t [facility] [address] [place] [address], * CT Lung Screening (05/01/2024 9:27 AM [...] Signed Date: 05/02/2024 13:27 ET Workstation ID: [id number] Transcribed By: Self Edit Transcribed Date: 05/02/2024 13:14 ET Narrative 05/02/2024 1:27 PM EST EXAMINATION: CT CHEST WITHOUT CONTRAST LUNG CANCER SCREENING, LOW DOSE CLINICAL INFORMATION: Lung cancer screening. ??Current smoker COMPARISON: Portions of a previous 04/29/2023 ?? TECHNIQUE: Multidetector CT. Examination of the chest. Examination of the chest without IV contrast. Reformatting in the coronal and sagittal planes. Device: Qool VCT DLP: 164 mGy-cm CTDI: 4.83 Dose [...] in the coronal and sagittal planes. Device: Qool VCT DLP: 164 mGy-cm CTDI: 4.83 Dose [...] Signed Date: 05/02/2024 13:27 ET Workstation ID: [id number] Transcribed By: Self Edit Transcribed Date: 05/02/2024 13:14 ET us Kendall Edwards MD IMG CT PROCEDURES Final Result * BROOKE SCREENING DIGITAL (10/07/2023 1:06 PM EDT) Anatomical Region Laterality Modality Mammography 10/07/2023 10:5 8 AM EDT Narrative 10/07/2023 1:[address] [facility] Diagnostic Imaging Department [address] [place], [place] [id number] Patient: ??SEMPRIT JIM,KOURTNEY ?/Age/Sex: 1960 - 62 - F Unit#: ??[id number] ? Location/Status: ??SPDIMAM/REG CLI ? Mnemonic/Ordering Site: ??DIGSC/SPMAM Ordering Physician: ??KOSTA BIRMINGHAM Brooke Screening Digital - 10/07/23 - 1147 Report Status:Signed EXAM: [facility] Screening Digital EXAM DATE AND TIME: 10/07/2023 11:48 AM HISTORY: ??Screening. Reduction mammoplasty in 2007. COMPARISON: ??05/07/22, 04/06/20, 03/29/20, 03/22/18 TECHNIQUE: Bilateral digital breast tomosynthesis was performed in the CC and MLO projections. Computer aided detection with MuseAmi 3D 3.1 was employed. TISSUE DENSITY: a. [...] Procedure Note Eloina Romano MD - 01/25/[address] [facility] Diagnostic Imaging Department [address] [place] [id number] Patient: KOURTNEY MATTHEWS /Age/Sex: 1960 - 62 -F Unit#: [id number] Location/Status: SPDIMAM/REG CLI Mnemonic/Ordering Site: [facility] Ordering Physician: KOSTA BIRMINGHAM [facility] Screening Digital - 10/07/23 - 1147 Report Status:Signed EXAM: [facility] Screening Digital EXAM DATE AND TIME: 10/07/2023 11:48 AM HISTORY: Screening. Reduction mammoplasty in 2007. COMPARISON: 05/07/22, 04/06/20, 03/29/20, 03/22/18 TECHNIQUE: Bilateral digital breast tomosynthesis was performed in the CCand MLO projections. Computer aided detection with MuseAmi 3D 3.1was employed. TISSUE DENSITY: a. The [...] Relevant to Health Maintenance Insurance MEDICAID - [place] Advance Directives * Full Code - Default [...] currently active code status orders. Care Teams Veneer Measurer Relationship Specialty Start Date End Date Laxmi Luevano FNP [address] [place] [address] PCP - General Internal Medicine 12/05/20
--- NOTE | 2024-10-26 13:47 | MHC.AU.HA2 ---
Hearing Instrument Fitting- Adult- Binaural Date of Visit: 10/26/24 Hearing Instruments Dispensed: Right Ear: Make, Model, Color, Serial Number: Marcia Christianseno I50-R SN: [id number] Color: [place] Weed Control Inspector Repair Warranty: 11/03/2027 Weed Control Inspector Loss and Damage Warranty: 11/03/2027 [facility] Service Plan: 10/18/2025 Battery Size: Rechargeable Lead Customer Service Representative/Slim Tube: 1M [place]/Dome/CShell/SlimTip: Canal lock SlimTip SN: [id number] Francie: 01/31/2025 Type of Wax Guard: CeruStop Left Ear: Make, Model, Color, Serial Number: Marcia Christianseno I50-R SN: [id number] Color: [place] Weed Control Inspector Repair Warranty: 11/03/2027 Weed Control Inspector Loss and Damage Warranty: 11/03/2027 [facility] Service Plan: 10/18/2025 Battery Size: Rechargeable Lead Customer Service Representative/Slim Tube: 1M [place]/Dome/CShell/SlimTip: Canal lock SlimTip SN: [id number] Francie: 01/31/2025 Type of Wax Guard: CeruStop Accessories/Assistive Technology: Phonak Sculpture Instructor DANIELA SN: [id number] Summary of Fitting: Previously performed electroacoustic analysis in test box. Ran feedback analyzer and real ear measures. Could not complete real ear due to technical difficulties - need to complete at follow up. Discussed care, use, and rechargeability including manually turning on/off, VC use, and changing wax guard. Practiced insertion and removal. Explained importance of daily consistent use and acclimatization period. Did not discuss bluetooth at this time, will do at follow up. Recommendations: A hearing instrument follow-up was scheduled. Diagnosis Code(s):Primary Diagnosis: H90.A31 Mixed HL, Unilateral Right Ear, W/Restricted Contralateral Secondary Diagnosis: H90.A22 SNHL, Unilateral, Left Ear, W/Restricted Contralateral Hearing Signature: Provider: Zurdo Mendiola, [facility]
== END 2024-10-26 12:42 | disposition home or self-care (01) ==
LOC: HO.HAP 12:41
PROVIDERS: PCP Physician Assistant; Visit Provider Otolaryngology
DX: Z46.1 Encounter for fitting and adjustment of hearing aid (principal); H90.A31 Mixed conductive and sensorineural hearing loss, unilateral, right ear with restricted hearing on the contralateral side; H90.A22 Sensorineural hearing loss, unilateral, left ear, with restricted hearing on the contralateral side
CPT/HCPCS: 92595; V5011; V5020; V5160; V5261; V5264

== ENCOUNTER 2024-11-28 13:50 | Outpatient (REF) | payer MEDICAID, SELFPAY ==
--- OUTSIDE RECORDS SUMMARY | 2024-11-28 15:19 | XMS_ITS | Clinical Summary ---
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 06/14/19 22 Active diphenhydramin e HCl (BANOPHEN ORAL) Take [...] split. 60 each 06/10/19 25 026 Active ipratropium-al buteroL (DUONEB) 0.5-2.5 mg/3 mL [...] day. 1800 mL 3 07/06/19 25 Active linaCLOtide (LINZESS) 290 mcg capsule Take 1 capsule (290 mcg total) by mouth 1 (one) time each day. 30 each 3 10/05/19 25 025 Active promethazine (PHENERGAN) 25 mg tablet TAKE 1 TABLET BY MOUTH EVERY 8 HOURS NEEDED FOR NAUSEA 90 tablet 11/07/19 25 Active omeprazole (PriLOSEC) [address] capsule TAKE 1 CAPSULE BY MOUTH DAILY 90 capsule 3 11/07/19 25 Active omeprazole (PriLOSEC) [address] capsule Take 1 Capsule by mouth daily. 08/12/19 24 025 Discontinued promethazine (PHENERGAN) 25 mg tablet Take 1 tablet (25 mg total) by mouth every 8 (eight) hours if needed. 025 Discontinued Active Problems Problem Noted Date Diagnosed Date Acute bronchitis 06/10/2024 Hypoxia 06/10/2024 Influenza A 06/07/2024 Influenza and pneumonia 06/06/2024 Oral candidiasis 02/16/2019 Nausea 01/13/2019 Gas bloat syndrome 01/13/2019 Irritable bowel syndrome wit h both constipation and diarrhea 01/13/2019 Gastroparesis 01/13/2019 Encounters Date Type Department Care Team Description 11/22/2024 2:48 PM EDT Anesthesia Event [facility] Endoscopy [address] [place] [phone] Ava Alfredo MD Elliott, Barbara J, CRNA 11/22/2024 2:01 PM EDT - 11/22/2024 11:59 PM EDT Hospital Encounter [facility] Endoscopy [address] [place] [phone] Ottoniel Fernandez MD Elliott, Barbara J, CRNA Gastroparesis Discharge Disposition: Home or Self Care 11/07/2024 Telephone Gastroenterology - [place] [address] [facility] [address] [place] [address] Gwen Queen PA referral 10/04/2024 2:40 PM EDT Office Visit Gastroenterology [facility] [address] [facility] [address] [place] [address] Gwen Queen PA Gastroparesis (Primary [...] (gastroesophageal reflux disease) SLE (systemic lupus erythematosus) (CMS/HCC V24, CMS/[facility] V28) Fibromyalgia Chronic back pain Hepatitis B Sleep apnea Family History Medical History Relation Name Comments Colon cancer Mother Relation Name Status Comments Mother Social History Tobacco Use Types Packs/Day Years Used Date Smoking Tobacco: Every Day Cigarettes Smokeless Tobacco: Never Tobacco Cessation:Ready to Q uit: Yes; Counseling Given: Not Answered Alcohol Use Standard Drinks/Week Comments No 0 [...] for your loved ones. For example, child welfare social worker or elderly care for an older adult? [...] Safety Answer Date Record ed Physical Abuse 11/22/2024 Verbal Abuse 11/22/2024 Comments No Sex and Gender Information Value [...] Sign Reading Time Taken Comments Blood Pressure 137/80 11/22/2024 3:23 PM EDT Pulse 60 11/22/2024 3:23 PM EDT Temperature 36.7 C (98 F) 11/22/2024 3:03 PM EDT Respiratory Rate 20 11/22/2024 3:23 PM EDT Oxygen Saturation 96% 11/22/2024 3:23 PM EDT Inhaled Oxygen Concentration - - Weight 84.4 kg (186 lb) 11/22/2024 2:36 PM EDT Height 160 cm (5' 3 ) 11/22/2024 2:36 PM EDT Body Mass Index 32.95 11/22/2024 2:36 PM EDT Plan of Treatment Upcoming Encounters Date Type Department Care Team (Late st Contact Info) Description 01/03/2025 1:40 PM EDT Office Visit Gastroenterology - [place] [address] [place] [phone] Gwen Queen PA [address] [place] [address] Health Maintenance Due Date Last Done Comments [...] on patient's age to complete this topic Medical Devices Implanted Type Area Spar Finisher Device Identifier Shelf Expiration Date Model / Serial / Lot Implants Implants Left: Knee Spinal Hardware Spinal Hardware N/A: Back Procedures Procedure Name Priority Date/Time Associated Diagnosis Comments EGD Routine 11/22/2024 3:02 PM EDT Gastroparesis BASIC METABOLIC PANEL Routine 06/08/2024 5:40 AM [...] Recently Relevant to Health Maintenance Results * EGD With Botox Injection; Anesthesia - MAC; [facility] ENDOSCOPY (11/22/2024 3:02 PM EDT) Anatomical Region Laterality Modality Other 11/22/2024 2:40 PM EDT Impressions 11/22/2024 3:02 PM EDT - An area in the pylorus successfully injected with botulinum toxin. - No specimens collected. Recommendation: - Observe patient's clinical course. Narrative 11/22/2024 3:02 PM EDT [facility] GI Patient Name: Kourtney Reyes Procedure Date: 11/22/2024 2:40 PM Date of : 1960 Age: 64 Gender: Female Note Status: Finalized Attending MD: Ottoniel Fernandez MD, Procedure Date No Time: 11/22/2024 Procedure: Upper GI endoscopy Indications: For therapy of gastroparesis Providers: Ottoniel Fernandez MD Referring MD: Ottoniel Fernandez MD Medicines: Propofol per Anesthesia Complications: No immediate complications. Estimated Blood Loss: Estimated blood loss was minimal. Procedure: Pre-Anesthesia Assessment: - ASA Grade Assessment: II - A patient with mild systemic disease. After obtaining informed consent, the endoscope was passed under direct vision. Throughout the procedure, the patient's blood pressure, pulse, and oxygen saturations were monitored continuously.The Olympus Gastroscope was introduced through the mouth, and advanced to the second part of duodenum. The upper GI endoscopy was accomplished without difficulty. The patient tolerated the procedure well. Findings: An area at the pylorus was successfully injected with 100 units botulinum toxin. Estimated blood loss was minimal. Procedure Code(s): --- Professional --- 27261, Esophagogastroduodenoscopy, flexible, transoral; with directed submucosal injection(s), any substance Diagnosis Code(s): --- Professional --- K31.84, Gastroparesis CPT copyright 2020 [employer]. All rights reserved. The codes documented in this report are preliminary and upon real estate agency licensee review may be revised to meet current compliance requirements. Ottoniel Fernandez MD 11/22/2024 3:02:08 PM This report has been signed electronically.Ottoniel Fernandez MD Number of Addenda: 0 Note Initiated On: 11/22/2024 2:40 PM Scope In: Scope Out: Endoscopy Department at [facility] - [address] [place] [phone] Procedure Note Ottoniel Fernandez MD - 11/22/2024 [facility] GI Patient Name: Kourtney Reyes Procedure Date: 11/22/2024 2:40 PM Date of : 1960 Age: 64 Gender: Female Note Status: Finalized Attending MD: Ottoniel Fernandez MD, Procedure Date No Time: 11/22/2024 Procedure: Upper GI endoscopy Indications: For therapy of gastroparesis Providers: Ottoniel Fernandez MD Referring MD: Ottoniel Fernandez MD Medicines: Propofol per Anesthesia Complications: No immediate complications. Estimated Blood Loss: Estimated blood loss was minimal. Procedure: Pre-Anesthesia Assessment: - ASA Grade Assessment: II - A patient with mild systemic disease. After obtaining informed consent, the endoscope was passed under direct vision. Throughout theprocedure, the patient's blood pressure, pulse, and oxygen saturations were monitored continuously.The Olympus Gastroscope was introduced through the mouth, and advanced to the second part of duodenum. The upperGI endoscopy was accomplished without difficulty. The patient tolerated the procedure well. Findings: An area at the pylorus was successfully injectedwith 100 units botulinum toxin. Estimated blood loss was minimal. Procedure Code(s): --- Professional --- 04026, Esophagogastroduodenoscopy, flexible, transoral; with directed submucosal injection(s),any substance Diagnosis Code(s): --- Professional --- K31.84, Gastroparesis CPT copyright 2020 [employer]. All rights reserved. The codes documented in this report are preliminary and upon real estate agency licensee reviewmay be revised to meet current compliance requirements. Ottoniel Fernandez MD 11/22/2024 3:02:08 PM This report has been signed electronically.Ottoniel Fernandez MD Number of Addenda: 0 Note Initiated On: 11/22/2024 2:40 PM Scope In: Scope Out: Endoscopy Department at [facility] - [address] [place] [phone] IMPRESSION: - An area in the pylorus successfully injected with botulinum toxin. - No specimens collected. Recommendation: - Observe patient's clinical course. us Ottoniel Fernandez MD GI~PROCEDURE ORDERABLES Final Re sult * (ABNORMAL) Basic metabolic panel (06/08/2024 5:40 AM EST) Sodium 137 133 - 145 mmol/L LAB CHEMISTRY METHOD 06/08/2024 7:39 AM [facility] Potassium 3.5 3.5 - 5.5 mmol/L LAB CHEMISTRY METHOD 06/08/2024 7:39 AM [facility] Chloride 105 96 - 110 mmol/L LAB CHEMISTRY METHOD 06/08/2024 7:39 AM [facility] CO2 28 21 - 32 mmol/L LAB CHEMISTRY METHOD 06/08/2024 7:39 AM [facility] Anion Gap 4 3 - 11 LAB CHEMISTRY METHOD 06/08/2024 7:39 AM [facility] Glucose 89 70 - 100 mg/dL LAB CHEMISTRY METHOD 06/08/2024 7:39 AM [facility] BUN 23 5 - 25 mg/dL LAB CHEMISTRY METHOD 06/08/2024 7:39 AM [facility] Creatinine 0.65 0.50 - 1.10 mg/dL LAB CHEMISTRY METHOD 06/08/2024 7:39 AM [facility] eGFR 100 >=60 mL/min/1. 73m2 LAB CHEMISTRY METHOD 06/08/2024 7:39 AM [facility] Comment:Calculation based on the Chronic Kidney Disease Epidemiology Collaboration (CKD-EPI) equation refit without adjustment for race. BUN/Creatinine Ratio 35.4 LAB CHEMISTRY METHOD 06/08/2024 7:39 AM [facility] Calcium 8.2(L) 8.5 - 10.5 mg/dL LAB CHEMISTRY METHOD 06/08/2024 7:39 AM EST [facility] Blood Venous blood specimen / Unknown Venipuncture / Unknown 06/08/2024 5:40 AM EST 06/08/2024 6:51 AM EST us [employer] [facility] LAB BLOOD ORDERABLES Final Resul t [facility] [address] [place] [address], [place] [phone] * CT Lung Screening (05/01/2024 9:27 AM [...] Signed Date: 05/02/2024 13:27 ET Workstation ID: [id number] Transcribed By: Self Edit Transcribed Date: 05/02/2024 13:14 ET Narrative 05/02/2024 1:27 PM EST EXAMINATION: CT CHEST WITHOUT CONTRAST LUNG CANCER SCREENING, LOW DOSE CLINICAL INFORMATION: Lung cancer screening. Current smoker COMPARISON: Portions of a previous 04/29/2023 TECHNIQUE: Multidetector CT. Examination of the chest. Examination of the chest without IV contrast. Reformatting in the coronal and sagittal planes. Device: [employer] VCT DLP: 164 mGy-cm CTDI: 4.83 Dose optimization was performed including the use of low-dose iterative reconstruction technique with automatic exposure control based on patient size. Type of contrast: None Volume of IV contrast: None Volume of contrast discarded: 0 mL FINDINGS: LUNG: There is no abnormality of the trachea or mainstem bronchi. There is no generalized thickening of the intralobular septa. LUNG NODULES: There are no suspicious nodules or masses. There is an unchanged possibly peripherally calcified nodule in the superior segment of the right lower lobe 05/01/2024-0.4 cm (3/115). There is a 0.2 cm nodule in the anterior aspect of the right lower lobe (3/160). Densely calcified typically benign nodule posteromedial right lower lobe. OTHER PULMONARY: Thin-walled cyst in the periphery of the left lower lobe laterally is unchanged. MEDIASTINUM: There is a calcification [...] The main pulmonary artery is normal caliber PLEURA: There is no pleural fluid or pneumothorax AXILLA/CHEST WALL: There are no enlarged axillary lymph nodes. No chest wall mass demonstrated VISUALIZED UPPER ABDOMEN: There is a 0.3 cm nonobstructing upper pole [...] in the coronal and sagittal planes. Device: [employer] VCT DLP: 164 mGy-cm CTDI: 4.83 Dose [...] Signed Date: 05/02/2024 13:27 ET Workstation ID: [id number] Transcribed By: Self Edit Transcribed Date: 05/02/2024 13:14 ET us Kendall Edwards MD IMG CT PROCEDURES Final Result * DEMETRIUS SCREENING DIGITAL (10/07/2023 1:06 PM EDT) Anatomical Region Laterality Modality Mammography 10/07/2023 10:5 8 AM EDT Narrative 10/07/2023 1:06 PM EDT [facility] Diagnostic Imaging Department [address] [place] [phone] Patient: KEVEN JIMKOURTNEY /Age/Sex: 1960 - 62 - F Unit#: [id number] Location/Status: SPDIMAM/REG CLI Mnemonic/Ordering Site: [facility] Ordering Physician: KOSTA BIRMINGHAM [facility] Screening Digital - 10/07/23 - 1147 Report Status:Signed EXAM: [facility] Screening Digital EXAM DATE AND TIME: 10/07/2023 11:48 AM HISTORY: Screening. Reduction mammoplasty in 2007. COMPARISON: 05/07/22, 04/06/20, 03/29/20, 03/22/18 TECHNIQUE: Bilateral digital breast tomosynthesis was performed in the CC and MLO projections. Computer aided detection with Minggl 3D 3.1 was employed. TISSUE DENSITY: a. The breasts are almost entirely fatty. FINDINGS: Reduction mammoplasty sequelae are again seen. No suspicious masses, grouped microcalcifications, or developing architectural distortion are seen. Few coarse, macrocalcifications are again seen in the left breast. Numerous skin calcifications are again seen bilaterally. The vascularity is unremarkable. IMPRESSION: Stable mammographic appearance of the breasts. No evidence of malignancy is seen. A negative mammogram in the presence of a clinically suspicious palpable abnormality does not preclude the possibility of malignancy or alter the indications for biopsy. BI-RADS: Category 2: Benign RECOMMENDATION(S): 1: Routine screening mammogram BILATERAL in 1 year. Dictating Physician: ELOINA ROMANO MD Electronically Signed by: ELOINA ROMANO MD Dic Date/Time: 10/07/23 1306 Sign date/Time: 10/07/23 1306 Procedure Note Eloina Romano MD - 01/25/2024 [facility] Diagnostic Imaging Department [address] [place] [id number] Patient: KOURTNEY MATTHEWS /Age/Sex: 1960 - 62 -F Unit#: [id number] [facility] Site: [facility] Ordering Physician: KOSTA BIRMINGHAM [facility] Screening Digital - 10/07/23 - 1147 Report Status:Signed EXAM: [facility] Screening Digital EXAM DATE AND TIME: 10/07/2023 11:48 AM HISTORY: Screening. Reduction mammoplasty in 2007. COMPARISON: 05/07/22, 04/06/20, 03/29/20, 03/22/18 TECHNIQUE: Bilateral digital breast tomosynthesis was performed in the CCand MLO projections. Computer aided detection with [employer]gl 3D 3.1was employed. TISSUE DENSITY: a. The [...] Anatomical Region Laterality Modality Other Historical Provider HEALTH MAINTENANCE Final Result from [...] currently active code status orders. Care Teams Plant Control Operator Relationship Specialty Start Date End Date Laxmi Luevano FNP [facility] [place] [address] PCP - General Internal Medicine 12/05/20
== END 2024-11-28 13:51 | disposition home or self-care (01) ==
LOC: HO.HAP 13:50
PROVIDERS: PCP Physician Assistant; Visit Provider Otolaryngology
DX: Z13.89 Encounter for screening for other disorder (principal)

== ENCOUNTER 2024-11-28 14:12 | Emergency (ER) | payer MEDICAID, SELFPAY ==
--- NOTE | ~2024-11-28 | CT_ITS ---
CLINICAL HISTORY: Hematuria, left abdominal pain. CT abdomen and pelvis without contrast Comparison: None provided Findings: Limited evaluation without intravenous contrast. No consolidation or pleural effusion. Right lung base granuloma. The gallbladder is surgically absent. No significant biliary ductal dilatation. Unenhanced liver, spleen and pancreas within normal limits. Adrenal glands are normal. Bilateral punctate nonobstructing renal stones are demonstrated measuring up to 4 mm. No ureteral stone and no hydronephrosis or hydroureter bilaterally. No perinephric stranding. No bowel obstruction, pneumoperitoneum, or pneumatosis. Appendix not visualized. No pericecal inflammatory changes. Pelvic contents unremarkable. No free fluid. Atherosclerotic vascular disease with no aneurysm of the abdominal aorta Implanted spinal stimulator. Degenerative disc disease at L4-5. No acute fracture. IMPRESSION: 1. No acute findings. 2. Bilateral nonobstructing renal stones. No ureteral stones and no hydronephrosis. 3. Additional nonacute findings as described. This document has been electronically signed by: Shanna Pinedo MD on 11/28/2024 21:02:31
--- NOTE | ~2024-11-28 | XR_ITS ---
CLINICAL HISTORY: cough 1 view chest x-ray Comparison: None provided Findings: Heart size is normal. No consolidation, significant pleural effusion or pneumothorax. No acute fracture. IMPRESSION: 1. No acute findings. This document has been electronically signed by: Shanna Pinedo MD on 11/28/2024 17:58:45
[2024-11-28 14:59] VITALS: BP 152/101; PULSE 66; RESP 18; TEMP 36.7; O2SAT 99; BMI 33.6
--- NOTE | 2024-11-28 15:01 | ED.ABDPAIN ---
HPI - Abdominal Pain General Chief Complaint: Back Pain/Injury Stated Complaint: Asthma Diff Breathing Time Seen by Provider: 11/28/24 18:07 Source: patient and family (Spouse) Mode of arrival: ambulatory Limitations: no limitations History of Present Illness ED Provider: DR. Hook HPI narrative: A 64-year-old female history of asthma presented with multiple complaints. 1. Wheezing with productive cough of greenish sputum with no fever chills not responding to bronchodilator the patient normally use the home, patient currently is an active smoker. 2. Patient also is complaining of left lower quadrant abdominal pain, discomfort when she urinates, no frequency urination, no fever, no chills, Related Data Home Medications ?Medication ?Instructions ?Recorded ?Confirmed amlodipine 5 mg tablet 5 mg PO DAILY 04/16/21 12/03/22 buspirone 10 mg tablet 10 mg PO BID 04/16/21 12/03/22 celecoxib 200 mg capsule (Celebrex) 200 mg PO DAILY 04/16/21 11/05/22 diclofenac sodium 1 % topical gel 2 g topical QID 04/16/21 11/05/22 duloxetine 60 mg capsule,delayed 60 mg PO DAILY 04/16/21 11/05/22 release gabapentin 600 mg tablet 600 mg PO DAILY 04/16/21 11/05/22 hydroxychloroquine 200 mg tablet 200 mg PO DAILY 04/16/21 12/03/22 lidocaine 5 % topical patch 2 patch topical DAILY 04/16/21 12/03/22 (Lidoderm) melatonin 10 mg-lemon balm leaf tab PO 04/16/21 12/03/22 extract 1 mg tablet psiuysmn-aqebjwoib-mqcqqnlse 3.5 appl topical 04/16/21 11/05/22 mg/g-10,000 unit/g-0.5 %topical cream omeprazole 40 mg capsule,delayed 40 mg PO DAILY 04/16/21 12/03/22 release tramadol 50 mg tablet 50 mg PO DAILY 04/16/21 12/03/22 zolpidem 10 mg tablet 10 mg PO BEDTIME PRN 04/16/21 12/03/22 Previous Rx's ?Medication ?Instructions ?Recorded albuterol sulfate 2.5 mg/3 mL 2.5 mg (3 mL) inhalation QID #90 mL 06/21/24 (0.083 %) solution for nebulization albuterol sulfate 90 mcg/actuation 2 puff inhalation Q6H PRN 06/21/24 aerosol inhaler shortness of breath or wheezing #8.5 grams dupilumab 300 mg/2 mL subcutaneous 300 mg (2 mL) subcut Q2W #4 mL 06/21/24 pen injector (Dupixent) fluticasone fur. 100 mcg-umeclid 1 inh inhalation DAILY #60 ea 06/21/24 62.5 mcg-vilant 25 mcg inhalat.powder (Trelegy Ellipta) furosemide 40 mg tablet 40 mg PO QAM #7 tabs 07/27/24 albuterol sulfate 90 mcg/actuation 2 puff inhalation Q4-6H PRN 11/28/24 aerosol inhaler (Ventolin HFA) shortness of breath or wheezing #8.5 grams azithromycin 250 mg tablet See Rx Instructions PO .COMPLEX #6 11/28/24 (Zithromax Z-Luiz) tabs prednisone 20 mg tablet 20 mg PO BID #10 tabs 11/28/24 Allergies Allergy/AdvReac Type Severity Reaction Status Date / Time doxycycline Allergy Mild Unknown Verified 11/28/24 15:02 lamotrigine Allergy Mild Unknown Verified 11/28/24 15:02 metoclopramide Allergy Mild Unknown Verified 11/28/24 15:02 Review of Systems Review of Systems All other systems are reviewed and are negative Constitutional: Reports as per HPI and Reports no additional constitutional complaints Eyes: Reports as per HPI and Reports no additional eye complaints Reports system reviewed and no additional complaints, except as documented Cardiovascular: Reports as per HPI and Reports no additional cardiovascular complaints Respiratory: Reports as per HPI and Reports no additional respiratory complaints Gastrointestinal: Reports as per HPI and Reports no additional gastrointestinal complaints Genitourinary: Reports no additional female genitourinary complaints Musculoskeletal: Reports no additional musculoskeletal complaints Skin/Breast: Reports system reviewed and no additional complaints, except as docu Psychiatric: Reports no additional psychiatric complaints Endocrine: Reports no additional endocrine complaints Hematologic/Lymphatic: Reports no additional hematologic/lymphatic complaints Allergic/Immunologic: Reports no additional allergic/immunologic complaints Reports system reviewed and no additional complaints, except as documented and Reports Abnormal speech present [facility] Social History Social History Patient Tobacco Use Status: Current everyday Tobacco user Cigarette Packs Per Day: 0.33 Cigarettes Per Day: 6 Smoked in Last 30 Days: Yes Use of substances other than those prescribed or required for medical reasons: No Advance Directives: No Advance Directives Information Provided: Yes Patient : No Physical Exam ED Vital Signs: Vital Signs - 24 hr 11/28/24 14:59 11/28/24 18:32 Temperature 98.1 F Pulse Rate 66 51 Respiratory Rate 18 22 H Blood Pressure 152/101 H Pulse Oximetry 99 Oxygen Delivery Method Room Air BMI result Body Mass Index 33.6 Vital signs have been reviewed and appear to be correct. Blood pressure elevated. Heart rate normal. Respiratory rate normal. Temperature normal. Oxygen saturation normal. Appearance: Alert. Oriented X3. No acute distress. Head: Normal external exam. Normocephalic. Atraumatic. No Mccann signs noted. No raccoon eyes noted Eyes: PERRLA. EOMI. Conjunctiva and sclera normal. Eyelids normal. ENT: TM's Normal. Pharynx normal. Uvula midline. Moist mucous membranes. No trismus noted. No drooling noted. No muffled voice noted. Neck: Normal inspection. Neck supple. FROM. No adenopathy. Thyroid Normal. No meningeal signs. No neck mass noted. CVS: Normal heart rate and rhythm. Heart sound normal. No murmurs noted. Pulses normal throughout. Respiratory: No respiratory distress. Painless inspiration. Breath sounds normal. Diffuse mild expiratory wheezing bilaterally with prolonged expiration, No accessory muscle usage noted or decreased air movement noted. Abdomen: On tenderness, no guarding. Bowel sounds normal in all 4 quadrants. No distention noted. No organomegaly noted. No visible injury noted. Back: No CVA tenderness. Full range of motion noted. Skin: Skin warm and dry. Normal skin color. Normal skin turgor. No rashes/lesions/lacerations noted. Extremities: No lower extremity edema. Extremities exhibit normal range of motion. Extremities nontender. Neuro: Oriented X 3. Cranial nerve exam: II-XII are grossly intact No motor deficit. No sensory deficit. Reflexes normal. Course Course Course Narrative: This is an RME: Additional HPI, ROS, PE not included below will be deferred to primary provider. RME assessment and note performed by: Valerie Stover PA-C This is a [id number]-female, with a hx of active 30+ pack-year smoker, with underlying history of lupus on Plaquenil, now followed for asthma/COPD overlap syndrome, who presents to the ER with complaints of LLQ pain. Reporting urinary frequency. Pt also with coarse expiratory wheeze - reports weather worsens her symptoms, not here for SOB or CP. Plan: Labs, UA, further ER eval needed Reevaluation(s) Reevaluation #1: Acute asthma exacerbation will start the patient on prednisone/Zithromax/prednisone and follow-up with PCP. I spent 10 minutes with the patient for smoke cessation education. CT abdomen pelvis shows no acute pathology to explain patient's symptoms of left lower quadrant abdominal pain and hematuria. Medical Decision Making Differential Diagnosis Differential Diagnoses: The differential diagnosis associated with the presentation includes (Acute asthma exacerbation, pneumonia, pneumothorax pleural effusion, UTI, pyelonephritis, obstructive uropathy) Admission/Observation Consideration of admission/observation: Escalation of care including admission/observation considered Lab Data MDM Lab Attestation statement: I reviewed the patient's lab results. 11/28/24 15:23 11/28/24 15:23 Labs: Lab Results 11/28/24 11/28/24 Range/Units 15:23 15:55 WBC 8.0 (4.8-10.8) X10*3/uL RBC 4.53 (4.20-5.50) X10*6/uL Hgb 12.9 (12.0-16.0) g/dl Hct 38.2 (37.0-47.0) % MCV 84.3 (80.0-98.0) fL MCH 28.5 (27.0-33.0) pg MCHC 33.8 (31.0-35.0) g/dl RDW 14.6 (11.0-16.0) % Plt Count 256 (160-400) X10*3/uL MPV 9.4 (9.4-12.3) fL Immature Gran % (Auto) 0.1 (0.0-0.4) % Neut % (Auto) 49.2 (45-73) % Lymph % (Auto) 40.8 H (20-40) % [place] % (Auto) 7.6 (2-11) % Eos % (Auto) 1.6 (0-4) % Baso % (Auto) 0.7 (0-2) % Lymph # (Auto) 3.3 (1.2-4.9) X10*3/uL [place] # (Auto) 0.6 (0.1-1.2) X10*3/uL Eos # (Auto) 0.1 (0.0-0.4) X10*3/uL Baso # (Auto) 0.1 (0.0-0.2) X10*3/uL Abs Immat Gran (auto) 0.01 (0.00-0.03) X10*3/uL Absolute Neuts (auto) 3.9 (2.0-8.3) x10*3/uL Absolute Nucleated RBC 0.000 (0.0-0.012) X10*3/uL Nucleated RBC % (auto) 0.0 (0.0-0.2) /100WBC Sodium 142 (135-145) mmol/L Potassium 4.1 (3.3-5.1) mmol/L Chloride 107 (96-108) mmol/L Carbon Dioxide 27 (22-29) mmol/L Anion Gap 12 (12-20) BUN 14 (9-16) mg/dL Creatinine 0.64 (0.5-1.4) mg/dL Estim Creat Clear Calc 93.5 Estimated GFR > 60 Random Glucose 80 (60-115) mg/dL Calcium 9.1 (8.4-10.2) mg/dL Magnesium 2.1 (1.6-2.6) mg/dL Total Bilirubin 0.2 (0.0-1.0) mg/dL Direct Bilirubin < 0.2 (0.0-0.5) mg/dL AST 25 (5-31) U/L ALT 15 (0-31) U/L Alkaline Phosphatase 64 (39-117) U/L Total Protein 6.8 (6.5-8.0) g/dL Albumin 4.2 (3.5-5.0) g/dL Urine Color Yellow Urine Appearance Clear Urine pH 8.0 (5.0-9.0) Ur Specific [place] 1.010 (1.005-1.025) Urine Protein Negative (Neg-Trace) mg/dL Urine Glucose (UA) Negative (Negative) mg/dL Urine Ketones Negative (Negative) mg/dL Urine Blood Moderate (2+) H (Negative) Urine Nitrite Negative (Negative) Ur Leukocyte Esterase Small (1+) H (Negative) Urine RBC >20 H (0-2) /HPF Urine WBC 0-5 (0-5) /HPF Ur Squamous Epith Cells 0-2 (0-2) /HPF Urine Bacteria None Seen (None Seen) Hyaline Casts 0-2 (0-2) /LPF Independent Interpretation I performed an independent interpretation of an: CT Scan Radiology Impression Discussion of test interpretation with radiology: I have reviewed the radiologist's reading. Medications Administered Discontinued Medications Generic Name Dose Route Start Last Admin Trade Name Freq PRN Reason Stop Dose Admin Albuterol Sulfate 8 puff 11/28/24 18:27 11/28/24 18:32 Albuterol Sulfate 90 Mcg 8 Gm Inhaler INHALE 11/28/24 18:28 8 puff ONCE ONE Administration Oxycodone HCl 5 mg 11/28/24 18:15 11/28/24 18:47 Oxycodone Hcl Immed Release 5 Mg Tablet PO 11/28/24 18:16 5 mg ONCE ONE Administration Prednisone 50 mg 11/28/24 18:14 11/28/24 18:47 Prednisone 10 Mg Tablet PO 11/28/24 18:15 50 mg ONCE ONE Administration Discharge Plan Discharge Clinical Impression: Acute asthma exacerbation, Encounter for smoking cessation counseling Patient Disposition: Home, Self-Care Instructions: Asthma (ED) Prescriptions: New azithromycin [Zithromax Z-Luiz] 250 mg tablet See Rx Instructions .ROUTE .COMPLEX Qty: 6 0RF Rx Instructions: For 250 mg dose pack: take 500 mg today (day 1), then 250 mg for 4 days (days 2-5) prednisone 20 mg tablet 20 mg PO BID Qty: 10 0RF albuterol sulfate [Ventolin HFA] 90 mcg/actuation HFA aerosol inhaler 2 puff inhalation Q4-6H PRN (Reason: shortness of breath or wheezing) Qty: 8.5 0RF No Action lidocaine [Lidoderm] 5 % adhesive patch,medicated 2 patch topical DAILY Rx Instructions: leave on most painful area for up to 12 hrs gabapentin 600 mg tablet 600 mg PO DAILY celecoxib [Celebrex] 200 mg capsule 200 mg PO DAILY diclofenac sodium 1 % gel 2 g topical QID Rx Instructions: apply to single elbow, wrist or hand; for hand includes palm/fingers/back of hand melatonin-lemon balm leaf extr 10-1 mg tablet PO eovksnek-covkskkdy-SC 3.5-10,000-0.5 mg/g-unit/g-% cream topical tramadol 50 mg tablet 50 mg PO DAILY amlodipine 5 mg tablet 5 mg PO DAILY buspirone 10 mg tablet 10 mg PO BID duloxetine 60 mg capsule,delayed release(DR/EC) 60 mg PO DAILY hydroxychloroquine 200 mg tablet 200 mg PO DAILY omeprazole 40 mg capsule,delayed release(DR/EC) 40 mg PO DAILY zolpidem 10 mg tablet 10 mg PO BEDTIME PRN furosemide 40 mg tablet 40 mg PO QAM Qty: 7 0RF albuterol sulfate 2.5 mg /3 mL (0.083 %) solution for nebulization 2.5 mg inhalation QID Qty: 90 3RF albuterol sulfate 90 mcg/actuation HFA aerosol inhaler 2 puff inhalation Q6H PRN (Reason: shortness of breath or wheezing) Qty: 8.5 6RF Trelegy Ellipta 100-62.5-25 mcg blister with device 1 inh inhalation DAILY Qty: 60 6RF Dupixent Pen 300 mg/2 mL pen injector 300 mg subcut Q2W Qty: 4 12RF Referrals: Quiana Rg PA [Primary Care Provider, Internal Medicine] Print Language: Indian
[2024-11-28 15:33] LABS: MANUAL DIFF FLAG NO
[2024-11-28 15:36] LABS: Basophils Absolute Auto 0.1 X10*3/uL (0.0-0.2); Basophils Percent Auto 0.7 % (0-2); Eosinophils Absolute Auto 0.1 X10*3/uL (0.0-0.4); Eosinophils Percent Auto 1.6 % (0-4); Hematocrit 38.2 % (37.0-47.0); Hemoglobin 12.9 g/dl (12.0-16.0); Imm Gran Abs Auto 0.01 X10*3/uL (0.00-0.03); Imm Gran Pct Auto 0.1 % (0.0-0.4); Lymphocytes Absolute Auto 3.3 X10*3/uL (1.2-4.9); Lymphocytes Percent Auto 40.8 % (20-40); Mean Corpuscular HGB Conc 33.8 g/dl (31.0-35.0); Mean Corpuscular Hemoglobin 28.5 pg (27.0-33.0); Mean Corpuscular Volume 84.3 fL (80.0-98.0); Mean Platelet Volume 9.4 fL (9.4-12.3); Monocytes Absolute Auto 0.6 X10*3/uL (0.1-1.2); Monocytes Percent Auto 7.6 % (2-11); Neutrophils Absolute Auto 3.9 x10*3/uL (2.0-8.3); Neutrophils Percent Auto 49.2 % (45-73); Platelet Count 256 X10*3/uL (160-400); Red Blood Count 4.53 X10*6/uL (4.20-5.50); Red Cell Distribution Width 14.6 % (11.0-16.0)
[2024-11-28 15:49] LABS: Alanine Aminotransferase 15 U/L (0-31); Albumin Level 4.2 g/dL (3.5-5.0); Alkaline Phosphatase 64 U/L (39-117); Anion Gap 12 (12-20); Aspartate Amino Transferase 25 U/L (5-31); Bilirubin Direct < 0.2 mg/dL (0.0-0.5); Bilirubin Total 0.2 mg/dL (0.0-1.0); Blood Urea Nitrogen 14 mg/dL (9-16); Calcium 9.1 mg/dL (8.4-10.2); Carbon Dioxide 27 mmol/L (22-29); Chloride 107 mmol/L (96-108); Creatinine Clr Calc Pharmacy 93.5; Estimated Glomerular Filt Rate > 60; Glucose Random 80 mg/dL (60-115); Magnesium 2.1 mg/dL (1.6-2.6); Potassium 4.1 mmol/L (3.3-5.1); Sodium 142 mmol/L (135-145); Total Protein 6.8 g/dL (6.5-8.0)
[2024-11-28 16:27] LABS: Appearance Urine Clear; Color Urine Yellow; Glucose Urine UA Negative (Negative); Leukocyte Esterase Urine Small (1+) (Negative); Nitrite Urine Negative (Negative); UMIC TRIGGER UACC YES; Urine Blood Moderate (2+) (Negative); Urine Ketones Negative (Negative); Urine Protein Negative (Neg-Trace)
[2024-11-28 16:41] LABS: Bacteria Urine None Seen (None Seen); Hyaline Casts Urine 0-2 /LPF (0-2); RBC Urine >20 /HPF (0-2); Squamous Epithelial Cell Urine 0-2 /HPF (0-2); UACC Culture Trigger YES; WBC Urine 0-5 /HPF (0-5)
[2024-11-28 18:32] VITALS: PULSE 51; RESP 22; O2SAT 98
[2024-11-28] MEDS: Albuterol Sulfate 90 MCG 8 GM INHALER 8 PUFF INHALE (18:32)
[2024-11-28] MEDS: predniSONE 10 MG TABLET 50 MG PO (18:47)
[2024-11-28] MEDS: oxyCODONE HCl Immed Release 5 MG TABLET PO (18:47)
[2024-11-28 21:22] VITALS: BP 145/51; PULSE 61; RESP 16; TEMP 36.6; O2SAT 95
[2024-11-28 21:23] VITALS: BP 145/51; PULSE 61; RESP 16; TEMP 36.6; O2SAT 95
== END 2024-11-28 21:23 | disposition home or self-care (01) ==
PROVIDERS: Physician Assistant Medical; Emergency Provider Emergency Medicine; PCP Physician Assistant
DX: J45.21 Mild intermittent asthma with (acute) exacerbation (principal); N20.0 Calculus of kidney; R10.2 Pelvic and perineal pain; R31.9 Hematuria, unspecified; R05.9 Cough, unspecified; F17.210 Nicotine dependence, cigarettes, uncomplicated; Z79.899 Other long term (current) drug therapy
CPT/HCPCS: 36415; 71045; 74176; 80048; 80076; 81001; 81003; 83735; 85025; 87086; 99284; 99285

== ENCOUNTER → 2024-11-28 16:34 | Outpatient (BNV) | payer MEDICAID, SELFPAY | PROVIDERS: PCP Physician Assistant; Visit Provider Specialist | DX: N20.0 Calculus of kidney (principal); R05.9 Cough, unspecified | CPT/HCPCS: 71045; 74176 ==

== ENCOUNTER 2024-12-13 12:50 | Outpatient (REF) | payer MEDICAID, SELFPAY ==
--- NOTE | ~2024-12-13 | CT_ITS ---
CLINICAL HISTORY: Z87.891 - Personal history of nicotine dependence Examination CT lung cancer screening History Screening examination performed for pulmonary nodules Technique Axial CT images of the chest using low-dose technique. Effective radiation dose total:119.2 mGy-cm, CTDIvol 2.8 mGy. Referring provider counseled the patient on shared decision-making for LDCT screening. Additional counseling was provided on smoking cessation. Comparison: CT/SR - CT LUNG SCREENING - 09/08/24 14:51 EDT Findings: Lungs: Stable solid pulmonary nodules measure up to 4 mm (series 6, image 69, right lower lobe). the previously seen ground-glass and solid abnormality described in the left upper lobe is attributed to subsegmental atelectasis which has resolved. There is a mild amount of residual subsegmental atelectasis versus linear scarring in the anterior segment of the right upper lobe and within the lingula. Calcified granuloma. Left lower lobe 1.8 cm thin-walled pulmonary cyst. Mild emphysema. Coronary artery calcifications: None Other: Thoracic nerve stimulator Limited upper abdomen: Status post cholecystectomy.. Left nephrolithiasis measures 3 mm Impression: LungRADS 2 - Benign Appearance: Continue annual screening with low dose Chest CT in 12 months. ##L2# Category 1: Normal; continue annual screening Category 2: Benign appearance or behavior, continue annual screening Category 3: Probably benign, [address] recommended Category 4A: Suspicious, [address] recommended; may consider PET/CT Category 4B: Suspicious, Additional diagnostics and/or tissue sampling recommended Category 4X: Suspicious, Additional diagnostics and/or tissue sampling recommended Category 0: Recalls (incomplete screen due to Incomplete coverage, Noise, Respiratory motion, Expiration, Obscured by acute abnormality) This document has been electronically signed by: Sanjana Sosa MD on 12/14/2024 15:32:18
--- OUTSIDE RECORDS SUMMARY | 2024-12-13 13:30 | XMS_ITS | Encounter Summary ---
Author Organization [employer] Address [address] [facility] [address] [facility] [address] [place] [address] Care Team Providers Care Family Practice Doctor Name Role Phone Unavailable Primary Care Provider Unavailabl e Encounter Details Date Type Department Care Team (Latest Contact Info) Description 08/31/2018 Abstract [facility] CONVERSIONS Dental, Provider, DDS Social History Tobacco [...]
--- OUTSIDE RECORDS SUMMARY | 2024-12-13 13:30 | XMS_ITS | Data Portability ---
Author Organization [place] [facility], Allergy Address [address] [facility] [address] [place] [address] Care Team Providers Care Lumber Buyer Name Role Phone KOSTA BIRMINGHAM Referring Provider Assessment No assessment recorded. Plan of Treatment Reminders Order Date Submit Date Provider Last Modified By Organization Details Last Modified Time Details Appointments None recorded. Lab None recorded. Referral None recorded. Procedures None recorded. Surgeries None recorded. Imaging None recorded. Medication Orders clotrimazol e-betametha sone 1 %-0.05 % topical cream 2024 025 [facility] #[id number], [address] [place], [place], [phone], 5 10:38:15 clotrimazol e 1 % topical solution 2023 024 [facility] #[id number], [address] [place], [place], [phone], 4 09:37:45 Patient TargetsNo targets recorded. Patient InstructionsNo instructions recorded. Reason for Referral None Reported. Results Created Date Observation Date Name Description Value Unit Range Abnormal Flag Note LastModifiedBy Organization Detail LastModifiedTime 01/27/20 24 05/22/2021 imagi ng/di agnos tic resul t No observ ation record ed. [email or web address] Not Available 21:58:02 08/04/19 25 10/22/2023 audio gram No observ ation record ed. [email or web address] Not Available 07/10 10:42:32 08/04/19 25 audio gram No observ ation record ed. [email or web address] Not Available 2024 11:02:58 Result Notes None recorded. Problems Name Problem SNOMED Code Status Onset Date Resolution Date Notes Provider Name and Address Organization Details Recorded Time Dizziness and giddiness 978389691 Active 2020 Dizziness and giddiness ; Note: Date Diagnosed : 1 2:37 PM (R42) Not Available [facility] 4 03:30:07 Disorder of smell 646735633 Active 2020 Unspecifi ed disturban victorino of smell and taste; Note: Date Diagnosed : 1 2:37 PM (R43.9) Not Available [facility] 4 03:30:07 Disorder of taste 240481290 Active 2020 Unspecifi ed disturban victorino of smell and taste; Note: Date Diagnosed : 1 2:37 PM (R43.9) Not Available [facility] 4 03:30:07 Eczema of external auditory canal 58572268 Active 2023 ADRIANA BRIDGES MD [address] [facility],[place] [address], [place], [address] , [facility] 4 08:57:45 Sensorine ural hearing loss of bilateral ears 659237466 Active 2023 ADRIANA BRIDGES MD [address] [place] [address],[place] [address], [place], [address] , [facility] - [facility] 4 08:57:50 Chronic mycotic otitis externa 205747613 Active 2023 ADRIANA BRIDGES MD [address] [facility],[place] [address], [address] , [place] [facility] 4 09:00:19 Dermal mycosis 87526251 Active 2023 ADRIANA BRIDGES MD [address] [facility],[place] [address], [address] , [place] [facility] 4 09:00:19 Candidal otitis externa 59235017 Active 2023 ADRIANA BRIDGES MD [address] [facility],[place] [address], [place], [address] , [facility] - [facility] 4 09:00:19 Mixed conductiv e AND sensorine ural hearing loss 59984619 Active 2023 ADRIANA BRIDGES MD [address] [facility],[place] [address], [place], [address] , [facility] - [facility] 4 09:35:49 Bilateral disorder of Eustachia n tubes 86187134577 85518 Active 2024 THEODORA BOWLING [address] [place] [address],[place] [address], [place], [address] , [facility] - [facility] 5 09:15:13 Chronic refractor y cough Active 2024 ADRIANA BRIDGES MD [address] [place] [address],[place] [address], [place], [address] , [facility] - [facility] 5 10:34:34 Problem Notes None recorded. Procedures Surgical History Date Name Laterality Status Provider Name and Address Organization Details Recorded Time 08/04/2024 FFL_RE completed ADRIANA BRIDGES MD [address] [facility],[place] [address], [place], [address], [facility] - [facility] 08/04/2024 10:32:59 08/04/2024 Air & SRT/SAT Audio with Tymps - 99672, 26557 & 54050 completed THEODORA BOWLING [address] [facility],[place] [address], [place], [address], [facility] - [facility] 08/04/2024 09:14:53 02/03/2024 NasalEndosc opy_DP completed ADRIANA BRIDGES MD [address] [facility],[address], [address], [facility] - [facility] 02/03/2024 09:05:14 Imaging Results None recorded. Procedure Notes None recorded. Medical Equipment None Reported. Medications Name Sig Start Date Stop Date Status Note LastModified by Organization Details LastModified Time celecoxib 200 mg capsule active Medicati on ID: 464407 B rand Name: celecoxi b Send Method: [...] oral suspensio n active Medicati on ID: 960136 B rand Name: nystatin Send Method: E-Prescr [...] 10 mg tablet active Medicati on ID: 575300 B rand Name: monteluk ast Send Method: E-Prescr ibed Sub s [...] Updated DateTime 08/04/2024 160.02 cm 32.8 kg/m2 49991.59 g Pardeep Ban[place]as [facility] 08/04/2024 09:59:48 Date Recorded Body height Body mass index (BMI) Body weight Provider Name and Address Organization Details Last Updated DateTime 02/03/2024 160.02 cm 32.8 kg/m2 29046.59 g Pardeep [place] [facility] 02/03/2024 08:43:41 Social History None recorded. Functional Status None recorded. Mental Status None recorded. Family History Nothing Reported. Medical History No medical history recorded. Gynecological HistoryNo gynecological history recorded. Obstetrics History GPAL:G 0 P 0 0 0 0 Past Encounters Encounter ID Performer Location Encounter Start Date Encounter Closed Date Diagnosis/Indication Diagnosis SNOMED-CT Code Diagnosis ICD10 Code Diagnosis Note [id number] ADRIANA BRIDGES MD [facility] [address] [place] [address] 02/03/2024 08:22:53 02/03/2024 09:43:47 Eczema of external auditory canal 36774983 H60.549 She has eczema in her EAC. I will send clotrimazo le to use when her ears are itchy. Disorder of smell 589281 005 R43.9 Nasal endo negative for polyps. Will obtain labs of factors which can affect sense of smell. F/u thereafter . Mixed cond uctive AND sensorineural hearing loss 58052858 H90.8 Has mixed los AD. TM is [...] for hearing aids. F/u 10/2024 with audio. [id number] ADRIANA BRIDGES MD [facility] [address] [address] 08/04/2024 09:03:29 08/04/2024 10:56:09 Sensorineural hearing loss of bilateral ears 144540288 H90.3 stable will recheck in 1 year Bilateral disorder of Eustachian tubes 8397890079 630249 H69.93 Right Ear:Mild MHL.Type B tympanogra m.Left Ear:Mild to severe SNHL.Type C tympanogra m. Stable. Eczema of external auditory canal 33047846 H60.549 She has eczema in her EAC. I will send lotrisone to use when her ears are itchy. Mixed cond uctive AND sensorineural hearing loss 99766043 H90.8 Has mixed los AD. TM is [...] bilatearl hearing aids. Chronic re fractory cough 2627153235 106 R05.3 laryngosco py normal. Gave reassuranc e. Should discuss with PCP. Health Concerns Section Related Observation LastModified by Organization Detai ls LastModified Time None Recorded Concern Status LastModified by Organization Details LastModified Time None Recorded Advance Directives Directive None Recorded Payers Insurance Date Sequence Insurance Name Policy Number Policy Ma Covered Member ID Ma Member ID Guarantor Name 08/04/2024 1 [place] [facility] Kourtney Kellogga [id number] Kourtney Kellogga Notes Date Note Type Note Provider Name and Address Organization Details Recorded Time 02/03/2024 text/html She has occasion al tinnitus. Had an audio at [facility] that we requested. She reports both ears are itchy. She uses q-tips occasionally. She reports she lost her sense of smell prior to the pandemic. She did not have a URI. She can smell only very strong scents like gasoline. ADRIANA BRIDGES MD [address] [place] [address], [address], [facility] 02/03/2024 09:37:43 08/04/2024 text/html She has a histor y of asymmetric HL with ETD and CHL AD. She can't have an MRI due to a nerve stimulator. Presents for serial audiogram. Audio today was stable compared to last at [place] with moderate mixed HL AD and moderate SnHL . She was prescribed clotrimazole drops at the last visit due to itching in her EAC which did not help. Also notes chronic cough and wants her throat checked. ADRIANA BRIDGES MD [address] [place] [address],[address], [address], [facility] 08/04/2024 10:38:13 OBGyn Episode No OBEpisode recorded.
--- OUTSIDE RECORDS SUMMARY | 2024-12-13 13:30 | XMS_ITS | Encounter Summary ---
Author Organization [facility] Address [address] [place] [address] Care Team Providers Care Inspector Mechanical Name Role Phone Laxmi Luevano GAS BRAZER Primary Care Provider [phone] Reason for Visit * Reason Onset Date Comments referral 11/07/2024 Encounter Details Date Type Department Care Team (Late st Contact Info) Description 11/07/2024 Telephone Gastroenterology - [facility] [address] [place] [phone] Gwen Queen PA [address] [place] [address] referral Social History Tobacco Use Types Packs/Day Years [...] your loved ones. For example, child welfare director or elderly care for an older adult? [...] as of this encounter Progress Notes * Consuelo Mccurdy [place] - 11/07/2024 12:55 PM EDT Faxed orders over to Dr. Chowdary office * Sharron Alvarez - 11/07/2024 12:34 PM EDT Patient came into the lobby, she called Dr. Cantu to schedule appointment, she was inform by that office that the referral notes need to be faxed to [phone]. Her scheduled appointment is 01/11/25 11:10am documented in this encounter Plan of Treatment Upcoming Encounters Date Type Department Care Team (Late st Contact Info) Description 01/03/2025 1:40 PM EDT Office Visit Gastroenterology - [facility] [address] [facility] [address] [place] [phone] Gwen Queen PA [address] [place] [address] documented as of this encounter Visit Diagnoses Not on filedocumented in this encounter Care Teams Inspector Mechanical Relationship Specialty Start Date End Date Laxmi Luevano FNP [facility] [place] [address] PCP - General Internal Medicine 12/05/20 documented as of this encounter
== END 2024-12-13 12:51 | disposition home or self-care (01) ==
LOC: HO.CT 12:50
PROVIDERS: PCP Physician Assistant; Visit Provider Internal Medicine Pulmonary Disease
DX: Z87.891 Personal history of nicotine dependence (principal)
CPT/HCPCS: 71250

== ENCOUNTER → 2024-12-13 12:51 | Outpatient (BNV) | payer MEDICAID, SELFPAY | PROVIDERS: PCP Physician Assistant; Visit Provider Radiology Diagnostic Radiology | DX: Z12.2 Encounter for screening for malignant neoplasm of respiratory organs (principal); Z87.891 Personal history of nicotine dependence | CPT/HCPCS: 71250 ==

== ENCOUNTER 2024-12-22 13:11 | Outpatient (AMB) | payer MEDICAID, SELFPAY ==
--- NOTE | 2024-12-22 13:13 | MHC.OFFVIS ---
Vital Signs 12/22/24 13:19 Height 5 ft 3 in Weight 189 lb BMI 33.5 BP 130/58 L Blood Pressure Location Lt brachial Position Sitting Pulse 73 Pulse Source Pulse Oximeter Pulse Oximetry (%) 97 Oxygen Delivery Method Room Air Intake Visit Reasons: asthma Interior Design Program Chair Required: Yes Interior Design Program Chair Name: Petra Gregg Angelia Allergies doxycycline Allergy (Mild, Verified 12/22/24 13:23) Unknown lamotrigine Allergy (Mild, Verified 12/22/24 13:23) Unknown metoclopramide Allergy (Mild, Verified 12/22/24 13:23) Unknown HPI HPI asthma: Details: 64-year-old lady, active 30+ pack-year smoker, with underlying history of lupus on Plaquenil, now followed for asthma/COPD overlap syndrome.? Patient continues to use Dupixent, Trelegy, Singulair, albuterol MDI overall with reasonable control of his symptoms.? She did have influenza approximately 4 months prior and after that she has had ongoing bronchitis that did not respond to the initial treatment with a course of azithromycin. [facility] Social History Patient Tobacco Use Status: Current everyday Tobacco user Cigarette Packs Per Day: 0.33 Cigarettes Per Day: 6 Review of Systems Const Denies daytime sleepiness, Denies excessive sweating, Denies fatigue, Denies fever(s), Denies lethargy, Denies malaise, Denies night sweats, Denies snoring and Denies weight loss Eyes Denies blurry vision and Denies itchy eyes ENT Denies nasal congestion, Denies post nasal drip, Denies sinus pain, Denies sinus pressure and Denies other ( Thrush) Card Denies chest pain, Denies pedal edema, Denies dyspnea, Denies orthopnea and Denies paroxysmal nocturnal dyspnea Resp Reports cough, Denies hemoptysis, Reports excessive phlegm production, Denies dyspnea, Denies snoring and Denies wheezing GI Denies abdominal pain and Denies heartburn Musc Denies myalgias, Denies arthralgias and Denies joint swelling Skin/Breast Denies rash Neuro Denies memory loss and Denies seizure-like activity Psych Denies abnormal sleep pattern, Denies anxiety and Denies memory loss Endo Denies excessive sweating, Denies fatigue and Denies heat intolerance Moncho/Lymph Denies easy bruising Aller/Immun Denies itchy eyes, Denies seasonal rhinorrhea and Denies wheezing Physical Exam Vital Signs: Last Vital Signs Pulse 73 12/22/24 13:19 BP 130/58 L 12/22/24 13:19 Pulse Ox 97 12/22/24 13:19 Oxygen Delivery Method Room Air 12/22/24 13:19 BMI result Body Mass Index 33.5 Const General: no acute distress and alert Nutritional Appearance: not obese Orientation/consciousness: Other orientation findings ( oriented) HEENT Head: Yes atraumatic Eyes General: appearance normal, both eyes and all related structures Sclerae: sclerae normal EOM: EOMs intact bilaterally Neck Neck: Yes supple Lymphatic: no lymphadenopathy noted Resp Effort & Inspection: normal respiratory effort and no use of accessory muscles Auscultation: rhonchi (Diffuse bilateral) Cardio Rate: regular rate Rhythm: regular rhythm Heart sounds: no gallops, no murmurs and no rubs Skin General skin exam: other ( warm) Extrem General: No clubbing, No cyanosis and No edema Assessment & Plan Assessment & Plan (1) Asthma-COPD overlap syndrome: Code(s): J44.9 - Chronic obstructive pulmonary disease, unspecified Category: Medical Plan: Well controlled on current regimen of trilogy, Dupixent, and albuterol MDI/nebs. Continue current regimen. Still with residual bronchitis, will treat with a course of Augmentin. (2) Environmental allergies: Code(s): Z91.09 - Other allergy status, other than to drugs and biological substances Category: Medical Plan: Well controlled on Dupixent. Continue current regimen. Medications: New amoxicillin-pot clavulanate 875-125 mg 1 tab PO BID 28 tabs 0RF Coding Level of Care Code Est Pt Level 4 (98000) Complex EM visit Add On G2211 Diagnoses Asthma-COPD overlap syndrome J44.9 Environmental allergies Z91.09
[2024-12-22 13:19] VITALS: BP 130/58; PULSE 73; O2SAT 97; BMI 33.5
--- OUTSIDE RECORDS SUMMARY | 2024-12-22 13:40 | XMS_ITS | Clinical Summary ---
Author Organization [facility] Address [address] [place] [address] Phone Care Team Providers Care Phone Operator Name Role Phone ChloéLaxmie CRYS Primary Care Provider [phone] Allergies Active Allergy Reactions Criticality Noted Date [...] hydroxychloroqu ine (PLAQUENIL) 200 mg tablet Take 1 tablet [...] a day. 1800 mL 3 5 Active linaCLOtide (LINZESS) 290 mcg capsule Take 1 capsule (290 mcg total) by mouth 1 (one) time each day. 30 each 3 5 04/02/20 25 Active promethazine (PHENERGAN) 25 mg tablet TAKE 1 TABLET BY MOUTH EVERY 8 HOURS NEEDED FOR NAUSEA 90 tablet 5 Active omeprazole (PriLOSEC) [address] capsule TAKE 1 CAPSULE BY MOUTH DAILY 90 capsule 3 5 Active Active Problems Problem Noted Date Diagnosed Date Acute bronchitis 06/10/2024 Hypoxia 06/10/2024 Influenza A 06/07/2024 Influenza and pneumonia 06/06/2024 Oral candidiasis 02/16/2019 Nausea 01/13/2019 Gas bloat syndrome 01/13/2019 Irritable bowel syndrome wit h both constipation and diarrhea 01/13/2019 Gastroparesis 01/13/2019 Encounters Date Type Department Care Team Description 11/22/2024 2:48 PM EDT Anesthesia Event [facility] Endoscopy [address] [place] [phone] Ava Alfredo MD Elliott, Barbara J, CRNA 11/22/2024 2:01 PM EDT - 11/22/2024 11:59 PM EDT Hospital Encounter [facility] Endoscopy [address] [place] [phone] Ottoniel Fernandez MD Elliott, Barbara J, CRNA Gastroparesis Discharge Disposition: Home or Self Care 11/07/2024 Telephone Gastroenterology [facility] 175 [facility] [address] [address] Gwen Queen PA referral 10/04/2024 2:40 PM EDT Office Visit Gastroenterology [facility] [address] [address] Gwen Queen PA Gastroparesis (Primary [...] disease) SLE (systemic lupus erythematosus) (CMS/HCC V24, CMS/HCC V28) Fibromyalgia Chronic back pain Hepatitis B [...] for your loved ones. For example, child life specialist or elderly care for an older adult? [...] 1:40 PM EDT Office Visit Gastroenterology - [place] [address] [place] [address] Gwen Queen PA [address] [place] [address] Health Maintenance Due Date Last Done Comments Cervical Cancer Screening: Pap Smear 1982 Zoster Vaccines (2 of 2) 01/25/2018 11/30/2017 RSV Immunization Adult Patients (1 - Risk 60-74 years 1-dose series) 2021 Hepatitis C Screening 05/17/2022 COVID-19 Vaccine ( season) 2024 04/09/2022, 12/04/2021, 04/18/2021, Additional history exists Influenza Vaccine (#1) 2025 , 04/06/2023, 03/09/2022, Additional history exists Lung Cancer Screening (Low Dose CT) 05/01/2025 05/01/2024, 05/06/2023, 04/28/2022, Additional history exists Social Influencers of Health Screening 06/07/2025 06/07/2024 Hypertension/CHF/CAD Annual BMP Blood Test 09/09/2025 09/09/2024, 06/08/2024, 06/07/2024, Additional history exists Breast Cancer Screening 10/06/2025 10/07/19, 10/07/2023, 05/07/2022, Additional history exists Depression Screening 12/13/2025 12/13/2024 Cholesterol Screening (Lipid Panel) 09/09/2029 09/09/2024, 09/09/2024, 10/29/2023, Additional history exists DTaP,Tdap,and Td Vaccines (4 - Td or Tdap) 06/27/2030 06/27/2020, 11/30/2017, 11/17/2008 Colorectal Cancer Screening: Colonoscopy 07/02/2030 07/02/2020 HIV Screening Completed 08/03/2018 Pneumococcal Vaccine: 50+ Years Completed 04/09/2022, 02/12/2016, 08/25/2008 HIB Vaccines Aged Out No longer eligi [...] this topic Medical Devices Implanted Type Area Director [place] Device Identifier Shelf Expiration Date Model / [...] EGD With Botox Injection; Anesthesia - MAC; SP ENDOSCOPY (11/22/2024 3:02 PM EDT) Anatomical Region Laterality Modality Other 11/22/2024 2:40 PM EDT Impressions 11/22/2024 3:02 PM EDT - An area in the pylorus successfully injected with botulinum toxin. - No specimens collected. Recommendation: - Observe patient's clinical course. Narrative 11/22/2024 3:02 PM EDT [facility] GI Patient Name: Kourtney Reyes Procedure Date: [...] was minimal. Procedure Code(s): --- Professional --- 98465, Esophagogastroduodenoscopy, flexible, transoral; with directed submucosal injection(s), any substance Diagnosis Code(s): --- Professional --- K31.84, Gastroparesis CPT copyright 2020 [employer]. All rights reserved. The codes documented in this report are preliminary and upon hospital coder review may be revised to meet current compliance requirements. Ottoniel Fernandez MD 11/22/2024 3:02:08 PM This report has been signed electronically.Ottoniel Fernandez MD Number of Addenda: 0 Note Initiated On: 11/22/2024 2:40 PM Scope In: Scope Out: Endoscopy Department at [facility] - [address] [place] [phone] Procedure Note Ottoniel Fernandez MD - 11/22/2024 [facility] GI Patient Name: Kourtney Reyes Procedure Date: [...] was minimal. Procedure Code(s): --- Professional --- 52164, Esophagogastroduodenoscopy, flexible, transoral; with directed submucosal injection(s),any substance Diagnosis Code(s): --- Professional --- K31.84, Gastroparesis CPT copyright 2020 [employer]. All rights reserved. The codes documented in this report are preliminary and upon hospital coder reviewmay be revised to meet current compliance requirements. Ottoniel Fernandez MD 11/22/2024 3:02:08 PM This report has been signed electronically.Ottoniel Fernandez MD Number of Addenda: 0 Note Initiated On: 11/22/2024 2:40 PM Scope In: Scope Out: Endoscopy Department at [facility] - [address] [place] [phone] IMPRESSION: - An area in the pylorus successfully injected with botulinum toxin. - No specimens collected. Recommendation: - Observe patient's clinical course. us Ottoniel Fernandez MD GI~PROCEDURE ORDERABLES Final Re sult * (ABNORMAL) Basic metabolic panel (06/08/2024 5:40 AM EST) Sodium 137 133 - 145 mmol/L LAB CHEMISTRY METHOD 06/08/2024 7:39 AM [facility] Potassium 3.5 3.5 - 5.5 mmol/L LAB CHEMISTRY METHOD 06/08/2024 7:39 AM [facility] Chloride 105 96 - 110 mmol/L LAB CHEMISTRY METHOD 06/08/2024 7:39 AM [facility] CO2 28 21 - 32 mmol/L LAB CHEMISTRY METHOD 06/08/2024 7:39 AM [facility] Anion Gap 4 3 - 11 LAB CHEMISTRY METHOD 06/08/2024 7:39 AM [facility] Glucose 89 70 - 100 mg/dL LAB CHEMISTRY METHOD 06/08/2024 7:39 AM [facility] BUN 23 5 - 25 mg/dL LAB CHEMISTRY METHOD 06/08/2024 7:39 AM [facility] Creatinine 0.65 0.50 - 1.10 mg/dL LAB CHEMISTRY METHOD 06/08/2024 7:39 AM [facility] eGFR 100 >=60 mL/min/1. 73m2 LAB CHEMISTRY METHOD 06/08/2024 7:39 AM [facility] Comment:Calculation based on the Chronic Kidney Disease Epidemiology Collaboration (CKD-EPI) equation refit without adjustment for race. BUN/Creatinine Ratio 35.4 LAB CHEMISTRY METHOD 06/08/2024 7:39 AM [facility] Calcium 8.2(L) 8.5 - 10.5 mg/dL LAB CHEMISTRY METHOD 06/08/2024 7:39 AM [facility] Blood Venous blood specimen / Unknown Venipuncture / Unknown 06/08/2024 5:40 AM EST 06/08/2024 6:51 AM EST [facility] LAB BLOOD ORDERABLES Final Resul t [facility] [address] [place] [address], * CT Lung Screening (05/01/2024 9:27 AM [...] Signed Date: 05/02/2024 13:27 ET Workstation ID: [id number] Transcribed By: Self Edit Transcribed Date: 05/02/2024 13:14 ET Narrative 05/02/2024 1:27 PM EST EXAMINATION: CT CHEST WITHOUT CONTRAST LUNG CANCER SCREENING, LOW DOSE CLINICAL INFORMATION: Lung cancer screening. Current smoker COMPARISON: Portions of a previous 04/29/2023 TECHNIQUE: Multidetector CT. Examination of the chest. Examination of the chest without IV contrast. Reformatting in the coronal and sagittal planes. Device: 12ReturnpeBusyEvent VCT DLP: 164 mGy-cm CTDI: 4.83 Dose [...] in the coronal and sagittal planes. Device: Phonetime VCT DLP: 164 mGy-cm CTDI: 4.83 Dose [...] Signed Date: 05/02/2024 13:27 ET Workstation ID: [id number] Transcribed By: Self Edit Transcribed Date: 05/02/2024 [...] EDT Narrative 10/07/2023 1:06 PM EDT [facility] Diagnostic Imaging Department [address] [place] [id number] Patient: KEVEN JIMKOURTNEY /Age/Sex: 1960 - 62 - F Unit#: [id number] Location/Status: SPDIMAM/REG CLI Mnemonic/Ordering Site: [facility] Ordering Physician: KOSTA BIRMINGHAM [facility] Screening Digital - 10/07/23 - 1147 Report Status:Signed EXAM: [facility] Screening Digital EXAM DATE AND TIME: 10/07/2023 11:48 AM HISTORY: Screening. Reduction mammoplasty in 2007. COMPARISON: 05/07/22, 04/06/20, 03/29/20, 03/22/18 TECHNIQUE: Bilateral digital breast tomosynthesis was performed in the CC and MLO projections. Computer aided detection with [employer] 3D 3.1 was employed. TISSUE DENSITY: a. [...] Note Eloina Romano MD - 01/25/2024 [facility] Diagnostic Imaging Department [address] [place] [address] Patient: KOURTNEY MATTHEWS /Age/Sex: 1960 - 62 -F Unit#: [id number] [facility] Site[facility] Ordering Physician: KOSTA BIRMNIGHAM [facility] Screening Digital - 10/07/23 - 1147 Report Status:Signed EXAM: [facility] Screening Digital EXAM DATE AND TIME: 10/07/2023 11:48 AM HISTORY: Screening. Reduction mammoplasty in 2007. COMPARISON: 05/07/22, 04/06/20, 03/29/20, 03/22/18 TECHNIQUE: Bilateral digital breast tomosynthesis was performed in the CCand MLO projections. Computer aided detection with [employer] 3D 3.1was employed. TISSUE DENSITY: a. The [...] currently active code status orders. Care Teams Phone Operator Relationship Specialty Start Date End Date Laxmi Luevano FNP [facility] [place] [address] PCP - General Internal Medicine 12/05/20
--- OUTSIDE RECORDS SUMMARY | 2024-12-22 13:40 | XMS_ITS | Data Portability ---
Author Organization [place] - [facility], Allergy Address [address] [facility] [address] [place] [address] Care Team Providers Care Sales Agent Pest Control Service Name Role Phone KOSTA BIRMINGHAM Referring Provider Assessment No assessment recorded. Plan of Treatment Reminders Order Date Submit Date Provider Last Modified By Organization Details Last Modified Time Details Appointments None recorded. Lab None recorded. Referral None recorded. Procedures None recorded. Surgeries None recorded. Imaging None recorded. Medication Orders clotrimazol e-betametha sone 1 %-0.05 % topical cream 2024 025 [facility] #[id number], [address], [place], [id number], 5 10:38:15 clotrimazol e 1 % topical solution 2023 024 [facility] #[id number], [address], [place], [id number], 4 09:37:45 Patient TargetsNo targets recorded. Patient InstructionsNo instructions recorded. Reason for Referral None Reported. Results Created Date Observation Date Name Description Value Unit Range Abnormal Flag Note LastModifiedBy Organization Detail LastModifiedTime 01/27/20 24 05/22/2021 imagi ng/di agnos tic resul t No observ ation record ed. [email or web address] Not Available 21:58:02 08/04/19 25 10/22/2023 audio gram No observ ation record ed. [email or web address] Not Available 07/10 10:42:32 08/04/19 25 audio gram No observ ation record ed. [email or web address] Not Available 2024 11:02:58 Result Notes None recorded. Problems Name Problem SNOMED Code Status Onset Date Resolution Date Notes Provider Name and Address Organization Details Recorded Time Dizziness and giddiness 681348971 Active 2020 Dizziness and giddiness ; Note: Date Diagnosed : 1 2:37 PM (R42) Not Available [facility] 4 03:30:07 Disorder of smell 721468665 Active 2020 Unspecifi ed disturban victorino of smell and taste; Note: Date Diagnosed : 1 2:37 PM (R43.9) Not Available [facility] 4 03:30:07 Disorder of taste 686374563 Active 2020 Unspecifi ed disturban victorino of smell and taste; Note: Date Diagnosed : 1 2:37 PM (R43.9) Not Available [facility] 4 03:30:07 Eczema of external auditory canal 43531079 Active 2023 ADRIANA BRIDGES MD [address] [facility],[place] [address], [place], [address] , [facility] 4 08:57:45 Sensorine ural hearing loss of bilateral ears 800311588 Active 2023 ADRIANA BRIDEGS MD [address] [place] [address],[place] [address], [place], [address] , [facility] - [facility] 4 08:57:50 Chronic mycotic otitis externa 426059165 Active 2023 ADRIANA BRIDGES MD [address] [facility],[place] [address], [address] , [place] - [facility] 4 09:00:19 Dermal mycosis 66784561 Active 2023 ADRIANA BRIDGES MD [address] [facility],[place] [address], [address] , [place] - [facility] 4 09:00:19 Candidal otitis externa 03483830 Active 2023 ADRIANA BRIDGES MD [address] [facility],[place] [address], [place], [address] , [facility] - [facility] [place] 4 09:00:19 Mixed conductiv e AND sensorine ural hearing loss 52329672 Active 2023 ADRIANA BRIDGES MD [address] [facility],[place] [address], [place], [address] , [facility] - [facility] [place] 4 09:35:49 Bilateral disorder of Eustachia n tubes 38584792645 07116 Active 2024 THEODORA BOWLING [address] [place] [address],[place] [address], [place], [address] , [facility] - [facility] 5 09:15:13 Chronic refractor y cough Active 2024 ADRIANA BRIDGES MD [address] [place] [address],[place] [address], [place], [address] , [facility] - [facility] [place] 5 10:34:34 Problem Notes None recorded. Procedures Surgical History Date Name Laterality Status Provider Name and Address Organization Details Recorded Time 08/04/2024 FFL_RE completed ADRIANA BRIDGES MD [address] [facility],[place] [address], [place], [address], [facility] - [facility] [place] 08/04/2024 10:32:59 08/04/2024 Air & SRT/SAT Audio with Tymps - 37634, 78183 & 18723 completed THEODORA BOWLING [address] [facility],[place] [address], [place], [address], [facility] - [facility] [place] 08/04/2024 09:14:53 02/03/2024 NasalEndosc opy_DP completed ADRIANA BRIDGES MD [address] [facility],[address], [address], [facility] - [facility] [place] 02/03/2024 09:05:14 Imaging Results None recorded. Procedure Notes None recorded. Medical Equipment None Reported. Medications Name Sig Start Date Stop Date Status Note LastModified by Organization Details LastModified Time celecoxib 200 mg capsule active Medicati on ID: [id number] B rand Name: celecoxi b Send Method: [...] oral suspensio n active Medicati on ID: 807815 B rand Name: nystatin Send Method: E-Prescr [...] 10 mg tablet active Medicati on ID: 346550 B rand Name: monteluk ast Send Method: [...] Updated DateTime 08/04/2024 160.02 cm 32.8 kg/m2 52284.59 g Pardeep Banegas [facility] 08/04/2024 09:59:48 Date Recorded Body height Body mass index (BMI) Body weight Provider Name and Address Organization Details Last Updated DateTime 02/03/2024 160.02 cm 32.8 kg/m2 11051.59 g Pardeep Banegas [place] [facility] 02/03/2024 08:43:41 Social History None recorded. Functional Status None recorded. Mental Status None recorded. Family History Nothing Reported. Medical History No medical history recorded. Gynecological HistoryNo gynecological history recorded. Obstetrics History GPAL:G 0 P 0 0 0 0 Past Encounters Encounter ID Performer Location Encounter Start Date Encounter Closed Date Diagnosis/Indication Diagnosis SNOMED-CT Code Diagnosis ICD10 Code Diagnosis Note [id number] ADRIANA BRIDGES MD [facility] [address] [place] [address] 02/03/2024 08:22:53 02/03/2024 09:43:47 Eczema of external auditory canal 57931234 H60.549 She has eczema in her EAC. I will send clotrimazo le to use when her ears are itchy. Disorder of smell 761257 005 R43.9 Nasal endo negative for polyps. Will obtain labs of factors which can affect sense of smell. F/u thereafter . Mixed cond uctive AND sensorineural hearing loss 03405635 H90.8 Has mixed los AD. TM is [...] for hearing aids. F/u 10/2024 with audio. [id number] ADRIANA BRIDGES MD [facility] of [address] [address] 08/04/2024 09:03:29 08/04/2024 10:56:09 Sensorineural hearing loss of bilateral ears 798241668 H90.3 stable will recheck in 1 year Bilateral disorder of Eustachian tubes 2825604139 190428 H69.93 Right Ear:Mild MHL.Type B tympanogra m.Left Ear:Mild to severe SNHL.Type C tympanogra m. Stable. Eczema of external auditory canal 71836079 H60.549 She has eczema in her EAC. I will send lotrisone to use when her ears are itchy. Mixed cond uctive AND sensorineural hearing loss 65664475 H90.8 Has mixed los AD. TM is [...] bilatearl hearing aids. Chronic re fractory cough 3758854063 106 R05.3 laryngosco py normal. Gave reassuranc e. Should discuss with PCP. Health Concerns Section Related Observation LastModified by Organization Detai ls LastModified Time None Recorded Concern Status LastModified by Organization Details LastModified Time None Recorded Advance Directives Directive None Recorded Payers Insurance Date Sequence Insurance Name Policy Number Policy Ma Covered Member ID Ma Member ID Guarantor Name 08/04/2024 1 [place] [facility] Kourtney Kellogga [id number] Kourtney Kellogga Notes Date Note Type Note Provider Name and Address Organization Details Recorded Time 02/03/2024 text/html She has occasion al tinnitus. Had an audio at [facility] that we requested. She reports both ears are itchy. She uses q-tips occasionally. She reports she lost her sense of smell prior to the pandemic. She did not have a URI. She can smell only very strong scents like gasoline. ADRIANA BRIDGES MD [address] [place] [address], [address], [facility] 02/03/2024 09:37:43 08/04/2024 text/html She has a histor y of asymmetric HL with ETD and CHL AD. She can't have an MRI due to a nerve stimulator. Presents for serial audiogram. Audio today was stable compared to last at [facility] with moderate mixed HL AD and moderate SnHL . She was prescribed clotrimazole drops at the last visit due to itching in her EAC which did not help. Also notes chronic cough and wants her throat checked. ADRIANA BRIDGES MD [address] [place] [address],[address], [address], [facility] 08/04/2024 10:38:13 OBGyn Episode No OBEpisode recorded.
--- OUTSIDE RECORDS SUMMARY | 2024-12-22 13:40 | XMS_ITS | Encounter Summary ---
Author Organization [employer] Address [address] [facility] [address] [place] [address] Care Team Providers Care Certified [employer] Engineer Name Role Phone Unavailable Primary Care Provider Unavailabl e Encounter Details Date Type Department Care Team (Latest Contact Info) Description 08/31/2018 Abstract [facility] CONVERSIONS Dental, Provider, DDS Social History [...]
== END 2024-12-22 13:35 | disposition home or self-care (01) ==
LOC: HO.HPS 13:12
PROVIDERS: PCP Physician Assistant; Visit Provider Internal Medicine Pulmonary Disease
DX: J44.9 Chronic obstructive pulmonary disease, unspecified (principal); Z91.09 Other allergy status, other than to drugs and biological substances
CPT/HCPCS: 99214

== ENCOUNTER → 2024-12-22 13:11 | Outpatient (BNVA) | payer MEDICAID, SELFPAY | PROVIDERS: PCP Physician Assistant; Visit Provider Internal Medicine Pulmonary Disease | DX: J44.9 Chronic obstructive pulmonary disease, unspecified (principal); Z91.09 Other allergy status, other than to drugs and biological substances; F17.210 Nicotine dependence, cigarettes, uncomplicated | CPT/HCPCS: 99212 ==

== ENCOUNTER 2025-02-28 11:55 | Outpatient (AMB) | payer MEDICAID, SELFPAY ==
--- NOTE | 2025-02-28 11:57 | MHC.OFFVIS ---
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 Services: Real Estate Appraiser Supervisor Offered & Declined Allergies doxycycline Allergy (Mild, Verified 02/28/25 12:00) Unknown lamotrigine Allergy (Mild, Verified 02/28/25 12:00) Unknown metoclopramide Allergy (Mild, Verified 02/28/25 12:00) Unknown Medication List - Last Reconciled 02/28/25 by Gudelia Tai, ALBARO albuterol sulfate 90 mcg/actuation (Ventolin HFA) 2 puffs inhalation Q4-6H PRN albuterol sulfate 2.5 mg (3 mL) inhalation QID amlodipine 5 mg PO DAILY amoxicillin-pot clavulanate 875-125 mg 1 tab PO BID buspirone 10 mg PO BID celecoxib (Celebrex) 200 mg PO DAILY diclofenac sodium 1% 2 grams topical QID duloxetine 60 mg PO DAILY dupilumab (Dupixent) 300 mg (2 mL) subcut Q2W jsoawjqergf-ypwfgnarj-kqvhjtvo 100-62.5-25 mcg (Trelegy Ellipta) 1 inh inhalation DAILY furosemide 40 mg PO QAM gabapentin 600 mg PO DAILY hydroxychloroquine 200 mg PO DAILY lidocaine 5% (Lidoderm) 2 patches topical DAILY melatonin-lemon balm leaf extr 10-1 mg tabs PO bdbxbmce-pttqcpbjg-ES 3.5-10,000-0.5 mg/g-unit/g-% appl topical omeprazole 40 mg PO DAILY primidone 50 mg PO BID 90 days tramadol 50 mg PO DAILY Ventolin HFA 90 mcg/actuation (albuterol sulfate) 2 puffs PO Q6H PRN NS zolpidem 10 mg PO BEDTIME PRN HPI Comments Details: She was taking primidone twice a day. Tremors in hands, R > L, worse in the morning and better as the day went on. No difficulty eating, drinking, or swallowing. Occasionally effects her ability to function with fine motor skills, like writing. She is RH and handwritting has gotten shakey, and may be a bit smaller. No triggers have been identified. Mood was okay, no significant anxiety. Sleep was okay. No balance or mobility issues, no falls. She has no thyroid disorder. She has one maternal uncle with a tremor. Had back surgery 04/2023 which went well. [facility] Family History (Updated 02/28/25 @ 12:20 by Gudelia Tai CNP) Maternal Uncle Tremor Social History Patient Tobacco Use Status: Current everyday Tobacco user Cigarette Packs Per Day: 0.33 Cigarettes Per Day: 6 Review of Systems Const Denies chills, Denies daytime sleepiness, Denies difficulty sleeping, Denies fatigue, Denies fever(s), Denies frequent falls, Denies headache(s), Denies increased appetite, Denies poor appetite, Denies snoring, Denies weakness, Denies weight gain and Denies weight loss Eyes Denies loss of vision ENT Denies vertigo, Denies dizziness, Denies headache(s) and Denies neck pain Card Denies chest pain at rest, Denies chest pain with activity, Denies syncope, Denies leg edema, Denies palpitations, Denies dyspnea and Denies dyspnea on exertion Resp Denies cough, Denies dyspnea, Denies dyspnea on exertion and Denies snoring GI Denies abdominal pain, Denies constipation, Denies heartburn, Denies diarrhea and Denies nausea Denies urinary frequency, Denies urinary incontinence and Denies urinary urgency Musc Denies abnormal gait, Denies back pain, Denies myalgias, Denies arthralgias, Denies neck pain, Denies numbness and Denies tingling Neuro Denies abnormal gait, Denies vertigo, Denies dizziness, Denies syncope, Denies frequent falls, Denies headache(s), Denies lack of coordination, Denies loss of vision, Denies memory loss, Denies numbness, Denies Other visual disturbances, Denies restless legs, Denies seizure-like activity, Denies tingling, Denies paresthesias, Reports tremor(s) and Denies weakness Psych Denies anxiety, Denies depression, Denies auditory hallucinations, Denies memory loss and Denies visual hallucinations Endo Denies fatigue and Denies palpitations Physical Exam Const Other: General Appearance:? normal, in no acute distress. Heart:? S1, S2 normal, no murmurs. Lungs:? clear anteriorly and posteriorly. Musculoskeletal:? normal. Extremities:? no edema. Psych:? alert, oriented, cognitive function intact, cooperative with exam. Neuro Other: Abnormal Neurological Findings:?Mild tremor of the extended upper extremities ,R > L, medium to high frequency low amplitude with some degree of fear irregularity. No rest tremor. No rigidity. No signs of Parkinson's disease. No head or neck tremor Mental Status: alert and oriented X 3. Normal attention, orientation, memory, and affect. Cranial Nerves: Pupils are equal, round, and reactive to light. External ocular muscles are intact. Visual no are full, no ptosis. Face is symmetrical, no facial weakness or droop. Facial sensations are normal. Tongue protrudes in midline. Palate elevates symmetrically. Shoulder shrugging is normal Motor Examination: Normal muscle tone, bulk and strength. No atrophy or fasciculations. No drift of the extended upper extremities. DTR 2+. Plantars are flexor. Sensory Exam: Normal light touch, temperature, pinprick, vibration, and joint-position sensations. Rhomberg sign is absent. Coordination: No ataxia. No titubation. Gait Exam: Within normal limits. Cerebellar Signs: [id number] is okay. Extrapyramidal System: Tremor as above. No rigidity with normal facial expressions. No bradykinesia. No bradyphrenia. Normal arm swing and posture. No propulsion or retropulsion. Speech: Normal. Assessment & Plan Assessment & Plan (1) Benign essential tremor: Code(s): G25.0 - Essential tremor Category: Medical Plan: Increase primidone 50mg 1 tablet three times a day. (2) Fibromyalgia: Code(s): M79.7 - Fibromyalgia Category: Medical Plan . Medications: Changed From primidone 50 mg PO BID 90 days 180 tabs 1RF To primidone 50 mg PO TID 270 tabs 1RF 90 days Coding Level of Care Code Est Pt Level 4 (38337) Diagnoses Benign essential tremor G25.0 Fibromyalgia M79.7
--- OUTSIDE RECORDS SUMMARY | 2025-02-28 14:46 | XMS_ITS | Clinical Summary ---
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 Ricci Mcnulty 022 Active selenium sulfide 2.25 % shampooIndication s:Tinea versicolor Apply topically twice a week 180 mL 3 022 Active primidone (MYSOLINE) 50 mg tabletIndications :Mild persistent asthma without complication ([facility]) Take 50 mg by mouth [...] mg by mouth 2 (two) times daily 024 Active omeprazole (PRILOSEC) [address] capsule Take 40 mg by mouth once daily Active zolpidem (AMBIEN) 10 mg tablet Take 10 mg by mouth nightly at bedtime as needed Active naloxone (NARCAN) 4 mg/actuation nasal sprayIndications: Lumbar disc disease Place 1 [place] into the nostril(s) as needed for opioid reversal 2 Each 5 024 Active lidocaine (LIDODERM) 5 % patchIndications: Fibromyalgia APPLY 2 PATCHES TO SKIN TO THE AFFECTED AREA FOR 12 HOURS THEN REMOVE FOR 12 HOURS 60 Patch 6 024 Active piroxicam (FELDENE) 20 mg capsuleIndication s:Systemic lupus erythematosus, unspecified SLE type, unspecified organ involvement status ([facility]) Take 20 mg by mouth once daily 024 Active amLODIPine (NORVASC) 5 mg tabletIndications :Essential hypertension, benign TAKE 1 TABLET BY MOUTH DAILY 90 Tablet 11 024 Active estradioL [address] 10 mcg vaginally daily. for 90 days Ignore the baseline directions. Label, Place one vaginally daily for fourteen days, then one twice weekly for 12 weeks 30 Tablet 024 Active rosuvastatin (CRESTOR) 20 mg tabletIndications [...] FOR PAIN 90 Tablet 4 025 Active nicotine, polacrilex, (NICORETTE) 4 mg gumIndications:To bacco use Take 1 Each by mouth as needed for smoking cessation 160 Each 2 025 Active tamsulosin (FLOMAX) 0.4 mg 24 hr capsuleIndication s:Nephrolithiasis Take 1 Capsule by mouth nightly at bedtime. 30 Capsule 025 Active capsaicin (ICY HOT) 0.025 % patchIndications: Nephrolithiasis Place 1 Patch onto the skin every 8 (eight) hours as needed for pain. 30 Patch 025 Active nystatin (MYCOSTATIN) 100,000 unit/mL suspensionIndicat ions:Oral candidiases SHAKE LIQUID AND TAKE 1 ML BY MOUTH FOUR TIMES DAILY 120 mL 2 025 Active TRULICITY 0.75 mg/0.5 mL pen injectorIndicatio ns:Pre-diabetes,N on morbid obesity ADMINISTER 0.75 MG UNDER THE SKIN 1 TIME A WEEK 2 mL 2 025 Active metFORMIN (GLUCOPHAGE) 500 mg tabletIndications :Pre-diabetes,Non morbid obesity TAKE 1 TABLET BY MOUTH DAILY WITH BREAKFAST 90 Tablet 1 025 Active loratadine (CLARITIN) 10 mg tabletIndications :Non-seasonal allergic rhinitis, unspecified trigger TAKE 1 TABLET BY MOUTH EVERY DAY AT BEDTIME 90 Tablet 1 025 Active traMADoL (ULTRAM) 50 mg tabletIndications :Lumbar disc disease,Arthritis of left knee Take 1 Tablet by mouth 2 (two) times daily. Max Daily Amount: 100 mg 60 Tablet 3 025 Active gabapentin (NEURONTIN) 600 mg tabletIndications :Other polyneuropathy TAKE 1 TABLET BY MOUTH THREE TIMES DAILY 90 Tablet 3 025 Active gabapentin (NEURONTIN) 600 mg tabletIndications :Other polyneuropathy TAKE 1 TABLET BY MOUTH THREE TIMES DAILY 90 Tablet 3 025 2024 Discontinued traMADoL (ULTRAM) 50 mg tabletIndications :Lumbar disc disease,Arthritis of left knee Take 1 Tablet by mouth 2 (two) times daily. Max Daily Amount: 100 mg 60 Tablet 2 025 2024 Discontinued Active Problems Problem Noted Date Diagnosed Date Food insecurity 01/11/2025 Financial difficulties 01/11/2025 Pre-diabetes 10/10/2024 MRI contraindicated due to metal [...] October 29, 2017 14:32 EDT Encounter info: [id number], [facility], One Time OP, 10/29/2017 - 10/29/2017 Contributor system: Entelo * Final Report * Echo Complete-Doppler, Colorflow, M-Mode Transthoracic Echocardiography Report (TTE) Patient Demographics Patient Name SEMPRIT, KOURTNEY Date of Study 10/29/2017 Corporate Gender Female Facility Race Ethnicity or Date of 1960 Height: 64.17 inches Age 56 year(s) Weight: 176.37 pounds Accession Number [id number] BSA: 1.86 m2 Room Number BMI: 30.11 kg/m2 Referring Physician Kelli TRIVEDI Interpreting Jason Anne MD Physician Indirect Sales Representative Giulia Teresa, [facility] Indications Chest pain. Clinical History Hypertension. [...] cm/s E' Lateral Velocity: 11.8 cm/s E/Med E':12.79583 E/Lat E':7.117429 Cardiac Anatomy Left Ventricle/Interventricular Septum The left [...] on July 07, 2016 17:49 Encounter info: [id number], [facility], One Time OP, 07/07/2016 - 07/07/2016 * [...] needed per Fleischner Society recommendations (Radiology, 2005 Nov;237(2):395-400). 3. Mild bilateral axillary lymphadenopathy measuring up to 1.3 cm short axis, mildly increased from 1.1 cm short axis in 2006. Stable partially calcified right supraclavicular lymph node abutting internal jugular vein measuring 1.0 cm short axis. These lymph nodes nodes are nonspecific, but demonstrate relatively benign-appearing features. 4. Mildly heterogeneous thyroid gland with nodules measuring up to 1.3 cm. WSN: [id number] Signature Line Dictated By: Jesus Avila MD [...] abnormal calcifications. CONCLUSION: Stable bilateral thyroid nodules. [id number] Dictating Physician: TEDDY NARVAEZ MD Electronically Signed by: TEDDY NARVAEZ MD Dic Date/Time: 06/04/12919 Sign date/Time: 06/04/12921 Peripheral neuropathy 09/01/2013 Overview (09/01/2013): EMG Nerve Conduction Study (Verified) [facility] ELECTROMYOGRAPHY REPORT Referring Provider: Kary Alex EMG Physician: Celestine Clarke M.D. EMG Technologist: VL Limb Temperature: Warmed with hot packs to greater than 34 C Date of Service: 08/18/2013 Order ID: [id number] CLINICAL PRESENTATION: The patient is a 52 [...] Transcribed: 08/18/2013 18:20:03 Transcribed by: NAKIA DocID: [id number] PRELIMINARY REPORT UNLESS MANUALLY/ELECTRONICALLY SIGNED Sprain or strain of cervical spine 06/15/2013 Mild vitamin D deficiency 03/25/2013 Lupus (systemic lupus erythematosus) ([facility]) 02/01/2013 Fibromyalgia 02/01/2013 Asthma, mild persistent ([facility]) 02/01/2013 Hemolytic anemia ([facility]) 02/01/2013 Anxiety and depression 02/01/2013 Encounters Date Type Department Care Team Description 01/15/2025 Results Follow-Up [address] [address] Alena Koch PA-C 12/26/2024 Patient Outreach [address] [address] Mariana Fabian Community Health Worker 12/13/2024 8:20 AM EDT Telemedicine Visit [address] [address] Quiana Rg PA-C 12/01/2024 Interim Notes [address] [address] Kait Cowan from Last 3 Months Immunizations Immunization Administration [...] 13 08/25/2008 PNEUMOCOCCAL CONJUGATE PCV 2 0 (Prevnar 20) 04/09/2022 PNEUMOCOCCAL POLYSACCHARIDE PPV23 (Pneumovax 23) 02/12/2016 PPD 10/04/2013 TDAP 06/27/2020,11/30/2017,11/17/2008 ZOSTER VACCINE, RECOMBINANT (SHINGRIX) 8 Family History Medical History Relation Name Comments Stroke Father Cancer Mother Relation Name Status Comments Father Mother Social History Tobacco Use Types Packs/Day Years Used Date Smoking Tobacco: Former Cigarettes 0.5 41.3 S tarted: 11/02/1983 Passive Smoke Exposure: Never Smokeless Tobacco: Never Tobacco Cessation:Counseling Given: Yes Alcohol Use Standard Drinks/Week Comments No 0 (1 standard drink = 0.6 oz pur e alcohol) Social Connections Answer Date Recorded How often do you feel lonely or isolated from th ose around you? 1 01/11/2025 Financial Resource Strain Answer Date R ecorded How hard is it for you to pa y for the very basics like food, housing, heating, medical care, and medications? 2 01/11 Stress Answer Date Recorded Do you feel these kinds of stress these days? 1 01/11/2025 Physical Activity Answer Date Recorded Physical Activity 0 01/24/2019 Food Insecurity Answer Date Recorded Within the past 12 months, t he food you bought just didn't last and you didn't have enough money to get more. 2 01/12/20 25 Transportation Needs Answer Date Record ed Hard to pay for: Transportation 1 01/11/2025 Housing Stability Answer Date Recorded Hard to pay for: Rent/Mortgage payment 1 01/11/2025 Safety and Environment Answer Date Antwon rded Safety 1 10/09/2023 Utilities Answer Date Recorded Hard to pay for: Utilities 1 01/11 Employment Answer Date Recorded Stress 0 08/26/2021 [...] 71 09/09/2024 1:16 PM EDT Temperature 36.8 C (98.2 F) 09/09/2024 1:16 PM EDT Respiratory Rate 16 09/09/2024 1:16 PM EDT Oxygen Saturation 99% 09/09/2024 1:16 PM EDT Inhaled Oxygen Concentration - - Weight 88 kg (194 lb) 09/09/2024 1:16 PM EDT Height 160 cm (5' 2.99 ) 09/09/2024 1:16 PM EDT Body Mass Index 34.37 09/09/2024 1:16 PM EDT Plan of Treatment Health Maintenance Due Date Last Done Comments Anxiety Screening 1960 HPV Screening 1960 Urine Drug Screen 1960 [address] Colonography 2006 Fecal DNA 2006 Flexible Sigmoidoscopy 2006 FIT/gFOBT 04/25/2015 04/25/2014 (Declined) Imm-Zoster, Recombinant (2 of 2) 01/25/2018 12/01/19 Dental BW 11/02/2022 10/31/2021 Dental Examination 11/02/2022 10/31/2021 Dental Perio Charting 11/02/2022 10/31/2021 Dental Prophy 03/09/2023 03/07/2022 Annual Wellness (Adult): Indicated (All Coverage) 10/08/2024 10/09/2023, 04/09/2022, 03/22/2021, Additional history exists [id number] ( season) 2025 04/09/2022, 12/04/2021, 04/18/2021, Additional history exists Imm-Influenza (#1) 2025 02/25/2024, 1 , 03/09/2022, Additional history exists Depression Monitoring 03/15/2025 12/13/2024 , 09/09/2024, 06/28/2024, Additional history exists Colonoscopy 07/02/2025 07/02/2020, 10/22/2015 Colorectal Cancer Screening 07/02/2025 Lipid Screening 09/09/2025 09/09/2024, 10/07, 10/09/2023, Additional history exists Breast Cancer Screening (Mammogram) 10/06/2025 10/07/2023, 05/07/2022, 05/07/2022, Additional history exists Tobacco Cessation Counseling (#1) 10/12/2025 Tobacco Screening 10/12/2025 10/12/2024 Lung Cancer Screening 12/13/2025 12/13/2024 , 12/13/2024, 09/08/2024, Additional history exists Diabetes Screening 01/20/2026 01/20/2025, 0 01/20/2025, 01/11/2025, Additional history exists Dental FMX/Pano 11/02/2026 10/31/2021 Pap Smear 04/15/2027 04/15/2024, 050 07/2018, 04/25/2014 Cervical Cancer Screening 04/15/2029 Pap + HPV 04/15/2029 04/15/2024, 050 07/2018, 04/25/2014 Imm-DTaP/Tdap/Td (3 - Td or Tdap) 06/27/2030 06/27/2020, 11/30/2017, 11/17/2008 HIV Screening Completed 08/03/2018 Hepatitis C Screening Completed 08/03/2018 Imm-Pneumococcal 50+ Completed 04/09/2022, 02/12/2016, 08/25/2008 Bone Density Screening Completed , 08/21/2022, 08/21/2022 Alcohol and Drug Screen Completed 09/10/19, 10/09/2023, 07/21/2023, Additional history exists Cervical Ablation/Cold-Knife Conization Discontinued Cervical Cryotherapy Discontinued Colposcopy Discontinued Endometrial Biopsy Discontinued Excision/Leep Discontinued HPV Genotyping Discontinued Vaginal Pap Discontinued Vulvoscopy Discontinued Procedures Procedure Name Priority Date/Time Associated Diagnosis Comments OTHER ORDERS SCANNED DOCUMENT 02/13/2025 3:00 AM EDT COMPREHENSIVE METABOLIC PANEL Routine 01/20/2025 11:17 AM EDT BLOOD COUNT COMPLETE AUTO&AUTO DIFRNTL WBC Routine 01/20/2025 11:17 AM EDT HGA1C W/EAG Routine 01/20/2025 11:17 AM EDT Preoperative clearance URINE CULTURE W ID & SENS Routine 01/11/2025 2:34 PM EDT RFLX - REFLEXIVE URINE CULTURE Routine 01/11/2025 2:34 PM EDT BLOOD COUNT COMPLETE AUTO&AUTO DIFRNTL WBC Routine 01/11/2025 2:34 PM EDT Essential hypertension, benign Nephrolithiasis Hematuria, unspecified type Pre-diabetes COMPREHENSIVE METABOLIC PANEL Routine 01/11/2025 2:34 PM EDT Essential hypertension, benign Nephrolithiasis Hematuria, unspecified type Pre-diabetes TSH W/RFLX FREE T4 Routine 01/11/2025 2: 34 PM EDT Essential hypertension, benign Nephrolithiasis Hematuria, unspecified type Pre-diabetes HEMOGLOBIN GLYCOSYLATED A1C Routine 01/11/2025 2:34 PM EDT Essential hypertension, benign Nephrolithiasis Hematuria, unspecified type Pre-diabetes URINALYSIS, COMPLETE W/REFLEX TO CULTURE Routine 01/11/2025 2:34 PM EDT Essential hypertension, benign Nephrolithiasis Hematuria, unspecified type Pre-diabetes MICROALBUMIN/CREATININ E RATIO, URINE, RANDOM Routine 01/11/2025 2:34 PM EDT Essential hypertension, benign Nephrolithiasis Hematuria, unspecified type Pre-diabetes REFERRAL SCANNED DOCUMENT 12/22/2024 3:00 AM EDT LUNG CANCER SCREENING (LOW DOSE CT OF CHEST) SCANNED DOCUMENT 12/13/2024 3:00 AM EDT LUNG CANCER SCREENING (LOW DOSE CT OF CHEST) SCANNED DOCUMENT 12/13/2024 3:00 AM EDT IMAGING SCANNED DOCUMENT 11/28/2024 3:00 AM EDT IMAGING SCANNED DOCUMENT 11/28/2024 3:00 AM EDT LIPID PANEL Routine 09/09/2024 1:39 PM EDT Weight gain Elevated glucose Mild vitamin D deficiency Essential hypertension, benign THIN PREP IMAGE PAP + HPV RNA [...] Recently Relevant to Health Maintenance Results * OTHER ORDERS SCANNED DOCUMENT (02/13/2025 3:00 AM EDT) 02/13/2025 3:00 AM EDT Quiana Rg PA-C SCAN OTHER ORDERS Final Resu lt * (ABNORMAL) HGA1C W/EAG Routine (01/20/2025 11:17 AM EDT) HEMOGLOBIN A1C 5.8(H) <5.7 % 01/21/2025 8:19 AM EDT [facility] EAG (MG/DL) 120 mg/dL 01/21/2025 8:19 AM EDT [facility] EAG (MMOL/L) 6.6 mmol/L 01/21/2025 8:19 AM EDT [facility] Blood Blood / Unknown 01/20/2025 1 1:17 AM EDT 01/21/2025 3:45 AM EDT Narrative [employer] [facility] - 01/21/2025 8:39 AM EDT FASTING:YES For someone without known diabetes, a hemoglobin A1c value between 5.7% and 6.4% is consistent with prediabetes and should be confirmed with a follow-up test. . For someone with known diabetes, a value <7% indicates that their diabetes is well controlled. A1c targets should be individualized based on duration of diabetes, age, comorbid conditions, and other considerations. . This assay result is consistent with an increased risk of diabetes. . Currently, no consensus exists regarding use of hemoglobin A1c for diagnosis of diabetes for children. . us Alena Koch PA-C LAB - BLOOD DRAW Final Resul t [facility] [address] [place] [id number], [facility] [address] [address] * (ABNORMAL) BLOOD COUNT COMPLETE AUTO&AUTO DIFRNTL WBC Routine (01/20/2025 11:17 AM EDT) Only the most recent of2 resultswithin the time period is included. WHITE BLOOD CELL COUNT 6.0 3.8 - 10.8 Thousand/ uL 01/21/2025 4:10 AM [facility] [employer] RED BLOOD CELL COUNT 4.69 3.80 - 5.10 Million/u L 01/21/2025 4:10 AM [employer] [employer] HEMOGLOBIN 13.4 11.7 - 15.5 g/dL 01/21/2025 4:10 AM [employer] [employer] HEMATOCRIT 42.8 35.0 - 45.0 % 01/21/2025 4:10 AM [facility] [employer] MCV 91.3 80.0 - 100.0 fL 01/21/2025 4:10 AM [facility] [employer] MCH 28.6 27.0 - 33.0 pg 01/21/2025 4:10 AM [employer] MCHC 31.3(L) 32.0 - 36.0 g/dL 01/21/2025 4:10 AM [employer] [employer] RDW 14.1 11.0 - 15.0 % 01/21/2025 4:10 AM EDT [facility] PLATELET COUNT 252 140 - 400 Thousand/ uL 01/21/2025 4:10 AM EDT [facility] MPV 10.5 7.5 - 12.5 fL 01/21/2025 4:10 AM EDT [facility] ABSOLUTE NEUTROPHILS 2,904 1,500 - 7,800 cells/uL 01/21/2025 4:10 AM EDT [facility] ABSOLUTE LYMPHOCYTES 2,364 850 - 3,900 cells/uL 01/21/2025 4:10 AM EDT [facility] ABSOLUTE MONOCYTES 480 200 - 950 cells/uL 01/21/2025 4:10 AM EDT [facility] ABSOLUTE EOSINOPHILS 162 15 - 500 cells/uL 01/21/2025 4:10 AM EDT [facility] ABSOLUTE BASOPHILS 90 0 - 200 cells/uL 01/21/2025 4:10 AM EDT [facility] NEUTROPHILS PCT 48.4 % 4:10 AM EDT [facility] LYMPHOCYTES 39.4 % 01/21/2025 4:10 AM EDT [facility] MONOCYTES 8.0 % 01/21/2025 4:10 AM EDT [facility] EOSINOPHILS 2.7 % 01/21/2025 4:10 AM EDT [facility] BASOPHILS 1.5 % 01/21/2025 4:10 AM EDT [facility] 01/20/2025 11:1 7 AM EDT 01/21/2025 3:45 AM EDT Narrative [facility] - 01/21/2025 4:13 AM EDT FASTING:YES For adults, a slight decrease in the calculated MCHC value (in the range of 30 to 32 g/dL) is most likely not clinically significant; however, it should be interpreted with caution in correlation with other red cell parameters and the patient's clinical condition. us Alena Koch PA-C LAB - BLOOD DRAW Final Resul t [facility] [address] [address], [facility] [address] [address] * COMPREHENSIVE METABOLIC PANEL Routine (01/20/2025 11:17 AM EDT) Only the most recent of2 resultswithin the time period is included. GLUCOSE 94 65 - 99 mg/dL 01/21/2025 12:28 PM [employer] [facility] UREA NITROGEN (BUN) 15 7 - 25 mg/dL 01/21/2025 12:28 PM [employer] [facility] CREATININE (blood) 0.71 0.50 - 1.05 mg/dL 01/21/2025 12:28 PM [facility] EGFR 95 > OR = 60 mL/min/1. 73m2 01/21/2025 12:28 PM [employer] [facility] BUN/CREATININE RATIO SEE NOTE: 6 - 22 (calc) 01/21/2025 12:28 PM [facility] SODIUM 140 135 - 146 mmol/L 01/21/2025 12:28 PM [employer] [facility] POTASSIUM 4.7 3.5 - 5.3 mmol/L 01/21/2025 12:28 PM [employer] [facility] CHLORIDE 103 98 - 110 mmol/L 01/21/2025 12:28 PM [employer] [facility] CARBON DIOXIDE 30 20 - 32 mmol/L 01/21/2025 12:28 PM [employer] [facility] CALCIUM 9.6 8.6 - 10.4 mg/dL 01/21/2025 12:28 PM [employer] [facility] PROTEIN, TOTAL 7.1 6.1 - 8.1 g/dL 01/21/2025 12:28 PM [employer] [facility] ALBUMIN 4.5 3.6 - 5.1 g/dL 01/21/2025 12:28 PM [employer] [facility] GLOBULIN 2.6 1.9 - 3.7 g/dL (calc) 01/21/2025 12:28 PM [employer] [facility] ALBUMIN/GLOBULI N RATIO 1.7 1.0 - 2.5 (calc) 01/21/2025 12:28 PM [employer] [facility] BILIRUBIN, TOTAL 0.3 0.2 - 1.2 mg/dL 01/21/2025 12:28 PM [employer] [facility] ALKALINE PHOSPHATASE 63 37 - 153 U/L 01/21/2025 12:28 PM EDT [facility] AST 18 10 - 35 U/L 01/21/2025 12:28 PM EDT [facility] ALT 16 6 - 29 U/L 01/21/2025 12:28 PM EDT [facility] 01/20/2025 11:1 7 AM EDT 01/21/2025 7:35 AM EDT Narrative [facility] [facility] - 01/21/2025 12:28 PM EDT FASTING:YES . Fasting reference interval . Not Reported: BUN and Creatinine are within reference range. . Alena Koch PA-C LAB - BLOOD DRAW Final Resul t Performing Organization Address City/[facility]/ZIP Co de Phone Number [facility] [address] [address], [employer] [address] [address] * TSH W/RFLX FREE T4 Routine (01/11/2025 2:34 PM EDT) TSH W/REFLEX TO FT4 1.33 0.40 - 4.50 mIU/L 01/12/2025 7:39 AM EDT [facility] Blood Blood / Unknown 01/11/2025 2 :34 PM EDT 01/12/2025 6:04 AM EDT Narrative [facility] - 01/12/2025 7:58 AM EDT FASTING:NO Quiana Rg PA-C LAB - BLOOD DRAW Final Resul t [facility] [address] [address], [employer] [address] [address] * URINE CULTURE W ID & SENS Routine (01/11/2025 2:34 PM EDT) Micro Number [id number] 01/12/2025 11:33 PM EDT [facility] SPECIMEN QUALITY Adequate 01/12/2025 11:33 PM EDT [facility] SOURCE: URINE 01/12/2025 11:33 PM EDT [employer] STATUS: FINAL 01/12/2025 11:33 PM EDT [employer] RESULT Mixed genital loi isolated. These superficial bacteria are not indicative of a urinary tract infection. No further organism identification is warranted on this specimen. If clinically indicated, recollect clean-catch, mid-stream urine and transfer immediately to Urine Culture Transport Tube. 01/12/2025 11:33 PM EDT [facility] 01/11/2025 2:34 PM EDT 01/12/2025 4:57 AM EDT Narrative [employer] [facility] - 01/12/2025 11:39 PM EDT FASTING:NO Quiana Rg PA-C LAB - MICROBIOLOGY AMBULATOR Y Final Result [facility] [address] [address], [facility] [address] [address] * (ABNORMAL) URINALYSIS, COMPLETE W/REFLEX TO CULTURE Urine Routine (01/11/2025 2:34 PM EDT) COLOR YELLOW YELLOW 01/12/2025 4:21 AM EDT [facility] APPEARANCE CLEAR CLEAR 01/12/2025 4:21 AM [facility] SPECIFIC GRAVITY 1.021 1.001 - 1.035 01/12/2025 4:21 AM [facility] URINE PH 7.0 5.0 - 8.0 01/12/2025 4:21 AM EDT [facility] GLUCOSE NEGATIVE NEGATIVE 01/12/2025 4:21 AM [facility] BILIRUBIN NEGATIVE NEGATIVE 01/12/2025 4:21 AM [facility] KETONES NEGATIVE NEGATIVE 01/12/2025 4:21 AM [facility] OCCULT BLOOD TRACE(A) NEGATIVE 01/12/2025 4:21 AM [facility] URINE PROTEIN TRACE(A) NEGATIVE 01/12/2025 4:21 AM [facility] NITRITE NEGATIVE NEGATIVE 01/12/2025 4:21 AM [facility] LEUKOCYTE ESTERASE 2+(A) NEGATIVE 01/12/2025 4:21 AM EDT [facility] URINE LEUKOCYTES 0-5 0 - 5 /HPF 01/12/2025 4:21 AM EDT [facility] RBC 0-2 0 - 2 /HPF 01/12/2025 4:21 AM EDT [facility] SQUAMOUS EPITHELIAL CELLS 6-10(A) < OR = 5 /HPF 01/12/2025 4:21 AM EDT [facility] BACTERIA FEW(A) NONE SEEN /HPF 01/12/2025 4:21 AM EDT [facility] CALCIUM OXALATE CRYSTALS FEW NONE OR FEW /HPF 01/12/2025 4:21 AM EDT [facility] HYALINE CAST NONE SEEN NONE SEEN /LPF 01/12/2025 4:21 AM EDT [facility] SEE NOTE SEE NOTE 01/12/2025 4:21 AM EDT [facility] Urine Urine specimen / Unknown 01/11/2025 2:34 PM EDT 01/12/2025 3:03 AM EDT [facility] - 01/12/2025 4:37 AM EDT FASTING:NO This urine was analyzed for the presence of WBC, RBC, bacteria, casts, and other formed elements. Only those elements seen were reported. . . us Quiana Rg PA-C LAB URINE AMBULATORY Final R esult [facility] [address] [address], [facility] [address] [address] * RFLX - REFLEXIVE URINE CULTURE Routine (01/11/2025 2:34 PM EDT) REFLEXIVE URINE CULTURE SEE NOTE 01/12/2025 4:21 AM EDT [facility] 01/11/2025 2:34 PM EDT 01/12/2025 3:03 AM EDT [facility] - 01/12/2025 4:37 AM EDT FASTING:NO CULTURE INDICATED - RESULTS TO FOLLOW us Quiana Rg PA-C LAB - MICROBIOLOGY AMBULATOR Y Final Result Performing Organization Address [facility] [[email or web address]] de Phone Number [facility] [address] [address], [facility] [address] [address] * (ABNORMAL) MICROALBUMIN/CREATININE RATIO, URINE, RANDOM Urine Routine (01/11/2025 2:34 PM EDT) CREATININE, RANDOM URINE 87 20 - 275 mg/dL 01/12/2025 3:38 PM EDT [facility] MICROALBUMIN 3.1 mg/dL 01/12/2025 3:38 PM EDT [employer] MICROALBUMIN/CRE ATININE RATIO, RANDOM URINE 36(H) <30 mg/g creat 01/12/2025 3:38 PM EDT [employer] Urine Urine specimen / Unknown 01/11/2025 2:34 PM EDT 01/12/2025 4:57 AM EDT Narrative [employer] [facility] - 01/12/2025 3:53 PM EDT FASTING:NO Reference Range Not established . The ADA defines abnormalities in albumin excretion as follows: . Albuminuria Category Result (mg/g creatinine) . Normal to Mildly increased <30 Moderately increased 30-299 Severely increased > OR = 300 . The ADA recommends that at least two of three specimens collected within a 3-6 month period be abnormal before considering a patient to be within a diagnostic category. Quiana Rg PA-C LAB URINE AMBULATORY Final R esult Performing Organization Address [facility] Co de Phone Number [employer] [address] [address], [employer] [address] [phone] * (ABNORMAL) HEMOGLOBIN GLYCOSYLATED A1C Routine (01/11/2025 2:34 PM EDT) HEMOGLOBIN A1C 5.8(H) <5.7 % 01/12/2025 7:39 PM EDT [facility] [facility] Blood Blood / Unknown 01/11/2025 2 :34 PM EDT 01/12/2025 2:22 AM EDT Narrative [facility] - 01/12/2025 7:46 PM EDT FASTING:NO For someone without known diabetes, a hemoglobin A1c value between 5.7% and 6.4% is consistent with prediabetes and should be confirmed with a follow-up test. . For someone with known diabetes, a value <7% indicates that their diabetes is well controlled. A1c targets should be individualized based on duration of diabetes, age, comorbid conditions, and other considerations. . This assay result is consistent with an increased risk of diabetes. . Currently, no consensus exists regarding use of hemoglobin A1c for diagnosis of diabetes for children. . Vixarkin PA-C LAB - BLOOD DRAW Final Resul t [facility] [employer] [address] [place] [address], [facility] [address] [address] * REFERRAL SCANNED DOCUMENT (12/22/2024 3:00 AM EDT) 12/22/2024 3:00 AM EDT Xsilon Lukin PA-C SCAN REFERRAL Final Result * LUNG CANCER SCREENING (LOW DOSE CT OF CHEST) SCANNED DOCUMENT (12/13/2024 3:00 AM EDT) Only the most recent of2 resultswithin the time period is included. 12/13/2024 3:00 AM EDT Wanna Migrateiya Lukin PA-C SCAN IMAGING Final Result * IMAGING SCANNED DOCUMENT (11/28/2024 3:00 AM EDT) Only the most recent of2 resultswithin the time period is included. 11/28/2024 3:00 AM EDT Wanna Migrateiya Lukin PA-C SCAN IMAGING Final Result * (ABNORMAL) LIPID PANEL (09/09/2024 1:39 PM EDT) CHOLESTEROL, TOTAL 104 <200 mg/dL [employer] HDL CHOLESTEROL 48(L) > OR = 50 mg/dL [facility] TRIGLYCERIDES 119 <150 mg/dL [facility] LDL-CHOLESTEROL 35 99 mg/dL (calc) [facility] Comment: Reference range: <100 Desirable range <100 mg/dL for primary prevention; <70 mg/dL for patients with CHD or diabetic patients with > or = 2 CHD risk factors. LDL-C is now calculated using the Kiara calculation, which is a validated novel method providing better accuracy than the Friedewald equation in the estimation of LDL-C. Jordon SS et al. AUGUST. 2013;310(19): 8256-3521 (http://education.Moozey/faq/RXN934) CHOL/HDLC RATIO 2.2 <5.0 (calc) [facility] NON-HDL CHOLESTEROL 56 <130 mg/dL (calc) [facility] Comment: For patients with diabetes plus 1 major ASCVD risk factor, treating to a non-HDL-C goal of <100 mg/dL (LDL-C of <70 mg/dL) is considered a therapeutic option. Blood Blood / Unknown 09/09/2024 1 :39 PM EDT 09/09/2024 1:40 PM EDT Narrative [facility] - 09/10/2024 9:41 AM EDT FASTING:NO us Quiana Rg PA-C LAB - BLOOD DRAW Final Resul t [facility] [address] [address], [employer] [employer] [address] [place] [address] * THIN PREP IMAGE PAP + HPV RNA E6/E7 W/RFLX HPV 16, 18/45 (04/15/2024 2:06 PM EST) Pathologist [facility] CLINICAL INFORMATION See Note [employer] Comment:NORMAL EXAM~POSTMENO PAUSAL~NO LMP See Note [employer] [employer] Comment:PM PREV. PAP See Note [facility] [employer] Comment:NONE GIVEN PREV. BX See Note [facility] Comment:NONE GIVEN SOURCE See Note [facility] Comment:Cervix STATEMENT OF ADEQUACY See Note [facility] Comment: Satisfactory for evaluation. Endocervical/transformation zone component present. INTERPRETATION/RESU LT See Note [employer] Comment: Cytology Results: Negative for intraepithelial lesion or malignancy. INFECTION See Note [facility] Comment:Trichomonas vaginali s identified. COMMENT See Note [facility] [employer] Comment: This case could not be evaluated with computer assisted technology. The slide was manually screened according to routine procedures. CONTRACT CONSULTANT See Note [facility] [employer] [facility] Comment: YP, CT(ASCP) CT screening location: [place] [address] REVIEW CONTRACT CONSULTANT See Note [facility] Comment: SL, CT(ASCP) CT screening location: [place] [address] COMMENT [facility] HPV MRNA E6/E7 Not Detected Not Detected [facility] Comment: Methodology: Molder Floor-Mediated Amplification This assay detects E6/E7 viral messenger RNA (mRNA) from 14 high-risk HPV types (16,18,31,33,35,39,45,51,52,56,58,59,66,68). Cervical sources are required for HPV testing. If a vaginal source from a patient who has had a total hysterectomy with removal of cervix was submitted, please contact the testing laboratory for alternative testing options. For additional information, please refer to http://education.Leostream/faq/POU529e9 (This link if provided for information/ educational purposes only.) Swab Cervix uteri structure / Unknown 04/15/2024 2:06 PM EST 04/18/2024 7:58 AM EST Narrative [employer] [facility] - 04/21/2024 1:53 PM EST EXPLANATORY NOTE: [...] PATHOLOGY AND CYTOLOGY AM BULATORY Final Result [facility] [address] [address], [facility] [address] [place] [address] * MAMMO DIGITAL SCREEN EMELY W CAD 3D (10/07/2023 3:00 AM EDT) 10/07/2023 3:00 AM EDT Quiana Rg PA-C IMG MAMMO Final Result [facility]AG[facility] Corporate Office [address], [address] [place] [address], * HISTORIC DEXA SCAN (08/21/2022 3:00 AM EDT) 08/21/2022 3:00 AM EDT Quiana Rg PA-C IMG DXA Final Result * (ABNORMAL) HEPATITIS A,B,C PANEL (08/03/2018 1:54 PM EST) HEPATITIS B SURFACE ANTIBODY POSITIVE(A) NEGATIVE [facility] HEPATITIS B SURFACE ANTIGEN NEGATIVE NEGATIVE [facility] Comment: Over the counter supplements containing high doses of biotin may interfere with this assay. If interference is suspected, patients shoud be retested after refraining from biotin supplements for 72 hours. HEPATITIS C VIRUS DIAGNOSTIC NEGATIVE NEGATIVE [facility] HEPATITIS A ANTIBODY TOTAL POSITIVE(A) NEGATIVE [facility] Comment: Over the counter supplements containing high doses of biotin may interfere with this assay. If interference is suspected, patients shoud be retested after refraining from biotin supplements for 72 hours. Blood specimen (specimen) Blood / Unknown 08/03/2018 1:54 PM EST 08/03/2018 1:55 PM EST Narrative [facility] - 08/03/2018 6:46 PM EST [employer], a member of [address] [address] Web Project Manager - Georgia M[place] [id number] ORD# [id number] Quiana Rg PA-C LAB - BLOOD DRAW Edited Resu lt - Final Performing Organization Address [facility]/ZIP Co de Phone Number [address] [address], * HIV-1 & HIV-2 ANTIBODIES (08/03/2018 1:54 PM EST) [facility] HIV 1 AND 2 ANTIBODY SCREEN NEGATIVE NEGATIVE [facility] Comment: This assay is a 4th generation assay allowing for earlier detection of HIV infection by detecting the presence of the HIV-1 p24 antigen as well as the traditional antibodies to HIV type 1 (including group O) and type 2. Use of a 4th generation assay is the current CDC recommendation for HIV screening. Blood specimen (specimen) Blood / Unknown 08/03/2018 1:54 PM EST 08/03/2018 1:55 PM EST Narrative [facility] - 08/03/2018 7:15 PM EST [employer], a member of [address] [address] Web Project Manager - Georgia Mims MD [place] [id number] ORD# [id number] Quiana Rg PA-C LAB - BLOOD DRAW Final Resul t Performing Organization Address [facility] Co de Phone Number [address] [address], * COLONOSCOPY (10/22/2015 1:28 PM EDT) Robbies Quiana Rg PA-C - 10/22/2015 1:28 PM EDT Grade 2 internal and external hemorrhoids, stool in cecum, repeat in 5 years [facility] G.I. PROCEDURES Final Result from Last 3 Months or Most Recently Relevant to Health Maintenance [place] [address] ACO Care Teams Shredder Operator Relationship Specialty Start Date End Date Quiana Rg PA-C [address] [place] [address] PCP - General Internal Medicine 11/14/13
--- OUTSIDE RECORDS SUMMARY | 2025-02-28 14:46 | XMS_ITS | Encounter Summary ---
Author Organization [facility] Address [address] [place] [address] Care Team Providers Care Puffer Tender Name Role Phone Quiana Rg PA-C Primary Care Provider + [phone] Encounter Details Date Type Department Care Team ([facility] st Contact Info) Description 12/26/2024 Patient Outreach [facility] [address] [place] [phone] Mariana Fabian, Community Health Worker [address] [place] [address] Social History Tobacco Use Types Packs/Day Years Used Date Smoking Tobacco: Former Cigarettes 0.5 41.3 S tarted: 11/02/1983 Passive Smoke Exposure: Never Smokeless Tobacco: Never Alcohol Use Standard Drinks/Week Comments No 0 (1 standard drink = 0.6 oz pur e alcohol) Social Connections Answer Date Recorded How often do you feel lonely or isolated from th ose around you? 1 06/28/2024 Financial Resource Strain Answer Date R ecorded Hard to pay for: Food 1 06/28/2024 Stress Answer Date Recorded Do you feel these kinds of stress these days? 1 06/28/2024 Physical Activity Answer Date Recorded Physical Activity 0 01/24/2019 Food Insecurity Answer Date Recorded Hard to pay for: Food 1 06/28/2024 Transportation Needs Answer Date Record ed Hard to pay for: Transportation 1 06/28/2024 Housing Stability Answer Date Recorded Hard to pay for: Rent/Mortgage payment 1 06/28/2024 Safety and Environment Answer Date Antwon rded Safety 1 10/09/2023 Utilities Answer Date Recorded Hard to pay for: Utilities 1 06/28 Employment Answer Date Recorded Stress 0 08/26/2021 [...] as of this encounter Visit Diagnoses Diagnosis Food insecurity- Primary Financial difficulties Inadequate material resources documented in this encounter Additional Health Concerns Assessment Noted Time PHQ-9 Depression Total Score: 0 12/14/19 25 9:18 AM PDT documented as of this encounter Care Teams Puffer Tender Relationship Specialty Start Date End Date Quiana Rg PA-C [address] [place] [address] PCP - General Internal Medicine 11/14/13 documented as of this encounter
--- OUTSIDE RECORDS SUMMARY | 2025-02-28 14:46 | XMS_ITS | Encounter Summary ---
Author Organization [employer] Address [address] [facility] 7[address] [place] [address] Care Team Providers Care Vascular Technician Name Role Phone Unavailable Primary Care Provider Unavailabl e Encounter Details Date Type Department Care Team (Latest Contact Info) Description 08/31/2018 Abstract [facility] CONVERSIONS Dental, Provider, DDS Social History [...]
--- OUTSIDE RECORDS SUMMARY | 2025-02-28 14:46 | XMS_ITS | Clinical Summary ---
Author Organization [facility] Address [address] [place] [address] Phone Care Team Providers Care Dispatcher Relay Name Role Phone ChloéLaxmie CRYS Primary Care Provider [phone] Allergies Active Allergy Reactions Criticality Noted Date [...] day. 1800 mL 3 07/06/19 25 Active promethazine (PHENERGAN) 25 mg tablet TAKE 1 TABLET BY MOUTH EVERY 8 HOURS NEEDED FOR NAUSEA 90 tablet 11/07/19 25 Active omeprazole (PriLOSEC) [address] capsule TAKE 1 CAPSULE BY MOUTH DAILY 90 capsule 3 11/07/19 25 Active Linzess 290 mcg capsule TAKE 1 CAPSULE(290 MCG) BY MOUTH 1 TIME EACH DAY 30 capsule 3 02/02/20 25 Active linaCLOtide (LINZESS) 290 mcg capsule Take 1 capsule (290 mcg total) by mouth 1 (one) time each day. 30 each 3 10/05/19 25 025 Discontinued Active Problems Problem Noted Date Diagnosed Date Acute bronchitis 06/10/2024 Hypoxia 06/10/2024 Influenza A 06/07/2024 Influenza and pneumonia 06/06/2024 Oral candidiasis 02/16/2019 Nausea 01/13/2019 Gas bloat syndrome 01/13/2019 Irritable bowel syndrome wit h both constipation and diarrhea 01/13/2019 Gastroparesis 01/13/2019 Encounters Date Type Department Care Team Description 01/16/2025 Telephone Gastroenterology [facility] [address] [address] Consuelo Mccurdy [place] 01/03/2025 1:40 PM EDT Office Visit Gastroenterology [facility] [address] [facility] [address] [place] [phone] Gwen Queen PA Gas bloat syndrome (Primary Dx); Gastroparesis from Last 3 Months Immunizations Name Administration Dates Next Due Moderna SARS-CoV-2 COVID-19, mRNA, LNP-S, preservative free 12/04/2021,10/10/2020,09/12/2020 Surgical History Surgery Date Site/Laterality Comments SPINAL CORD STIMULATOR IMPLANT APPENDECTOMY CHOLECYSTECTOMY SECTION, LOW TRANSVERSE x3 TOTAL KNEE ARTHROPLASTY Left Medical History Medical History Date Comments Depression with anxiety Asthma Hypercholesteremia Hypertension GERD (gastroesophageal reflux disease) SLE (systemic lupus erythematosus) ([facility]/HCC V24, [facility]/HCC V28) Fibromyalgia Chronic back pain Hepatitis B [...] care for your loved ones. For example, manager child or elderly care for an older [...] Sign Reading Time Taken Comments Blood Pressure 122/60 01/03/2025 1:31 PM EDT Pulse 62 01/03/2025 1:31 PM EDT Temperature 36.7 C (98 F) 11/22/2024 3:03 PM EDT Respiratory Rate 20 11/22/2024 3:23 PM EDT Oxygen Saturation 97% 01/03/2025 1:31 PM EDT Inhaled Oxygen Concentration - - Weight 86.2 kg (190 lb) 01/03/2025 1:31 PM EDT Height 158.8 cm (5' 2.5 ) 01/03/2025 1:31 PM EDT Body Mass Index 34.2 01/03/2025 1:31 PM EDT Plan of Treatment Upcoming Encounters Date Type Department Care Team (Late st Contact Info) Description 04/13/2025 1:40 PM EST Office Visit Gastroenterology - [place] [address] [facility] [address] [place] [address] Gwen Queen PA [address] [facility] [address] [place] [address] Health Maintenance Due Date Last Done Comments Cervical Cancer Screening: Pap Smear 1982 Zoster Vaccines (2 of 2) 01/25/2018 11/30/2017 RSV Immunization Adult Patients (1 - Risk 60-74 years 1-dose series) 2021 Hepatitis C Screening 05/17/2022 Depression Screening 06/08/2024 COVID-19 Vaccine ( - season) 2025 04/09/2022, 12/04/2021, 04/18/2021, Additional history exists Influenza [...] this topic Medical Devices Implanted Type Area Military Pay Clerk Device Identifier Shelf Expiration Date Model / Serial / Lot Implants Implants Left: Knee Spinal Hardware Spinal Hardware N/A: Back Procedures Procedure Name Priority Date/Time Associated Diagnosis Comments CT ABDOMEN PELVIS WO AND W CONTRAST Routine 01/16/2025 1:49 PM EDT BASIC METABOLIC PANEL Routine 06/08/2024 5:40 AM [...] Recently Relevant to Health Maintenance Results * CT Abdomen Pelvis wo and w Contrast (01/16/2025 1:49 PM EDT) Anatomical Region Laterality Modality Body Computed Tomogra phy us Historical Provider MD MONTIEL CT PROCEDURES Final R esult * (ABNORMAL) Basic metabolic panel (06/08/2024 5:40 AM EST) Sodium 137 133 - 145 mmol/L LAB CHEMISTRY METHOD 06/08/2024 7:39 AM EST [facility] Potassium 3.5 3.5 - 5.5 mmol/L LAB CHEMISTRY METHOD 06/08/2024 7:39 AM EST [facility] Chloride 105 96 - 110 mmol/L LAB CHEMISTRY METHOD 06/08/2024 7:39 AM EST [facility] CO2 28 21 - 32 mmol/L LAB CHEMISTRY METHOD 06/08/2024 7:39 AM [facility] Anion Gap 4 3 - 11 LAB CHEMISTRY METHOD 06/08/2024 7:39 AM [facility] Glucose 89 70 - 100 mg/dL LAB CHEMISTRY METHOD 06/08/2024 7:39 AM [facility] BUN 23 5 - 25 mg/dL LAB CHEMISTRY METHOD 06/08/2024 7:39 AM [facility] Creatinine 0.65 0.50 - 1.10 mg/dL LAB CHEMISTRY METHOD 06/08/2024 7:39 AM [facility] eGFR 100 >=60 mL/min/1. 73m2 LAB CHEMISTRY METHOD 06/08/2024 7:39 AM [facility] Comment:Calculation based on the Chronic Kidney Disease Epidemiology Collaboration (CKD-EPI) equation refit without adjustment for race. BUN/Creatinine Ratio 35.4 LAB CHEMISTRY METHOD 06/08/2024 7:39 AM [facility] Calcium 8.2(L) 8.5 - 10.5 mg/dL LAB CHEMISTRY METHOD 06/08/2024 7:39 AM [facility] Blood Venous blood specimen / Unknown Venipuncture / Unknown 06/08/2024 5:40 AM EST 06/08/2024 6:51 AM EST us [employer] [facility] LAB BLOOD ORDERABLES Final Resul t [facility] [address] [place] [address], * CT Lung Screening (05/01/2024 9:27 AM [...] Signed Date: 05/02/2024 13:27 ET Workstation ID: [id number] Transcribed By: Self Edit Transcribed Date: 05/02/2024 13:14 ET Narrative 05/02/2024 1:27 PM EST EXAMINATION: CT CHEST WITHOUT CONTRAST LUNG CANCER SCREENING, LOW DOSE CLINICAL INFORMATION: Lung cancer screening. Current smoker COMPARISON: Portions of a previous 04/29/2023 TECHNIQUE: Multidetector CT. Examination of the chest. Examination of the chest without IV contrast. Reformatting in the coronal and sagittal planes. Device: [email or web address] VCT DLP: 164 mGy-cm CTDI: 4.83 Dose [...] in the coronal and sagittal planes. Device: [email or web address] VCT DLP: 164 mGy-cm CTDI: 4.83 Dose [...] Signed Date: 05/02/2024 13:27 ET Workstation ID: [id number] Transcribed By: Self Edit Transcribed Date: 05/02/2024 [...] AM EDT Narrative 10/07/2023 1:06 PM EDT [facility] Diagnostic Imaging Department [address] [place] [id number] Patient: KOURTNEY MATTHEWS /Age/Sex: 1960 - 62 - F Unit#: [id number] Location/Status: SPDIMAM/REG CLI Mnemonic/Ordering Site: [facility] Ordering Physician: KOSTA BIRMINGHAM [facility] Screening Digital - 10/07/23 - 1147 Report Status:Signed EXAM: [facility] Screening Digital EXAM DATE AND TIME: 10/07/2023 11:48 AM HISTORY: Screening. Reduction mammoplasty in 2007. COMPARISON: 05/07/22, 04/06/20, 03/29/20, 03/22/18 TECHNIQUE: Bilateral digital breast tomosynthesis was performed in the CC and MLO projections. Computer aided detection with [employer] 3D 3.1 was employed. TISSUE DENSITY: a. [...] Procedure Note Eloina Romano MD - 01/25/2024 [facility] Diagnostic Imaging Department [address] [place] [id number] Patient: SHAQ MATTHEWSVA /Age/Sex: 1960 - 62 -F Unit#: [id number] Location/Status: SPDIMAM/REG CLI Mnemonic[facility] Order[facility] Physician: KOSTA BIRMINGHAM [facility] Screening Digital - 10/07/23 - 1147 Report Status:Signed EXAM: [facility] Screening Digital EXAM DATE AND TIME: 10/07/2023 11:48 AM HISTORY: Screening. Reduction mammoplasty in 2007. COMPARISON: 05/07/22, 04/06/20, 03/29/20, 03/22/18 TECHNIQUE: Bilateral digital breast tomosynthesis was performed in the CCand MLO projections. Computer aided detection with [employer] 3D 3.1was employed. TISSUE DENSITY: a. The [...] currently active code status orders. Care Teams Dispatcher Relay Relationship Specialty Start Date End Date Laxmi Luevano FNP [address] [place] [address] PCP - General Internal Medicine 12/05/20
--- OUTSIDE RECORDS SUMMARY | 2025-02-28 14:46 | XMS_ITS | Clinical Summary ---
Author Organization [facility] Address [address] [facility] 7t [place] [address] Care Team Providers Care Acid Treater Name Role Phone Unavailable Primary Care Provider Unavailabl e Encounters Date Type Department Care Team Description 12/27/2024 Population Health Risk Score [facility] (C3) Department [address] [facility] [address] [place] [address] Provider, Population Health Generic from Last 3 Months Social History Tobacco Use Types Packs/Day Years [...] FIT DNA/Cologuard 1960 FIT 1960 FOBT 1960 Lipid Panel 1960 Sigmoidoscopy 1960 Disability Screening 1961 Alcohol/Substance Use Screening 1973 Tobacco Screening 1973 Hepatitis C Screening 11/02/1979 Hepatitis A Vaccines (1 of 2 - Risk 2-dose series) 1980 Pap Smear 1982 Cervical Cancer Screening 11/02/1991 HPV/Cotest 11/02/1991 Mammogram 2001 Zoster Vaccines (2 of 2) 01/25/2018 11/30/2017 Hepatitis B Vaccines (1 of 3 - Risk 3-dose series) 2021 RSV Patients and Patients Aged 60 years or older (1 - Risk 60-74 years 1-dose series) 2021 COVID-19 Vaccine (6 - season) 2025 04/09/2022, 12/04/2021, 04/18/2021, Additional history exists Influenza Vaccine (#1) 2025 4, 04/06/2023, 03/09/2022, Additional history exists DTaP/Tdap/Td Vaccines (3 - Td or Tdap) 06/27/2030 06/27/2020, 11/17/2008 HIV Screening Completed 08/03/2018 Pneumococcal Vaccine: 50+ [...]
--- OUTSIDE RECORDS SUMMARY | 2025-02-28 14:46 | XMS_ITS | Encounter Summary ---
Author Organization [facility] Address [address] [place] [address] Care Team Providers Care Plastic Extrusion Operator Name Role Phone Quiana Rg PA-C Primary Care Provider Encounter Details Date Type Department Care Team ([facility] st Contact Info) Description 09/03/2015 Interim Notes [facility] [address] [place] [phone] Fredrick Miller [phone] [place] [address] Social History Tobacco Use Types Packs/Day Years [...] documented as of this encounter Care Teams Plastic Extrusion Operator Relationship Specialty Start Date End Date Quiana Rg PA-C [address] [place] [phone] PCP - General Internal Medicine 11/14/13 documented as of this encounter
== END 2025-02-28 12:18 | disposition home or self-care (01) ==
LOC: HO.HSM 11:55
PROVIDERS: PCP Physician Assistant; Referring Provider Physician Assistant; Visit Provider Registered Nurse
DX: G25.0 Essential tremor (principal); M79.7 Fibromyalgia
CPT/HCPCS: 99214

== ENCOUNTER → 2025-02-28 11:55 | Outpatient (BNVA) | payer MEDICAID, SELFPAY | PROVIDERS: PCP Physician Assistant; Referring Provider Physician Assistant; Visit Provider Registered Nurse | DX: G25.0 Essential tremor (principal); M79.7 Fibromyalgia | CPT/HCPCS: 99212 ==

== ENCOUNTER 2025-05-19 11:09 | Outpatient (AMB) | payer MEDICAID, SELFPAY ==
--- NOTE | 2025-05-19 11:58 | MHC.OFFVIS ---
Intake Visit Reasons: 3m Allergies doxycycline Allergy (Mild, Verified 05/19/25 12:15) Unknown lamotrigine Allergy (Mild, Verified 05/19/25 12:15) Unknown metoclopramide Allergy (Mild, Verified 05/19/25 12:15) Unknown Medication List - Last Reconciled 05/19/25 by Gudelia Tai CNP albuterol sulfate 90 mcg/actuation (Ventolin HFA) 2 puffs inhalation Q4-6H PRN albuterol sulfate 2.5 mg (3 mL) inhalation QID amlodipine 5 mg PO DAILY amoxicillin-pot clavulanate 875-125 mg 1 tab PO BID buspirone 10 mg PO BID celecoxib (Celebrex) 200 mg PO DAILY diclofenac sodium 1% 2 grams topical QID duloxetine 60 mg PO DAILY dupilumab (Dupixent) 300 mg (2 mL) subcut Q2W kepclkxjyal-wosxrmrvb-kgsumnat 100-62.5-25 mcg (Trelegy Ellipta) 1 inh inhalation DAILY furosemide 40 mg PO QAM gabapentin 600 mg PO DAILY hydroxychloroquine 200 mg PO DAILY lidocaine 5% (Lidoderm) 2 patches topical DAILY melatonin-lemon balm leaf extr 10-1 mg tabs PO uqzkyklt-nlyggxecm-AU 3.5-10,000-0.5 mg/g-unit/g-% appl topical omeprazole 40 mg PO DAILY primidone 50 mg PO TID 90 days tramadol 50 mg PO DAILY Ventolin HFA 90 mcg/actuation (albuterol sulfate) 2 puffs PO Q6H PRN NS zolpidem 10 mg PO BEDTIME PRN HPI Comments Details: Tremor in hands is better with increased dose of primidone. No significant functional impairment. No difficulty eating, drinking, or swallowing. No balance or mobility issues, no falls. Mood was okay. Sleep was okay. Tremors in hands, R > L, occasionally affected her ability to function with fine motor skills, like writing. She is RH and handwritting has gotten shakey, and may be a bit smaller. No triggers have been identified. She has no thyroid disorder. She has one maternal uncle with a tremor. Had back surgery 04/2023 which went well. [facility] Family History (Updated 02/28/25 @ 12:21 by Gudelia Tai CNP) Maternal Uncle Tremor Social History Patient Tobacco Use Status: Current everyday Tobacco user Cigarette Packs Per Day: 0.33 Cigarettes Per Day: 6 Review of Systems Const Denies chills, Denies daytime sleepiness, Denies difficulty sleeping, Denies fatigue, Denies fever(s), Denies frequent falls, Denies headache(s), Denies increased appetite, Denies poor appetite, Denies snoring, Denies weakness, Denies weight gain and Denies weight loss Eyes Denies loss of vision ENT Denies vertigo, Denies dizziness, Denies headache(s) and Denies neck pain Card Denies chest pain at rest, Denies chest pain with activity, Denies syncope, Denies leg edema, Denies palpitations, Denies dyspnea and Denies dyspnea on exertion Resp Denies cough, Denies dyspnea, Denies dyspnea on exertion and Denies snoring GI Denies abdominal pain, Denies constipation, Denies heartburn, Denies diarrhea and Denies nausea Denies urinary frequency, Denies urinary incontinence and Denies urinary urgency Musc Denies abnormal gait, Denies back pain, Denies myalgias, Denies arthralgias, Denies neck pain, Denies numbness and Denies tingling Neuro Denies abnormal gait, Denies vertigo, Denies dizziness, Denies syncope, Denies frequent falls, Denies headache(s), Denies lack of coordination, Denies loss of vision, Denies memory loss, Denies numbness, Denies Other visual disturbances, Denies restless legs, Denies seizure-like activity, Denies tingling, Denies paresthesias, Reports tremor(s) and Denies weakness Psych Denies anxiety, Denies depression, Denies auditory hallucinations, Denies memory loss and Denies visual hallucinations Endo Denies fatigue and Denies palpitations Physical Exam Const Other: General Appearance:? normal, in no acute distress. Heart:? S1, S2 normal, no murmurs. Lungs:? clear anteriorly and posteriorly. Musculoskeletal:? normal. Extremities:? no edema. Psych:? alert, oriented, cognitive function intact, cooperative with exam. Neuro Other: Abnormal Neurological Findings:?Mild tremor of the extended upper extremities ,R > L, medium to high frequency low amplitude with some degree of fear irregularity. No rest tremor. No rigidity. No signs of Parkinson's disease. No head or neck tremor Mental Status: alert and oriented X 3. Normal attention, orientation, memory, and affect. Cranial Nerves: Pupils are equal, round, and reactive to light. External ocular muscles are intact. Visual no are full, no ptosis. Face is symmetrical, no facial weakness or droop. Facial sensations are normal. Tongue protrudes in midline. Palate elevates symmetrically. Shoulder shrugging is normal Motor Examination: Normal muscle tone, bulk and strength. No atrophy or fasciculations. No drift of the extended upper extremities. DTR 2+. Plantars are flexor. Sensory Exam: Normal light touch, temperature, pinprick, vibration, and joint-position sensations. Rhomberg sign is absent. Coordination: No ataxia. No titubation. Gait Exam: Within normal limits. Cerebellar Signs: Vfvhnv-tm-ugmh is okay. Extrapyramidal System: Tremor as above. No rigidity with normal facial expressions. No bradykinesia. No bradyphrenia. Normal arm swing and posture. No propulsion or retropulsion. Speech: Normal. Assessment & Plan Assessment & Plan (1) Benign essential tremor: Code(s): G25.0 - Essential tremor Category: Medical Plan: Continue primidone 50mg 1 tablet three times a day. Follow up in 6 months or sooner as needed. (2) Fibromyalgia: Code(s): M79.7 - Fibromyalgia Category: Medical Plan . Medications: Refilled primidone 50 mg PO TID 270 tabs 1RF 90 days Coding Level of Care Code Est Pt Level 3 (94372) Diagnoses Benign essential tremor G25.0 Fibromyalgia M79.7
== END 2025-05-19 12:19 | disposition home or self-care (01) ==
LOC: HO.HSM 11:10
PROVIDERS: PCP Physician Assistant; Visit Provider Registered Nurse
DX: G25.0 Essential tremor (principal); M79.7 Fibromyalgia
CPT/HCPCS: 99213

== ENCOUNTER → 2025-05-19 11:09 | Outpatient (BNVA) | payer MEDICAID, SELFPAY | PROVIDERS: PCP Physician Assistant; Visit Provider Registered Nurse | DX: G25.0 Essential tremor (principal); M79.7 Fibromyalgia; Z79.899 Other long term (current) drug therapy | CPT/HCPCS: 99212 ==